=== PATIENT | female | born 1965 | race Two or more races ===

== ENCOUNTER 2016-10-19 09:50 | Inpatient (IN) | payer MEDICAID ==
[~2016-10-19] VITALS: Ht 147.3 cm; Wt 54.4 kg
[2016-10-19] MEDS ORDERED: NKM (09:56)
[2016-10-19] MEDS ORDERED: NS 1000ml 1,600 ML IVLG ONE (10:00)
[2016-10-19 11:03] LABS: BASOPHILS % (AUTO) 1.6 % (0.0-2.0); LYMPHOCYTES % (AUTO) 7.5 % (20.0-45.0); MEAN CORPUSCULAR HEMOGLOBIN 27.1 PG (27.0-31.0); MEAN CORPUSCULAR VOLUME 85 FL (80-99); MEAN PLATELET VOLUME 6.7 FL (6.5-10.1); MONOCYTES % (AUTO) 9.9 % (1.0-10.0); PLATELET COUNT 442 K/UL (150-450); RED BLOOD COUNT 4.81 M/UL (4.20-5.40); RED CELL DISTRIBUTION WIDTH 13.5 % (11.6-14.8); WHITE BLOOD COUNT 17.3 K/UL (4.8-10.8)
[2016-10-19] MEDS ORDERED: Morphine Sulfate 4mg/ml Inj IVP ONE (11:15)
[2016-10-19] MEDS ORDERED: Tubing IV Cassette IV ONE (11:22)
[2016-10-19 11:23] LABS: ALANINE AMINOTRANSFERASE 9 U/L (3-33); ALBUMIN/GLOBULIN RATIO 0.8 (1.0-2.7); ANION GAP 24 (5-15); ASPARTATE AMINO TRANSFERASE 9 U/L (5-40); CALCIUM 9.1 mg/dL (8.6-10.2); CARBON DIOXIDE 22 mEQ/L (20-30); CHLORIDE 89 mEQ/L (98-107); CREATININE 0.5 mg/dL (0.5-0.9); GLOMERULAR FILTRATION RATE > 60 mL/min (>60); HEMOLYSIS 3; POTASSIUM 3.5 mEQ/L (3.4-4.9); SODIUM 135 mEQ/L (135-145); TOTAL PROTEIN 7.3 g/dL (6.6-8.7)
[2016-10-19 11:33] LABS: CKMB < 1.5 ng/mL (< 3.8)
[2016-10-19 12:00] VITALS: BP 147/61
--- NOTE | 2016-10-19 12:25 | Diagnostic Imaging Report ---
Indication: PAIN Technique: 2 views of the right hip Comparison: None Findings: There is a right hip hemiarthroplasty prosthesis in good position. No acute fractures. No dislocations. There is an old healed medial pubic fracture. There is questionably a soft tissue defect in the lateral hip region Impression: Questionable lateral hip soft tissue defect, possibly an ulcer or laceration.. Correlate with clinical findings Postsurgical changes, as described Evidence of old healed medial pubic fracture
[2016-10-19 13:11] LABS: APPEARANCE,URINE SLIGHTLY CLOUDY; KETONES,URINE 3+ (NEGATIVE); PROTEIN,URINE 1+ (NEGATIVE)
[2016-10-19 13:12] LABS: LEUKOCYTE ESTERASE ,URINE NEGATIVE (NEGATIVE); NITRITE,URINE NEGATIVE (NEGATIVE); UROBILINOGEN,URINE NORMAL MG/DL (0.0-1.0)
[2016-10-19 13:25] LABS: BACTERIA,URINE FEW /HPF; SQUAMOUS EPITHELIAL CELL,UR FEW /LPF (NONE/OCC); WBC,URINE 0-2 /HPF (0 - 2)
[2016-10-19 14:00] VITALS: BP 128/60
[2016-10-19] MEDS ORDERED: Vancomycin 1 GM in NS 275 ML IVPB ONE (15:00)
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
[2016-10-19] MEDS ORDERED: Lidocaine 1% Plain 30 ml INJ ONE (15:30)
--- NOTE | 2016-10-19 15:59 | Diagnostic Imaging Report ---
Indication: PAIN Technique: IV administration nonionic contrast.. Spiral acquisitions obtained through the . Multiplanar reconstructions were generated. Total dose length product 316 mGycm. CTDIvol(s) 11 mGy. Radiation dose was minimized using automated exposure control Comparison: None Findings: There is a right hip hemiarthroplasty prosthesis in place. This appears well aligned and there is no worrisome periprosthetic lucency. Throws off streak artifact which could obscure pathology. Extending from the neck of the prosthesis anterolaterally to the skin surface, there is a collection which measures 8.3 cm x 5.6 cm x approximately 12 cm craniocaudad. This contains material which is higher than fluid attenuation, gas bubbles, and has an enhancing rim. Many of the gas bubbles within it are nondependent. At its cephalad extent the collection extends over the prosthesis and lateral to acetabulum. There is a complex fracture deformity of the pubic symphysis, primarily involving the right side of the pubic symphysis. This appears chronic and healed. However, there is lucency, particularly within the medial right pubic symphysis, and slight diastasis of the pubic symphysis. There is cortical irregularity of both sides of the. Most likely on the basis of chronic posttraumatic deformity, possibility of active infection as etiology of the irregularity cannot be ruled out. No acute fracture demonstrated. Incidentally noted are a Landa catheter an intrauterine device. The remaining pelvic viscera are unremarkable. The left hip is unremarkable. Impression: Rim enhancing collection containing gas and somewhat hypoattenuating material in the anterior right hip, groin, and proximal thigh region, as described. Findings are suspicious for abscess . Higher than water attenuation of the central material may indicate that this is organized material or old blood. Presence of gas bubbles is concerning for infection with gas-forming organism Satisfactory configuration of right hip prosthesis Old pubic symphyseal fracture deformity, as described. Findings may all be chronic, but considerable irregularity both sides of the pubic symphysis and fragmentation of the medial right pubic symphysis raises possibility of active infection. Correlation with clinical findings is recommended. Incidental findings as noted, including Landa catheter and intrauterine device Dr. Dorsey notified of the findings at the time of interpretation The CT scanner at [facility] is accredited by the [employer] and the scans are performed using protocols designed to limit radiation exposure to as low as reasonably achievable to attain images of sufficient resolution adequate for diagnostic evaluation.
[2016-10-19 16:00] VITALS: BP 126/65
--- NOTE | 2016-10-19 20:28 | Consultation ---
DATE OF CONSULTATION: ORTHOPEDIC CONSULTATION HISTORY OF PRESENT ILLNESS: The patient is a pleasant 51-year-old female, who underwent a right hip hemiarthroplasty in July of 2016. She subsequently was seen here. She has had acute swelling and pain in the hip. Orthopedic consult was obtained for further care and recommendation. PAST MEDICAL HISTORY: Reviewed from the intake chart. PAST SURGICAL HISTORY: Reviewed from the intake chart. MEDICATIONS: Reviewed from the intake chart. PHYSICAL EXAMINATION: EXTREMITIES: The patient has an anterior incision that is clean, dry, and intact. There is fullness along the anterior aspect of the hip consistent with a prior periprosthetic infection. NEUROVASCULAR: Normal. DIAGNOSTIC DATA: CT scan of the hip shows a significant periarticular joint infection extending all the way into the hip joint. 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 DISCUSSION: The patient was recently seen by Dr. Samaniego and had surgery at the end of 2015. The patient had multiple ER visits at [facility]. At this point, I would recommend transfer to [facility] for care of this surgical complication. The patient will require an incision and drainage, removal of the implant, and placement of an antibiotic spacer. Gabriel Collazo M.D. DR: CHEMA JOB#: [id number] CC:
[2016-10-19] MEDS ORDERED: Vancomycin 1gm inj IVPB ONE (21:51)
[2016-10-19 21:55] VITALS: BP 125/65
--- NOTE | 2016-10-19 23:05 | Emergency Room Report ---
Physical Exam Vital Signs Date Time Temp Pulse Resp B/P Pulse Ox O2 Delivery O2 Flow Rate FiO2 10/19/16 09:49 97.3 113 16 120/69 99 Room Air Medical Decision Making Diagnostic Impression: Primary Impression: Uncontrolled diabetes mellitus Qualified Codes: E13.8 - Other specified diabetes mellitus with unspecified complications; E13.65 - Other specified diabetes mellitus with hyperglycemia Additional Impressions: Post operative swelling Infected prosthesis of right hip ER Course CT shows rim-enhancing fluid collection surrounding the right hip prosthesis consistent with infection. Orthopedics here evaluated the patient determined that this is a complex case requiring hip replacement will need higher level of care transfer. He obtained records from [facility] and determined that operation was performed by Dr. Samaniego in July 2016 This is a complication of the initial operation and will require revision by by initial surgeon. Dr. samaniego accepted the patient for transfer [facility] stated that they will create a bed for the patient however there is no bed availability at this time. The patient be boarded in the emergency room until a bed is available for the patient at [facility] Last Vital Signs Date Time Temp Pulse Resp B/P Pulse Ox O2 Delivery O2 Flow Rate FiO2 10/19/16 21:55 102.1 96 18 125/65 96 Room Air Status: unchanged Disposition: XFER [facility] Condition: Serious Referrals: NOT CHOSEN AICHA/,REFERRING (PCP) AALIYAH STANLEY M.D. Oct 19, 2016 23:05
[2016-10-19 23:45] VITALS: BP 122/64
[2016-10-19] MEDS ORDERED: Ketorolac 30mg Inj IV ONE (23:45)
[2016-10-19] MEDS ORDERED: Nitroglycerin 2% oint pkt TOPIC ONE (23:52)
[2016-10-20] VITALS (8 sets, daily range): BP systolic 104–132; BP diastolic 48–66
[2016-10-20] MEDS ORDERED: Morphine Sulfate 4mg/ml Inj IVP ONE ×2 (04:30→08:00)
[2016-10-20] MEDS ORDERED: Vancomycin 1 GM in D5W 275 ML IVPB ONE (06:45)
[2016-10-20] MEDS ORDERED: Vancomycin 1gm inj IVPB ONE (06:49)
--- NOTE | 2016-10-20 07:09 | Emergency Room Report ---
History of Present Illness General Chief Complaint: Pain Source: Patient Present Illness Allergies: Coded Allergies: No Known Allergies (Unverified , 10/19/16) Patient History Now: No Nursing Documentation-PM Past Medical History: No History, Except For Hx Cardiac Problems: No - RT HIP REPLACED Jul Physical Exam Vital Signs Date Time Temp Pulse Resp B/P Pulse Ox O2 Delivery O2 Flow Rate FiO2 10/19/16 09:49 97.3 113 16 120/69 99 Room Air Medical Decision Making Diagnostic Impression: Primary Impression: Uncontrolled diabetes mellitus Qualified Codes: E13.8 - Other specified diabetes mellitus with unspecified complications; E13.65 - Other specified diabetes mellitus with hyperglycemia Additional Impressions: Infected prosthesis of right hip Post operative swelling ER Course Received report from the laboratory that the patient had 4 positive blood cultures with gram-positive change, pairs. Ordered vancomycin, insured additional doses of antibiotics as the patient has been in the ER for 20 hours. In brief the patient has a history of hip replacement, with a septic hip/ with rim-enhancing gas around the right hip, groin and thigh, suspicious for abscess. Since coming on at 6:15 AM, I've spoken with Dr. morillo and dr alva, our construction job titles and all orthopedist to believe this patient needs to be transferred to [facility] where her surgery was performed. The patient currently has stable vitals with no hypotension. And is receiving IV fluids, IV antibiotics. Contact Dr. Chan or to discuss options. The patient is been boarding in our hospital for 20 hours. The patient likely needs surgical removal of hardware and drainage. And her situation is somewhat critical. At this time the patient remains in the ER, medications to include insulin, fluids, antibiotics have been her during my shift. Multiple discussions with [facility] has arrived in no obvious bed availability. Inpatient medicine and orthopedics refused to admit the patient here patient will be maintained in the ER until bed becomes available at [facility]. Laboratory Tests Test 10/20/16 09:13 Arterial Blood pH 7.423 (7.350-7.450) Arterial Blood Partial Pressure CO2 34.5 mmHg (35.0-45.0) L Arterial Blood Partial Pressure O2 74.6 mmHg (75.0-100.0) L Arterial Blood HCO3 22.0 mmol/L (22.0-26.0) Arterial Blood Oxygen Saturation 95.4 % (92.0-98.0) Arterial Blood Base Excess -1.9 Fredy Test Positive Reevaluation Time: 13:03 Last Vital Signs Date Time Temp Pulse Resp B/P Pulse Ox O2 Delivery O2 Flow Rate FiO2 10/20/16 03:31 99.1 102 16 118/50 98 Room Air Status: unchanged Disposition: XFER [facility] HOSP Condition: Critical Referrals: NOT CHOSEN IPA/,REFERRING (PCP) Az Carmona MD Oct 20, 2016 07:09
[2016-10-20] MEDS ORDERED: Clindamycin 900mg 50 ML IVPB ONE (08:00)
[2016-10-20 09:31] LABS: ABG ALLEN TEST POSITIVE; ABG BASE EXCESS -1.9; ABG PCO2 34.5 mmHg (35.0-45.0)
[2016-10-20] MEDS ORDERED: DuoNeb 0.5-3(2.5)mg/3ml neb HHN PRN (15:00)
[2016-10-20] MEDS ORDERED: Mylanta II UD 30ml ORAL PRN (15:00)
[2016-10-20] MEDS ORDERED: Nitroglycerin Subl 0.4mg tab (Bottle Of 25) SL PRN (15:00)
[2016-10-20] MEDS ORDERED: Miralax 17gm pkt ORAL PRN (15:00)
[2016-10-20] MEDS ORDERED: Ketorolac 30mg Inj IV PRN (15:00)
[2016-10-20] MEDS ORDERED: Amikacin Rx to dose MISC PRN (15:00)
--- NOTE | 2016-10-20 15:02 | Emergency Room Report ---
History of Present Illness General Chief Complaint: Pain Source: Patient Present Illness Allergies: Coded Allergies: No Known Allergies (Unverified , 10/19/16) Patient History Now: No Nursing Documentation-PM Past Medical History: No History, Except For Hx Cardiac Problems: No - RT HIP REPLACED Jul Physical Exam Vital Signs Date Time Temp Pulse Resp B/P Pulse Ox O2 Delivery O2 Flow Rate FiO2 10/19/16 09:49 97.3 113 16 120/69 99 Room Air Medical Decision Making Diagnostic Impression: Primary Impression: Uncontrolled diabetes mellitus Qualified Codes: E13.8 - Other specified diabetes mellitus with unspecified complications; E13.65 - Other specified diabetes mellitus with hyperglycemia Additional Impressions: Infected prosthesis of right hip Post operative swelling ER Course Received signout at 230pm from Dr Perez for this 51 YO F with infected prosthesis of right hip, ?abscess seen on CT Per Dr Carmona, patient was accepted for transfer to [facility], however despite 5x calls by ED team, no available bed there. At 3pm, Dr Hermosillo informed us that he would accept patient for admission here. patient is stable in the ED, has been receiving IV Abx and analgesia as needed. patient needs Orthopedist consult, possible washout of prosthesis. This was stressed to Dr Hermosillo on admission. Previous attempts by previous ED doctors to consult Dr Collazo were made, but Dr Collazo refused consult, had recommended transfer to [facility]. Last Vital Signs Date Time Temp Pulse Resp B/P Pulse Ox O2 Delivery O2 Flow Rate FiO2 10/20/16 14:04 110 20 129/59 98 Room Air 28 10/20/16 11:19 99.1 Disposition: SHORT-TERM HOSP Condition: Critical Referrals: NOT CHOSEN AICHA/,REFERRING (PCP) MISTY BOYD M.D. Oct 20, 2016 15:02
[2016-10-20] MEDS: NovoLOG Insulin Flexpen SUBQ SCH ×2 (17:00→21:38)
[2016-10-20] MEDS: Piperacillin/Tazobactam 3.375 GM in NS 110 ML IVPB SCH (19:53)
[2016-10-20] MEDS ORDERED: Amikacin 800 MG in NS 110 ML IV ONE (21:00)
[2016-10-20] MEDS: Morphine Sulfate 2mg/ml Inj IVP PRN (21:31)
[2016-10-20] MEDS: Heparin 5000 units/ml inj SUBQ SCH (21:38)
[2016-10-21] VITALS: BP 142/58
[2016-10-21] MEDS: Morphine Sulfate 2mg/ml Inj IVP PRN (01:54)
[2016-10-21 04:00] VITALS: BP 142/58
[2016-10-21] MEDS: Piperacillin/Tazobactam 3.375 GM in NS 110 ML IVPB SCH ×3 (05:48→22:00)
[2016-10-21] MEDS: NovoLOG Insulin Flexpen SUBQ SCH ×4 (06:11→20:57)
[2016-10-21] MEDS: Heparin 5000 units/ml inj SUBQ SCH ×2 (09:00→20:50)
--- NOTE | 2016-10-21 17:01 | History and Physical ---
History of Present Illness General Date patient seen: Oct 21, 2016 Reason for Hospitalization: Pain Present Illness HPI 51 year old female with hx of recent right hip replacement at [facility]. She states that her hip is swollen and very painful. She states she has been unable to walk. She was diagnosed to have infected joint. Er physicians tried to transfer her to [facility]. But like always, they didn't have a bed. Allergies: Coded Allergies: No Known Allergies (Unverified , 10/19/16) Medication History Scheduled No Known Medications* (NKM - No Known Medications*), 0 ., (Reported) Patient History Healthcare decision maker Resuscitation status Full Code Advanced Directive on File Past Medical/Surgical History Past Medical/Surgical History: (1) Homeless Review of Systems All Other Systems: negative except mentioned in HPI Physical Exam Lines, tubes and drains: peripheral HEENT: normocephalic Neck: non-tender Respiratory/Chest: chest wall non-tender, lungs clear Abdomen: normal bowel sounds, non tender Genitourinary/Rectal: normal genital exam Last 24 Hour Vital Signs Date Time Temp Pulse Resp B/P Pulse Ox O2 Delivery O2 Flow Rate FiO2 10/21/16 04:00 97.9 91 20 142/58 94 Room Air 10/21/16 02:24 97.9 10/21/16 00:00 97.9 91 20 142/58 94 Room Air 10/20/16 19:00 96.4 85 20 117/66 Room Air 10/20/16 19:00 96.4 85 20 117/66 97 Room Air 10/20/16 17:30 97 18 122/57 99 Room Air Intake and Output 10/20/16 10/21/16 18:59 06:59 Intake Total 975 ml 1513.5 ml Output Total 230 ml Balance 975 ml 1283.5 ml Intake Oral 600 ml IV Total 975 ml 913.5 ml Output Urine Total 230 ml # Voids 3 Microbiology Date/Time Source Procedure Growth Status 10/20/16 20:00 Leg Right Gram Stain - Final Resulted 10/20/16 20:00 Leg Right Wound Culture Pending Resulted Height (Feet): 4 Height (Inches): 10.00 Weight (Pounds): 120 Medications Current Medications Medications (Trade) Dose Ordered Sig/Manda Route PRN Reason Start Time Stop Time Status Last Admin Dose Admin Acetaminophen (Tylenol) 650 mg Q4H PRN ORAL fever 10/20/16 15:00 11/19/16 14:59 Al Hydroxide/Mg Hydroxide (Mylanta II) 30 ml Q6H PRN ORAL dyspepsia 10/20/16 15:00 11/19/16 14:59 Albuterol/ Ipratropium (DuoNeb 0.5-3(2.5)mg/3ml) 3 ml Q4H PRN HHN Shortness of Breath 10/20/16 15:00 10/25/16 14:59 Amikacin Protocol (Amikacin pharmacy to dose) 1 ea DAILY PRN MISC Per rx protocol 10/20/16 15:00 11/19/16 14:59 Clonidine HCl (Catapres) 0.1 mg Q4H PRN ORAL sbp more than 160 10/20/16 15:00 11/19/16 14:59 Dextrose (Dextrose 50%) STAT PRN IV Hypoglycemia 10/20/16 15:00 11/19/16 14:59 Heparin Sodium (Porcine) (Heparin 5000 units/ml) 5,000 units EVERY 12 HOURS SUBQ 10/20/16 21:00 11/19/16 20:59 10/20/16 21:38 Insulin Aspart (NovoLOG) BEFORE MEALS AND HS SUBQ 10/20/16 17:15 11/19/16 17:14 10/20/16 21:38 Ketorolac Tromethamine (Toradol 30mg) 30 mg Q6H PRN IV moderate pain 4-6 10/20/16 15:00 10/25/16 14:59 Morphine Sulfate (Morphine Sulfate) 2 mg Q4H PRN IVP severe pain 7-10 10/20/16 15:00 10/27/16 14:59 10/21/16 01:54 Nitroglycerin (Ntg) 0.4 mg Q5M X 3 DOSES PRN SL Prn Chest Pain 10/20/16 15:00 11/19/16 14:59 Ondansetron HCl (Zofran) 4 mg Q6H PRN IVP Nausea & Vomiting 10/20/16 15:00 11/19/16 14:59 10/21/16 02:02 Piperacillin Sod/ Tazobactam Sod/ Sodium Chloride (Zosyn/Sodium Chloride) 110 ml @ 27.5 mls/hr Q8HR IVPB 10/20/16 19:30 10/27/16 19:29 10/21/16 05:48 Polyethylene Glycol (Miralax) 17 gm HSPRN PRN ORAL Constipation 10/20/16 15:00 11/19/16 14:59 Sodium Chloride 1,000 ml @ 100 mls/hr Q10H IV 10/20/16 08:00 11/19/16 07:59 10/20/16 19:02 Sodium Chloride (Sodium Chloride 1000ml bag) 1,000 ml @ 100 mls/hr Q10H IVLG 10/20/16 17:00 11/19/16 16:59 Future Hold Temazepam (Restoril) 15 mg HSPRN PRN ORAL Insomnia 10/20/16 15:00 10/27/16 14:59 Vancomycin HCl 1 ea 1 ea DAILY PRN MISC Per rx protocol 10/20/16 15:00 11/19/16 14:59 Assessment/Plan Problem List: (1) Infected prosthesis of right hip ICD Codes: T84.51XA - Infection and inflammatory reaction due to internal right hip prosthesis, initial encounter SNOMED: 207581009, [id number] (2) Uncontrolled diabetes mellitus ICD Codes: E11.65 - Type 2 diabetes mellitus with hyperglycemia SNOMED: 058866593, [id number] Qualifiers: Qualified Codes: E13.8 - Other specified diabetes mellitus with unspecified complications; E13.65 - Other specified diabetes mellitus with hyperglycemia (3) Homeless ICD Codes: Z59.0 - Homelessness SNOMED: 40357855, [id number] Assessment/Plan IV antibiotics sliding scale transfer to higher level of care when bed available. JOSUE PICKETT Oct 21, 2016 17:01
--- NOTE | 2016-10-21 17:02 | Consultation ---
Consult Note Consult Note ID CONSULT: Chiquis# [id number] Assessment/Plan ASSESSMENT: 51 y/o female with: // Post-op right hip abscess - WCx pending - CT: Rim enhancing collection containing gas and somewhat hypoattenuating material in the anterior right hip, groin, and proximal thigh region. Findings are suspicious for abscess - SP right JAN 07/2016 // GBS.agalactiae bacteremia 12/14 // Leukocytosis - no repeat CBC // Fever - improved // DM with hyperglycemia // MRSA colonized // NKDA // Full Code PLAN: - continue empiric IV vancomycin, zosyn d# 2. DC amikacin d# 2 - needs I&D - ortho recommended transfer to [facility] - repeat BCx to document - f/u WCx - monitor CBC, temperatures - monitor BMP Thanks! Will follow GEORGE BARRAZA Oct 21, 2016 17:02
--- NOTE | 2016-10-21 17:05 | Pulmonology Progress Note ---
Assessment/Plan Problems: (1) Infected prosthesis of right hip (2) Uncontrolled diabetes mellitus (3) Homeless Assessment/Plan iv antibiotics check cultures awaiting transfer to higher level of care. Subjective ROS Limited/Unobtainable: No Constitutional: Reports: no symptoms HEENT: Repors: no symptoms Respiratory: Reports: no symptoms Allergies: Coded Allergies: No Known Allergies (Unverified , 10/19/16) Objective Last 24 Hour Vital Signs Date Time Temp Pulse Resp B/P Pulse Ox O2 Delivery O2 Flow Rate FiO2 10/21/16 04:00 97.9 91 20 142/58 94 Room Air 10/21/16 02:24 97.9 10/21/16 00:00 97.9 91 20 142/58 94 Room Air 10/20/16 19:00 96.4 85 20 117/66 Room Air 10/20/16 19:00 96.4 85 20 117/66 97 Room Air 10/20/16 17:30 97 18 122/57 99 Room Air Intake and Output 10/20/16 10/21/16 18:59 06:59 Intake Total 975 ml 1513.5 ml Output Total 230 ml Balance 975 ml 1283.5 ml Intake Oral 600 ml IV Total 975 ml 913.5 ml Output Urine Total 230 ml # Voids 3 General Appearance: WD/WN HEENT: normocephalic, atraumatic Respiratory/Chest: chest wall non-tender, lungs clear Cardiovascular: normal peripheral pulses, normal rate Abdomen: normal bowel sounds, soft, non tender Genitourinary: normal external genitalia Skin: no rash Neurologic/Psychiatric: stain maker II-XII grossly normal Microbiology Date/Time Source Procedure Growth Status 10/19/16 10:45 Blood Blood Culture - Preliminary Strep Agalactiae Group B Resulted 10/19/16 10:35 Blood Blood Culture - Preliminary Strep Agalactiae Group B Resulted 10/19/16 10:15 Nasal Nares MRSA Culture - Final Staphylococcus Aureus - Mrsa Complete 10/20/16 20:00 Leg Right Gram Stain - Final Resulted 10/20/16 20:00 Leg Right Wound Culture Pending Resulted 10/19/16 10:15 Rectum VRE Culture - Final NO VANCOMYCIN RESISTANT ENTEROCOCCUS ... Complete Current Medications Medications (Trade) Dose Ordered Sig/Manda Route PRN Reason Start Time Stop Time Status Last Admin Dose Admin Acetaminophen (Tylenol) 650 mg Q4H PRN ORAL fever 10/20/16 15:00 11/19/16 14:59 Al Hydroxide/Mg Hydroxide (Mylanta II) 30 ml Q6H PRN ORAL dyspepsia 10/20/16 15:00 11/19/16 14:59 Albuterol/ Ipratropium (DuoNeb 0.5-3(2.5)mg/3ml) 3 ml Q4H PRN HHN Shortness of Breath 10/20/16 15:00 10/25/16 14:59 Amikacin Protocol (Amikacin pharmacy to dose) 1 ea DAILY PRN MISC Per rx protocol 10/20/16 15:00 11/19/16 14:59 Clonidine HCl (Catapres) 0.1 mg Q4H PRN ORAL sbp more than 160 10/20/16 15:00 11/19/16 14:59 Dextrose (Dextrose 50%) STAT PRN IV Hypoglycemia 10/20/16 15:00 11/19/16 14:59 Heparin Sodium (Porcine) (Heparin 5000 units/ml) 5,000 units EVERY 12 HOURS SUBQ 10/20/16 21:00 11/19/16 20:59 10/20/16 21:38 Insulin Aspart (NovoLOG) BEFORE MEALS AND HS SUBQ 10/20/16 17:15 11/19/16 17:14 10/20/16 21:38 Ketorolac Tromethamine (Toradol 30mg) 30 mg Q6H PRN IV moderate pain 4-6 10/20/16 15:00 10/25/16 14:59 Morphine Sulfate (Morphine Sulfate) 2 mg Q4H PRN IVP severe pain 7-10 10/20/16 15:00 10/27/16 14:59 10/21/16 01:54 Nitroglycerin (Ntg) 0.4 mg Q5M X 3 DOSES PRN SL Prn Chest Pain 10/20/16 15:00 11/19/16 14:59 Ondansetron HCl (Zofran) 4 mg Q6H PRN IVP Nausea & Vomiting 10/20/16 15:00 11/19/16 14:59 10/21/16 02:02 Piperacillin Sod/ Tazobactam Sod/ Sodium Chloride (Zosyn/Sodium Chloride) 110 ml @ 27.5 mls/hr Q8HR IVPB 2/8/17 19:30 10/27/16 19:29 10/21/16 05:48 Polyethylene Glycol (Miralax) 17 gm HSPRN PRN ORAL Constipation 10/20/16 15:00 11/19/16 14:59 Sodium Chloride 1,000 ml @ 100 mls/hr Q10H IV 10/20/16 08:00 11/19/16 07:59 10/20/16 19:02 Sodium Chloride (Sodium Chloride 1000ml bag) 1,000 ml @ 100 mls/hr Q10H IVLG 10/20/16 17:00 11/19/16 16:59 Future Hold Temazepam (Restoril) 15 mg HSPRN PRN ORAL Insomnia 10/20/16 15:00 10/27/16 14:59 Vancomycin HCl 1 ea 1 ea DAILY PRN MISC Per rx protocol 10/20/16 15:00 11/19/16 14:59 JOSUE PICKETT Oct 21, 2016 17:05
--- NOTE | 2016-10-21 20:30 | Wound Nurse Progress Note ---
Wound RN Progress Note Wound Consult Saw this Pt today. Pt refused to have a body assessment. she stated "I don't need you to see my wounds. you know I have wounds. get out of my room" ELHAM CRUZ RN Oct 21, 2016 20:30
--- NOTE | 2016-10-21 22:58 | Consultation ---
DATE OF CONSULTATION: 10/21/2016 INFECTIOUS DISEASE CONSULTATION CONSULTING PHYSICIAN: Jasmeet Salmeron M.D. REQUESTING PHYSICIAN: Miguel Hermosillo M.D. REASON FOR CONSULTATION: Postoperative wound infection. HISTORY OF PRESENT ILLNESS: This is a 51-year-old diabetic female, admitted on 10/19/2016 with right hip pain. The patient is status post right hip replacement in July 2016. A CT of the hip shows right hip abscess. She has been seen by orthopedics and recommended for transfer to [facility] for surgery. Hospital course has been complicated by group B strep agalactiae bacteremia, leukocytosis, and fevers. The patient is currently receiving IV vancomycin, Zosyn, and amikacin and ID now consulted to assist in management. PAST MEDICAL HISTORY: 1. Osteoarthritis. 2. Uncontrolled diabetes. PAST SURGICAL HISTORY: Right hip replacement in July 2016. MEDICATIONS: 1. Vancomycin. 2. Zosyn. 3. Amikacin. 4. Subcutaneous heparin. ALLERGIES: No known drug allergies SOCIAL HISTORY: Denies tobacco abuse. FAMILY HISTORY: Noncontributory. REVIEW OF SYSTEMS: As per history of present illness. Ten systems reviewed. All pertinent positives and negatives noted. PHYSICAL EXAMINATION: VITAL SIGNS: Maximum temperature 102.1 degrees, blood pressure 142/58, heart rate in the 90s, respiratory rate 20, and saturating 94% on room air. GENERAL: The patient is agitated. CARDIOVASCULAR: Regular rate and rhythm. No murmurs. PULMONARY: Clear to auscultation bilaterally. ABDOMEN: Bowel sounds present. Soft, nondistended, and nontender. EXTREMITIES: Right hip swelling and pain. LABORATORY DATA: White blood cell count 17.3 with left shift. Hemoglobin 13 and platelets 442,000. Sodium 135, potassium 3.5, chloride 89, bicarbonate 22, BUN 10, and creatinine 0.5. AST 9, ALT 9, and alkaline phosphatase 116. Total bilirubin 0.4. Albumin 3.3. Lactic acid 1.7. MICROBIOLOGY: 1. On 10/20/2016, wound culture, pending. 2. On 10/19/2016, blood culture, group B Streptococcus agalactiae in 4/4 sets. IMAGING: Reviewed. ASSESSMENT: 1. Postoperative right hip abscess. Wound culture is pending. CT shows an enhancing collection containing gas suspicious for abscess. She is status post right total hip arthroplasty in July 2016. 2. Group B Streptococcus agalactiae bacteremia. 3. Leukocytosis. 4. Fever, improved. 5. Diabetes with hyperglycemia. 6. Methicillin-resistant Staphylococcus aureus colonized. 7. No known drug allergies. 8. Full Code. PLAN: 1. Continue empiric IV vancomycin and Zosyn day #2. 2. Discontinue amikacin day #2. 3. The patient needs incision and drainage. Orthopedics has recommended transfer to [facility] for this to be performed. 4. Blood culture to document clearance. 5. Follow up wound culture. 6. Monitor CBC and temperatures. 7. Monitor BMP. Thank you. We will follow. Jasmeet Salmeron M.D. DR: DOMINGA JOB#: [id number] CC: Devin Obrien M.D. Arash Alborzi, M.D
[2016-10-22] MEDS: Piperacillin/Tazobactam 3.375 GM in NS 110 ML IVPB SCH ×3 (05:55→21:43)
[2016-10-22] MEDS: NovoLOG Insulin Flexpen SUBQ SCH ×4 (06:27→21:00)
[2016-10-22] MEDS: Heparin 5000 units/ml inj SUBQ SCH ×2 (09:00→21:00)
--- NOTE | 2016-10-22 15:19 | Infectious Diseases Prog Note ---
Assessment/Plan Assessment/Plan ASSESSMENT: 51 y/o female with: // Post-op right hip abscess - WCx GBS.agalactiae - CT: Rim enhancing collection containing gas and somewhat hypoattenuating material in the anterior right hip, groin, and proximal thigh region. Findings are suspicious for abscess - SP right JAN 07/2016 // GBS.agalactiae bacteremia 12/14 - repeat BCx pending // Leukocytosis - refused repeat CBC // Fever - improved // DM with hyperglycemia // MRSA colonized // NKDA // Full Code PLAN: - continue empiric IV vancomycin, zosyn d# 3 ( 10/21 SP amikacin d# 2 ) - needs I&D - ortho recommended transfer to [facility] - f/u cultures - monitor CBC, temperatures - monitor BMP Subjective Allergies: Coded Allergies: No Known Allergies (Unverified , 10/19/16) Subjective refusing vitals, labs awaiting bed at [facility] Objective Height (Feet): 4 Height (Inches): 10.00 Weight (Pounds): 120 General Appearance: no acute distress Respiratory/Chest: no respiratory distress Cardiovascular: normal rate, regular rhythm Abdomen: normal bowel sounds, soft, non tender, non distended Microbiology Date/Time Source Procedure Growth Status 10/20/16 20:00 Leg Right Gram Stain - Final Resulted 10/20/16 20:00 Wound Culture - Preliminary Strep Agalactiae Group B Resulted Current Medications Medications (Trade) Dose Ordered Sig/Manda Route PRN Reason Start Time Stop Time Status Last Admin Dose Admin Acetaminophen (Tylenol) 650 mg Q4H PRN ORAL fever 10/20/16 15:00 11/19/16 14:59 Al Hydroxide/Mg Hydroxide (Mylanta II) 30 ml Q6H PRN ORAL dyspepsia 10/20/16 15:00 11/19/16 14:59 Albuterol/ Ipratropium (DuoNeb 0.5-3(2.5)mg/3ml) 3 ml Q4H PRN HHN Shortness of Breath 10/20/16 15:00 10/25/16 14:59 Clonidine HCl (Catapres) 0.1 mg Q4H PRN ORAL sbp more than 160 10/20/16 15:00 11/19/16 14:59 Dextrose (Dextrose 50%) STAT PRN IV Hypoglycemia 10/20/16 15:00 11/19/16 14:59 Heparin Sodium (Porcine) (Heparin 5000 units/ml) 5,000 units EVERY 12 HOURS SUBQ 10/20/16 21:00 11/19/16 20:59 10/21/16 20:50 Insulin Aspart (NovoLOG) BEFORE MEALS AND HS SUBQ 10/20/16 17:15 11/19/16 17:14 10/20/16 21:38 Ketorolac Tromethamine (Toradol 30mg) 30 mg Q6H PRN IV moderate pain 4-6 10/20/16 15:00 10/25/16 14:59 Morphine Sulfate (Morphine Sulfate) 2 mg Q4H PRN IVP severe pain 7-10 10/20/16 15:00 10/27/16 14:59 10/21/16 01:54 Nitroglycerin (Ntg) 0.4 mg Q5M X 3 DOSES PRN SL Prn Chest Pain 10/20/16 15:00 11/19/16 14:59 Ondansetron HCl (Zofran) 4 mg Q6H PRN IVP Nausea & Vomiting 10/20/16 15:00 11/19/16 14:59 10/21/16 02:02 Piperacillin Sod/ Tazobactam Sod 3.375 gm/Sodium Chloride 110 ml @ 27.5 mls/hr Q8HR IVPB 10/20/16 19:30 10/27/16 19:29 10/21/16 05:48 Polyethylene Glycol (Miralax) 17 gm HSPRN PRN ORAL Constipation 10/20/16 15:00 11/19/16 14:59 Sodium Chloride (Sodium Chloride 1000ml bag) 1,000 ml @ 100 mls/hr Q10H IVLG 10/20/16 17:00 11/19/16 16:59 Future hold Temazepam (Restoril) 15 mg HSPRN PRN ORAL Insomnia 10/20/16 15:00 10/27/16 14:59 Vancomycin HCl 1 ea 1 ea DAILY PRN MISC Per rx protocol 10/20/16 15:00 11/19/16 14:59 Vancomycin HCl/ Dextrose (Vancomycin/D5W) 275 ml @ 183.708 mls/hr Q12H IVPB 10/22/16 17:00 10/27/16 16:59 GEORGE BARRAZA 10, 2017 15:19
[2016-10-22] MEDS: Vancomycin 750mg/D5W 275ml IVPB SCH ×2 (17:00)
--- NOTE | 2016-10-22 17:32 | Pulmonology Progress Note ---
Assessment/Plan Problems: (1) Infected prosthesis of right hip (2) Uncontrolled diabetes mellitus (3) Homeless Assessment/Plan iv antibiotics check cultures awaiting transfer to higher level of care. Subjective ROS Limited/Unobtainable: No Constitutional: Reports: no symptoms HEENT: Repors: no symptoms Respiratory: Reports: no symptoms Allergies: Coded Allergies: No Known Allergies (Unverified , 10/19/16) Objective Intake and Output 10/21/16 10/22/16 19:00 07:00 Intake Total 0 ml 720 ml Output Total 900 ml Balance -900 ml 720 ml Intake Oral 0 ml 720 ml Output Urine Total 900 ml # Voids 4 General Appearance: WD/WN HEENT: normocephalic, atraumatic Respiratory/Chest: chest wall non-tender, lungs clear Breasts: no masses Cardiovascular: normal rate, no JVD Abdomen: normal bowel sounds, soft, non tender Microbiology Date/Time Source Procedure Growth Status 10/20/16 20:00 Leg Right Gram Stain - Final Resulted 10/20/16 20:00 Wound Culture - Preliminary Strep Agalactiae Group B Resulted Current Medications Medications (Trade) Dose Ordered Sig/Manda Route PRN Reason Start Time Stop Time Status Last Admin Dose Admin Acetaminophen (Tylenol) 650 mg Q4H PRN ORAL fever 10/20/16 15:00 11/19/16 14:59 Al Hydroxide/Mg Hydroxide (Mylanta II) 30 ml Q6H PRN ORAL dyspepsia 10/20/16 15:00 11/19/16 14:59 Albuterol/ Ipratropium (DuoNeb 0.5-3(2.5)mg/3ml) 3 ml Q4H PRN HHN Shortness of Breath 10/20/16 15:00 10/25/16 14:59 Clonidine HCl (Catapres) 0.1 mg Q4H PRN ORAL sbp more than 160 10/20/16 15:00 11/19/16 14:59 Dextrose (Dextrose 50%) STAT PRN IV Hypoglycemia 10/20/16 15:00 11/19/16 14:59 Heparin Sodium (Porcine) (Heparin 5000 units/ml) 5,000 units EVERY 12 HOURS SUBQ 10/20/16 21:00 11/19/16 20:59 10/21/16 20:50 Insulin Aspart (NovoLOG) BEFORE MEALS AND HS SUBQ 10/20/16 17:15 11/19/16 17:14 10/20/16 21:38 Ketorolac Tromethamine (Toradol 30mg) 30 mg Q6H PRN IV moderate pain 4-6 10/20/16 15:00 10/25/16 14:59 Morphine Sulfate (Morphine Sulfate) 2 mg Q4H PRN IVP severe pain 7-10 10/20/16 15:00 10/27/16 14:59 10/21/16 01:54 Nitroglycerin (Ntg) 0.4 mg Q5M X 3 DOSES PRN SL Prn Chest Pain 10/20/16 15:00 11/19/16 14:59 Ondansetron HCl (Zofran) 4 mg Q6H PRN IVP Nausea & Vomiting 10/20/16 15:00 11/19/16 14:59 10/21/16 02:02 Piperacillin Sod/ Tazobactam Sod 3.375 gm/Sodium Chloride 110 ml @ 27.5 mls/hr Q8HR IVPB 10/20/16 19:30 10/27/16 19:29 10/21/16 05:48 Polyethylene Glycol (Miralax) 17 gm HSPRN PRN ORAL Constipation 10/20/16 15:00 11/19/16 14:59 Sodium Chloride (Sodium Chloride 1000ml bag) 1,000 ml @ 100 mls/hr Q10H IVLG 10/20/16 17:00 11/19/16 16:59 Future hold Temazepam (Restoril) 15 mg HSPRN PRN ORAL Insomnia 10/20/16 15:00 10/27/16 14:59 Vancomycin HCl 1 ea 1 ea DAILY PRN MISC Per rx protocol 10/20/16 15:00 11/19/16 14:59 Vancomycin HCl/ Dextrose (Vancomycin/D5W) 275 ml @ 183.708 mls/hr Q12H IVPB 10/22/16 17:00 10/27/16 16:59 JOSUE PICKETT Oct 22, 2016 17:32
[2016-10-22] MEDS: Norco 10mg/325mg tab ORAL PRN (19:53)
[2016-10-23] VITALS: BP 134/70
[2016-10-23] MEDS: Norco 10mg/325mg tab ORAL PRN ×2 (02:11→18:18)
[2016-10-23 04:00] VITALS: BP 132/73
[2016-10-23] MEDS: Vancomycin 750mg/D5W 275ml IVPB SCH ×4 (05:00→17:00)
[2016-10-23] MEDS: Piperacillin/Tazobactam 3.375 GM in NS 110 ML IVPB SCH ×3 (05:45→21:33)
[2016-10-23] MEDS: NovoLOG Insulin Flexpen SUBQ SCH ×4 (05:45→20:24)
[2016-10-23] MEDS: Heparin 5000 units/ml inj SUBQ SCH ×2 (09:00→20:23)
[2016-10-23 16:00] VITALS: BP 136/70
[2016-10-23] MEDS ORDERED: Tubing IV Secondary IV ONE (17:11)
[2016-10-23] MEDS ORDERED: NS 550ML IV ONE (17:11)
--- NOTE | 2016-10-23 18:25 | Pulmonology Progress Note ---
Assessment/Plan Problems: (1) Infected prosthesis of right hip (2) Uncontrolled diabetes mellitus (3) Homeless Assessment/Plan iv antibiotics check cultures awaiting transfer to higher level of care. sliding scale diabetic diet Subjective ROS Limited/Unobtainable: No Allergies: Coded Allergies: No Known Allergies (Unverified , 10/19/16) Objective Last 24 Hour Vital Signs Date Time Temp Pulse Resp B/P Pulse Ox O2 Delivery O2 Flow Rate FiO2 10/23/16 16:00 97.4 70 17 136/70 100 Room Air 10/23/16 04:00 97.9 69 18 132/73 98 Room Air 10/23/16 03:10 97.3 10/23/16 00:00 97.3 67 18 134/70 98 Room Air Intake and Output 10/22/16 10/23/16 19:00 07:00 Intake Total 600 ml 1220 ml Balance 600 ml 1220 ml Intake Oral 600 ml 1220 ml # Voids 3 6 # Bowel Movements 1 2 Objective General Appearance: WD/WN, no apparent distress, alert EENT: PERRL/EOMI, normal ENT inspection, TMs normal, hair lose. Neck: non-tender, normal alignment, supple, normal inspection Cardiovascular: normal peripheral pulses, normal rate, regular rhythm, no murmur. Respiratory/Chest: CTA, crackles/rales, rhonchi , no wheezing Abdomen: normal bowel sounds, non tender, soft, no mass Extremities: normal range of motion, non-tender Neurologic: kennel attendant II-XII grossly normal, Moving all extremities. Skin: normal pigmentation, warm/dry Microbiology Date/Time Source Procedure Growth Status 10/20/16 20:00 Leg Right Gram Stain - Final Resulted 10/20/16 20:00 Wound Culture - Preliminary Strep Agalactiae Group B Resulted Current Medications Medications (Trade) Dose Ordered Sig/Manda Route PRN Reason Start Time Stop Time Status Last Admin Dose Admin Acetaminophen (Tylenol) 650 mg Q4H PRN ORAL fever 10/20/16 15:00 11/19/16 14:59 Acetaminophen/ Hydrocodone Bitart ([place] 10/325) 1 ea Q6H PRN ORAL Breakthrough Pain 10/22/16 19:45 10/29/16 19:44 10/23/16 18:18 Al Hydroxide/Mg Hydroxide (Mylanta II) 30 ml Q6H PRN ORAL dyspepsia 10/20/16 15:00 11/19/16 14:59 Albuterol/ Ipratropium (DuoNeb 0.5-3(2.5)mg/3ml) 3 ml Q4H PRN HHN Shortness of Breath 10/20/16 15:00 10/25/16 14:59 Clonidine HCl (Catapres) 0.1 mg Q4H PRN ORAL sbp more than 160 10/20/16 15:00 11/19/16 14:59 Dextrose (Dextrose 50%) STAT PRN IV Hypoglycemia 10/20/16 15:00 11/19/16 14:59 Heparin Sodium (Porcine) (Heparin 5000 units/ml) 5,000 units EVERY 12 HOURS SUBQ 10/20/16 21:00 11/19/16 20:59 10/22/16 21:00 Insulin Aspart (NovoLOG) BEFORE MEALS AND HS SUBQ 10/20/16 17:15 11/19/16 17:14 10/20/16 21:38 Ketorolac Tromethamine (Toradol 30mg) 30 mg Q6H PRN IV moderate pain 4-6 10/20/16 15:00 10/25/16 14:59 Morphine Sulfate (Morphine Sulfate) 2 mg Q4H PRN IVP severe pain 7-10 10/20/16 15:00 10/27/16 14:59 10/21/16 01:54 Nitroglycerin (Ntg) 0.4 mg Q5M X 3 DOSES PRN SL Prn Chest Pain 10/20/16 15:00 11/19/16 14:59 Ondansetron HCl (Zofran) 4 mg Q6H PRN IVP Nausea & Vomiting 10/20/16 15:00 11/19/16 14:59 10/21/16 02:02 Piperacillin Sod/ Tazobactam Sod 3.375 gm/Sodium Chloride 110 ml @ 27.5 mls/hr Q8HR IVPB 10/20/16 19:30 10/27/16 19:29 10/21/16 05:48 Polyethylene Glycol (Miralax) 17 gm HSPRN PRN ORAL Constipation 10/20/16 15:00 11/19/16 14:59 Sodium Chloride (Sodium Chloride 1000ml bag) 1,000 ml @ 100 mls/hr Q10H IVLG 10/20/16 17:00 11/19/16 16:59 Future hold Temazepam (Restoril) 15 mg HSPRN PRN ORAL Insomnia 10/20/16 15:00 10/27/16 14:59 Vancomycin HCl 1 ea 1 ea DAILY PRN MISC Per rx protocol 10/20/16 15:00 11/19/16 14:59 Vancomycin HCl/ Dextrose (Vancomycin/D5W) 275 ml @ 183.708 mls/hr Q12H IVPB 10/22/16 17:00 10/27/16 16:59 JOSUE PICKETT Oct 23, 2016 18:25
[2016-10-23 20:00] VITALS: BP 121/61
[2016-10-24] VITALS: BP 148/82
[2016-10-24] MEDS: Norco 10mg/325mg tab ORAL PRN ×3 (00:35→19:05)
[2016-10-24 04:00] VITALS: BP 138/82
[2016-10-24] MEDS: Vancomycin 750mg/D5W 275ml IVPB SCH ×2 (05:00)
[2016-10-24] MEDS: Piperacillin/Tazobactam 3.375 GM in NS 110 ML IVPB SCH (06:00)
[2016-10-24] MEDS: NovoLOG Insulin Flexpen SUBQ SCH ×7 (06:30→21:00)
[2016-10-24 08:17] VITALS: BP 126/71
[2016-10-24] MEDS ORDERED: Levemir Flexpen SUBQ SCH (09:00)
[2016-10-24] MEDS: Heparin 5000 units/ml inj SUBQ SCH ×2 (09:00→21:58)
[2016-10-24] MEDS ORDERED: TYLENOL650 MG/20. ORAL (09:59)
[2016-10-24] MEDS ORDERED: MYLANTA30 M1 ORAL (10:02)
[2016-10-24] MEDS ORDERED: CLONIDINE0.1 MG ORAL (10:03)
[2016-10-24] MEDS ORDERED: HEPARIN SO5000 UNIT2 SUBQ (10:13)
[2016-10-24] MEDS ORDERED: NORCO 10-325 T1 EACH ORAL (10:14)
[2016-10-24] MEDS ORDERED: NOVOLOG100 UNIT/3 SUBQ ×2 (10:18→10:20)
[2016-10-24] MEDS ORDERED: IPRATROPIU0.2 MG/1 M HHN (10:21)
[2016-10-24] MEDS ORDERED: KETOROLAC15 MG/1 M2 IJ (10:23)
[2016-10-24] MEDS ORDERED: MORPHINE 22 MG/1 ML IV (10:24)
[2016-10-24] MEDS ORDERED: LEVEMIR100 UNIT/1 SUBQ (10:24)
[2016-10-24] MEDS ORDERED: NITROGLYCERIN0.4 MG SL (10:26)
[2016-10-24] MEDS ORDERED: ZOFRAN 4 MG4 MG/2 ML IV (10:39)
[2016-10-24] MEDS ORDERED: MIRALAX17 G2 ORAL (10:40)
[2016-10-24] MEDS ORDERED: ZOSYN 3.373.375 GM/1 IVPB (10:40)
[2016-10-24] MEDS ORDERED: RESTORIL15 MG ORAL (10:41)
[2016-10-24] MEDS ORDERED: VANCOMYCIN HCL750 MG IV (10:46)
--- NOTE | 2016-10-24 11:26 | Infectious Diseases Prog Note ---
Assessment/Plan Assessment/Plan ASSESSMENT: 51 y/o female with: // Post-op right hip abscess - WCx GBS.agalactiae - CT: Rim enhancing collection containing gas and somewhat hypoattenuating material in the anterior right hip, groin, and proximal thigh region. Findings are suspicious for abscess - SP right JAN 07/2016 // GBS.agalactiae bacteremia 12/14 // Leukocytosis - refused repeat CBC // Fever -SP // DM with hyperglycemia // MRSA colonized // NKDA // Full Code PLAN: - on IV vancomycin, zosyn d# 5 , de-escalate to Ancef d# 1 ( 10/21 SP amikacin d# 2 ) - needs I&D - ortho recommended transfer to [facility] - f/u cultures - monitor CBC, temperatures - monitor BMP Subjective Constitutional: Denies: anorexia, chills, drenching sweats, fatigue, fever, no symptoms, other Allergies: Coded Allergies: No Known Allergies (Unverified , 10/19/16) Objective Vital Signs Last 24 Hour Vital Signs Date Time Temp Pulse Resp B/P Pulse Ox O2 Delivery O2 Flow Rate FiO2 10/24/16 08:17 97.6 74 19 126/71 98 Room Air 10/24/16 04:00 98.1 81 20 138/82 94 Room Air 10/24/16 00:00 97.9 68 19 148/82 96 Room Air 10/23/16 20:00 97.8 79 19 121/61 94 Room Air 10/23/16 16:00 97.4 70 17 136/70 100 Room Air Height (Feet): 4 Height (Inches): 10.00 Weight (Pounds): 120 HEENT: anicteric Respiratory/Chest: lungs clear Cardiovascular: regularly irregular Abdomen: no organomegaly Current Medications Medications (Trade) Dose Ordered Sig/Manda Route PRN Reason Start Time Stop Time Status Last Admin Dose Admin Acetaminophen (Tylenol) 650 mg Q4H PRN ORAL fever 10/20/16 15:00 11/19/16 14:59 Acetaminophen/ Hydrocodone Bitart ([place] 10/325) 1 ea Q6H PRN ORAL Breakthrough Pain 10/22/16 19:45 10/29/16 19:44 10/24/16 06:21 Al Hydroxide/Mg Hydroxide (Mylanta II) 30 ml Q6H PRN ORAL dyspepsia 10/20/16 15:00 11/19/16 14:59 Albuterol/ Ipratropium (DuoNeb 0.5-3(2.5)mg/3ml) 3 ml Q4H PRN HHN Shortness of Breath 10/20/16 15:00 10/25/16 14:59 Clonidine HCl (Catapres) 0.1 mg Q4H PRN ORAL sbp more than 160 10/20/16 15:00 11/19/16 14:59 Dextrose (Dextrose 50%) STAT PRN IV Hypoglycemia 10/24/16 06:45 11/23/16 06:44 Dextrose (Dextrose 50%) STAT PRN IV Hypoglycemia 10/20/16 15:00 11/19/16 14:59 Heparin Sodium (Porcine) (Heparin 5000 units/ml) 5,000 units EVERY 12 HOURS SUBQ 10/20/16 21:00 11/19/16 20:59 10/22/16 21:00 Insulin Aspart (NovoLOG) BEFORE MEALS AND HS SUBQ 10/20/16 17:15 11/19/16 17:14 10/20/16 21:38 Insulin Aspart (NovoLOG) 4 units NOVOTIAC SUBQ 10/24/16 06:45 11/23/16 06:44 Insulin Detemir (Levemir) 14 units DAILY SUBQ 10/24/16 09:00 11/23/16 08:59 Ketorolac Tromethamine (Toradol 30mg) 30 mg Q6H PRN IV moderate pain 4-6 10/20/16 15:00 10/25/16 14:59 Morphine Sulfate (Morphine Sulfate) 2 mg Q4H PRN IVP severe pain 7-10 10/20/16 15:00 10/27/16 14:59 10/21/16 01:54 Nitroglycerin (Ntg) 0.4 mg Q5M X 3 DOSES PRN SL Prn Chest Pain 10/20/16 15:00 11/19/16 14:59 Ondansetron HCl (Zofran) 4 mg Q6H PRN IVP Nausea & Vomiting 10/20/16 15:00 11/19/16 14:59 10/21/16 02:02 Piperacillin Sod/ Tazobactam Sod 3.375 gm/Sodium Chloride 110 ml @ 27.5 mls/hr Q8HR IVPB 10/20/16 19:30 10/27/16 19:29 10/21/16 05:48 Polyethylene Glycol (Miralax) 17 gm HSPRN PRN ORAL Constipation 10/20/16 15:00 11/19/16 14:59 Sodium Chloride (Sodium Chloride 1000ml bag) 1,000 ml @ 100 mls/hr Q10H IVLG 10/20/16 17:00 11/19/16 16:59 Future hold Temazepam (Restoril) 15 mg HSPRN PRN ORAL Insomnia 10/20/16 15:00 10/27/16 14:59 Vancomycin HCl 1 ea 1 ea DAILY PRN MISC Per rx protocol 10/20/16 15:00 11/19/16 14:59 Vancomycin HCl/ Dextrose (Vancomycin/D5W) 275 ml @ 183.708 mls/hr Q12H IVPB 10/22/16 17:00 10/27/16 16:59 THAO HARRISON M.D. Oct 24, 2016 11:26
[2016-10-24 12:02] VITALS: BP 118/63
[2016-10-24] MEDS: ceFAZolin sod 2 GM in D5W 110 ML IVPB SCH ×2 (14:00→21:51)
--- NOTE | 2016-10-24 15:32 | Pulmonology Progress Note ---
Assessment/Plan Problems: (1) Infected prosthesis of right hip (2) Uncontrolled diabetes mellitus (3) Homeless Assessment/Plan rochelle has a bed, I talked around [address] Samaniego who is willing to take the pt, they had a bed assigned, she refused to leave. She wants her pants so she can sign out. awaiting transfer to higher level of care. sliding scale diabetic diet social service help Subjective ROS Limited/Unobtainable: No Constitutional: Reports: no symptoms HEENT: Repors: no symptoms Allergies: Coded Allergies: No Known Allergies (Unverified , 10/19/16) Objective Last 24 Hour Vital Signs Date Time Temp Pulse Resp B/P Pulse Ox O2 Delivery O2 Flow Rate FiO2 10/24/16 12:02 97.8 76 19 118/63 96 Room Air 10/24/16 08:17 97.6 74 19 126/71 98 Room Air 10/24/16 04:00 98.1 81 20 138/82 94 Room Air 10/24/16 00:00 97.9 68 19 148/82 96 Room Air 10/23/16 20:00 97.8 79 19 121/61 94 Room Air 10/23/16 16:00 97.4 70 17 136/70 100 Room Air Intake and Output 10/23/16 10/24/16 19:00 07:00 Intake Total 620 ml 760 ml Balance 620 ml 760 ml Intake Oral 620 ml 760 ml # Voids 3 5 Objective General Appearance: WD/WN, no apparent distress, alert EENT: PERRL/EOMI, normal ENT inspection, TMs normal, hair lose. Neck: non-tender, normal alignment, supple, normal inspection Cardiovascular: normal peripheral pulses, normal rate, regular rhythm, no murmur. Respiratory/Chest: CTA, crackles/rales, rhonchi , no wheezing Abdomen: normal bowel sounds, non tender, soft, no mass Extremities: normal range of motion, non-tender Neurologic: driver engineer II-XII grossly normal, Moving all extremities. Skin: normal pigmentation, warm/dry Current Medications Medications (Trade) Dose Ordered Sig/Manda Route PRN Reason Start Time Stop Time Status Last Admin Dose Admin Acetaminophen (Tylenol) 650 mg Q4H PRN ORAL fever 10/20/16 15:00 11/19/16 14:59 Acetaminophen/ Hydrocodone Bitart ([place] 10/325) 1 ea Q6H PRN ORAL Breakthrough Pain 10/22/16 19:45 10/29/16 19:44 10/24/16 06:21 Al Hydroxide/Mg Hydroxide (Mylanta II) 30 ml Q6H PRN ORAL dyspepsia 10/20/16 15:00 11/19/16 14:59 Albuterol/ Ipratropium (DuoNeb 0.5-3(2.5)mg/3ml) 3 ml Q4H PRN HHN Shortness of Breath 10/20/16 15:00 10/25/16 14:59 Cefazolin Sodium/ Dextrose (Ancef/D5W) 110 ml @ 220 mls/hr Q8HR IVPB 10/24/16 14:00 10/31/16 13:59 Clonidine HCl (Catapres) 0.1 mg Q4H PRN ORAL sbp more than 160 10/20/16 15:00 11/19/16 14:59 Dextrose (Dextrose 50%) STAT PRN IV Hypoglycemia 10/24/16 06:45 11/23/16 06:44 Heparin Sodium (Porcine) (Heparin 5000 units/ml) 5,000 units EVERY 12 HOURS SUBQ 10/20/16 21:00 11/19/16 20:59 10/22/16 21:00 Insulin Aspart (NovoLOG) BEFORE MEALS AND HS SUBQ 10/20/16 17:15 11/19/16 17:14 10/20/16 21:38 Insulin Aspart (NovoLOG) 4 units NOVOTIAC SUBQ 10/24/16 06:45 11/23/16 06:44 Insulin Detemir 14 units 14 units DAILY SUBQ 10/24/16 09:00 11/23/16 08:59 Ketorolac Tromethamine (Toradol 30mg) 30 mg Q6H PRN IV moderate pain 4-6 10/20/16 15:00 10/25/16 14:59 Morphine Sulfate (Morphine Sulfate) 2 mg Q4H PRN IVP severe pain 7-10 10/20/16 15:00 10/27/16 14:59 10/21/16 01:54 Nitroglycerin (Ntg) 0.4 mg Q5M X 3 DOSES PRN SL Prn Chest Pain 10/20/16 15:00 11/19/16 14:59 Ondansetron HCl (Zofran) 4 mg Q6H PRN IVP Nausea & Vomiting 10/20/16 15:00 11/19/16 14:59 10/21/16 02:02 Polyethylene Glycol (Miralax) 17 gm HSPRN PRN ORAL Constipation 10/20/16 15:00 11/19/16 14:59 Sodium Chloride (Sodium Chloride 1000ml bag) 1,000 ml @ 100 mls/hr Q10H IVLG 10/20/16 17:00 11/19/16 16:59 Future hold Temazepam (Restoril) 15 mg HSPRN PRN ORAL Insomnia 10/20/16 15:00 10/27/16 14:59 JOSUE PICKETT Oct 24, 2016 15:32
[2016-10-24 16:00] VITALS: BP 151/72
[2016-10-24 20:00] VITALS: BP 148/68
--- NOTE | 2016-10-24 21:09 | Consultation ---
DATE OF CONSULTATION: 10/24/2016 ENDOCRINOLOGY CONSULTATION CONSULTING PHYSICIAN: Brendan Johnson M.D. REFERRING PHYSICIAN: Miguel Hermosillo M.D. REASON FOR CONSULTATION: Diabetes management. HISTORY OF PRESENT ILLNESS: The patient is a 51-year-old female with history of recent right hip replacement at [facility], who came to the hospital complaining of possibility of hip infection. The patient is homeless, was not able to walk. The attempt to transfer [facility] was not successful. The patient was admitted for observation and treatment. On presentation, the patient was noted to have a glucose of 341. Endocrinology was consulted in order to assist in the management of diabetes. The patient is refusing. IV fluids and blood glucose monitoring. The patient is verbally abusive, does not allow me to examine her and she does not want to answer my questions. PAST MEDICAL HISTORY: Diabetes. PAST SURGICAL HISTORY: Recent hip surgery. SOCIAL HISTORY: Smoking. FAMILY HISTORY: Noncontributory. REVIEW OF SYSTEMS: As per history of present illness. PHYSICAL EXAMINATION: VITAL SIGNS: Blood pressure is 132/82, pulse of 81, temperature of 98.1 degrees, and respiratory rate of 18. The patient refused physical examination. LABORATORY AND DIAGNOSTIC DATA: Labs are from 10/19/2016. Sodium 135, potassium 3.5, chloride 89, bicarbonate 22, BUN 10, creatinine 0.5, glucose of 341. Lactic acid 1.7. DIAGNOSES: 1. Right hip, status post surgery with infection. 2. Diabetes, out of control. PLAN: 1. Blood glucose monitoring before meals and at bedtime. 2. Levemir 14 units daily. 3. NovoLog 4 units before each meal. 4. Sliding scale insulin. 5. The patient is verbally abusive and refusing treatment. Thank you, Dr. Hermosillo, for the courtesy of this consultation. Brendan Johnson M.D. DR: Manjinder JOB#: [id number] CC: LORI
[2016-10-25] VITALS: BP 132/68
[2016-10-25 04:00] VITALS: BP 98/52
[2016-10-25] MEDS: ceFAZolin sod 2 GM in D5W 110 ML IVPB SCH ×3 (06:00→22:03)
[2016-10-25] MEDS: NovoLOG Insulin Flexpen SUBQ SCH ×5 (06:06→20:18)
--- NOTE | 2016-10-25 07:47 | General Progress Note ---
Assessment/Plan Problem List: (1) Infected prosthesis of right hip ICD Codes: T84.51XA - Infection and inflammatory reaction due to internal right hip prosthesis, initial encounter SNOMED: 452801018, 540440387 (2) Uncontrolled diabetes mellitus ICD Codes: E11.65 - Type 2 diabetes mellitus with hyperglycemia SNOMED: 496934214, [id number] Qualifiers: Qualified Codes: E13.8 - Other specified diabetes mellitus with unspecified complications; E13.65 - Other specified diabetes mellitus with hyperglycemia (3) Homeless ICD Codes: Z59.0 - Homelessness SNOMED: 02853019, 022252953 Assessment/Plan verbally abusive refusing blood glucose monitoring and insulin injection DC meal time Novolog reduce Levemir to 8 units daily SSI if she agrees Subjective ROS Limited/Unobtainable: Yes Allergies: Coded Allergies: No Known Allergies (Unverified , 10/19/16) Subjective events noted interval notes reviewed Objective Last 24 Hour Vital Signs Date Time Temp Pulse Resp B/P Pulse Ox O2 Delivery O2 Flow Rate FiO2 10/25/16 00:00 97.2 72 19 132/68 97 Room Air 10/24/16 20:00 97.7 70 16 148/68 96 Room Air 10/24/16 16:00 97.7 75 19 151/72 96 Room Air 10/24/16 12:02 97.8 76 19 118/63 96 Room Air 10/24/16 08:17 97.6 74 19 126/71 98 Room Air Intake and Output 10/24/16 10/25/16 19:00 07:00 Intake Total 620 ml 180 ml Balance 620 ml 180 ml Intake Oral 620 ml 180 ml # Voids 4 Height (Feet): 4 Height (Inches): 10.00 Weight (Pounds): 120 General Appearance: no apparent distress Neck: normal alignment Objective Current Medications Medications (Trade) Dose Ordered Sig/Manda Route PRN Reason Start Time Stop Time Status Last Admin Dose Admin Acetaminophen (Tylenol) 650 mg Q4H PRN ORAL fever 10/20/16 15:00 11/19/16 14:59 Acetaminophen/ Hydrocodone Bitart ([place] 10/325) 1 ea Q6H PRN ORAL Breakthrough Pain 10/22/16 19:45 10/29/16 19:44 10/24/16 19:05 Al Hydroxide/Mg Hydroxide (Mylanta II) 30 ml Q6H PRN ORAL dyspepsia 10/20/16 15:00 11/19/16 14:59 Albuterol/ Ipratropium (DuoNeb 0.5-3(2.5)mg/3ml) 3 ml Q4H PRN HHN Shortness of Breath 10/20/16 15:00 10/25/16 14:59 Cefazolin Sodium/ Dextrose (Ancef/D5W) 110 ml @ 220 mls/hr Q8HR IVPB 10/24/16 14:00 10/31/16 13:59 Clonidine HCl (Catapres) 0.1 mg Q4H PRN ORAL sbp more than 160 10/20/16 15:00 11/19/16 14:59 Dextrose (Dextrose 50%) STAT PRN IV Hypoglycemia 10/24/16 06:45 11/23/16 06:44 Heparin Sodium (Porcine) (Heparin 5000 units/ml) 5,000 units EVERY 12 HOURS SUBQ 10/20/16 21:00 11/19/16 20:59 10/24/16 21:58 Insulin Aspart (NovoLOG) BEFORE MEALS AND HS SUBQ 10/20/16 17:15 11/19/16 17:14 10/20/16 21:38 Insulin Aspart (NovoLOG) 4 units NOVOTIAC SUBQ 10/24/16 06:45 11/23/16 06:44 Insulin Detemir 14 units 14 units DAILY SUBQ 10/24/16 09:00 11/23/16 08:59 Ketorolac Tromethamine (Toradol 30mg) 30 mg Q6H PRN IV moderate pain 4-6 10/20/16 15:00 10/25/16 14:59 Morphine Sulfate (Morphine Sulfate) 2 mg Q4H PRN IVP severe pain 7-10 10/20/16 15:00 10/27/16 14:59 10/21/16 01:54 Nitroglycerin (Ntg) 0.4 mg Q5M X 3 DOSES PRN SL Prn Chest Pain 10/20/16 15:00 11/19/16 14:59 Ondansetron HCl (Zofran) 4 mg Q6H PRN IVP Nausea & Vomiting 10/20/16 15:00 11/19/16 14:59 10/21/16 02:02 Polyethylene Glycol (Miralax) 17 gm HSPRN PRN ORAL Constipation 10/20/16 15:00 11/19/16 14:59 Sodium Chloride (Sodium Chloride 1000ml bag) 1,000 ml @ 100 mls/hr Q10H IVLG 10/20/16 17:00 11/19/16 16:59 Future hold Temazepam (Restoril) 15 mg HSPRN PRN ORAL Insomnia 10/20/16 15:00 10/27/16 14:59 ALEKSEY CHEUNG Oct 25, 2016 07:47
[2016-10-25] MEDS: Levemir Flexpen SUBQ SCH (09:00)
[2016-10-25] MEDS: Heparin 5000 units/ml inj SUBQ SCH ×2 (09:00→20:18)
[2016-10-25 12:15] VITALS: BP 110/58
[2016-10-25 15:52] VITALS: BP 139/73
--- NOTE | 2016-10-25 15:59 | Infectious Diseases Prog Note ---
Assessment/Plan Assessment/Plan ASSESSMENT: 51 y/o female with: // Post-op right hip abscess - WCx GBS.agalactiae - CT: Rim enhancing collection containing gas and somewhat hypoattenuating material in the anterior right hip, groin, and proximal thigh region. Findings are suspicious for abscess - SP right JAN 07/2016 // GBS.agalactiae bacteremia 12/14 - refused repeat BCx // Leukocytosis - refused repeat CBC // Fever - improved // DM with hyperglycemia // MRSA colonized // NKDA // Full Code PLAN: - continue ancef d# 2 ( ABX d# 6 ) ( 10/24 SP IV vancomycin, zosyn d# 5 ) ( 10/21 SP amikacin d# 2 ) - needs I&D - ortho recommended transfer to [facility] - f/u cultures - monitor CBC, temperatures - monitor BMP - psych eval Subjective Allergies: Coded Allergies: No Known Allergies (Unverified , 10/19/16) Subjective refusing vitals, labs [facility] bed available, but now wants to leave AMA. psych consulted Objective Vital Signs Last 24 Hour Vital Signs Date Time Temp Pulse Resp B/P Pulse Ox O2 Delivery O2 Flow Rate FiO2 10/25/16 15:52 97.3 70 20 139/73 96 Room Air 10/25/16 12:15 97.9 68 20 110/58 99 Room Air 10/25/16 04:00 98.1 72 18 98/52 96 Room Air 10/25/16 00:00 97.2 72 19 132/68 97 Room Air 10/24/16 20:00 97.7 70 16 148/68 96 Room Air 10/24/16 16:00 97.7 75 19 151/72 96 Room Air Height (Feet): 4 Height (Inches): 10.00 Weight (Pounds): 120 General Appearance: no acute distress Respiratory/Chest: no respiratory distress Cardiovascular: normal rate, regular rhythm Abdomen: normal bowel sounds, soft, non tender, non distended Current Medications Medications (Trade) Dose Ordered Sig/Manda Route PRN Reason Start Time Stop Time Status Last Admin Dose Admin Acetaminophen (Tylenol) 650 mg Q4H PRN ORAL fever 10/20/16 15:00 11/19/16 14:59 Acetaminophen/ Hydrocodone Bitart ([place] 10/325) 1 ea Q6H PRN ORAL Breakthrough Pain 2/10/17 19:45 10/29/16 19:44 10/24/16 19:05 Al Hydroxide/Mg Hydroxide (Mylanta II) 30 ml Q6H PRN ORAL dyspepsia 10/20/16 15:00 11/19/16 14:59 Cefazolin Sodium/ Dextrose (Ancef/D5W) 110 ml @ 220 mls/hr Q8HR IVPB 10/24/16 14:00 10/31/16 13:59 Clonidine HCl (Catapres) 0.1 mg Q4H PRN ORAL sbp more than 160 10/20/16 15:00 11/19/16 14:59 Dextrose STAT PRN IV Hypoglycemia 10/24/16 06:45 11/23/16 06:44 Heparin Sodium (Porcine) (Heparin 5000 units/ml) 5,000 units EVERY 12 HOURS SUBQ 10/20/16 21:00 11/19/16 20:59 10/24/16 21:58 Insulin Aspart (NovoLOG) BEFORE MEALS AND HS SUBQ 10/20/16 17:15 11/19/16 17:14 10/20/16 21:38 Insulin Detemir (Levemir) 8 units DAILY SUBQ 10/25/16 09:00 11/24/16 08:59 Morphine Sulfate (Morphine Sulfate) 2 mg Q4H PRN IVP severe pain 7-10 10/20/16 15:00 10/27/16 14:59 10/21/16 01:54 Nitroglycerin (Ntg) 0.4 mg Q5M X 3 DOSES PRN SL Prn Chest Pain 10/20/16 15:00 11/19/16 14:59 Ondansetron HCl (Zofran) 4 mg Q6H PRN IVP Nausea & Vomiting 10/20/16 15:00 11/19/16 14:59 10/21/16 02:02 Polyethylene Glycol (Miralax) 17 gm HSPRN PRN ORAL Constipation 10/20/16 15:00 11/19/16 14:59 Sodium Chloride (Sodium Chloride 1000ml bag) 1,000 ml @ 100 mls/hr Q10H IVLG 10/20/16 17:00 11/19/16 16:59 Future hold Temazepam (Restoril) 15 mg HSPRN PRN ORAL Insomnia 10/20/16 15:00 10/27/16 14:59 GEORGE BARRAZA Oct 25, 2016 15:59
[2016-10-25] MEDS: Norco 10mg/325mg tab ORAL PRN (17:13)
--- NOTE | 2016-10-25 17:19 | Pulmonology Progress Note ---
Assessment/Plan Problems: (1) Infected prosthesis of right hip (2) Uncontrolled diabetes mellitus (3) Homeless Assessment/Plan rochelle has a bed, Dr. Samaniego who is willing to take the pt, they had a bed assigned, she refused to leave. She wants her pants so she can sign out. awaiting transfer to higher level of care. sliding scale diabetic diet psych evaluation social service help Subjective ROS Limited/Unobtainable: No Allergies: Coded Allergies: No Known Allergies (Unverified , 10/19/16) Objective Last 24 Hour Vital Signs Date Time Temp Pulse Resp B/P Pulse Ox O2 Delivery O2 Flow Rate FiO2 10/25/16 15:52 97.3 70 20 139/73 96 Room Air 10/25/16 12:15 97.9 68 20 110/58 99 Room Air 10/25/16 04:00 98.1 72 18 98/52 96 Room Air 10/25/16 00:00 97.2 72 19 132/68 97 Room Air 10/24/16 20:00 97.7 70 16 148/68 96 Room Air Intake and Output 10/24/16 10/25/16 19:00 07:00 Intake Total 620 ml 660 ml Balance 620 ml 660 ml Intake Oral 620 ml 660 ml # Voids 4 3 Objective General Appearance: WD/WN, no apparent distress, alert EENT: PERRL/EOMI, normal ENT inspection, TMs normal, hair lose. Neck: non-tender, normal alignment, supple, normal inspection Cardiovascular: normal peripheral pulses, normal rate, regular rhythm, no murmur. 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 Skin: normal pigmentation, warm/dry Current Medications Medications (Trade) Dose Ordered Sig/Manda Route PRN Reason Start Time Stop Time Status Last Admin Dose Admin Acetaminophen (Tylenol) 650 mg Q4H PRN ORAL fever 10/20/16 15:00 11/19/16 14:59 Acetaminophen/ Hydrocodone Bitart ([place] 10/325) 1 ea Q6H PRN ORAL Breakthrough Pain 10/22/16 19:45 10/29/16 19:44 10/25/16 17:13 Al Hydroxide/Mg Hydroxide (Mylanta II) 30 ml Q6H PRN ORAL dyspepsia 10/20/16 15:00 11/19/16 14:59 Cefazolin Sodium/ Dextrose (Ancef/D5W) 110 ml @ 220 mls/hr Q8HR IVPB 10/24/16 14:00 10/31/16 13:59 Clonidine HCl (Catapres) 0.1 mg Q4H PRN ORAL sbp more than 160 10/20/16 15:00 11/19/16 14:59 Dextrose STAT PRN IV Hypoglycemia 10/24/16 06:45 11/23/16 06:44 Heparin Sodium (Porcine) (Heparin 5000 units/ml) 5,000 units EVERY 12 HOURS SUBQ 10/20/16 21:00 11/19/16 20:59 10/24/16 21:58 Insulin Aspart (NovoLOG) BEFORE MEALS AND HS SUBQ 10/20/16 17:15 11/19/16 17:14 10/20/16 21:38 Insulin Detemir (Levemir) 8 units DAILY SUBQ 10/25/16 09:00 11/24/16 08:59 Morphine Sulfate (Morphine Sulfate) 2 mg Q4H PRN IVP severe pain 7-10 10/20/16 15:00 10/27/16 14:59 10/21/16 01:54 Nitroglycerin (Ntg) 0.4 mg Q5M X 3 DOSES PRN SL Prn Chest Pain 10/20/16 15:00 11/19/16 14:59 Ondansetron HCl (Zofran) 4 mg Q6H PRN IVP Nausea & Vomiting 10/20/16 15:00 11/19/16 14:59 10/21/16 02:02 Polyethylene Glycol (Miralax) 17 gm HSPRN PRN ORAL Constipation 10/20/16 15:00 11/19/16 14:59 Sodium Chloride (Sodium Chloride 1000ml bag) 1,000 ml @ 100 mls/hr Q10H IVLG 10/20/16 17:00 11/19/16 16:59 Future hold Temazepam (Restoril) 15 mg HSPRN PRN ORAL Insomnia 10/20/16 15:00 10/27/16 14:59 JOSUE PICKETT Oct 25, 2016 17:19
[2016-10-25 19:00] VITALS: BP 97/54
[2016-10-26] VITALS: BP 111/61
[2016-10-26] MEDS: Norco 10mg/325mg tab ORAL PRN ×2 (01:08→09:02)
[2016-10-26 04:00] VITALS: BP 113/58
[2016-10-26] MEDS: ceFAZolin sod 2 GM in D5W 110 ML IVPB SCH (06:18)
[2016-10-26] MEDS: NovoLOG Insulin Flexpen SUBQ SCH (06:30)
[2016-10-26] MEDS: Levemir Flexpen SUBQ SCH (08:45)
[2016-10-26] MEDS: Heparin 5000 units/ml inj SUBQ SCH (08:48)
--- NOTE | 2016-10-26 12:26 | General Progress Note ---
Assessment/Plan Problem List: (1) Infected prosthesis of right hip ICD Codes: T84.51XA - Infection and inflammatory reaction due to internal right hip prosthesis, initial encounter SNOMED: 844462314, 925372809 (2) Uncontrolled diabetes mellitus ICD Codes: E11.65 - Type 2 diabetes mellitus with hyperglycemia SNOMED: 346643217, 025355234 Qualifiers: Qualified Codes: E13.8 - Other specified diabetes mellitus with unspecified complications; E13.65 - Other specified diabetes mellitus with hyperglycemia (3) Homeless ICD Codes: Z59.0 - Homelessness SNOMED: 35305896, 504916359 Assessment/Plan verbally abusive refusing blood glucose monitoring and insulin injection Levemir to 8 units daily if she agrees SSI if she agrees Subjective ROS Limited/Unobtainable: Yes Allergies: Coded Allergies: No Known Allergies (Unverified , 10/19/16) Subjective events noted interval notes reviewed Objective Last 24 Hour Vital Signs Date Time Temp Pulse Resp B/P Pulse Ox O2 Delivery O2 Flow Rate FiO2 10/26/16 10:01 98.0 10/26/16 04:00 98.0 69 20 113/58 98 Room Air 10/26/16 00:00 97.5 71 18 111/61 97 Room Air 10/25/16 19:00 97.7 75 20 97/54 96 Room Air 10/25/16 15:52 97.3 70 20 139/73 96 Room Air Intake and Output 10/25/16 10/26/16 19:00 07:00 Intake Total 720 ml 460 ml Balance 720 ml 460 ml Intake Oral 720 ml 240 ml IV Total 220 ml # Voids 7 Height (Feet): 4 Height (Inches): 10.00 Weight (Pounds): 120 General Appearance: no apparent distress Objective Current Medications Medications (Trade) Dose Ordered Sig/Manda Route PRN Reason Start Time Stop Time Status Last Admin Dose Admin Acetaminophen (Tylenol) 650 mg Q4H PRN ORAL fever 10/20/16 15:00 11/19/16 14:59 Acetaminophen/ Hydrocodone Bitart ([place] 10/325) 1 ea Q6H PRN ORAL Breakthrough Pain 10/22/16 19:45 10/29/16 19:44 10/24/16 19:05 Al Hydroxide/Mg Hydroxide (Mylanta II) 30 ml Q6H PRN ORAL dyspepsia 10/20/16 15:00 11/19/16 14:59 Albuterol/ Ipratropium (DuoNeb 0.5-3(2.5)mg/3ml) 3 ml Q4H PRN HHN Shortness of Breath 10/20/16 15:00 10/25/16 14:59 Cefazolin Sodium/ Dextrose (Ancef/D5W) 110 ml @ 220 mls/hr Q8HR IVPB 10/24/16 14:00 10/31/16 13:59 Clonidine HCl (Catapres) 0.1 mg Q4H PRN ORAL sbp more than 160 10/20/16 15:00 11/19/16 14:59 Dextrose (Dextrose 50%) STAT PRN IV Hypoglycemia 10/24/16 06:45 11/23/16 06:44 Heparin Sodium (Porcine) (Heparin 5000 units/ml) 5,000 units EVERY 12 HOURS SUBQ 10/20/16 21:00 11/19/16 20:59 10/24/16 21:58 Insulin Aspart (NovoLOG) BEFORE MEALS AND HS SUBQ 10/20/16 17:15 11/19/16 17:14 10/20/16 21:38 Insulin Aspart (NovoLOG) 4 units NOVOTIAC SUBQ 10/24/16 06:45 11/23/16 06:44 Insulin Detemir 14 units 14 units DAILY SUBQ 10/24/16 09:00 11/23/16 08:59 Ketorolac Tromethamine (Toradol 30mg) 30 mg Q6H PRN IV moderate pain 4-6 10/20/16 15:00 10/25/16 14:59 Morphine Sulfate (Morphine Sulfate) 2 mg Q4H PRN IVP severe pain 7-10 10/20/16 15:00 10/27/16 14:59 10/21/16 01:54 Nitroglycerin (Ntg) 0.4 mg Q5M X 3 DOSES PRN SL Prn Chest Pain 10/20/16 15:00 11/19/16 14:59 Ondansetron HCl (Zofran) 4 mg Q6H PRN IVP Nausea & Vomiting 10/20/16 15:00 11/19/16 14:59 10/21/16 02:02 Polyethylene Glycol (Miralax) 17 gm HSPRN PRN ORAL Constipation 10/20/16 15:00 11/19/16 14:59 Sodium Chloride (Sodium Chloride 1000ml bag) 1,000 ml @ 100 mls/hr Q10H IVLG 10/20/16 17:00 11/19/16 16:59 Future hold Temazepam (Restoril) 15 mg HSPRN PRN ORAL Insomnia 10/20/16 15:00 10/27/16 14:59 ALEKSEY CHEUNG Oct 26, 2016 12:26
[2016-10-26] MEDS ORDERED: DiphenhydrAMINE 50mg/ml Inj IM ONE (12:30)
[2016-10-26] MEDS ORDERED: LORazepam Inj 2mg/ml 1ml IM ONE (12:30)
[2016-10-26] MEDS ORDERED: Haloperidol 5mg/ml Inj IM ONE (12:30)
--- NOTE | 2016-10-26 13:38 | Infectious Diseases Prog Note ---
Assessment/Plan Assessment/Plan ASSESSMENT: 51 y/o female with: // Post-op right hip abscess / prosthetic infection - WCx GBS.agalactiae - CT: Rim enhancing collection containing gas and somewhat hypoattenuating material in the anterior right hip, groin, and proximal thigh region. Findings are suspicious for abscess - SP right JAN 07/2016 // GBS.agalactiae bacteremia 12/14 - refused repeat BCx // Leukocytosis - refused repeat CBC // Fever - resolved // Medical noncompliance // DM with hyperglycemia // MRSA colonized // NKDA // Full Code PLAN: - continue ancef d# 3 ( ABX d# 7 ) ( 10/24 SP IV vancomycin, zosyn d# 5 ) ( 10/21 SP amikacin d# 2 ) - needs I&D - ortho recommended transfer to [facility] - f/u cultures - monitor CBC, temperatures - monitor BMP - psych eval Subjective Allergies: Coded Allergies: No Known Allergies (Unverified , 10/19/16) Subjective refusing vitals, labs DC planning ongoing Objective Vital Signs Last 24 Hour Vital Signs Date Time Temp Pulse Resp B/P Pulse Ox O2 Delivery O2 Flow Rate FiO2 10/26/16 10:01 98.0 10/26/16 04:00 98.0 69 20 113/58 98 Room Air 10/26/16 00:00 97.5 71 18 111/61 97 Room Air 10/25/16 19:00 97.7 75 20 97/54 96 Room Air 10/25/16 15:52 97.3 70 20 139/73 96 Room Air Height (Feet): 4 Height (Inches): 10.00 Weight (Pounds): 120 General Appearance: no acute distress Respiratory/Chest: no respiratory distress Cardiovascular: normal rate, regular rhythm Abdomen: normal bowel sounds, soft, non tender, non distended Current Medications Medications (Trade) Dose Ordered Sig/Manda Route PRN Reason Start Time Stop Time Status Last Admin Dose Admin Acetaminophen (Tylenol) 650 mg Q4H PRN ORAL fever 10/20/16 15:00 11/19/16 14:59 Acetaminophen/ Hydrocodone Bitart ([place] 10/325) 1 ea Q6H PRN ORAL Breakthrough Pain 10/22/16 19:45 10/29/16 19:44 10/26/16 09:02 Al Hydroxide/Mg Hydroxide (Mylanta II) 30 ml Q6H PRN ORAL dyspepsia 10/20/16 15:00 11/19/16 14:59 Cefazolin Sodium/ Dextrose (Ancef/D5W) 110 ml @ 220 mls/hr Q8HR IVPB 10/24/16 14:00 10/31/16 13:59 10/26/16 06:18 Clonidine HCl (Catapres) 0.1 mg Q4H PRN ORAL sbp more than 160 10/20/16 15:00 11/19/16 14:59 Dextrose STAT PRN IV Hypoglycemia 10/24/16 06:45 11/23/16 06:44 Heparin Sodium (Porcine) (Heparin 5000 units/ml) 5,000 units EVERY 12 HOURS SUBQ 10/20/16 21:00 11/19/16 20:59 10/26/16 08:48 Insulin Aspart (NovoLOG) BEFORE MEALS AND HS SUBQ 10/20/16 17:15 11/19/16 17:14 10/20/16 21:38 Insulin Detemir (Levemir) 8 units DAILY SUBQ 10/25/16 09:00 11/24/16 08:59 Morphine Sulfate (Morphine Sulfate) 2 mg Q4H PRN IVP severe pain 7-10 10/20/16 15:00 10/27/16 14:59 10/21/16 01:54 Nitroglycerin (Ntg) 0.4 mg Q5M X 3 DOSES PRN SL Prn Chest Pain 10/20/16 15:00 11/19/16 14:59 Ondansetron HCl (Zofran) 4 mg Q6H PRN IVP Nausea & Vomiting 10/20/16 15:00 11/19/16 14:59 10/21/16 02:02 Polyethylene Glycol (Miralax) 17 gm HSPRN PRN ORAL Constipation 10/20/16 15:00 11/19/16 14:59 Sodium Chloride (Sodium Chloride 1000ml bag) 1,000 ml @ 100 mls/hr Q10H IVLG 10/20/16 17:00 11/19/16 16:59 Future hold 10/26/16 06:18 Temazepam (Restoril) 15 mg HSPRN PRN ORAL Insomnia 10/20/16 15:00 10/27/16 14:59 GEORGE BARRAZA 14, 2017 13:38
--- NOTE | 2016-10-26 14:53 | Cardiology Report ---
APPROVED REPORT EKG Measurement Heart [id number] NM [id number] [id number] Sinus tachycardia Right atrial enlargement Borderline ECG
--- NOTE | 2016-10-26 22:09 | Consultation ---
DATE OF CONSULTATION: 10/26/2016 CONSULTING PHYSICIAN: Barry De La O M.D. HISTORY OF PRESENT ILLNESS: The patient is a 51-year-old homeless female with history of multiple medical problems, who has been admitted recently due to right hip replacement at [facility], which was complicated with infection and abscess formation. The patient has been uncooperative, hostile, combative towards the staff, using profanity, and refusing all her medications, but her pain medication. She is refusing to be transferred to [facility] for the second surgery and abscess drainage. The patient has also been using racial remarks towards the staff. During evaluation, she was initially cooperative. When I discussed her medication, she endorsed paranoid ideation, stated that her nurse did not give her [place] and only has been administering acetaminophen. The patient's target symptoms include irritable mood, anxiety, agitation, anger, and paranoid ideation. She does not endorse any suicidal or homicidal ideations. No manic symptoms. The patient remained uncooperative to other evaluation. She also was posturing and threatened to hit her nurse as well as the physician. Security was called as well as the ordered to calm her down. The patient stated that she would like to leave [place]. It appears that she understands the risks and benefits of refusing treatment and not following up with [facility]. She was able to understand, process, communicate, and appreciate. Information was given to her in regards to her abscess in her hip. She stated if the pain gets worse, she will go to an emergency room, but not definitely to [facility]. She stated that she would not like to go to [facility] as stated already "F her up." She used the F word. She stated that she is not "stupid" to go back to [facility]. "If they knew what they are doing, they would have done it on a first attempt." PAST PSYCHIATRIC HISTORY: She stated that she is not "crazy," she has never seen a psychiatrist, she does not need to see a psychiatrist. She denied any taking any psychotropic medication. She denied being in a psychiatric hospital. She denied suicide attempts or violent behavior in the past. PAST MEDICAL HISTORY: Leukocytosis, diabetes mellitus, and noncompliance with medication. ALLERGIES: No known drug allergies. SUBSTANCE ABUSE HISTORY: She denies any history of illicit drugs or alcohol. MENTAL STATUS EXAMINATION: Alert and oriented x4. Mood is irritable and angry. Affect is constricted, congruent with mood. Thought process is concrete. Thought content, no suicidal or homicidal ideation, paranoid ideations. Insight and judgment impaired. ASSESSMENT: Wellman I Mood disorder, not otherwise specified Wellman II 03:46 Wellman III Infected right hip. Wellman IV Moderate. Wellman V 40 PLAN: 1. The patient will be continued on current medication. 2. Provide the patient with supportive therapy and reality orientation. 3. She is going to leave against medical advice. She has capacity to leave against medical advice. Barry De La O M.D. DR: HOWARD JOB#: [id number] CC:
--- NOTE | 2016-10-28 15:59 | Discharge Summary ---
Discharge Summary Hospital Course Date of Admission Oct 20, 2016 at 15:03 Date of Discharge Oct 26, 2016 at 13:00 Admitting Diagnosis Hyperglycemia, new dx DM, Inability to ambulate HPI Mami Hernandez is a 51 year old female who was admitted on Oct 20, 2016 at 15: 03 for Hyperglycemia,New Diabetes Mellitus, Hospital Course [id number] Discharge Discharge Disposition Patient left AMA Discharge Diagnoses: Roberta Hughes NP Oct 28, 2016 15:59
--- NOTE | 2016-10-28 22:39 | Discharge Summary 2 SIG ---
DATE OF ADMISSION: 10/20/2016 DATE OF DISCHARGE: 10/26/2016 CONSULTANTS: 1. Jasmeet Salmeron M.D. 2. Brendan Johnson M.D. 3. Barry De La O M.D. 4. Gabriel Collazo M.D. BRIEF HOSPITAL COURSE: The patient is a 51-year-old female with history of recent right hip replacement done at [facility], came into the ED complaining of pain. She states her hip is swollen and very painful and unable to walk. She had a hip CT done with possible abscess. She was seen by orthopedic surgeon at ED and recommended transfer to [facility] for care of surgical complication. No bed was available and the patient was admitted to the floor where she was given IV antibiotics and blood sugars were monitored. Blood culture was positive. She has been uncooperative, hostile, and combative towards the staff using profanity and has been refusing all her medications except her pain medication. Psychiatric evaluation was called. She was diagnosed to have mood disorder. gathering worker had multiple attempts to help with her social needs, however, the patient declined. She then left against medical advice. FINAL DIAGNOSES: 1. Infected prosthesis of the right hip. 2. Uncontrolled diabetes mellitus. 3. Homelessness. 4. Noncompliance with medical care. 5. Mood disorder. 6. Group B Streptococcus agalactiae bacteremia for over 4. Refused repeat blood culture. Miguel Hermosillo M.D. I have been assigned to dictate discharge summary on this account and I was not involved in the patient's management. Roberta Hughes N.P. DR: ROLAND JOB#: [id number] CC: LORI
== END 2016-10-26 13:00 | disposition left against medical advice (07) | DRG 349 ==
LOC: EDBD 09:50 → EMR 11:57 → 2E 13:32 → UNDOADMIN 13:32 → EDBEDREQ 13:57 → EMR 15:50 → EDBEDREQSVC 10-20 14:53 → EDBEDREQ 10-20 14:53 → 3E 10-20 15:03 → EDBEDREQ 10-20 16:31 → 4E 10-20 17:28
DX: T84.51XA Infection and inflammatory reaction due to internal right hip prosthesis, initial encounter (principal); E11.65 Type 2 diabetes mellitus with hyperglycemia; Y83.8 Other surgical procedures as the cause of abnormal reaction of the patient, or of later complication, without mention of misadventure at the time of the procedure; Z59.0 Homelessness; Z91.19 Patient's noncompliance with other medical treatment and regimen; F39 Unspecified mood [affective] disorder; B95.1 Streptococcus, group B, as the cause of diseases classified elsewhere; Z22.322 Carrier or suspected carrier of Methicillin resistant Staphylococcus aureus; L02.415 Cutaneous abscess of right lower limb; T81.4XXA Infection following a procedure, initial encounter
CPT/HCPCS: 36415; 36600; 80053; 81003; 82550; 82553; 82803; 82962; 83605; 85025; 87040; 87070; 87081; 87181; 87205; 93005; 96361; 96374; 96375; J1815; J2405; S0077; S5561

== ENCOUNTER 2018-04-06 15:17 | Emergency (ER) | payer MEDICAID, OTHER ==
[~2018-04-06] VITALS: Ht 152.4 cm; Wt 54.4 kg
[~2018-04-06 15:17] MED LIST: CLONIDINE0.1 MG ORAL; HEPARIN SO5000 UNIT2 SUBQ; IPRATROPIU0.2 MG/1 M HHN; KETOROLAC15 MG/1 M2 IJ; LEVEMIR100 UNIT/1 SUBQ; MIRALAX17 G2 ORAL; MORPHINE 22 MG/1 ML IV; MYLANTA30 M1 ORAL; NITROGLYCERIN0.4 MG SL; NKM; NORCO 10-325 T1 EACH ORAL; NOVOLOG100 UNIT/3 SUBQ; RESTORIL15 MG ORAL; TYLENOL650 MG/20. ORAL; VANCOMYCIN HCL750 MG IV; ZOFRAN 4 MG4 MG/2 ML IV; ZOSYN 3.373.375 GM/1 IVPB
[2018-04-06] MEDS ORDERED: Vancomycin 1 GM in NS 275 ML IV ONE (15:30)
[2018-04-06] MEDS ORDERED: NS 1000ml 1,600 ML IVLG ONE (15:30)
[2018-04-06] MEDS ORDERED: Meropenem 1 GM in NS 55 ML IVPB ONE (15:45)
[2018-04-06] MEDS ORDERED: Norco 5mg/325mg tab ORAL ONE ×2 (15:45→18:45)
[2018-04-06] MEDS ORDERED: Ondansetron ODT 8mg tab ORAL ONE (15:45)
--- NOTE | 2018-04-06 15:53 | Emergency Room Report ---
History of Present Illness General Chief Complaint: Skin Rash/Abscess Source: Patient, Medical Record Present Illness HPI This is a homeless female. She has a left foot infection. She states that the foot started with blisters on her foot. She states that it has since become swollen and infected over the past couple weeks. She has subjective fever and chills. She states that she feels nauseated. She has a lot of pain in the left foot. She also states that she is hungry and hasn't eaten today. She denies alcohol use. She states that she has used marijuana a couple weeks ago but denies other drugs. She has no other complaints. Allergies: Coded Allergies: No Known Allergies (Unverified , 10/19/16) Patient History Past Medical History: DM - obtained this information from the medical record. PT denied any medical conditions. Past Surgical History: other - R. hip replacement Social History: Reports: drug use - Occ. THC; Denies: smoking, alcohol use Reviewed Nursing Documentation: PMH: Agreed; PSxH: Agreed Nursing Documentation-PMH Past Medical History: Deferred Hx Cardiac Problems: No Hx Cancer: No Hx Gastrointestinal Problems: No Hx Neurological Problems: No Review of Systems All Other Systems: negative except mentioned in HPI Physical Exam Vital Signs Date Time Temp Pulse Resp B/P (MAP) Pulse Ox O2 Delivery O2 Flow Rate FiO2 04/06/18 15:12 98.7 93 18 103/65 99 Room Air 98.8 Sp02 EP Interpretation: reviewed, normal General Appearance: no apparent distress, alert, GCS 15, non-toxic, other - Poor personal hygiene Head: normocephalic, atraumatic Eyes: bilateral eye normal inspection, bilateral eye PERRL ENT: hearing grossly normal, normal pharynx, no angioedema, normal voice Neck: full range of motion, supple/symm/no masses Respiratory: chest non-tender, lungs clear, normal breath sounds, no respiratory distress, no retraction, no accessory muscle use, speaking full sentences Cardiovascular #1: regular rate, rhythm, no edema Gastrointestinal: normal bowel sounds, non tender, soft, non-distended, no guarding, no rebound Rectal: deferred Musculoskeletal: back normal, other - L. foot: Swelling, erythema and multiple quarter-sized ulcers with purulent discharge. Neurologic: alert, oriented x3, responsive, motor strength/tone normal, sensory intact, speech normal Psychiatric: judgement/insight normal, memory normal, mood/affect normal, no suicidal/homicidal ideation Skin: other - See above in [facility] Medical Decision Making Diagnostic Impression: Primary Impression: Cellulitis Additional Impressions: Skin ulcer of foot Gas gangrene Concern for osteomyelitis Uncontrolled diabetes mellitus ER Course This patient is a homeless female. She presents with a serious left foot infection that is concerning for gas gangrene and osteomyelitis of the left great toe. The patient also has uncontrolled diabetes. The patient didn't even note that diabetes was one of her medical conditions, despite, any reviewing the patient's medical record and she had been diagnosed with this previously on a previous admission. This patient was given broad-spectrum antibiotics and IV fluids and admitted for further evaluation with Ortho/ podiatry as she may need surgical intervention at this point. The [employer] requested her transfer to a contracted facility. The patient was accepted by an plastic eye technician at [facility]. The patient is stable for transfer. Laboratory Tests Test 04/06/18 16:15 White Blood Count 13.1 K/UL (4.8-10.8) H Red Blood Count 4.44 M/UL (4.20-5.40) Hemoglobin 11.7 G/DL (12.0-16.0) L Hematocrit 36.6 % (37.0-47.0) L Mean Corpuscular Volume 82 FL (80-99) Mean Corpuscular Hemoglobin 26.2 PG (27.0-31.0) L Mean Corpuscular Hemoglobin Concent 31.9 G/DL (32.0-36.0) L Red Cell Distribution Width 13.7 % (11.6-14.8) Platelet Count 529 K/UL (150-450) H Mean Platelet Volume 5.2 FL (6.5-10.1) L Neutrophils (%) (Auto) 75.8 % (45.0-75.0) H Lymphocytes (%) (Auto) 15.4 % (20.0-45.0) L Monocytes (%) (Auto) 6.9 % (1.0-10.0) Eosinophils (%) (Auto) 0.8 % (0.0-3.0) Basophils (%) (Auto) 1.0 % (0.0-2.0) Sodium Level 128 MMOL/L (136-145) L Potassium Level 3.5 MMOL/L (3.5-5.1) Chloride Level 85 MMOL/L (98-107) L Carbon Dioxide Level 34 MMOL/L (21-32) H Anion Gap 9 mmol/L (5-15) Blood Urea Nitrogen 8 mg/dL (7-18) Creatinine 0.7 MG/DL (0.55-1.30) Estimate Glomerular Filtration Rate > 60 mL/min (>60) Glucose Level 402 MG/DL (74-106) H Lactic Acid Level 1.50 mmol/L (0.4-2.0) Calcium Level 9.1 MG/DL (8.5-10.1) Total Bilirubin 0.4 MG/DL (0.2-1.0) Aspartate Amino Transferase (AST) 11 U/L (15-37) L Alanine Aminotransferase (ALT) 11 U/L (12-78) L Alkaline Phosphatase 108 U/L (46-116) Total Protein 8.6 G/DL (6.4-8.2) H Albumin 1.9 G/DL (3.4-5.0) L Globulin 6.7 g/dL Albumin/Globulin Ratio 0.3 (1.0-2.7) L Other X-Ray Diagnostic Results Other X-Ray Diagnostic Results : X-Ray ordered: L.foot # of Views/Limited Vs Complete: 2 View Indication: Swelling EP Interpretation: No Interpretation: other - Some gas, bone changes concerning for osteomyelitis. Impression: Other - See above. Last Vital Signs Date Time Temp Pulse Resp B/P (MAP) Pulse Ox O2 Delivery O2 Flow Rate FiO2 04/06/18 15:12 98.7 93 18 103/65 99 Room Air 98.8 [facility] Condition: Serious Laurie LarsenTri DO Apr 06, 2018 15:53
[2018-04-06 16:38] VITALS: BP 117/53
[2018-04-06 16:41] LABS: EOSINOPHILS % (AUTO) 0.8 % (0.0-3.0); HEMATOCRIT 36.6 % (37.0-47.0); HEMOGLOBIN 11.7 G/DL (12.0-16.0); LYMPHOCYTES % (AUTO) 15.4 % (20.0-45.0); MEAN CORPUSCULAR VOLUME 82 FL (80-99); MONOCYTES % (AUTO) 6.9 % (1.0-10.0); NEUTROPHILS % (AUTO) 75.8 % (45.0-75.0); PLATELET COUNT 529 K/UL (150-450); RED BLOOD COUNT 4.44 M/UL (4.20-5.40); RED CELL DISTRIBUTION WIDTH 13.7 % (11.6-14.8); WHITE BLOOD COUNT 13.1 K/UL (4.8-10.8)
[2018-04-06 16:45] LABS: ANION GAP 9 mmol/L (5-15); BLOOD UREA NITROGEN 8 mg/dL (7-18); CALCIUM 9.1 MG/DL (8.5-10.1); CARBON DIOXIDE 34 MMOL/L (21-32); CHLORIDE 85 MMOL/L (98-107); CREATININE 0.7 MG/DL (0.55-1.30); POTASSIUM 3.5 MMOL/L (3.5-5.1); SODIUM 128 MMOL/L (136-145)
[2018-04-06 16:50] LABS: ALANINE AMINOTRANSFERASE 11 U/L (12-78); ALBUMIN 1.9 G/DL (3.4-5.0); ALBUMIN/GLOBULIN RATIO 0.3 (1.0-2.7); ALKALINE PHOSPHATASE 108 U/L (46-116); ASPARTATE AMINO TRANSFERASE 11 U/L (15-37); BILIRUBIN,TOTAL 0.4 MG/DL (0.2-1.0)
--- NOTE | 2018-04-06 17:15 | Diagnostic Imaging Report ---
Indication: Pain, infection Technique: To views left foot Comparison: none Findings: There is a large soft tissue ulcer at the dorsomedial aspect of the midfoot. There is marked soft tissue swelling of the first digit and evidence of gas within the soft tissues. Evaluation of the bones is limited due to positioning and osteoporosis. There is indistinctness of the cortical margins of the head of the first metatarsal. There is metatarsus adductus, hallux valgus, hammertoe deformity of the first through fifth digits. No definite acute fractures Impression: Soft tissue swelling of the first digit and possible gas within the soft tissues, raising concern for infection with gas-forming organism Large soft tissue ulcer, as described Indistinctness of the cortical margins of the first metatarsal. Not well demonstrated, but raises concern for acute osteomyelitis. Consider MRI or bone scan for better characterization No acute bony trauma findings discussed by phone with Dr. Quiroz in the emergency room at the time of interpretation
[2018-04-06 17:40] VITALS: BP 109/54
[2018-04-06 19:24] VITALS: BP 112/62
[2018-04-06 20:56] VITALS: BP 110/60
== END 2018-04-06 20:56 | disposition short-term general hospital (02) ==
LOC: EDBD 15:17 → EMR 15:51
DX: E11.621 Type 2 diabetes mellitus with foot ulcer (principal); L97.529 Non-pressure chronic ulcer of other part of left foot with unspecified severity; E11.52 Type 2 diabetes mellitus with diabetic peripheral angiopathy with gangrene; A48.0 Gas gangrene; E11.65 Type 2 diabetes mellitus with hyperglycemia; M86.9 Osteomyelitis, unspecified; Z59.0 Homelessness
CPT/HCPCS: 36415; 73620; 80053; 83605; 85025; 87040; 87181; 99284; J2185; J3370; J7050; Q0162

== ENCOUNTER 2018-10-19 15:53 | Inpatient (IN) | payer MEDICAID ==
[~2018-10-19] VITALS: Ht 160 cm; Wt 62.2 kg
--- NOTE | 2018-10-19 16:16 | Emergency Room Report ---
History of Present Illness General Chief Complaint: Pain Source: Patient, Medical Record Present Illness HPI 53-year-old female, homeless, presenting with left foot pain. She just left AGAINST MEDICAL ADVICE from the hospital yesterday. 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 She was recommended to get a BKA, but refused. She was also being agitated and refusing IV antibiotics. She also raised refused snf placement. She was found by the [facility], crying, EMS brought her here for the foot pain Allergies: Coded Allergies: No Known Allergies (Unverified , 10/19/16) Patient History Past Medical History: see triage record Past Surgical History: none Pertinent Family History: none Now: No Reviewed Nursing Documentation: PMH: Agreed; PSxH: Agreed Nursing Documentation-PMH Past Medical History: No History, Except For Hx Cardiac Problems: No - Osteomyalitis Hx Cancer: No Hx Gastrointestinal Problems: No Hx Neurological Problems: No Review of Systems All Other Systems: negative except mentioned in HPI Physical Exam Vital Signs Date Time Temp Pulse Resp B/P (MAP) Pulse Ox O2 Delivery O2 Flow Rate FiO2 10/19/18 15:48 98.4 75 14 134/72 99 Room Air Sp02 EP Interpretation: reviewed, normal General Appearance: other - Disheveled, mild distress, tearful Head: normocephalic, atraumatic Eyes: bilateral eye normal inspection, bilateral eye PERRL, bilateral eye EOMI ENT: normal ENT inspection, normal pharynx, normal voice, moist mucus membranes Neck: normal inspection, full range of motion, supple Respiratory: normal inspection, lungs clear, normal breath sounds, no respiratory distress, no retraction, no wheezing, speaking full sentences, chest symmetrical Cardiovascular #1: normal inspection, regular rate, rhythm, no edema, normal capillary refill Cardiovascular #2: 2+ radial (R), 2+ radial (L) Gastrointestinal: normal inspection, non tender, soft, non-distended, no guarding Musculoskeletal: other - Left foot edematous, ulceration around the first metatarsal, edema, tender to palpation Neurologic: normal inspection, alert, oriented x3, responsive, motor strength/ tone normal, sensory intact, normal gait, speech normal Psychiatric: normal inspection, judgement/insight normal, memory normal Skin: normal inspection, normal color, no rash, warm/dry, well hydrated, normal turgor Medical Decision Making Diagnostic Impression: Primary Impression: Foot osteomyelitis, left ER Course 53-year-old female with left foot osteomyelitis, left AGAINST MEDICAL ADVICE DDX: Left foot osteomyelitis Plan: Obtain labs, ua IV antibiotics ER course: Patient has been monitored during ED stay, HD stable given fluids/abx Disposition: Patient is to be admitted to med surg D/W hospitalist Dr Subramanian Please note that this Emergency Department Report was dictated using [email or web address] sales assistant technology software, occasionally this can lead to erroneous entry secondary to interpretation by the dictation equipment. Rhythm Strip EP Interpretation: Yes Rate: 95 Rhythm: NSR, no PVCs, no ectopy EKG Diagnostic Results EP Interpretation: Yes Rate: normal Rhythm: NSR ST Segments: No acute changes ASA given to patient: No Chest X-ray CXR: Ordered: Yes 1 view Indication: Cellulitis EP interpretation: Yes Interpretation: No consolidation, no effusion, no PTX, no acute cardiopulmonary disease Impression: No acute disease Electronically signed by Kathe Bernal MD Laboratory Tests Test 10/19/18 16:30 White Blood Count 12.9 K/UL (4.8-10.8) H Red Blood Count 3.91 M/UL (4.20-5.40) L Hemoglobin 8.0 G/DL (12.0-16.0) L Hematocrit 26.6 % (37.0-47.0) L Mean Corpuscular Volume 68 FL (80-99) L Mean Corpuscular Hemoglobin 20.4 PG (27.0-31.0) L Mean Corpuscular Hemoglobin Concent 29.9 G/DL (32.0-36.0) L Red Cell Distribution Width 18.3 % (11.6-14.8) H Platelet Count 569 K/UL (150-450) H Mean Platelet Volume 5.2 FL (6.5-10.1) L Neutrophils (%) (Auto) 76.5 % (45.0-75.0) H Lymphocytes (%) (Auto) 12.3 % (20.0-45.0) L Monocytes (%) (Auto) 8.4 % (1.0-10.0) Eosinophils (%) (Auto) 1.1 % (0.0-3.0) Basophils (%) (Auto) 1.6 % (0.0-2.0) Prothrombin Time 11.2 SEC (9.30-11.50) Prothrombin Time INR 1.1 (0.9-1.1) PTT 29 SEC (23-33) Sodium Level 130 MMOL/L (136-145) L Potassium Level 3.8 MMOL/L (3.5-5.1) Chloride Level 96 MMOL/L (98-107) L Carbon Dioxide Level 26 MMOL/L (21-32) Anion Gap 8 mmol/L (5-15) Blood Urea Nitrogen 16 mg/dL (7-18) Creatinine 0.8 MG/DL (0.55-1.30) Estimate Glomerular Filtration Rate > 60 mL/min (>60) Glucose Level 426 MG/DL (74-106) H Lactic Acid Level 3.20 mmol/L (0.4-2.0) H Calcium Level 8.4 MG/DL (8.5-10.1) L Total Bilirubin 0.2 MG/DL (0.2-1.0) Aspartate Amino Transferase (AST) 14 U/L (15-37) L Alanine Aminotransferase (ALT) 13 U/L (12-78) Alkaline Phosphatase 106 U/L (46-116) Total Protein 8.8 G/DL (6.4-8.2) H Albumin 1.9 G/DL (3.4-5.0) L Globulin 6.9 g/dL Albumin/Globulin Ratio 0.3 (1.0-2.7) L Last Vital Signs Date Time Temp Pulse Resp B/P (MAP) Pulse Ox O2 Delivery O2 Flow Rate FiO2 10/19/18 15:48 98.4 75 14 134/72 99 Room Air Disposition: ADMITTED INPATIENT Condition: Kathe Cuenca M.D. Oct 19, 2018 16:16
--- NOTE | 2018-10-19 16:41 | NUR ---
ED Nurse Note:pt. was BIBA with cellulitis and vascular wounds on inner and buttom of left foot, also pt. came with perianal redness and pain due to bowel incontinance, she was cleaned and wounds documented , dry dressing placed on left foot, also pt. has healed wound on left buttock, blood and cultures sent to labs, meds given
--- NOTE | 2018-10-19 16:50 | Diagnostic Imaging Report ---
Indication: Chest pain Comparison: None A single view chest radiograph was obtained. Findings: Cardiomediastinal appearance is within normal limits for age. The lungs are clear. Pulmonary vascularity is appropriate. The diaphragmatic contour is smooth and costophrenic angles are sharp. No pleural effusions are identified. The bones are osteopenic. Impression: No acute findings
[2018-10-19 16:55] VITALS: BP 142/59
[2018-10-19 16:56] LABS: BASOPHILS % (AUTO) 1.6 % (0.0-2.0); EOSINOPHILS % (AUTO) 1.1 % (0.0-3.0); HEMATOCRIT 26.6 % (37.0-47.0); LYMPHOCYTES % (AUTO) 12.3 % (20.0-45.0); MEAN CORPUSCULAR VOLUME 68 FL (80-99); MONOCYTES % (AUTO) 8.4 % (1.0-10.0); NEUTROPHILS % (AUTO) 76.5 % (45.0-75.0); PLATELET COUNT 569 K/UL (150-450); RED BLOOD COUNT 3.91 M/UL (4.20-5.40); RED CELL DISTRIBUTION WIDTH 18.3 % (11.6-14.8); WHITE BLOOD COUNT 12.9 K/UL (4.8-10.8)
[2018-10-19 17:01] LABS: INR 1.1 (0.9-1.1)
[2018-10-19 17:03] LABS: ANION GAP 8 mmol/L (5-15); BLOOD UREA NITROGEN 16 mg/dL (7-18); CALCIUM 8.4 MG/DL (8.5-10.1); CARBON DIOXIDE 26 MMOL/L (21-32); CHLORIDE 96 MMOL/L (98-107); CREATININE 0.8 MG/DL (0.55-1.30); POTASSIUM 3.8 MMOL/L (3.5-5.1); SODIUM 130 MMOL/L (136-145)
[2018-10-19 17:08] LABS: ALANINE AMINOTRANSFERASE 13 U/L (12-78); ALBUMIN 1.9 G/DL (3.4-5.0); ALBUMIN/GLOBULIN RATIO 0.3 (1.0-2.7); ALKALINE PHOSPHATASE 106 U/L (46-116); ASPARTATE AMINO TRANSFERASE 14 U/L (15-37); BILIRUBIN,TOTAL 0.2 MG/DL (0.2-1.0)
[2018-10-19] MEDS ORDERED: Piperacillin/Tazobactam 3.375 GM in NS 110 ML IVPB ONE (17:15)
[2018-10-19] MEDS ORDERED: Vancomycin 1 GM in NS 275 ML IVPB ONE (17:15)
[2018-10-19] MEDS ORDERED: Morphine Sulfate 4mg/ml Inj (IV USE ONLY) IVP ONE ×2 (17:15→23:00)
[2018-10-19] MEDS ORDERED: LEVAQUIN750 MG ORAL (17:48)
[2018-10-19] MEDS ORDERED: FLUCONAZOLE100 MG ORAL (17:48)
[2018-10-19 18:32] VITALS: BP 124/60
--- NOTE | 2018-10-19 18:45 | NUR ---
ED Nurse Note:lactic reflax was done, pt. given food and swab is done
[2018-10-19 19:13] LABS: APPEARANCE,URINE CLEAR; BILIRUBIN, URINE NEGATIVE (NEGATIVE); COLOR,URINE PALE YELLOW; GLUCOSE, URINE (UA) 4+ (NEGATIVE); KETONES,URINE NEGATIVE (NEGATIVE); LEUKOCYTE ESTERASE ,URINE 2+ (NEGATIVE); NITRITE,URINE NEGATIVE (NEGATIVE); PH,URINE 5 (4.5-8.0); PROTEIN,URINE 2+ (NEGATIVE); UROBILINOGEN,URINE NORMAL MG/DL (0.0-1.0)
--- NOTE | 2018-10-19 19:29 | NUR ---
ED Nurse Note: Rio BS: 306. Inform YONY.
--- NOTE | 2018-10-19 22:50 | NUR ---
ED Nurse Note: Message left to Dr Dorsey for Admit orders, await for respond back.
[2018-10-19 23:00] VITALS: BP 133/70
--- NOTE | 2018-10-19 23:15 | NUR ---
ED Nurse Note: Admit Pt to 4E 412-2. Pt is AO x 4times, VSS, on room air no distress. Pt belongings and skin check with floor RN. RN found Pt L buttock is redness, picture taken and document well. Report given to MARKUS Forrester.
--- NOTE | 2018-10-19 23:30 | NUR ---
NURSE NOTES: Received patient from ER via [place] report given by MARKUS Faria. Patient awake and alert. Able to make needs known. No complain of pain or discomfort at this time. Patient requesting for food, patient said she's angry. Will give snack as soon as we get diet order. Patient skin check and photo taken on sacral and perineal redness. Belongings reviewed and accounted for. Oriented to room and hospital policy. Call light provided and within reach. Will call Dr. Dorsey for admission orders. Will continue to monitor.
[2018-10-20] VITALS: BP 114/63
[2018-10-20] MEDS ORDERED: Nitroglycerin Subl 0.4mg tab SL PRN (00:15)
[2018-10-20] MEDS ORDERED: HYDROcodone/Acetamin 10/325 tab ORAL PRN ×2 (00:15→04:00)
[2018-10-20] MEDS ORDERED: Morphine Sulfate 4mg/ml Inj (IV USE ONLY) IVP PRN (00:45)
[2018-10-20] MEDS: Mylanta II UD 30ml ORAL SCH ×3 (00:46→12:09)
[2018-10-20] MEDS: Albuterol/Ipratropium 3ml neb HHN SCH ×6 (03:10→22:56)
[2018-10-20] MEDS ORDERED: Morphine Sulfate 2mg/ml Inj(IV/IM USE ONLY) IVP PRN (03:30)
[2018-10-20 04:00] VITALS: BP 129/60
[2018-10-20] MEDS: Morphine Sulfate 2mg/ml Inj(IV/IM USE ONLY) IVP PRN ×5 (04:13→21:04)
[2018-10-20] MEDS: Vancomycin 500mg/D5W 110ml IVPB SCH ×4 (05:06→17:04)
[2018-10-20] MEDS: Piperacillin/Tazobactam 3.375 GM in D5W 110 ML IVPB SCH ×3 (06:10→21:34)
[2018-10-20] MEDS: NovoLOG Insulin Flexpen SUBQ SCH ×7 (06:11→20:28)
--- NOTE | 2018-10-20 07:32 | NUR ---
NURSE NOTES: pt in bed with no sob nor in any form of distress noted. denies any pain at this time. Bed in lowest position. call light within reach at all time.
--- NOTE | 2018-10-20 07:34 | NUR ---
NURSE NOTES: Notify Dr. Dorsey regading patient sodium level of 130. Dr. Dorsey replied to contact Dr. Tapia by am nurse. Will endorse.
--- NOTE | 2018-10-20 07:35 | NUR ---
HAND-OFF: Report given to MARKUS Judd.
[2018-10-20 08:00] VITALS: BP 121/62
--- NOTE | 2018-10-20 08:00 | NUR ---
NURSE NOTES: pt in bed with no sob nor in any form of distress noted. bed in lowest position. bed alarm on. will continue to monitor
[2018-10-20] MEDS: Heparin 5000 units/ml inj SUBQ SCH ×2 (08:50→20:27)
--- NOTE | 2018-10-20 11:38 | Consultation ---
History of Present Illness General Date patient seen: Oct 20, 2018 Chief Complaint: Pain Reason for Consultation: lower extremity wounds Present Illness HPI 53 year old female who was recently hospitalized for worsening lower extremity pain, osteo, and wound. She was advised as to care plan but refused majority of care plan. She left AMA and was found crying at local fast food. Came to ED for evaluation and admitted for care / management. currently states still with lots of pain in left leg. surgery called to evaluate and assist with care and management. patient seen, chart reviewed, patient examined. Allergies: Coded Allergies: No Known Allergies (Unverified , 10/19/16) Medication History Scheduled Al Hydroxide/mg Hydroxide (Mag-Al Liquid), 30 ML ORAL EVERY 6 HOURS, (Reported) Clonidine HCl (Clonidine HCl), 0.1 MG ORAL EVERY 4 HOURS, (Reported) Fluconazole (Fluconazole), 100 MG ORAL DAILY, (Reported) Heparin Sod (Porcine) (Heparin Sodium*), 5,000 UNITS SUBQ EVERY 12 HOURS, ( Reported) Insulin Aspart* (Novolog*), 4 SUBQ AC, (Reported) Insulin Detemir (Levemir), 14 SUBQ DAILY, (Reported) Ketorolac Tromethamine (Ketorolac Tromethamine), 30 MG IJ EVERY 6 HOURS, ( Reported) Levofloxacin* (Levaquin*), 750 MG ORAL DAILY, (Reported) Morphine Sulfate* (Morphine Sulfate*), 2 MG IV EVERY 4 HOURS, (Reported) Nitroglycerin (Nitroglycerin), 0.4 MG SL q5mx3 doses prn, (Reported) No Known Medications* (NKM - No Known Medications*), 0 ., (Reported) Unpfuujnzlbo-Qfqc-Efrmnrnr,Iso (Zosyn 3.375 Gm Pre Mix-Bag), 3.375 GM IVPB EVERY 8 HOURS, (Reported) Polyethylene Glycol 3350* (Miralax*), 17 GM ORAL DAILY, (Reported) Vancomycin Hcl (Vancomycin Hcl), 750 MG IV Q12HR, (Reported) Scheduled PRN Acetaminophen (Acetaminophen), 650 MG ORAL Q4HR PRN for Fever/Headache/Mild Pain , (Reported) Hydrocodone Bit/Acetaminophen 10-325* ([place] 10-325*), 1 TAB ORAL Q6H PRN for For Pain, (Reported) Insulin Aspart* (Novolog*), 0 SUBQ AC+HS PRN for Hyperglycemia, (Reported) Ipratropium [place] 0.5MG/2.5ML (Ipratropium [place] 0.5MG/2.5ML), 0.5 MG HHN Q4HR PRN for Shortness of Breath, (Reported) Ondansetron* (Zofran*), 4 MG IV Q6H PRN for Nausea & Vomiting, (Reported) Temazepam* (Restoril*), 15 MG ORAL BEDTIME PRN for Insomnia, (Reported) Patient History Limited by: medical condition History Provided By: Patient, Medical Record, PMD Healthcare decision maker Resuscitation status Full Code Advanced Directive on File Past Medical/Surgical History Past Medical/Surgical History: (1) Diabetes mellitus (2) Rash and other nonspecific skin eruption (3) Sacral decubitus ulcer (4) Anxiety disorder (5) Osteomyelitis (6) Foot osteomyelitis, left Review of Systems All Other Systems: negative except mentioned in HPI Physical Exam General Appearance: no apparent distress Lines, tubes and drains: peripheral HEENT: mucous membranes moist Neck: normal inspection Respiratory/Chest: normal breath sounds Cardiovascular/Chest: normal rate Abdomen: soft, no organomegaly, no mass Extremities: other Skin Exam: other Neurologic: alert Last 24 Hour Vital Signs Date Time Temp Pulse Resp B/P (MAP) Pulse Ox O2 Delivery O2 Flow Rate FiO2 10/20/18 10:21 85 18 100 Room Air 10/20/18 10:11 88 18 98 Room Air 10/20/18 09:14 97.8 10/20/18 09:00 Room Air 10/20/18 07:24 88 16 100 Room Air 10/20/18 07:09 88 16 95 Room Air 10/20/18 04:00 97.8 95 16 129/60 (83) 94 10/20/18 03:19 81 16 100 Room Air 10/20/18 03:14 82 16 Room Air 10/20/18 03:10 82 16 97 Room Air 10/20/18 01:23 Room Air 10/20/18 00:00 98.1 83 17 114/63 (80) 99 10/19/18 23:15 98.2 85 18 133/70 100 Room Air 10/19/18 23:00 98.2 85 18 133/70 100 Room Air 10/19/18 18:35 98.0 10/19/18 18:32 98.0 87 21 124/60 100 Room Air 10/19/18 16:55 98.0 92 19 142/59 100 Room Air 10/19/18 15:48 98.4 75 14 134/72 99 Room Air Intake and Output 10/19/18 10/20/18 19:00 07:00 # Voids 1 2 Laboratory Tests Test 10/19/18 16:30 10/19/18 18:30 10/19/18 19:00 White Blood Count 12.9 K/UL (4.8-10.8) H Red Blood Count 3.91 M/UL (4.20-5.40) L Hemoglobin 8.0 G/DL (12.0-16.0) L Hematocrit 26.6 % (37.0-47.0) L Mean Corpuscular Volume 68 FL (80-99) L Mean Corpuscular Hemoglobin 20.4 PG (27.0-31.0) L Mean Corpuscular Hemoglobin Concent 29.9 G/DL (32.0-36.0) L Red Cell Distribution Width 18.3 % (11.6-14.8) H Platelet Count 569 K/UL (150-450) H Mean Platelet Volume 5.2 FL (6.5-10.1) L Neutrophils (%) (Auto) 76.5 % (45.0-75.0) H Lymphocytes (%) (Auto) 12.3 % (20.0-45.0) L Monocytes (%) (Auto) 8.4 % (1.0-10.0) Eosinophils (%) (Auto) 1.1 % (0.0-3.0) Basophils (%) (Auto) 1.6 % (0.0-2.0) Prothrombin Time 11.2 SEC (9.30-11.50) Prothromb Time International Ratio 1.1 (0.9-1.1) Activated Partial Thromboplast Time 29 SEC (23-33) Sodium Level 130 MMOL/L (136-145) L Potassium Level 3.8 MMOL/L (3.5-5.1) Chloride Level 96 MMOL/L (98-107) L Carbon Dioxide Level 26 MMOL/L (21-32) Anion Gap 8 mmol/L (5-15) Blood Urea Nitrogen 16 mg/dL (7-18) Creatinine 0.8 MG/DL (0.55-1.30) Estimat Glomerular Filtration Rate > 60 mL/min (>60) Glucose Level 426 MG/DL (74-106) H Lactic Acid Level 3.20 mmol/L (0.4-2.0) H 2.10 mmol/L (0.66-2.22) Calcium Level 8.4 MG/DL (8.5-10.1) L Total Bilirubin 0.2 MG/DL (0.2-1.0) Aspartate Amino Transf (AST/SGOT) 14 U/L (15-37) L Alanine Aminotransferase (ALT/SGPT) 13 U/L (12-78) Alkaline Phosphatase 106 U/L (46-116) Total Protein 8.8 G/DL (6.4-8.2) H Albumin 1.9 G/DL (3.4-5.0) L Globulin 6.9 g/dL Albumin/Globulin Ratio 0.3 (1.0-2.7) L Urine Color Pale yellow Urine Appearance Clear Urine pH 5 (4.5-8.0) Urine Specific [place] 1.015 (1.005-1.035) Urine Protein 2+ (NEGATIVE) H Urine Glucose (UA) 4+ (NEGATIVE) H Urine Ketones Negative (NEGATIVE) Urine Blood 1+ (NEGATIVE) H Urine Nitrite Negative (NEGATIVE) Urine Bilirubin Negative (NEGATIVE) Urine Urobilinogen Normal MG/DL (0.0-1.0) Urine Leukocyte Esterase 2+ (NEGATIVE) H Urine RBC 2-4 /HPF (0 - 2) H Urine WBC 5-10 /HPF (0 - 2) H Urine Squamous Epithelial Cells Occasional /LPF Urine Bacteria Few /HPF (NONE) Height (Feet): 5 Height (Inches): 3.00 Weight (Pounds): 110 Medications Current Medications Medications (Trade) Dose Ordered Sig/Manda Route PRN Reason Start Time Stop Time Status Last Admin Dose Admin Acetaminophen (Tylenol) 650 mg Q4H PRN ORAL Mild Pain/Temp > 100.5 10/20/18 00:15 11/19/18 00:14 Acetaminophen/ Hydrocodone Bitart ([place] 10/325) 1 tab Q6HR PRN ORAL Severe Pain (Pain Scale 7-10) 10/20/18 04:00 10/27/18 00:14 Al Hydroxide/Mg Hydroxide (Mylanta II) 30 ml Q6H ORAL 10/20/18 00:00 11/19/18 00:00 10/20/18 06:09 Albuterol/ Ipratropium (Albuterol/ Ipratropium) 3 ml Q4HRT HHN 10/20/18 03:00 10/25/18 02:59 10/20/18 10:11 Clonidine HCl (Catapres Tab) 0.1 mg Q4H PRN ORAL For High Blood Pressure 10/20/18 00:15 11/19/18 00:14 Dextrose (Dextrose 50%) 25 ml Q30M PRN IV Hypoglycemia 10/20/18 00:30 11/19/18 00:29 Dextrose (Dextrose 50%) 50 ml Q30M PRN IV Hypoglycemia 10/20/18 00:30 11/19/18 00:29 Heparin Sodium (Porcine) (Heparin 5000 units/ml) 5,000 units EVERY 12 HOURS SUBQ 10/20/18 09:00 11/19/18 08:59 10/20/18 08:50 Insulin Aspart (NovoLOG) BEFORE MEALS AND HS SUBQ 10/20/18 06:30 11/19/18 06:29 10/20/18 06:11 Insulin Aspart (NovoLOG) 12 units NOVOTIAC SUBQ 10/20/18 06:30 11/19/18 06:29 10/20/18 06:12 Insulin Detemir (Levemir) 20 units BEDTIME SUBQ 10/20/18 21:00 11/19/18 20:59 Morphine Sulfate (Morphine Sulfate) 2 mg Q4H PRN IVP pain 10/20/18 00:45 10/27/18 00:44 UNV Morphine Sulfate (Morphine Sulfate) 2 mg Q4H PRN IVP Moderate Pain (Pain Scale 4-6) 10/20/18 04:00 10/27/18 03:59 10/20/18 08:44 Nitroglycerin (Ntg) 0.4 mg Q5M PRN SL Prn Chest Pain 10/20/18 00:15 11/19/18 00:14 Ondansetron HCl (Zofran) 4 mg Q6H PRN IVP Nausea & Vomiting 10/20/18 00:15 11/19/18 00:14 Piperacillin Sod/ Tazobactam Sod 3.375 gm/Dextrose 110 ml @ 27.5 mls/hr EVERY 8 HOURS IVPB 10/20/18 06:00 10/25/18 05:59 10/20/18 06:10 Polyethylene Glycol (Miralax) 17 gm BEDTIME ORAL 10/20/18 21:00 11/19/18 20:59 Temazepam (Restoril) 15 mg HSPRN PRN ORAL Insomnia 10/20/18 00:15 10/27/18 00:14 Vancomycin HCl (Vanco rx to dose) 1 ea DAILY PRN MISC Per rx protocol 10/20/18 02:00 11/19/18 01:59 Vancomycin HCl 500 mg/Dextrose 110 ml @ 110 mls/hr Q12H IVPB 10/20/18 05:00 10/25/18 04:59 10/20/18 05:06 Assessment/Plan Problem List: (1) Foot osteomyelitis, left Assessment & Plan: Left foot osteo acute/chronic seen by podiatry prior and deemed not salvageable recommended to have left BKA patient refused surgery still refuses surgery and majority of care except pain medication she would not allow me to change her dressings today will attempt again tomorrow thank you ICD Codes: M86.9 - Osteomyelitis, unspecified SNOMED: [id number] Qualifiers: Qualified Codes: M86.8X7 - Other osteomyelitis, ankle and foot (2) Sacral decubitus ulcer ICD Codes: L89.159 - Pressure ulcer of sacral region, unspecified stage SNOMED: 502449307 (3) Osteomyelitis ICD Codes: M86.9 - Osteomyelitis, unspecified SNOMED: 21355922 (4) Rash and other nonspecific skin eruption ICD Codes: R21 - Rash and other nonspecific skin eruption SNOMED: 311542247, [id number] Saqib Ndiaye Oct 20, 2018 11:38
[2018-10-20 12:00] VITALS: BP 125/63
--- NOTE | 2018-10-20 12:31 | Consultation ---
History of Present Illness General Chief Complaint: Pain Reason for Consultation: lower extremity wounds Present Illness HPI 53-year-old female, homeless, presenting with left foot pain. the pt was recently hospitalized and left ama. the pt has med seeking behaviors and has outbursts of anger. the pt has no insight. the pt is non-compliant with meds the is illogical Allergies: Coded Allergies: No Known Allergies (Unverified , 10/19/16) Medication History Scheduled Al Hydroxide/mg Hydroxide (Mag-Al Liquid), 30 ML ORAL EVERY 6 HOURS, (Reported) Clonidine HCl (Clonidine HCl), 0.1 MG ORAL EVERY 4 HOURS, (Reported) Fluconazole (Fluconazole), 100 MG ORAL DAILY, (Reported) Heparin Sod (Porcine) (Heparin Sodium*), 5,000 UNITS SUBQ EVERY 12 HOURS, ( Reported) Insulin Aspart* (Novolog*), 4 SUBQ AC, (Reported) Insulin Detemir (Levemir), 14 SUBQ DAILY, (Reported) Ketorolac Tromethamine (Ketorolac Tromethamine), 30 MG IJ EVERY 6 HOURS, ( Reported) Levofloxacin* (Levaquin*), 750 MG ORAL DAILY, (Reported) Morphine Sulfate* (Morphine Sulfate*), 2 MG IV EVERY 4 HOURS, (Reported) Nitroglycerin (Nitroglycerin), 0.4 MG SL q5mx3 doses prn, (Reported) No Known Medications* (NKM - No Known Medications*), 0 ., (Reported) Lxhjzqcredow-Iouz-Iemlirep,Iso (Zosyn 3.375 Gm Pre Mix-Bag), 3.375 GM IVPB EVERY 8 HOURS, (Reported) Polyethylene Glycol 3350* (Miralax*), 17 GM ORAL DAILY, (Reported) Vancomycin Hcl (Vancomycin Hcl), 750 MG IV Q12HR, (Reported) Scheduled PRN Acetaminophen (Acetaminophen), 650 MG ORAL Q4HR PRN for Fever/Headache/Mild Pain , (Reported) Hydrocodone Bit/Acetaminophen 10-325* ([place] 10-325*), 1 TAB ORAL Q6H PRN for For Pain, (Reported) Insulin Aspart* (Novolog*), 0 SUBQ AC+HS PRN for Hyperglycemia, (Reported) Ipratropium [place] 0.5MG/2.5ML (Ipratropium [place] 0.5MG/2.5ML), 0.5 MG HHN Q4HR PRN for Shortness of Breath, (Reported) Ondansetron* (Zofran*), 4 MG IV Q6H PRN for Nausea & Vomiting, (Reported) Temazepam* (Restoril*), 15 MG ORAL BEDTIME PRN for Insomnia, (Reported) Patient History History Provided By: Patient, Medical Record, PMD Healthcare decision maker Resuscitation status Full Code Advanced Directive on File Past Medical/Surgical History Past Medical/Surgical History: (1) Diabetes mellitus (2) Anxiety disorder (3) Rash and other nonspecific skin eruption (4) Osteomyelitis (5) Sacral decubitus ulcer (6) Foot osteomyelitis, left Review of Systems Psychiatric: Reports: anxiety, depressed feelings, emotional problems Physical Exam General Appearance: no apparent distress, alert Neurologic: oriented x 3, responsive, depressed affect Last 24 Hour Vital Signs Date Time Temp Pulse Resp B/P (MAP) Pulse Ox O2 Delivery O2 Flow Rate FiO2 10/20/18 10:21 85 18 100 Room Air 10/20/18 10:11 88 18 98 Room Air 10/20/18 09:14 97.8 10/20/18 09:00 Room Air 10/20/18 07:24 88 16 100 Room Air 10/20/18 07:09 88 16 95 Room Air 10/20/18 04:00 97.8 95 16 129/60 (83) 94 10/20/18 03:19 81 16 100 Room Air 10/20/18 03:14 82 16 Room Air 10/20/18 03:10 82 16 97 Room Air 10/20/18 01:23 Room Air 10/20/18 00:00 98.1 83 17 114/63 (80) 99 10/19/18 23:15 98.2 85 18 133/70 100 Room Air 10/19/18 23:00 98.2 85 18 133/70 100 Room Air 10/19/18 18:35 98.0 10/19/18 18:32 98.0 87 21 124/60 100 Room Air 10/19/18 16:55 98.0 92 19 142/59 100 Room Air 10/19/18 15:48 98.4 75 14 134/72 99 Room Air Intake and Output 10/19/18 10/20/18 19:00 07:00 # Voids 1 2 Laboratory Tests Test 10/19/18 16:30 10/19/18 18:30 10/19/18 19:00 White Blood Count 12.9 K/UL (4.8-10.8) H Red Blood Count 3.91 M/UL (4.20-5.40) L Hemoglobin 8.0 G/DL (12.0-16.0) L Hematocrit 26.6 % (37.0-47.0) L Mean Corpuscular Volume 68 FL (80-99) L Mean Corpuscular Hemoglobin 20.4 PG (27.0-31.0) L Mean Corpuscular Hemoglobin Concent 29.9 G/DL (32.0-36.0) L Red Cell Distribution Width 18.3 % (11.6-14.8) H Platelet Count 569 K/UL (150-450) H Mean Platelet Volume 5.2 FL (6.5-10.1) L Neutrophils (%) (Auto) 76.5 % (45.0-75.0) H Lymphocytes (%) (Auto) 12.3 % (20.0-45.0) L Monocytes (%) (Auto) 8.4 % (1.0-10.0) Eosinophils (%) (Auto) 1.1 % (0.0-3.0) Basophils (%) (Auto) 1.6 % (0.0-2.0) Prothrombin Time 11.2 SEC (9.30-11.50) Prothromb Time International Ratio 1.1 (0.9-1.1) Activated Partial Thromboplast Time 29 SEC (23-33) Sodium Level 130 MMOL/L (136-145) L Potassium Level 3.8 MMOL/L (3.5-5.1) Chloride Level 96 MMOL/L (98-107) L Carbon Dioxide Level 26 MMOL/L (21-32) Anion Gap 8 mmol/L (5-15) Blood Urea Nitrogen 16 mg/dL (7-18) Creatinine 0.8 MG/DL (0.55-1.30) Estimat Glomerular Filtration Rate > 60 mL/min (>60) Glucose Level 426 MG/DL (74-106) H Lactic Acid Level 3.20 mmol/L (0.4-2.0) H 2.10 mmol/L (0.66-2.22) Calcium Level 8.4 MG/DL (8.5-10.1) L Total Bilirubin 0.2 MG/DL (0.2-1.0) Aspartate Amino Transf (AST/SGOT) 14 U/L (15-37) L Alanine Aminotransferase (ALT/SGPT) 13 U/L (12-78) Alkaline Phosphatase 106 U/L (46-116) Total Protein 8.8 G/DL (6.4-8.2) H Albumin 1.9 G/DL (3.4-5.0) L Globulin 6.9 g/dL Albumin/Globulin Ratio 0.3 (1.0-2.7) L Urine Color Pale yellow Urine Appearance Clear Urine pH 5 (4.5-8.0) Urine Specific [place] 1.015 (1.005-1.035) Urine Protein 2+ (NEGATIVE) H Urine Glucose (UA) 4+ (NEGATIVE) H Urine Ketones Negative (NEGATIVE) Urine Blood 1+ (NEGATIVE) H Urine Nitrite Negative (NEGATIVE) Urine Bilirubin Negative (NEGATIVE) Urine Urobilinogen Normal MG/DL (0.0-1.0) Urine Leukocyte Esterase 2+ (NEGATIVE) H Urine RBC 2-4 /HPF (0 - 2) H Urine WBC 5-10 /HPF (0 - 2) H Urine Squamous Epithelial Cells Occasional /LPF Urine Bacteria Few /HPF (NONE) Height (Feet): 5 Height (Inches): 3.00 Weight (Pounds): 110 Medications Current Medications Medications (Trade) Dose Ordered Sig/Manda Route PRN Reason Start Time Stop Time Status Last Admin Dose Admin Acetaminophen (Tylenol) 650 mg Q4H PRN ORAL Mild Pain/Temp > 100.5 10/20/18 00:15 11/19/18 00:14 Acetaminophen/ Hydrocodone Bitart ([place] 10/325) 1 tab Q6HR PRN ORAL Severe Pain (Pain Scale 7-10) 10/20/18 04:00 10/27/18 00:14 Al Hydroxide/Mg Hydroxide (Mylanta II) 30 ml Q6H ORAL 10/20/18 00:00 11/19/18 00:00 10/20/18 12:09 Albuterol/ Ipratropium (Albuterol/ Ipratropium) 3 ml Q4HRT HHN 10/20/18 03:00 10/25/18 02:59 10/20/18 10:11 Clonidine HCl (Catapres Tab) 0.1 mg Q4H PRN ORAL For High Blood Pressure 10/20/18 00:15 11/19/18 00:14 Dextrose (Dextrose 50%) 25 ml Q30M PRN IV Hypoglycemia 10/20/18 00:30 11/19/18 00:29 Dextrose (Dextrose 50%) 50 ml Q30M PRN IV Hypoglycemia 10/20/18 00:30 11/19/18 00:29 Heparin Sodium (Porcine) (Heparin 5000 units/ml) 5,000 units EVERY 12 HOURS SUBQ 10/20/18 09:00 11/19/18 08:59 10/20/18 08:50 Insulin Aspart (NovoLOG) BEFORE MEALS AND HS SUBQ 10/20/18 06:30 11/19/18 06:29 10/20/18 12:10 Insulin Aspart (NovoLOG) 12 units NOVOTIAC SUBQ 10/20/18 06:30 11/19/18 06:29 10/20/18 12:10 Insulin Detemir (Levemir) 20 units BEDTIME SUBQ 10/20/18 21:00 11/19/18 20:59 Morphine Sulfate (Morphine Sulfate) 2 mg Q4H PRN IVP pain 10/20/18 00:45 10/27/18 00:44 UNV Morphine Sulfate (Morphine Sulfate) 2 mg Q4H PRN IVP Moderate Pain (Pain Scale 4-6) 10/20/18 04:00 10/27/18 03:59 10/20/18 08:44 Nitroglycerin (Ntg) 0.4 mg Q5M PRN SL Prn Chest Pain 10/20/18 00:15 11/19/18 00:14 Ondansetron HCl (Zofran) 4 mg Q6H PRN IVP Nausea & Vomiting 10/20/18 00:15 11/19/18 00:14 Piperacillin Sod/ Tazobactam Sod 3.375 gm/Dextrose 110 ml @ 27.5 mls/hr EVERY 8 HOURS IVPB 10/20/18 06:00 10/25/18 05:59 10/20/18 06:10 Polyethylene Glycol (Miralax) 17 gm BEDTIME ORAL 10/20/18 21:00 11/19/18 20:59 Temazepam (Restoril) 15 mg HSPRN PRN ORAL Insomnia 10/20/18 00:15 10/27/18 00:14 Vancomycin HCl (Vanco rx to dose) 1 ea DAILY PRN MISC Per rx protocol 10/20/18 02:00 11/19/18 01:59 Vancomycin HCl 500 mg/Dextrose 110 ml @ 110 mls/hr Q12H IVPB 10/20/18 05:00 10/25/18 04:59 10/20/18 05:06 Assessment/Plan Problem List: (1) MDD (major depressive disorder) ICD Codes: F32.9 - Major depressive disorder, single episode, unspecified SNOMED: 662129919 (2) Anxiety disorder ICD Codes: F41.9 - Anxiety disorder, unspecified SNOMED: 998389217 Status: stable Assessment/Plan Remeron 7.5mg po qhs Prozac 20mg po qam provided ro/Barry Clark MD Oct 20, 2018 12:31
--- NOTE | 2018-10-20 13:12 | NUR ---
NURSE NOTES:WOUND CARE NOTES:Pt declined to be seen and requested to be seen on Tuesday.
--- NOTE | 2018-10-20 15:00 | NUR ---
CASE MANAGEMENT: REVIEW 53/F PRESENTED TO ED FROM STREETS CC: LEFT FOOT PAIN SI: OSTEOMYELITIS T 98.4 HR 75 RR 14 BP 134/72 SAT 99% ROOM AIR WBC 12.9 H/H 8.0/26.6 NA 130 GLUCOSE 426 IS: NS IVF BOLUS X1 MORPHINE IV X1 ZOFRAN IV X1 ZOSYN IV X1 VANCO IV X1 INTERQUAL CRITERIA MET: PATIENT ADMITTED TO MED/SURG UNIT 10/19/2018 DCP: PATIENT REPORTS BEING HOMELESS PLAN: SURGICAL CONSULT
--- NOTE | 2018-10-20 15:09 | Consultation ---
Consult Note Consult Note 53-year-old female, homeless, presenting with left foot pain. She just left AGAINST MEDICAL ADVICE from the hospital yesterday. 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 She was recommended to get a BKA, but refused. She was also being agitated and refusing IV antibiotics. She also raised refused snf placement. She was found by the [facility], crying, EMS brought her here for the foot pain Assessment/Plan HypoNatremia due to hyperglycemia Anemia Low MCV Left foot Osteo Hyperglycemia UTI Proteinuria/ Diabetic nephropathy BS control will raise serum Na anemia lee per ID per orders Francisco Tapia MD Oct 20, 2018 15:09
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
[2018-10-20 16:00] VITALS: BP 127/62
--- NOTE | 2018-10-20 19:20 | NUR ---
HAND-OFF: Report given to REMY Lainez.
--- NOTE | 2018-10-20 19:30 | NUR ---
NURSE NOTES: RECEIVED PATIENT LYING IN BED, AWAKE, ALERT/ORIENTED X4, VERBALLY RESPONSIVE. IV INTACT TO RIGHT FOREARM, NO REDNESS/SWELLING NOTED TO SITE. DRESSING DRY AND INTACT TO LEFT FOOT, NOTED WITH BLOODY STAIN, PATIENT REFUSING DRESSING CHANGE AT THIS TIME, EXTREMITY ELEVATED ON PILLOW LENGTHWISE WITH HEEL FLOATING, ENCOURAGE OFF LOAD OF FOOT, PATIENT VERBALIZED UNDERSTANDING. NO SIGNS AND SYMPTOMS OF ACUTE CARDIO RESPIRATORY DISTRESS/SHORTNESS OF BREATH, DENIES CHEST PAIN. DENIES GI DISCOMFORT, NO N/V/D, BATHROOM PRIVILEGES WITH ASSIST, FWW AT BEDSIDE, ENCOURAGED PATIENT TO UTILIZE CALL LIGHT FOR ASSISTANCE, VERBALIZED UNDERSTANDING. SIDE RAILS UP X3/BED IN LOWEST POSITION FOR SAFETY. CALL LIGHT WITHIN REACH. FREQUENT ROUNDING FOR SAFETY/NEEDS. NAD.
--- NOTE | 2018-10-20 19:41 | Cardiology Progress Note ---
Assessment/Plan Assessment/Plan The patient is seen and examined, full consult note is dictated. Objective Last 24 Hour Vital Signs Date Time Temp Pulse Resp B/P (MAP) Pulse Ox O2 Delivery O2 Flow Rate FiO2 10/20/18 19:27 93 18 99 Room Air 21 10/20/18 19:17 94 18 98 Room Air 21 10/20/18 17:34 98.2 10/20/18 16:00 98.2 94 20 127/62 (83) 98 10/20/18 14:18 90 18 100 Room Air 21 10/20/18 14:10 92 18 97 Room Air 21 10/20/18 12:00 98.1 97 20 125/63 (83) 98 10/20/18 10:21 85 18 100 Room Air 10/20/18 10:11 88 18 98 Room Air 10/20/18 09:00 Room Air 10/20/18 08:00 98.1 87 16 121/62 (81) 94 10/20/18 07:24 88 16 100 Room Air 10/20/18 07:09 88 16 95 Room Air 10/20/18 04:00 97.8 95 16 129/60 (83) 94 10/20/18 03:19 81 16 100 Room Air 10/20/18 03:14 82 16 Room Air 21 10/20/18 03:10 82 16 97 Room Air 10/20/18 01:23 Room Air 10/20/18 00:00 98.1 83 17 114/63 (80) 99 10/19/18 23:15 98.2 85 18 133/70 100 Room Air 10/19/18 23:00 98.2 85 18 133/70 100 Room Air Intake and Output 10/19/18 10/20/18 19:00 07:00 # Voids 1 2 Sal Edge MD Oct 20, 2018 19:41
[2018-10-20 20:00] VITALS: BP 123/71
[2018-10-20] MEDS: Miralax 17gm pkt ORAL SCH (20:23)
[2018-10-20] MEDS: Levemir Flexpen SUBQ SCH (20:34)
[2018-10-20] MEDS: Iron Sucrose 100 MG in NS 55 ML IV SCH (21:05)
--- NOTE | 2018-10-20 22:14 | General Progress Note ---
Progress Note Progress Note Patient seen examined Homeless Anxiety disorder Palpable pedal pulses Extensive left foot osteo Hx of left foot surgery ([facility]) and right hip surgery ([facility]) Smoker Has refused left leg BKA at different hospitals Rec Complete leg duplex CT angio Abx per ID Podiatry eval Psych Finn Amin MD Oct 20, 2018 22:14
[2018-10-20] MEDS ORDERED: Isovue-370 150ml vial INJ PRN ×2 (22:15)
--- NOTE | 2018-10-20 22:15 | NUR ---
NURSE NOTES: MD IN TO ASSESS PATIENT LEFT FOOT, NEW ORDERS NOTED AND CARRIED OUT-
--- NOTE | 2018-10-20 23:21 | General Progress Note ---
Assessment/Plan Problem List: (1) Diabetes mellitus ICD Codes: E11.9 - Type 2 diabetes mellitus without complications SNOMED: 53573495 (2) Anxiety disorder ICD Codes: F41.9 - Anxiety disorder, unspecified SNOMED: 339987483 (3) Osteomyelitis ICD Codes: M86.9 - Osteomyelitis, unspecified SNOMED: 92871541 (4) Sacral decubitus ulcer ICD Codes: L89.159 - Pressure ulcer of sacral region, unspecified stage SNOMED: 519155593 (5) Foot osteomyelitis, left ICD Codes: M86.9 - Osteomyelitis, unspecified SNOMED: 5840591989256148 Qualifiers: Qualified Codes: M86.8X7 - Other osteomyelitis, ankle and foot (6) MDD (major depressive disorder) ICD Codes: F32.9 - Major depressive disorder, single episode, unspecified SNOMED: 454310806 Status: progressing Assessment/Plan multiple wounds oseomylitis 6weeks of abx foot wound appreciate dr lopez coment and visit pvd psych pt Subjective ROS Limited/Unobtainable: Yes Allergies: Coded Allergies: No Known Allergies (Unverified , 10/19/16) Subjective generalized pain Objective Last 24 Hour Vital Signs Date Time Temp Pulse Resp B/P (MAP) Pulse Ox O2 Delivery O2 Flow Rate FiO2 10/20/18 22:57 Room Air 10/20/18 22:56 Room Air 10/20/18 20:00 98.3 101 18 123/71 (88) 94 10/20/18 19:27 93 18 99 Room Air 10/20/18 19:17 94 18 98 Room Air 10/20/18 17:34 98.2 10/20/18 16:00 98.2 94 20 127/62 (83) 98 10/20/18 14:18 90 18 100 Room Air 10/20/18 14:10 92 18 97 Room Air 10/20/18 12:00 98.1 97 20 125/63 (83) 98 10/20/18 10:21 85 18 100 Room Air 10/20/18 10:11 88 18 98 Room Air 10/20/18 09:00 Room Air 10/20/18 08:00 98.1 87 16 121/62 (81) 94 10/20/18 07:24 88 16 100 Room Air 10/20/18 07:09 88 16 95 Room Air 21 10/20/18 04:00 97.8 95 16 129/60 (83) 94 10/20/18 03:19 81 16 100 Room Air 21 10/20/18 03:14 82 16 Room Air 21 10/20/18 03:10 82 16 97 Room Air 21 10/20/18 01:23 Room Air 10/20/18 00:00 98.1 83 17 114/63 (80) 99 Intake and Output 10/19/18 10/20/18 19:00 07:00 # Voids 1 2 Laboratory Tests 10/20/18 20:00: C-Reactive Protein, Quantitative 9.9H Height (Feet): 5 Height (Inches): 3.00 Weight (Pounds): 110 Cardiovascular: normal rate Respiratory/Chest: lungs clear Abdomen: soft Reina Dorsey MD Oct 20, 2018 23:21
[2018-10-21] VITALS: BP 133/66
[2018-10-21] MEDS: Morphine Sulfate 2mg/ml Inj(IV/IM USE ONLY) IVP PRN ×5 (01:10→19:30)
[2018-10-21] MEDS: Albuterol/Ipratropium 3ml neb HHN SCH ×6 (03:00→23:00)
[2018-10-21 04:00] VITALS: BP 128/87
[2018-10-21] MEDS: Vancomycin 500mg/D5W 110ml IVPB SCH ×4 (04:35→18:43)
[2018-10-21] MEDS: Piperacillin/Tazobactam 3.375 GM in D5W 110 ML IVPB SCH ×3 (05:31→22:00)
[2018-10-21] MEDS: NovoLOG Insulin Flexpen SUBQ SCH ×7 (05:57→21:14)
--- NOTE | 2018-10-21 06:26 | NUR ---
NURSE NOTES: NO SIGNIFICANT CHANGE OF CONDITION NOTED THROUGHOUT THE NIGHT. SAFETY MAINTAINED. NAD.
[2018-10-21 07:06] LABS: ALANINE AMINOTRANSFERASE 19 U/L (12-78); ALBUMIN 1.7 G/DL (3.4-5.0); ALBUMIN/GLOBULIN RATIO 0.3 (1.0-2.7); ALKALINE PHOSPHATASE 99 U/L (46-116); ANION GAP 5 mmol/L (5-15); ASPARTATE AMINO TRANSFERASE 12 U/L (15-37); BILIRUBIN,TOTAL 0.2 MG/DL (0.2-1.0); BLOOD UREA NITROGEN 13 mg/dL (7-18); CALCIUM 8.8 MG/DL (8.5-10.1); CARBON DIOXIDE 30 MMOL/L (21-32); CHLORIDE 103 MMOL/L (98-107); CHOLESTEROL 122 MG/DL (< 200); CREATININE 0.6 MG/DL (0.55-1.30); FERRITIN 48 NG/ML (8-388); HDL CHOLESTEROL 44 MG/DL (40-60); PHOSPHORUS 3.2 MG/DL (2.5-4.9); POTASSIUM 3.9 MMOL/L (3.5-5.1); SODIUM 138 MMOL/L (136-145); TRIGLYCERIDES 40 MG/DL (30-150)
[2018-10-21 07:27] LABS: HEMATOCRIT 22.1 % (37.0-47.0); MEAN CORPUSCULAR VOLUME 68 FL (80-99); PLATELET COUNT 479 K/UL (150-450); RED BLOOD COUNT 3.27 M/UL (4.20-5.40); RED CELL DISTRIBUTION WIDTH 19.4 % (11.6-14.8)
[2018-10-21 07:29] LABS: HEMOGLOBIN 6.6 G/DL (12.0-16.0)
--- NOTE | 2018-10-21 07:30 | NUR ---
NURSE NOTES: received critical lab value report from lab/bethanie. hgb6.6,hct 22.1. notified dr ibarra. he wants ask order to Dr. estrella. order noted and carried out.
--- NOTE | 2018-10-21 07:30 | NUR ---
HAND-OFF: Report given to MARKUS HUANG.
--- NOTE | 2018-10-21 07:37 | NUR ---
NURSE NOTES: Received report from REMY Friend. patient in bed. sleeping. no respiratory distress noted. no c/o pain at this time. bed in lowest position. call light within reach. alam on.
[2018-10-21 07:44] LABS: % IRON SATURATION 33 % (15-50); IRON 84 ug/dL (50-175); TOTAL IRON BINDING CAPACITY 255 ug/dL (250-450)
--- NOTE | 2018-10-21 07:50 | General Progress Note ---
Assessment/Plan Problem List: (1) Diabetes mellitus ICD Codes: E11.9 - Type 2 diabetes mellitus without complications SNOMED: 92255756 (2) Rash and other nonspecific skin eruption ICD Codes: R21 - Rash and other nonspecific skin eruption SNOMED: 140983370, 810478053 (3) Foot osteomyelitis, left ICD Codes: M86.9 - Osteomyelitis, unspecified SNOMED: 2751009778025069 Qualifiers: Qualified Codes: M86.8X7 - Other osteomyelitis, ankle and foot (4) MDD (major depressive disorder) ICD Codes: F32.9 - Major depressive disorder, single episode, unspecified SNOMED: 186979830 Assessment/Plan continue Levemir 20 units qhs continue Novolog 12 units ac tid continue NISS ac / hs Subjective Allergies: Coded Allergies: No Known Allergies (Unverified , 10/19/16) All Systems: reviewed and negative except above Subjective readmitted after leaving AMA glucose is elevated Item Value Date Time Bedside Blood Glucose 169 mg/dl H 10/21/18 0557 Bedside Blood Glucose 106 mg/dl 10/20/18 2100 Bedside Blood Glucose 218 mg/dl H 10/20/18 1706 Bedside Blood Glucose 242 mg/dl H 10/20/18 1210 Objective Last 24 Hour Vital Signs Date Time Temp Pulse Resp B/P (MAP) Pulse Ox O2 Delivery O2 Flow Rate FiO2 10/21/18 06:02 98.1 10/21/18 04:00 98.1 68 19 128/87 (101) 96 10/21/18 03:48 Room Air 10/21/18 03:48 Room Air 10/21/18 00:00 98.7 90 18 133/66 (88) 96 10/20/18 22:57 Room Air 10/20/18 22:56 Room Air 10/20/18 21:00 Room Air 10/20/18 20:00 98.3 101 18 123/71 (88) 94 10/20/18 19:27 93 18 99 Room Air 10/20/18 19:17 94 18 98 Room Air 10/20/18 16:00 98.2 94 20 127/62 (83) 98 10/20/18 14:18 90 18 100 Room Air 10/20/18 14:10 92 18 97 Room Air 10/20/18 12:00 98.1 97 20 125/63 (83) 98 10/20/18 10:21 85 18 100 Room Air 21 10/20/18 10:11 88 18 98 Room Air 21 10/20/18 09:00 Room Air 10/20/18 08:00 98.1 87 16 121/62 (81) 94 Intake and Output 10/20/18 10/21/18 18:59 06:59 Intake Total 1442.5 ml 880.0 ml Output Total 300 ml Balance 1142.5 ml 880.0 ml Intake Oral 1250 ml 600 ml IV Total 192.5 ml 280.0 ml Output Urine Total 300 ml # Voids 3 Laboratory Tests 10/20/18 20:00: C-Reactive Protein, Quantitative 9.9H 10/21/18 05:50: White Blood Count 11.0H, Red Blood Count 3.27L, Hemoglobin 6.6*L, Hematocrit 22.1L, Mean Corpuscular Volume 68L, Mean Corpuscular Hemoglobin 20.2L, Mean Corpuscular Hemoglobin Concent 29.8L, Red Cell Distribution Width 19.4H, Platelet Count 479H, Mean Platelet Volume 5.1L, Neutrophils (%) (Auto) , Lymphocytes (%) (Auto) , Monocytes (%) (Auto) , Eosinophils (%) (Auto) , Basophils (%) (Auto) , Neutrophils % (Manual) [Pending], Lymphocytes % (Manual) [Pending], Platelet Estimate [Pending], Platelet Morphology [Pending], Sodium Level 138, Potassium Level 3.9, Chloride Level 103, Carbon Dioxide Level 30, Anion Gap 5, Blood Urea Nitrogen 13, Creatinine 0.6, Estimat Glomerular Filtration Rate > 60, Glucose Level 149H, Hemoglobin A1c 13.3H, Uric Acid 2.2L, Calcium Level 8.8, Phosphorus Level 3.2, Magnesium Level 1.7L, Iron Level 84, Total Iron Binding Capacity 255, Percent Iron Saturation 33, Unsaturated Iron Binding 171, Ferritin 48, Total Bilirubin 0.2, Aspartate Amino Transf (AST/SGOT ) 12L, Alanine Aminotransferase (ALT/SGPT) 19, Alkaline Phosphatase 99, Pro-B- Type Natriuretic Peptide 795H, Total Protein 7.7, Albumin 1.7L, Globulin 6.0, Albumin/Globulin Ratio 0.3L, Triglycerides Level 40, Cholesterol Level 122, LDL Cholesterol 73, HDL Cholesterol 44, Cholesterol/HDL Ratio 2.8L, Vitamin B12 Level 382, Folate 4.4L, Thyroid Stimulating Hormone (TSH) 2.021 Height (Feet): 5 Height (Inches): 3.00 Weight (Pounds): 110 General Appearance: no apparent distress Neck: normal alignment Cardiovascular: normal rate Respiratory/Chest: lungs clear Abdomen: normal bowel sounds Brendan Johnson MD Oct 21, 2018 07:50
[2018-10-21 08:00] VITALS: BP 165/78
--- NOTE | 2018-10-21 08:24 | NUR ---
NURSE NOTES: notified Dr. young regarding patient's critical lab value. received order to ask Dr. Jurgen Valles for follow up. Notified Dr. Valles and waiting for order.
--- NOTE | 2018-10-21 08:55 | NUR ---
NURSE NOTES: Received order of 2units PRBC from . order noted and carried out.
[2018-10-21] MEDS ORDERED: Vitamin B12 1000mcg/ml Inj IM SCH (09:00)
[2018-10-21] MEDS: Heparin 5000 units/ml inj SUBQ SCH ×2 (09:04→21:12)
--- NOTE | 2018-10-21 09:29 | NUR ---
NURSE NOTES: patient refused to take fluoxetine 20mg cap.
--- NOTE | 2018-10-21 10:59 | Infectious Diseases Prog Note ---
Assessment/Plan Assessment/Plan antibiotics : vancomycin iv, zosyn A 1. left foot osteomyelitis 2. diabetes mellitus 3. leucocytosis resolved P 1, continue vancomycin iv, zosyn 2. will follow up cultures 3. foot cultures Subjective Constitutional: Denies: fever, chills Respiratory: Denies: shortness of breath, dry cough Gastrointestinal/Abdominal: Denies: nausea, vomiting, diarrhea Musculoskeletal: Reports: pain Allergies: Coded Allergies: No Known Allergies (Unverified , 10/19/16) Objective Vital Signs Last 24 Hour Vital Signs Date Time Temp Pulse Resp B/P (MAP) Pulse Ox O2 Delivery O2 Flow Rate FiO2 10/21/18 09:00 Room Air 10/21/18 08:10 Room Air 10/21/18 08:10 Room Air 10/21/18 08:00 98.6 100 19 165/78 (107) 96 10/21/18 06:02 98.1 10/21/18 04:00 98.1 68 19 128/87 (101) 96 10/21/18 03:48 Room Air 10/21/18 03:48 Room Air 10/21/18 00:00 98.7 90 18 133/66 (88) 96 10/20/18 22:57 Room Air 21 10/20/18 22:56 Room Air 21 10/20/18 21:00 Room Air 10/20/18 20:00 98.3 101 18 123/71 (88) 94 10/20/18 19:27 93 18 99 Room Air 21 10/20/18 19:17 94 18 98 Room Air 21 10/20/18 16:00 98.2 94 20 127/62 (83) 98 10/20/18 14:18 90 18 100 Room Air 21 10/20/18 14:10 92 18 97 Room Air 21 10/20/18 12:00 98.1 97 20 125/63 (83) 98 Height (Feet): 5 Height (Inches): 3.00 Weight (Pounds): 110 Respiratory/Chest: lungs clear Cardiovascular: normal rate, regular rhythm, no gallop/murmur Abdomen: soft, non tender Extremities: other - + left foot edema, ulcer on medial foot, plantar aspect Laboratory Tests Test 10/20/18 20:00 10/21/18 05:50 C-Reactive Protein, Quantitative 9.9 mg/dL (0.00-0.90) H White Blood Count 11.0 K/UL (4.8-10.8) H Red Blood Count 3.27 M/UL (4.20-5.40) L Hemoglobin 6.6 G/DL (12.0-16.0) *L Hematocrit 22.1 % (37.0-47.0) L Mean Corpuscular Volume 68 FL (80-99) L Mean Corpuscular Hemoglobin 20.2 PG (27.0-31.0) L Mean Corpuscular Hemoglobin Concent 29.8 G/DL (32.0-36.0) L Red Cell Distribution Width 19.4 % (11.6-14.8) H Platelet Count 479 K/UL (150-450) H Mean Platelet Volume 5.1 FL (6.5-10.1) L Neutrophils (%) (Auto) % (45.0-75.0) Lymphocytes (%) (Auto) % (20.0-45.0) Monocytes (%) (Auto) % (1.0-10.0) Eosinophils (%) (Auto) % (0.0-3.0) Basophils (%) (Auto) % (0.0-2.0) Differential Total Cells Counted 100 Neutrophils % (Manual) 61 % (45-75) Lymphocytes % (Manual) 25 % (20-45) Monocytes % (Manual) 12 % (1-10) H Eosinophils % (Manual) 2 % (0-3) Basophils % (Manual) 0 % (0-2) Band Neutrophils 0 % (0-8) Platelet Estimate Increased H Platelet Morphology Normal Hypochromasia 2+ Anisocytosis 2+ Microcytosis 3+ Sodium Level 138 MMOL/L (136-145) Potassium Level 3.9 MMOL/L (3.5-5.1) Chloride Level 103 MMOL/L (98-107) Carbon Dioxide Level 30 MMOL/L (21-32) Anion Gap 5 mmol/L (5-15) Blood Urea Nitrogen 13 mg/dL (7-18) Creatinine 0.6 MG/DL (0.55-1.30) Estimat Glomerular Filtration Rate > 60 mL/min (>60) Glucose Level 149 MG/DL (74-106) H Hemoglobin A1c 13.3 % (4.3-6.0) H Uric Acid 2.2 MG/DL (2.6-7.2) L Calcium Level 8.8 MG/DL (8.5-10.1) Phosphorus Level 3.2 MG/DL (2.5-4.9) Magnesium Level 1.7 MG/DL (1.8-2.4) L Iron Level 84 ug/dL (50-175) Total Iron Binding Capacity 255 ug/dL (250-450) Percent Iron Saturation 33 % (15-50) Unsaturated Iron Binding 171 ug/dL (112-346) Ferritin 48 NG/ML (8-388) Total Bilirubin 0.2 MG/DL (0.2-1.0) Aspartate Amino Transf (AST/SGOT) 12 U/L (15-37) L Alanine Aminotransferase (ALT/SGPT) 19 U/L (12-78) Alkaline Phosphatase 99 U/L (46-116) Pro-B-Type Natriuretic Peptide 795 pg/mL (0-125) H Total Protein 7.7 G/DL (6.4-8.2) Albumin 1.7 G/DL (3.4-5.0) L Globulin 6.0 g/dL Albumin/Globulin Ratio 0.3 (1.0-2.7) L Triglycerides Level 40 MG/DL (30-150) Cholesterol Level 122 MG/DL (< 200) LDL Cholesterol 73 mg/dL (<100) HDL Cholesterol 44 MG/DL (40-60) Cholesterol/HDL Ratio 2.8 (3.3-4.4) L Vitamin B12 Level 382 PG/ML (193-986) Folate 4.4 NG/ML (8.6-58.9) L Thyroid Stimulating Hormone (TSH) 2.021 uiU/mL (0.358-3.740) Current Medications Medications (Trade) Dose Ordered Sig/Manda Route PRN Reason Start Time Stop Time Status Last Admin Dose Admin Acetaminophen (Tylenol) 650 mg Q4H PRN ORAL Mild Pain/Temp > 100.5 10/20/18 00:15 11/19/18 00:14 Acetaminophen/ Hydrocodone Bitart ([place] 10/325) 1 tab Q6HR PRN ORAL Severe Pain (Pain Scale 7-10) 10/20/18 04:00 10/27/18 00:14 Albuterol/ Ipratropium (Albuterol/ Ipratropium) 3 ml Q4HRT HHN 10/20/18 03:00 10/25/18 02:59 10/20/18 19:17 Clonidine HCl (Catapres Tab) 0.1 mg Q4H PRN ORAL For High BP 160 syst and up 10/20/18 16:15 11/19/18 00:14 Dextrose (Dextrose 50%) 25 ml Q30M PRN IV Hypoglycemia 10/20/18 00:30 11/19/18 00:29 Dextrose (Dextrose 50%) 50 ml Q30M PRN IV Hypoglycemia 10/20/18 00:30 11/19/18 00:29 Famotidine (Pepcid) 20 mg BID ORAL 10/20/18 18:00 11/19/18 17:59 10/21/18 09:01 Fluoxetine HCl (PROzac) 20 mg DAILY ORAL 10/21/18 09:00 11/20/18 08:59 Folic Acid (Folate) 3 mg DAILY ORAL 10/21/18 09:00 11/20/18 08:59 10/21/18 09:01 Heparin Sodium (Porcine) (Heparin 5000 units/ml) 5,000 units EVERY 12 HOURS SUBQ 10/20/18 09:00 11/19/18 08:59 10/21/18 09:04 Insulin Aspart (NovoLOG) BEFORE MEALS AND HS SUBQ 10/20/18 06:30 11/19/18 06:29 10/21/18 05:57 Insulin Aspart (NovoLOG) 12 units NOVOTIAC SUBQ 10/20/18 06:30 11/19/18 06:29 10/21/18 05:57 Insulin Detemir (Levemir) 20 units BEDTIME SUBQ 10/20/18 21:00 11/19/18 20:59 10/20/18 20:34 Iopamidol (Isovue-370 150ml) 150 ml NOW PRN INJ Radiology Procedure 10/20/18 22:15 10/22/18 22:03 Iopamidol (Isovue-370 150ml) 150 ml NOW PRN INJ Radiology Procedure 10/20/18 22:15 10/22/18 22:03 Iron Sucrose 100 mg/Sodium Chloride 60 ml @ 240 mls/hr BEDTIME IV 10/20/18 21:00 10/24/18 21:14 10/20/18 21:05 Mirtazapine (Remeron) 7.5 mg BEDTIME ORAL 10/20/18 21:00 11/19/18 20:59 10/20/18 20:23 Morphine Sulfate (Morphine Sulfate) 2 mg Q4H PRN IVP Moderate Pain (Pain Scale 4-6) 10/20/18 04:00 10/27/18 03:59 10/21/18 09:36 Nitroglycerin (Ntg) 0.4 mg Q5M PRN SL Prn Chest Pain 10/20/18 00:15 11/19/18 00:14 Ondansetron HCl (Zofran) 4 mg Q6H PRN IVP Nausea & Vomiting 10/20/18 00:15 11/19/18 00:14 Piperacillin Sod/ Tazobactam Sod 3.375 gm/Dextrose 110 ml @ 27.5 mls/hr EVERY 8 HOURS IVPB 10/20/18 06:00 10/25/18 05:59 10/21/18 05:31 Polyethylene Glycol (Miralax) 17 gm BEDTIME ORAL 10/20/18 21:00 11/19/18 20:59 Temazepam (Restoril) 15 mg HSPRN PRN ORAL Insomnia 10/20/18 00:15 10/27/18 00:14 Vancomycin HCl (Vanco rx to dose) 1 ea DAILY PRN MISC Per rx protocol 10/20/18 02:00 11/19/18 01:59 Vancomycin HCl 500 mg/Dextrose 110 ml @ 110 mls/hr Q12H IVPB 10/20/18 05:00 10/25/18 04:59 10/21/18 04:35 Saul Manzano MD Oct 21, 2018 10:59
[2018-10-21 12:00] VITALS: BP 148/71
--- NOTE | 2018-10-21 12:06 | Nephrology Progress Note ---
Assessment/Plan Problem List: (1) Hyponatremia (2) Diabetes mellitus (3) Foot osteomyelitis, left (4) Diabetic nephropathy (5) Anemia Assessment HypoNatremia due to hyperglycemia Anemia Low MCV Left foot Osteo Hyperglycemia UTI Proteinuria/ Diabetic nephropathy Plan BS control will raise serum Na anemia lee per ID per orders Subjective ROS Limited/Unobtainable: No Constitutional: Reports: malaise Objective Objective Last 24 Hour Vital Signs Date Time Temp Pulse Resp B/P (MAP) Pulse Ox O2 Delivery O2 Flow Rate FiO2 10/21/18 11:55 Room Air 10/21/18 11:55 Room Air 10/21/18 09:00 Room Air 10/21/18 08:10 Room Air 10/21/18 08:10 Room Air 10/21/18 08:00 98.6 100 19 165/78 (107) 96 10/21/18 06:02 98.1 10/21/18 04:00 98.1 68 19 128/87 (101) 96 10/21/18 03:48 Room Air 10/21/18 03:48 Room Air 10/21/18 00:00 98.7 90 18 133/66 (88) 96 10/20/18 22:57 Room Air 21 10/20/18 22:56 Room Air 21 10/20/18 21:00 Room Air 10/20/18 20:00 98.3 101 18 123/71 (88) 94 10/20/18 19:27 93 18 99 Room Air 21 10/20/18 19:17 94 18 98 Room Air 21 10/20/18 16:00 98.2 94 20 127/62 (83) 98 10/20/18 14:18 90 18 100 Room Air 10/20/18 14:10 92 18 97 Room Air 21 Intake and Output 10/20/18 10/21/18 19:00 07:00 Intake Total 1442.5 ml 880.0 ml Output Total 300 ml Balance 1142.5 ml 880.0 ml Intake Oral 1250 ml 600 ml IV Total 192.5 ml 280.0 ml Output Urine Total 300 ml # Voids 3 Laboratory Tests 10/20/18 20:00: C-Reactive Protein, Quantitative 9.9H 10/21/18 05:50: White Blood Count 11.0H, Red Blood Count 3.27L, Hemoglobin 6.6*L, Hematocrit 22.1L, Mean Corpuscular Volume 68L, Mean Corpuscular Hemoglobin 20.2L, Mean Corpuscular Hemoglobin Concent 29.8L, Red Cell Distribution Width 19.4H, Platelet Count 479H, Mean Platelet Volume 5.1L, Neutrophils (%) (Auto) , Lymphocytes (%) (Auto) , Monocytes (%) (Auto) , Eosinophils (%) (Auto) , Basophils (%) (Auto) , Differential Total Cells Counted 100, Neutrophils % ( Manual) 61, Lymphocytes % (Manual) 25, Monocytes % (Manual) 12H, Eosinophils % ( Manual) 2, Basophils % (Manual) 0, Band Neutrophils 0, Platelet Estimate IncreasedH, Platelet Morphology Normal, Hypochromasia 2+, Anisocytosis 2+, Microcytosis 3+, Sodium Level 138, Potassium Level 3.9, Chloride Level 103, Carbon Dioxide Level 30, Anion Gap 5, Blood Urea Nitrogen 13, Creatinine 0.6, Estimat Glomerular Filtration Rate > 60, Glucose Level 149H, Hemoglobin A1c 13.3H, Uric Acid 2.2L, Calcium Level 8.8, Phosphorus Level 3.2, Magnesium Level 1.7L, Iron Level 84, Total Iron Binding Capacity 255, Percent Iron Saturation 33 , Unsaturated Iron Binding 171, Ferritin 48, Total Bilirubin 0.2, Aspartate Amino Transf (AST/SGOT) 12L, Alanine Aminotransferase (ALT/SGPT) 19, Alkaline Phosphatase 99, Pro-B-Type Natriuretic Peptide 795H, Total Protein 7.7, Albumin 1.7L, Globulin 6.0, Albumin/Globulin Ratio 0.3L, Triglycerides Level 40, Cholesterol Level 122, LDL Cholesterol 73, HDL Cholesterol 44, Cholesterol/HDL Ratio 2.8L, Vitamin B12 Level 382, Folate 4.4L, Thyroid Stimulating Hormone (TSH ) 2.021 Height (Feet): 5 Height (Inches): 3.00 Weight (Pounds): 110 General Appearance: no apparent distress Objective no change Francisco Tapia MD Oct 21, 2018 12:06
--- NOTE | 2018-10-21 12:47 | Surgery Progress Note ---
Surgery Progress Note Subjective Additional Comments no acute events. stable. agitated Objective Last 24 Hour Vital Signs Date Time Temp Pulse Resp B/P (MAP) Pulse Ox O2 Delivery O2 Flow Rate FiO2 10/21/18 12:00 97.7 88 18 148/71 (96) 97 10/21/18 11:55 Room Air 10/21/18 11:55 Room Air 10/21/18 09:00 Room Air 10/21/18 08:10 Room Air 10/21/18 08:10 Room Air 10/21/18 08:00 98.6 100 19 165/78 (107) 96 10/21/18 06:02 98.1 10/21/18 04:00 98.1 68 19 128/87 (101) 96 10/21/18 03:48 Room Air 10/21/18 03:48 Room Air 10/21/18 00:00 98.7 90 18 133/66 (88) 96 10/20/18 22:57 Room Air 21 10/20/18 22:56 Room Air 21 10/20/18 21:00 Room Air 10/20/18 20:00 98.3 101 18 123/71 (88) 94 10/20/18 19:27 93 18 99 Room Air 21 10/20/18 19:17 94 18 98 Room Air 21 10/20/18 16:00 98.2 94 20 127/62 (83) 98 10/20/18 14:18 90 18 100 Room Air 21 10/20/18 14:10 92 18 97 Room Air 21 I&O Intake and Output 10/20/18 10/21/18 19:00 07:00 Intake Total 1442.5 ml 880.0 ml Output Total 300 ml Balance 1142.5 ml 880.0 ml Intake Oral 1250 ml 600 ml IV Total 192.5 ml 280.0 ml Output Urine Total 300 ml # Voids 3 Dressing: dry Wound: other Drains: other Cardiovascular: RSR Respiratory: clear Abdomen: soft, present bowel sounds, non-distended Extremities: edema, cyanosis, other Laboratory Tests Test 10/20/18 20:00 10/21/18 05:50 C-Reactive Protein, Quantitative 9.9 mg/dL (0.00-0.90) H White Blood Count 11.0 K/UL (4.8-10.8) H Red Blood Count 3.27 M/UL (4.20-5.40) L Hemoglobin 6.6 G/DL (12.0-16.0) *L Hematocrit 22.1 % (37.0-47.0) L Mean Corpuscular Volume 68 FL (80-99) L Mean Corpuscular Hemoglobin 20.2 PG (27.0-31.0) L Mean Corpuscular Hemoglobin Concent 29.8 G/DL (32.0-36.0) L Red Cell Distribution Width 19.4 % (11.6-14.8) H Platelet Count 479 K/UL (150-450) H Mean Platelet Volume 5.1 FL (6.5-10.1) L Neutrophils (%) (Auto) % (45.0-75.0) Lymphocytes (%) (Auto) % (20.0-45.0) Monocytes (%) (Auto) % (1.0-10.0) Eosinophils (%) (Auto) % (0.0-3.0) Basophils (%) (Auto) % (0.0-2.0) Differential Total Cells Counted 100 Neutrophils % (Manual) 61 % (45-75) Lymphocytes % (Manual) 25 % (20-45) Monocytes % (Manual) 12 % (1-10) H Eosinophils % (Manual) 2 % (0-3) Basophils % (Manual) 0 % (0-2) Band Neutrophils 0 % (0-8) Platelet Estimate Increased H Platelet Morphology Normal Hypochromasia 2+ Anisocytosis 2+ Microcytosis 3+ Sodium Level 138 MMOL/L (136-145) Potassium Level 3.9 MMOL/L (3.5-5.1) Chloride Level 103 MMOL/L (98-107) Carbon Dioxide Level 30 MMOL/L (21-32) Anion Gap 5 mmol/L (5-15) Blood Urea Nitrogen 13 mg/dL (7-18) Creatinine 0.6 MG/DL (0.55-1.30) Estimat Glomerular Filtration Rate > 60 mL/min (>60) Glucose Level 149 MG/DL (74-106) H Hemoglobin A1c 13.3 % (4.3-6.0) H Uric Acid 2.2 MG/DL (2.6-7.2) L Calcium Level 8.8 MG/DL (8.5-10.1) Phosphorus Level 3.2 MG/DL (2.5-4.9) Magnesium Level 1.7 MG/DL (1.8-2.4) L Iron Level 84 ug/dL (50-175) Total Iron Binding Capacity 255 ug/dL (250-450) Percent Iron Saturation 33 % (15-50) Unsaturated Iron Binding 171 ug/dL (112-346) Ferritin 48 NG/ML (8-388) Total Bilirubin 0.2 MG/DL (0.2-1.0) Aspartate Amino Transf (AST/SGOT) 12 U/L (15-37) L Alanine Aminotransferase (ALT/SGPT) 19 U/L (12-78) Alkaline Phosphatase 99 U/L (46-116) Pro-B-Type Natriuretic Peptide 795 pg/mL (0-125) H Total Protein 7.7 G/DL (6.4-8.2) Albumin 1.7 G/DL (3.4-5.0) L Globulin 6.0 g/dL Albumin/Globulin Ratio 0.3 (1.0-2.7) L Triglycerides Level 40 MG/DL (30-150) Cholesterol Level 122 MG/DL (< 200) LDL Cholesterol 73 mg/dL (<100) HDL Cholesterol 44 MG/DL (40-60) Cholesterol/HDL Ratio 2.8 (3.3-4.4) L Vitamin B12 Level 382 PG/ML (193-986) Folate 4.4 NG/ML (8.6-58.9) L Thyroid Stimulating Hormone (TSH) 2.021 uiU/mL (0.358-3.740) Plan Problems: (1) Foot osteomyelitis, left Assessment & Plan: Left foot osteo acute/chronic seen by podiatry prior and deemed not salvageable recommended to have left BKA patient refused surgery still refuses surgery and majority of care except pain medication appreciate vascular input pending results of CTA/Duplex thank you (2) Sacral decubitus ulcer (3) Osteomyelitis (4) Rash and other nonspecific skin eruption Saqib Ndiaye Oct 21, 2018 12:47
--- NOTE | 2018-10-21 13:15 | NUR ---
CHARGE NURSE NOTE: Primary nurse and Charge nurse are in the room to verify patient and blood before blood transfusion administration. Pt became very agitated, using swear words. Refused blood transfusion. notified.
--- NOTE | 2018-10-21 13:17 | NUR ---
NURSE NOTES:WOUND CARE NOTES:Pt presents with full thickness pressure injury L ischium (L)1.5cm x (W)1.5cm x (D)2.1cm ,undermining 12-12 by 1.9cm @11o'clock. Base of wound obscured secondary to shape and size of wound. Small amt non-odorous serous exudate noted .Periwound is manish pink with moisture denudements sacrum.Skin erosion noted R ischium, perineum and perianal areas. L lower ext and L foot red,swollen with dry peeling skin . Foot care performed to better assess wounds. Wound L hallux with 90% mixed slough /necrosis ,10% erythema (L)2.6cm x(W)3.5cm.Small amt non-odorous brown exudate noted.Periwound manish pink. Wound medial aspect of L foot (L)0.8cm x (W)1cm with 100% dry brown eschar. Wound distal /lateral L foot pink -granular with dry and attached borders (L)0.9cm x (W)1cm .No odor or exudate noted. Wound plantar L foot with 100% soft brown eschar. Web spaces of metatarsals L foot moist but unable to accurately assess skin due poor foot care and pt only allowed for limited cleansing between toes. Tx.Plan.Cleanse L ischium with saline.Apply Therahoney. Cover with Optifoam drsg daily and prn. Apply Moisture barrier to perineum and buttocks with each perineal care. Apply Betadine to wounds L foot.Weave dry gauze between toes .Cover wounds with abd .Wrap with kerlix daily Kerlix daily and prn.
--- NOTE | 2018-10-21 15:07 | NUR ---
CASE MANAGEMENT: REVIEW SI: OSTEOMYELITIS T 97.7 HR 88 RR 18 BP 165/78 SAT 96% ROOM AIR WBC 11.0 H/H 6.6/22.1 IS: VENOFER IV QHS ZOSYN IV Q8HR VANCO IV X1 TRANSFUSE PRBC MED/SURG STATUS DCP: PATIENT REPORTS BEING HOMELESS PLAN: SURGICAL CONSULT: RECOMMEND BKA / PATIENT REFUSE
--- NOTE | 2018-10-21 16:49 | NUR ---
NURSE NOTES: Patient refused check blood glucose and insulin. explained risks and benefits but patient still refused. will continue to monitor.
--- NOTE | 2018-10-21 18:20 | General Progress Note ---
Assessment/Plan Problem List: (1) Diabetes mellitus ICD Codes: E11.9 - Type 2 diabetes mellitus without complications SNOMED: 50314685 (2) Anxiety disorder ICD Codes: F41.9 - Anxiety disorder, unspecified SNOMED: 279152413 (3) Osteomyelitis ICD Codes: M86.9 - Osteomyelitis, unspecified SNOMED: 06661548 (4) Sacral decubitus ulcer ICD Codes: L89.159 - Pressure ulcer of sacral region, unspecified stage SNOMED: 305347024 (5) Foot osteomyelitis, left ICD Codes: M86.9 - Osteomyelitis, unspecified SNOMED: 5089186695062251 Qualifiers: Qualified Codes: M86.8X7 - Other osteomyelitis, ankle and foot (6) MDD (major depressive disorder) ICD Codes: F32.9 - Major depressive disorder, single episode, unspecified SNOMED: 266711566 Assessment/Plan multiple wounds oseomylitis of different location severe anemia refused transfustion noncompliance 6weeks of abx foot wound Subjective ROS Limited/Unobtainable: Yes Allergies: Coded Allergies: No Known Allergies (Unverified , 10/19/16) Subjective generalized pain Objective Last 24 Hour Vital Signs Date Time Temp Pulse Resp B/P (MAP) Pulse Ox O2 Delivery O2 Flow Rate FiO2 10/21/18 16:01 Room Air 10/21/18 16:01 Room Air 10/21/18 12:00 97.7 88 18 148/71 (96) 97 10/21/18 11:55 Room Air 10/21/18 11:55 Room Air 10/21/18 09:00 Room Air 10/21/18 08:10 Room Air 10/21/18 08:10 Room Air 10/21/18 08:00 98.6 100 19 165/78 (107) 96 10/21/18 06:02 98.1 10/21/18 04:00 98.1 68 19 128/87 (101) 96 10/21/18 03:48 Room Air 10/21/18 03:48 Room Air 10/21/18 00:00 98.7 90 18 133/66 (88) 96 10/20/18 22:57 Room Air 21 10/20/18 22:56 Room Air 21 10/20/18 21:00 Room Air 10/20/18 20:00 98.3 101 18 123/71 (88) 94 10/20/18 19:27 93 18 99 Room Air 21 10/20/18 19:17 94 18 98 Room Air 21 Intake and Output 10/20/18 10/21/18 19:00 07:00 Intake Total 1442.5 ml 880.0 ml Output Total 300 ml Balance 1142.5 ml 880.0 ml Intake Oral 1250 ml 600 ml IV Total 192.5 ml 280.0 ml Output Urine Total 300 ml # Voids 3 Laboratory Tests 10/20/18 20:00: C-Reactive Protein, Quantitative 9.9H 10/21/18 05:50: White Blood Count 11.0H, Red Blood Count 3.27L, Hemoglobin 6.6*L, Hematocrit 22.1L, Mean Corpuscular Volume 68L, Mean Corpuscular Hemoglobin 20.2L, Mean Corpuscular Hemoglobin Concent 29.8L, Red Cell Distribution Width 19.4H, Platelet Count 479H, Mean Platelet Volume 5.1L, Neutrophils (%) (Auto) , Lymphocytes (%) (Auto) , Monocytes (%) (Auto) , Eosinophils (%) (Auto) , Basophils (%) (Auto) , Differential Total Cells Counted 100, Neutrophils % ( Manual) 61, Lymphocytes % (Manual) 25, Monocytes % (Manual) 12H, Eosinophils % ( Manual) 2, Basophils % (Manual) 0, Band Neutrophils 0, Platelet Estimate IncreasedH, Platelet Morphology Normal, Hypochromasia 2+, Anisocytosis 2+, Microcytosis 3+, Sodium Level 138, Potassium Level 3.9, Chloride Level 103, Carbon Dioxide Level 30, Anion Gap 5, Blood Urea Nitrogen 13, Creatinine 0.6, Estimat Glomerular Filtration Rate > 60, Glucose Level 149H, Hemoglobin A1c 13.3H, Uric Acid 2.2L, Calcium Level 8.8, Phosphorus Level 3.2, Magnesium Level 1.7L, Iron Level 84, Total Iron Binding Capacity 255, Percent Iron Saturation 33 , Unsaturated Iron Binding 171, Ferritin 48, Total Bilirubin 0.2, Aspartate Amino Transf (AST/SGOT) 12L, Alanine Aminotransferase (ALT/SGPT) 19, Alkaline Phosphatase 99, Pro-B-Type Natriuretic Peptide 795H, Total Protein 7.7, Albumin 1.7L, Globulin 6.0, Albumin/Globulin Ratio 0.3L, Triglycerides Level 40, Cholesterol Level 122, LDL Cholesterol 73, HDL Cholesterol 44, Cholesterol/HDL Ratio 2.8L, Vitamin B12 Level 382, Folate 4.4L, Thyroid Stimulating Hormone (TSH ) 2.021 Height (Feet): 5 Height (Inches): 3.00 Weight (Pounds): 110 Cardiovascular: normal rate Respiratory/Chest: lungs clear Abdomen: soft Reina Dorsey MD Oct 21, 2018 18:20
--- NOTE | 2018-10-21 19:34 | NUR ---
HAND-OFF: Report given to MARKUS Kirkpatrick.
--- NOTE | 2018-10-21 19:43 | NUR ---
NURSE NOTES: Received patient in bed, AOx4, able to verbalize needs, no s/s of acute pain, c/o 9/10 pain, AM nurse administered morphine at 1930. Bed on lowest position, 2 side rails up, call light and belongings within reach.
[2018-10-21 20:00] VITALS: BP 139/65
[2018-10-21] MEDS: Miralax 17gm pkt ORAL SCH (20:17)
[2018-10-21] MEDS: Iron Sucrose 100 MG in NS 55 ML IV SCH (20:39)
[2018-10-21] MEDS: Levemir Flexpen SUBQ SCH (21:12)
--- NOTE | 2018-10-21 22:34 | General Progress Note ---
Assessment/Plan Problem List: (1) MDD (major depressive disorder) ICD Codes: F32.9 - Major depressive disorder, single episode, unspecified SNOMED: 450952870 (2) Anxiety disorder ICD Codes: F41.9 - Anxiety disorder, unspecified SNOMED: 695821031 Assessment/Plan Remeron 7.5mg po qhs Prozac 20mg po qam provided ro/st Subjective Neurologic/Psychiatric: Reports: anxiety, depressed, emotional problems Allergies: Coded Allergies: No Known Allergies (Unverified , 10/19/16) Subjective non compliant Objective Last 24 Hour Vital Signs Date Time Temp Pulse Resp B/P (MAP) Pulse Ox O2 Delivery O2 Flow Rate FiO2 10/21/18 20:20 Room Air 10/21/18 20:00 Room Air 10/21/18 20:00 97.7 84 19 139/65 (89) 95 10/21/18 16:01 Room Air 10/21/18 16:01 Room Air 10/21/18 12:00 97.7 88 18 148/71 (96) 97 10/21/18 11:55 Room Air 10/21/18 11:55 Room Air 10/21/18 09:00 Room Air 10/21/18 08:10 Room Air 10/21/18 08:10 Room Air 10/21/18 08:00 98.6 100 19 165/78 (107) 96 10/21/18 06:02 98.1 10/21/18 04:00 98.1 68 19 128/87 (101) 96 10/21/18 03:48 Room Air 10/21/18 03:48 Room Air 10/21/18 00:00 98.7 90 18 133/66 (88) 96 10/20/18 22:57 Room Air 21 10/20/18 22:56 Room Air 21 Intake and Output 10/20/18 10/21/18 19:00 07:00 Intake Total 1442.5 ml 880.0 ml Output Total 300 ml Balance 1142.5 ml 880.0 ml Intake Oral 1250 ml 600 ml IV Total 192.5 ml 280.0 ml Output Urine Total 300 ml # Voids 3 Laboratory Tests 10/21/18 05:50: White Blood Count 11.0H, Red Blood Count 3.27L, Hemoglobin 6.6*L, Hematocrit 22.1L, Mean Corpuscular Volume 68L, Mean Corpuscular Hemoglobin 20.2L, Mean Corpuscular Hemoglobin Concent 29.8L, Red Cell Distribution Width 19.4H, Platelet Count 479H, Mean Platelet Volume 5.1L, Neutrophils (%) (Auto) , Lymphocytes (%) (Auto) , Monocytes (%) (Auto) , Eosinophils (%) (Auto) , Basophils (%) (Auto) , Differential Total Cells Counted 100, Neutrophils % ( Manual) 61, Lymphocytes % (Manual) 25, Monocytes % (Manual) 12H, Eosinophils % ( Manual) 2, Basophils % (Manual) 0, Band Neutrophils 0, Platelet Estimate IncreasedH, Platelet Morphology Normal, Hypochromasia 2+, Anisocytosis 2+, Microcytosis 3+, Sodium Level 138, Potassium Level 3.9, Chloride Level 103, Carbon Dioxide Level 30, Anion Gap 5, Blood Urea Nitrogen 13, Creatinine 0.6, Estimat Glomerular Filtration Rate > 60, Glucose Level 149H, Hemoglobin A1c 13.3H, Uric Acid 2.2L, Calcium Level 8.8, Phosphorus Level 3.2, Magnesium Level 1.7L, Iron Level 84, Total Iron Binding Capacity 255, Percent Iron Saturation 33 , Unsaturated Iron Binding 171, Ferritin 48, Total Bilirubin 0.2, Aspartate Amino Transf (AST/SGOT) 12L, Alanine Aminotransferase (ALT/SGPT) 19, Alkaline Phosphatase 99, Pro-B-Type Natriuretic Peptide 795H, Total Protein 7.7, Albumin 1.7L, Globulin 6.0, Albumin/Globulin Ratio 0.3L, Triglycerides Level 40, Cholesterol Level 122, LDL Cholesterol 73, HDL Cholesterol 44, Cholesterol/HDL Ratio 2.8L, Vitamin B12 Level 382, Folate 4.4L, Thyroid Stimulating Hormone (TSH ) 2.021 Height (Feet): 5 Height (Inches): 3.00 Weight (Pounds): 110 General Appearance: alert, thin Neurologic: oriented x 3, responsive, depressed affect Barry De La O MD Oct 21, 2018 22:34
--- NOTE | 2018-10-21 22:37 | NUR ---
NURSE NOTES: Infused Venofer at 2100, patient complaining of IV site pain and wanted the infusion stopped. Let pt know about her low hemoglobin and she still does not want the venofer continued. Infusion stopped. IV site flushes easily with NS.
--- NOTE | 2018-10-21 23:42 | Cardiology Progress Note ---
Assessment/Plan Assessment/Plan 1. Sinus tachycardia, due to hypovolimia, keep hydrated, electrolyte replacement. 2. Moderate pulmonary HTN Subjective Subjective No cardiac events. Objective Last 24 Hour Vital Signs Date Time Temp Pulse Resp B/P (MAP) Pulse Ox O2 Delivery O2 Flow Rate FiO2 10/21/18 20:20 Room Air 10/21/18 20:00 Room Air 10/21/18 20:00 97.7 84 19 139/65 (89) 95 10/21/18 16:01 Room Air 10/21/18 16:01 Room Air 10/21/18 12:00 97.7 88 18 148/71 (96) 97 10/21/18 11:55 Room Air 10/21/18 11:55 Room Air 10/21/18 09:00 Room Air 10/21/18 08:10 Room Air 10/21/18 08:10 Room Air 10/21/18 08:00 98.6 100 19 165/78 (107) 96 10/21/18 06:02 98.1 10/21/18 04:00 98.1 68 19 128/87 (101) 96 10/21/18 03:48 Room Air 10/21/18 03:48 Room Air 10/21/18 00:00 98.7 90 18 133/66 (88) 96 Intake and Output 10/20/18 10/21/18 19:00 07:00 Intake Total 1442.5 ml 880.0 ml Output Total 300 ml Balance 1142.5 ml 880.0 ml Intake Oral 1250 ml 600 ml IV Total 192.5 ml 280.0 ml Output Urine Total 300 ml # Voids 3 2D Echo: LVEF 60%, Mild LVH, RVSP 50 mmHg, Grade I LVDD Laboratory Tests Test 10/21/18 05:50 White Blood Count 11.0 K/UL (4.8-10.8) H Red Blood Count 3.27 M/UL (4.20-5.40) L Hemoglobin 6.6 G/DL (12.0-16.0) *L Hematocrit 22.1 % (37.0-47.0) L Mean Corpuscular Volume 68 FL (80-99) L Mean Corpuscular Hemoglobin 20.2 PG (27.0-31.0) L Mean Corpuscular Hemoglobin Concent 29.8 G/DL (32.0-36.0) L Red Cell Distribution Width 19.4 % (11.6-14.8) H Platelet Count 479 K/UL (150-450) H Mean Platelet Volume 5.1 FL (6.5-10.1) L Neutrophils (%) (Auto) % (45.0-75.0) Lymphocytes (%) (Auto) % (20.0-45.0) Monocytes (%) (Auto) % (1.0-10.0) Eosinophils (%) (Auto) % (0.0-3.0) Basophils (%) (Auto) % (0.0-2.0) Differential Total Cells Counted 100 Neutrophils % (Manual) 61 % (45-75) Lymphocytes % (Manual) 25 % (20-45) Monocytes % (Manual) 12 % (1-10) H Eosinophils % (Manual) 2 % (0-3) Basophils % (Manual) 0 % (0-2) Band Neutrophils 0 % (0-8) Platelet Estimate Increased H Platelet Morphology Normal Hypochromasia 2+ Anisocytosis 2+ Microcytosis 3+ Sodium Level 138 MMOL/L (136-145) Potassium Level 3.9 MMOL/L (3.5-5.1) Chloride Level 103 MMOL/L (98-107) Carbon Dioxide Level 30 MMOL/L (21-32) Anion Gap 5 mmol/L (5-15) Blood Urea Nitrogen 13 mg/dL (7-18) Creatinine 0.6 MG/DL (0.55-1.30) Estimat Glomerular Filtration Rate > 60 mL/min (>60) Glucose Level 149 MG/DL (74-106) H Hemoglobin A1c 13.3 % (4.3-6.0) H Uric Acid 2.2 MG/DL (2.6-7.2) L Calcium Level 8.8 MG/DL (8.5-10.1) Phosphorus Level 3.2 MG/DL (2.5-4.9) Magnesium Level 1.7 MG/DL (1.8-2.4) L Iron Level 84 ug/dL (50-175) Total Iron Binding Capacity 255 ug/dL (250-450) Percent Iron Saturation 33 % (15-50) Unsaturated Iron Binding 171 ug/dL (112-346) Ferritin 48 NG/ML (8-388) Total Bilirubin 0.2 MG/DL (0.2-1.0) Aspartate Amino Transf (AST/SGOT) 12 U/L (15-37) L Alanine Aminotransferase (ALT/SGPT) 19 U/L (12-78) Alkaline Phosphatase 99 U/L (46-116) Pro-B-Type Natriuretic Peptide 795 pg/mL (0-125) H Total Protein 7.7 G/DL (6.4-8.2) Albumin 1.7 G/DL (3.4-5.0) L Globulin 6.0 g/dL Albumin/Globulin Ratio 0.3 (1.0-2.7) L Triglycerides Level 40 MG/DL (30-150) Cholesterol Level 122 MG/DL (< 200) LDL Cholesterol 73 mg/dL (<100) HDL Cholesterol 44 MG/DL (40-60) Cholesterol/HDL Ratio 2.8 (3.3-4.4) L Vitamin B12 Level 382 PG/ML (193-986) Folate 4.4 NG/ML (8.6-58.9) L Thyroid Stimulating Hormone (TSH) 2.021 uiU/mL (0.358-3.740) Objective HEENT: normocephalic, atraumatic, bilateral eye PERRL, bilateral eye EOMI, moist mucus membranes Neck: no JVD, no carotid bruit. Respiratory: normal inspection, lungs clear, normal breath sounds, no respiratory distress, no retraction, no wheezing, speaking full sentences, chest symmetrical Cardiovascular: normal inspection, regular rate, rhythm, no edema, no murmurs, gallops or rubs. Gastrointestinal: normal inspection, non tender, soft, non-distended, no guarding Musculoskeletal: Left foot edematous, ulceration around the first metatarsal, edema, tender to palpation Sal Edge MD Oct 21, 2018 23:42
[2018-10-22] VITALS: BP 133/63
[2018-10-22] MEDS: Morphine Sulfate 2mg/ml Inj(IV/IM USE ONLY) IVP PRN ×4 (01:36→23:46)
[2018-10-22] MEDS: Albuterol/Ipratropium 3ml neb HHN SCH ×6 (03:00→23:00)
[2018-10-22 04:00] VITALS: BP 121/61
[2018-10-22] MEDS: Vancomycin 500mg/D5W 110ml IVPB SCH ×2 (04:30)
--- NOTE | 2018-10-22 05:00 | NUR ---
NURSE NOTES: Patient c/o IV site pain, would like IV removed. IV removed and patient is refusing to have new IV line inserted stating "Can't we give my arms a rest? Come back in the morning!".
[2018-10-22] MEDS: Piperacillin/Tazobactam 3.375 GM in D5W 110 ML IVPB SCH ×3 (06:00→23:20)
[2018-10-22] MEDS: NovoLOG Insulin Flexpen SUBQ SCH ×7 (06:12→20:34)
--- NOTE | 2018-10-22 07:50 | NUR ---
HAND-OFF: Report given to MARKUS Cherry.
[2018-10-22 08:00] VITALS: BP 136/81
--- NOTE | 2018-10-22 08:02 | NUR ---
NURSE NOTES: Pt is refusing placement of IV line. Does have pending antibiotics, informed her that Dr can be called to change route of medications, " I do not take pills"
--- NOTE | 2018-10-22 08:09 | General Progress Note ---
Assessment/Plan Problem List: (1) Diabetes mellitus ICD Codes: E11.9 - Type 2 diabetes mellitus without complications SNOMED: 35761552 (2) Rash and other nonspecific skin eruption ICD Codes: R21 - Rash and other nonspecific skin eruption SNOMED: 742977021, 358291386 (3) Foot osteomyelitis, left ICD Codes: M86.9 - Osteomyelitis, unspecified SNOMED: 6823114197207343 Qualifiers: Qualified Codes: M86.8X7 - Other osteomyelitis, ankle and foot (4) MDD (major depressive disorder) ICD Codes: F32.9 - Major depressive disorder, single episode, unspecified SNOMED: 447401646 Assessment/Plan increase Levemir to 30 units qhs continue Novolog 12 units ac tid continue NISS ac / hs Subjective Allergies: Coded Allergies: No Known Allergies (Unverified , 10/19/16) All Systems: reviewed and negative except above Subjective events noted fasting glucose elevated Item Value Date Time Bedside Blood Glucose 332 mg/dl H 10/22/18 0650 Bedside Blood Glucose 299 mg/dl H 10/21/18 2114 Bedside Blood Glucose 222 mg/dl H 10/21/18 1152 Bedside Blood Glucose 169 mg/dl H 10/21/18 0557 Objective Last 24 Hour Vital Signs Date Time Temp Pulse Resp B/P (MAP) Pulse Ox O2 Delivery O2 Flow Rate FiO2 10/22/18 07:21 Room Air 21 10/22/18 07:21 Room Air 21 10/22/18 04:00 98.1 87 19 121/61 (81) 95 10/22/18 03:31 Room Air 10/22/18 03:30 Room Air 10/22/18 00:00 98.6 85 19 133/63 (86) 95 10/21/18 23:30 Room Air 10/21/18 23:30 Room Air 10/21/18 21:00 Room Air 10/21/18 20:20 Room Air 10/21/18 20:00 Room Air 10/21/18 20:00 97.7 84 19 139/65 (89) 95 10/21/18 16:01 Room Air 10/21/18 16:01 Room Air 10/21/18 12:00 97.7 88 18 148/71 (96) 97 10/21/18 11:55 Room Air 10/21/18 11:55 Room Air 10/21/18 09:00 Room Air 10/21/18 08:10 Room Air 10/21/18 08:10 Room Air Intake and Output 10/21/18 10/22/18 18:59 06:59 Intake Total 800 ml 480 ml Balance 800 ml 480 ml Intake Oral 480 ml Other 800 ml # Voids 3 # Bowel Movements 1 Height (Feet): 5 Height (Inches): 3.00 Weight (Pounds): 110 General Appearance: no apparent distress Neck: normal alignment Cardiovascular: normal rate Respiratory/Chest: lungs clear Abdomen: normal bowel sounds Objective Current Medications Medications (Trade) Dose Ordered Sig/Manda Route PRN Reason Start Time Stop Time Status Last Admin Dose Admin Acetaminophen (Tylenol) 650 mg Q4H PRN ORAL Mild Pain/Temp > 100.5 10/20/18 00:15 11/19/18 00:14 Acetaminophen/ Hydrocodone Bitart ([place] 10/325) 1 tab Q6HR PRN ORAL Severe Pain (Pain Scale 7-10) 10/20/18 04:00 10/27/18 00:14 Albuterol/ Ipratropium (Albuterol/ Ipratropium) 3 ml Q4HRT HHN 10/20/18 03:00 10/25/18 02:59 10/20/18 19:17 Clonidine HCl (Catapres Tab) 0.1 mg Q4H PRN ORAL For High BP 160 syst and up 10/20/18 16:15 11/19/18 00:14 Dextrose (Dextrose 50%) 25 ml Q30M PRN IV Hypoglycemia 10/20/18 00:30 11/19/18 00:29 Dextrose (Dextrose 50%) 50 ml Q30M PRN IV Hypoglycemia 10/20/18 00:30 11/19/18 00:29 Famotidine (Pepcid) 20 mg BID ORAL 10/20/18 18:00 11/19/18 17:59 10/21/18 18:45 Fluoxetine HCl (PROzac) 20 mg DAILY ORAL 10/21/18 09:00 11/20/18 08:59 Folic Acid (Folate) 3 mg DAILY ORAL 10/21/18 09:00 11/20/18 08:59 10/21/18 09:01 Heparin Sodium (Porcine) (Heparin 5000 units/ml) 5,000 units EVERY 12 HOURS SUBQ 10/20/18 09:00 11/19/18 08:59 10/21/18 21:12 Insulin Aspart (NovoLOG) BEFORE MEALS AND HS SUBQ 10/20/18 06:30 11/19/18 06:29 10/22/18 06:12 Insulin Aspart (NovoLOG) 12 units NOVOTIAC SUBQ 10/20/18 06:30 11/19/18 06:29 10/22/18 06:12 Insulin Detemir (Levemir) 20 units BEDTIME SUBQ 10/20/18 21:00 11/19/18 20:59 10/21/18 21:12 Iopamidol (Isovue-370 150ml) 150 ml NOW PRN INJ Radiology Procedure 10/20/18 22:15 10/22/18 22:03 Iopamidol (Isovue-370 150ml) 150 ml NOW PRN INJ Radiology Procedure 10/20/18 22:15 10/22/18 22:03 Iron Sucrose 100 mg/Sodium Chloride 60 ml @ 240 mls/hr BEDTIME IV 10/20/18 21:00 10/24/18 21:14 10/21/18 20:39 Mirtazapine (Remeron) 7.5 mg BEDTIME ORAL 10/20/18 21:00 11/19/18 20:59 10/20/18 20:23 Morphine Sulfate (Morphine Sulfate) 2 mg Q4H PRN IVP Moderate Pain (Pain Scale 4-6) 10/20/18 04:00 10/27/18 03:59 10/22/18 01:36 Nitroglycerin (Ntg) 0.4 mg Q5M PRN SL Prn Chest Pain 10/20/18 00:15 11/19/18 00:14 Ondansetron HCl (Zofran) 4 mg Q6H PRN IVP Nausea & Vomiting 10/20/18 00:15 11/19/18 00:14 Piperacillin Sod/ Tazobactam Sod 3.375 gm/Dextrose 110 ml @ 27.5 mls/hr EVERY 8 HOURS IVPB 10/20/18 06:00 10/25/18 05:59 10/21/18 05:31 Polyethylene Glycol (Miralax) 17 gm BEDTIME ORAL 10/20/18 21:00 11/19/18 20:59 Temazepam (Restoril) 15 mg HSPRN PRN ORAL Insomnia 10/20/18 00:15 10/27/18 00:14 Vancomycin HCl (Vanco rx to dose) 1 ea DAILY PRN MISC Per rx protocol 10/20/18 02:00 11/19/18 01:59 Vancomycin HCl 500 mg/Dextrose 110 ml @ 110 mls/hr Q12H IVPB 10/20/18 05:00 10/25/18 04:59 10/22/18 04:30 Brendan Johnson MD Oct 22, 2018 08:09
--- NOTE | 2018-10-22 08:12 | NUR ---
NURSE NOTES: Dr Campo phoned to inform that pt is refusing re-insertion of an IV line. Has pending antibiotics due at 1400. Pt also refused blood transfusion. hemoglobin is 6.6. Risk and benefits explained. Pt states " I am getting to much stuff in my body; I just do not trust it"
[2018-10-22] MEDS: Heparin 5000 units/ml inj SUBQ SCH ×2 (08:57→20:28)
--- NOTE | 2018-10-22 09:37 | NUR ---
NURSE NOTES: Per Dr Campo he requested that inform Dr Gold Dunn for pt pt noncompliance of IV line, antibiotics, blood infusion. Pt also refused morning medications will follow up with Dr. Alejo to inform her that pt refused prozac this am. Pt laying down with eyes closed, " I do not want anything" risk and benefits explained. " I have too much stuff in body as it is" Pt informed of pending
[2018-10-22] MEDS ORDERED: NS 500ML ONE (10:30)
[2018-10-22] MEDS ORDERED: Tubing Blood Filter IV ONE (10:30)
--- NOTE | 2018-10-22 11:52 | Infectious Diseases Prog Note ---
Assessment/Plan Assessment/Plan A 1. left foot osteomyelitis 2. diabetes mellitus 3. leucocytosis resolved 4. Anemia 5. Major depression P 1, continue vancomycin iv, Zosyn 2. will follow up cultures 3. PICC line placement Subjective ROS Limited/Unobtainable: No Constitutional: Reports: no symptoms Respiratory: Reports: no symptoms Cardiovascular: Reports: no symptoms Gastrointestinal/Abdominal: Reports: no symptoms Genitourinary: Reports: no symptoms Musculoskeletal: Reports: pain, other - in left leg Allergies: Coded Allergies: No Known Allergies (Unverified , 10/19/16) Objective Vital Signs Last 24 Hour Vital Signs Date Time Temp Pulse Resp B/P (MAP) Pulse Ox O2 Delivery O2 Flow Rate FiO2 10/22/18 10:43 Room Air 21 10/22/18 10:43 Room Air 21 10/22/18 09:00 Room Air 10/22/18 08:00 97.5 67 19 136/81 (99) 100 10/22/18 07:21 Room Air 21 10/22/18 07:21 Room Air 21 10/22/18 04:00 98.1 87 19 121/61 (81) 95 10/22/18 03:31 Room Air 10/22/18 03:30 Room Air 10/22/18 00:00 98.6 85 19 133/63 (86) 95 10/21/18 23:30 Room Air 10/21/18 23:30 Room Air 10/21/18 21:00 Room Air 10/21/18 20:20 Room Air 10/21/18 20:00 Room Air 10/21/18 20:00 97.7 84 19 139/65 (89) 95 10/21/18 16:01 Room Air 10/21/18 16:01 Room Air 10/21/18 12:00 97.7 88 18 148/71 (96) 97 10/21/18 11:55 Room Air 10/21/18 11:55 Room Air Height (Feet): 5 Height (Inches): 3.00 Weight (Pounds): 110 HEENT: mucous membranes moist Respiratory/Chest: lungs clear Cardiovascular: normal rate Abdomen: soft, non tender Extremities: other - left foot edema & deformity Skin: ulcers Neurologic/Psychiatric: alert, responsive Microbiology Date/Time Source Procedure Growth Status 10/19/18 16:30 Blood Blood Culture - Preliminary NO GROWTH AFTER 48 HOURS Resulted 2/7/19 16:20 Blood Blood Culture - Preliminary NO GROWTH AFTER 48 HOURS Resulted 10/19/18 22:40 Nose MRSA Culture - Final NO METHICILLIN RESISTANT STAPH AUREUS... Complete 10/19/18 18:35 Rectum VRE Culture - Final NO VANCOMYCIN RESISTANT ENTEROCOCCUS ... Complete Current Medications Medications (Trade) Dose Ordered Sig/Manda Route PRN Reason Start Time Stop Time Status Last Admin Dose Admin Acetaminophen (Tylenol) 650 mg Q4H PRN ORAL Mild Pain/Temp > 100.5 10/20/18 00:15 11/19/18 00:14 Acetaminophen/ Hydrocodone Bitart ([place] 10/325) 1 tab Q6HR PRN ORAL Severe Pain (Pain Scale 7-10) 10/20/18 04:00 10/27/18 00:14 Albuterol/ Ipratropium (Albuterol/ Ipratropium) 3 ml Q4HRT HHN 10/20/18 03:00 10/25/18 02:59 10/20/18 19:17 Clonidine HCl (Catapres Tab) 0.1 mg Q4H PRN ORAL For High BP 160 syst and up 10/20/18 16:15 11/19/18 00:14 Dextrose (Dextrose 50%) 25 ml Q30M PRN IV Hypoglycemia 10/20/18 00:30 11/19/18 00:29 Dextrose (Dextrose 50%) 50 ml Q30M PRN IV Hypoglycemia 10/20/18 00:30 11/19/18 00:29 Famotidine (Pepcid) 20 mg BID ORAL 10/20/18 18:00 11/19/18 17:59 10/21/18 18:45 Fluoxetine HCl (PROzac) 20 mg DAILY ORAL 10/21/18 09:00 11/20/18 08:59 Folic Acid (Folate) 3 mg DAILY ORAL 10/21/18 09:00 11/20/18 08:59 10/21/18 09:01 Heparin Sodium (Porcine) (Heparin 5000 units/ml) 5,000 units EVERY 12 HOURS SUBQ 10/20/18 09:00 11/19/18 08:59 10/21/18 21:12 Insulin Aspart (NovoLOG) BEFORE MEALS AND HS SUBQ 10/20/18 06:30 11/19/18 06:29 10/22/18 06:12 Insulin Aspart (NovoLOG) 12 units NOVOTIAC SUBQ 10/20/18 06:30 11/19/18 06:29 10/22/18 06:12 Insulin Detemir (Levemir) 30 units BEDTIME SUBQ 10/22/18 21:00 11/19/18 20:59 Iopamidol (Isovue-370 150ml) 150 ml NOW PRN INJ Radiology Procedure 10/20/18 22:15 10/22/18 22:03 Iopamidol (Isovue-370 150ml) 150 ml NOW PRN INJ Radiology Procedure 10/20/18 22:15 10/22/18 22:03 Iron Sucrose 100 mg/Sodium Chloride 60 ml @ 240 mls/hr BEDTIME IV 10/20/18 21:00 10/24/18 21:14 10/21/18 20:39 Mirtazapine (Remeron) 7.5 mg BEDTIME ORAL 10/20/18 21:00 11/19/18 20:59 10/20/18 20:23 Morphine Sulfate (Morphine Sulfate) 2 mg Q4H PRN IVP Moderate Pain (Pain Scale 4-6) 10/20/18 04:00 10/27/18 03:59 10/22/18 01:36 Nitroglycerin (Ntg) 0.4 mg Q5M PRN SL Prn Chest Pain 10/20/18 00:15 11/19/18 00:14 Ondansetron HCl (Zofran) 4 mg Q6H PRN IVP Nausea & Vomiting 10/20/18 00:15 11/19/18 00:14 Piperacillin Sod/ Tazobactam Sod 3.375 gm/Dextrose 110 ml @ 27.5 mls/hr EVERY 8 HOURS IVPB 10/20/18 06:00 10/25/18 05:59 10/21/18 05:31 Polyethylene Glycol (Miralax) 17 gm BEDTIME ORAL 10/20/18 21:00 11/19/18 20:59 Temazepam (Restoril) 15 mg HSPRN PRN ORAL Insomnia 10/20/18 00:15 10/27/18 00:14 Vancomycin HCl (Vanco rx to dose) 1 ea DAILY PRN MISC Per rx protocol 10/20/18 02:00 11/19/18 01:59 Vancomycin HCl 500 mg/Dextrose 110 ml @ 110 mls/hr Q12H IVPB 10/20/18 05:00 10/25/18 04:59 10/22/18 04:30 Anton Arambula MD Oct 22, 2018 11:52
--- NOTE | 2018-10-22 11:54 | NUR ---
NURSE NOTES: Dr Dunn here made aware of pt refusal of IV line , morning medications , blood transfusion. spoke to pt agreed to IV insertion, Per MD will place order for PICC Line
[2018-10-22] MEDS ORDERED: Heparin 2000 units/Ns 1000ml INJ PRN (12:00)
[2018-10-22] MEDS ORDERED: Lidocaine 1% Plain 30 ml INJ PRN (12:00)
--- NOTE | 2018-10-22 12:02 | Nephrology Progress Note ---
Assessment/Plan Problem List: (1) Hyponatremia (2) Diabetes mellitus (3) Foot osteomyelitis, left (4) Diabetic nephropathy (5) Anemia Assessment HypoNatremia due to hyperglycemia Anemia Low MCV Left foot Osteo Hyperglycemia UTI Proteinuria/ Diabetic nephropathy Plan refuses care- transfusion, IV... BS control will raise serum Na anemia lee per ID per orders Subjective ROS Limited/Unobtainable: No Constitutional: Reports: malaise Objective Objective Last 24 Hour Vital Signs Date Time Temp Pulse Resp B/P (MAP) Pulse Ox O2 Delivery O2 Flow Rate FiO2 10/22/18 10:43 Room Air 21 10/22/18 10:43 Room Air 21 10/22/18 09:00 Room Air 10/22/18 08:00 97.5 67 19 136/81 (99) 100 10/22/18 07:21 Room Air 21 10/22/18 07:21 Room Air 21 10/22/18 04:00 98.1 87 19 121/61 (81) 95 10/22/18 03:31 Room Air 10/22/18 03:30 Room Air 10/22/18 00:00 98.6 85 19 133/63 (86) 95 10/21/18 23:30 Room Air 10/21/18 23:30 Room Air 10/21/18 21:00 Room Air 10/21/18 20:20 Room Air 10/21/18 20:00 Room Air 10/21/18 20:00 97.7 84 19 139/65 (89) 95 10/21/18 16:01 Room Air 10/21/18 16:01 Room Air Intake and Output 10/21/18 10/22/18 19:00 07:00 Intake Total 800 ml 480 ml Balance 800 ml 480 ml Intake Oral 480 ml Other 800 ml # Voids 3 # Bowel Movements 1 Height (Feet): 5 Height (Inches): 3.00 Weight (Pounds): 110 General Appearance: lethargic, other - un coaporative Objective no change Francisco Tapia MD Oct 22, 2018 12:01
--- NOTE | 2018-10-22 12:06 | Cardiology Report ---
APPROVED REPORT EXAM: Two-dimensional and M-mode echocardiogram with Doppler and color Doppler. INDICATION Other M-Mode DIMENSIONS IVSd1.2 (0.7-1.1cm)Left Atrium (MM)3.6 (1.6-4.0cm) LVDd3.7 (3.5-5.6cm)Aortic Root2.4 (2.0-3.7cm) PWd0.9 (0.7-1.1cm)Aortic Cusp Exc.1.5 (1.5-2.0cm) LVDs2.1 (2.5-4.0cm) PWs1.5 cm Normal left ventricular chamber size, systolic function and wall motion. Left ventricular ejection fraction estimated to be 60 %. Mild left ventricular hypertrophy. No evidence of pericardial effusion. All other cardiac chamber sizes are within normal limits. Focal aortic valve sclerosis with adequate cusp excursion. Thickened mitral valve leaflets with normal excursion. Mild mitral annulus and aortic root calcification. Pulmonic valve not well visualized. Normal tricuspid valve structure. IVC dilated at 2.3 cm without physiological collapse, suggestive of increased RA pressure. A color flow and spectral Doppler study was performed and revealed: Traceaortic insufficiency. Mild mitral regurgitation. reduced left ventricular relaxation c/w impaired relaxation diastolic dysfunction. Mild tricuspid regurgitation. Tricuspid systolic velocities suggests peak right ventricular systolic pressure of 55 mmHg, consistent with moderate pulmonary hypertension. No pulmonic regurgitation present.
--- NOTE | 2018-10-22 13:07 | Cardiology Report ---
APPROVED REPORT EKG Measurement Heart [id number] Normal sinus rhythm Normal ECG
--- NOTE | 2018-10-22 13:24 | NUR ---
CASE MANAGEMENT: REVIEW 10/22/2018 SI: OSTEOMYELITIS T 97.5 HR 67 RR 19 B/P 136/81 SATS 100% ON RA NO LABS TODAY IS: VENOFER IV QHS ZOSYN IV Q8HR VANCO IV Q12H TRANSFUSE PRBC MED/SURG STATUS DCP: PATIENT REPORTS BEING HOMELESS PLAN: SURGICAL CONSULT: RECOMMEND BKA / PATIENT REFUSE VENOUS DUPLEX CTA L LOWER EXTREMITY CTA R LOWER EXTREMITY CTA ABD RUN OFF
--- NOTE | 2018-10-22 13:58 | Surgery Progress Note ---
Surgery Progress Note Subjective Additional Comments no acute events. resting comfortable. wound wrapped Objective Last 24 Hour Vital Signs Date Time Temp Pulse Resp B/P (MAP) Pulse Ox O2 Delivery O2 Flow Rate FiO2 10/22/18 10:43 Room Air 21 10/22/18 10:43 Room Air 21 10/22/18 09:00 Room Air 10/22/18 08:00 97.5 67 19 136/81 (99) 100 10/22/18 07:21 Room Air 21 10/22/18 07:21 Room Air 21 10/22/18 04:00 98.1 87 19 121/61 (81) 95 10/22/18 03:31 Room Air 10/22/18 03:30 Room Air 10/22/18 00:00 98.6 85 19 133/63 (86) 95 10/21/18 23:30 Room Air 10/21/18 23:30 Room Air 10/21/18 21:00 Room Air 10/21/18 20:20 Room Air 10/21/18 20:00 Room Air 10/21/18 20:00 97.7 84 19 139/65 (89) 95 10/21/18 16:01 Room Air 10/21/18 16:01 Room Air I&O Intake and Output 10/21/18 10/22/18 19:00 07:00 Intake Total 800 ml 480 ml Balance 800 ml 480 ml Intake Oral 480 ml Other 800 ml # Voids 3 # Bowel Movements 1 Dressing: dry, other Wound: other Drains: none Cardiovascular: RSR Respiratory: clear Abdomen: soft, flat, present bowel sounds, non-distended Extremities: other Plan Problems: (1) Foot osteomyelitis, left Assessment & Plan: Left foot osteo acute/chronic seen by podiatry prior and deemed not salvageable recommended to have left BKA patient refused surgery still refuses surgery and majority of care except pain medication appreciate vascular input pending results of CTA/Duplex thank you (2) Sacral decubitus ulcer (3) Osteomyelitis (4) Rash and other nonspecific skin eruption Saqib Ndiaye Oct 22, 2018 13:58
[2018-10-22 16:00] VITALS: BP 148/83
[2018-10-22] MEDS: Vancomycin 750mg/NS 275ml IVPB SCH ×2 (17:00)
--- NOTE | 2018-10-22 19:37 | NUR ---
NURSE NOTES: Received patient AOx4, able to verbalize needs, c/o 9/10 pain, morphine PRN given. Bed on lowest position, 2 side rails up, call light and belongings within reach. IV site asymptomatic, running abx with 1 hour left. Will monitor blood glucose closely.
[2018-10-22 20:00] VITALS: BP 120/54
--- NOTE | 2018-10-22 20:19 | NUR ---
NURSE NOTES: New iv line started Dr Ortiz made aware that pt refused po medications , cooperated with iv antibiotics and blood sugar assessment. Will continue to monitor, and follow current plan of care
--- NOTE | 2018-10-22 20:21 | NUR ---
HAND-OFF: Report given to Grazyna APARICIO.
[2018-10-22] MEDS: Dyna-Hex 2% Top Sol 2oz TOPIC SCH (20:26)
[2018-10-22] MEDS: Miralax 17gm pkt ORAL SCH (21:00)
[2018-10-22] MEDS ORDERED: Levemir Flexpen SUBQ SCH (21:00)
--- NOTE | 2018-10-22 21:26 | General Progress Note ---
Assessment/Plan Problem List: (1) Diabetes mellitus ICD Codes: E11.9 - Type 2 diabetes mellitus without complications SNOMED: 12587883 (2) Anxiety disorder ICD Codes: F41.9 - Anxiety disorder, unspecified SNOMED: 731271081 (3) Osteomyelitis ICD Codes: M86.9 - Osteomyelitis, unspecified SNOMED: 63122556 (4) Sacral decubitus ulcer ICD Codes: L89.159 - Pressure ulcer of sacral region, unspecified stage SNOMED: 122193628 (5) Foot osteomyelitis, left ICD Codes: M86.9 - Osteomyelitis, unspecified SNOMED: 9584495353828415 Qualifiers: Qualified Codes: M86.8X7 - Other osteomyelitis, ankle and foot (6) MDD (major depressive disorder) ICD Codes: F32.9 - Major depressive disorder, single episode, unspecified SNOMED: 809860972 Status: progressing Assessment/Plan multiple wounds psych pt keeps refusing iv oseomylitis of different location severe anemia refused transfustion noncompliance 6weeks of abx foot wound Subjective ROS Limited/Unobtainable: Yes Allergies: Coded Allergies: No Known Allergies (Unverified , 10/19/16) Subjective generalized pain Objective Last 24 Hour Vital Signs Date Time Temp Pulse Resp B/P (MAP) Pulse Ox O2 Delivery O2 Flow Rate FiO2 10/22/18 16:00 97.6 76 18 148/83 (104) 100 10/22/18 14:59 Room Air 21 10/22/18 14:59 Room Air 21 10/22/18 10:43 Room Air 21 10/22/18 10:43 Room Air 21 10/22/18 09:00 Room Air 10/22/18 08:00 97.5 67 19 136/81 (99) 100 10/22/18 07:21 Room Air 21 10/22/18 07:21 Room Air 21 10/22/18 04:00 98.1 87 19 121/61 (81) 95 10/22/18 03:31 Room Air 10/22/18 03:30 Room Air 10/22/18 00:00 98.6 85 19 133/63 (86) 95 10/21/18 23:30 Room Air 10/21/18 23:30 Room Air Intake and Output 10/21/18 10/22/18 19:00 07:00 Intake Total 800 ml 480 ml Balance 800 ml 480 ml Intake Oral 480 ml Other 800 ml # Voids 3 # Bowel Movements 1 Laboratory Tests 10/22/18 15:45: Vancomycin Level Trough 1.0L Height (Feet): 5 Height (Inches): 3.00 Weight (Pounds): 110 Cardiovascular: normal rate Respiratory/Chest: lungs clear Abdomen: soft Reina Dorsey MD Oct 22, 2018 21:26
--- NOTE | 2018-10-22 21:47 | General Progress Note ---
Assessment/Plan Problem List: (1) MDD (major depressive disorder) ICD Codes: F32.9 - Major depressive disorder, single episode, unspecified SNOMED: 505823697 (2) Anxiety disorder ICD Codes: F41.9 - Anxiety disorder, unspecified SNOMED: 153521028 Assessment/Plan Remeron 7.5mg po qhs Prozac 20mg po qam provided ro/st Subjective Neurologic/Psychiatric: Reports: anxiety, depressed, emotional problems Allergies: Coded Allergies: No Known Allergies (Unverified , 10/19/16) Subjective non compliant Objective Last 24 Hour Vital Signs Date Time Temp Pulse Resp B/P (MAP) Pulse Ox O2 Delivery O2 Flow Rate FiO2 10/22/18 16:00 97.6 76 18 148/83 (104) 100 10/22/18 14:59 Room Air 21 10/22/18 14:59 Room Air 21 10/22/18 10:43 Room Air 21 10/22/18 10:43 Room Air 21 10/22/18 09:00 Room Air 10/22/18 08:00 97.5 67 19 136/81 (99) 100 10/22/18 07:21 Room Air 21 10/22/18 07:21 Room Air 21 10/22/18 04:00 98.1 87 19 121/61 (81) 95 10/22/18 03:31 Room Air 10/22/18 03:30 Room Air 10/22/18 00:00 98.6 85 19 133/63 (86) 95 10/21/18 23:30 Room Air 10/21/18 23:30 Room Air Intake and Output 10/21/18 10/22/18 19:00 07:00 Intake Total 800 ml 480 ml Balance 800 ml 480 ml Intake Oral 480 ml Other 800 ml # Voids 3 # Bowel Movements 1 Laboratory Tests 10/22/18 15:45: Vancomycin Level Trough 1.0L Height (Feet): 5 Height (Inches): 3.00 Weight (Pounds): 110 General Appearance: no apparent distress, alert Neurologic: oriented x 3, responsive, depressed affect Barry De La O MD Oct 22, 2018 21:47
[2018-10-22] MEDS ORDERED: Albuterol/Ipratropium 3ml neb ONE (21:53)
[2018-10-22] MEDS: Iron Sucrose 100 MG in NS 55 ML IV SCH (22:36)
--- NOTE | 2018-10-22 23:06 | Cardiology Progress Note ---
Assessment/Plan Assessment/Plan 1. Sinus tachycardia, agitation, refusing medical advice and treatment, likely due to hypovolemia, keep hydrated, electrolyte replacement. 2. Moderate pulmonary HTN Subjective Subjective No cardiac events. Tachycardic. Agitated. Objective Last 24 Hour Vital Signs Date Time Temp Pulse Resp B/P (MAP) Pulse Ox O2 Delivery O2 Flow Rate FiO2 10/22/18 23:00 Room Air 21 10/22/18 23:00 Room Air 21 10/22/18 21:53 Room Air 21 10/22/18 21:53 Room Air 21 10/22/18 21:00 Room Air 10/22/18 20:00 98.5 86 18 120/54 (76) 96 10/22/18 16:00 97.6 76 18 148/83 (104) 100 10/22/18 14:59 Room Air 21 10/22/18 14:59 Room Air 21 10/22/18 10:43 Room Air 21 10/22/18 10:43 Room Air 21 10/22/18 09:00 Room Air 10/22/18 08:00 97.5 67 19 136/81 (99) 100 10/22/18 07:21 Room Air 21 10/22/18 07:21 Room Air 21 10/22/18 04:00 98.1 87 19 121/61 (81) 95 10/22/18 03:31 Room Air 10/22/18 03:30 Room Air 10/22/18 00:00 98.6 85 19 133/63 (86) 95 10/21/18 23:30 Room Air 10/21/18 23:30 Room Air Intake and Output 10/21/18 10/22/18 19:00 07:00 Intake Total 800 ml 480 ml Balance 800 ml 480 ml Intake Oral 480 ml Other 800 ml # Voids 3 # Bowel Movements 1 2D Echo: LVEF 60%, Mild LVH, RVSP 50 mmHg, Grade I LVDD Laboratory Tests Test 10/22/18 15:45 Vancomycin Level Trough 1.0 ug/mL (5.0-12.0) L Objective HEENT: normocephalic, atraumatic, bilateral eye PERRL, bilateral eye EOMI, moist mucus membranes Neck: no JVD, no carotid bruit. Respiratory: normal inspection, lungs clear, normal breath sounds, no respiratory distress, no retraction, no wheezing, speaking full sentences, chest symmetrical Cardiovascular: normal inspection, regular rate, rhythm, no edema, no murmurs, gallops or rubs. Gastrointestinal: normal inspection, non tender, soft, non-distended, no guarding Musculoskeletal: Left foot edematous, ulceration around the first metatarsal, edema, tender to palpation Sal Edge MD Oct 22, 2018 23:06
[2018-10-23] VITALS: BP 123/57
[2018-10-23] MEDS: Albuterol/Ipratropium 3ml neb HHN SCH ×6 (03:49→23:35)
[2018-10-23] MEDS: Morphine Sulfate 2mg/ml Inj(IV/IM USE ONLY) IVP PRN ×4 (03:50→17:27)
[2018-10-23] MEDS: Vancomycin 750mg/NS 275ml IVPB SCH ×2 (03:51)
[2018-10-23 04:00] VITALS: BP 121/59
[2018-10-23] MEDS: NovoLOG Insulin Flexpen SUBQ SCH ×7 (06:06→21:00)
--- NOTE | 2018-10-23 06:10 | NUR ---
NURSE NOTES: 2nd IV site for abx infusion R hand 24 gauge.
[2018-10-23] MEDS: Piperacillin/Tazobactam 3.375 GM in D5W 110 ML IVPB SCH (06:28)
--- NOTE | 2018-10-23 07:02 | General Progress Note ---
Assessment/Plan Problem List: (1) Diabetes mellitus ICD Codes: E11.9 - Type 2 diabetes mellitus without complications SNOMED: 12614743 (2) Rash and other nonspecific skin eruption ICD Codes: R21 - Rash and other nonspecific skin eruption SNOMED: 859136100, 459492704 (3) Foot osteomyelitis, left ICD Codes: M86.9 - Osteomyelitis, unspecified SNOMED: 1145326923377416 Qualifiers: Qualified Codes: M86.8X7 - Other osteomyelitis, ankle and foot (4) MDD (major depressive disorder) ICD Codes: F32.9 - Major depressive disorder, single episode, unspecified SNOMED: 194202921 Assessment/Plan increase Levemir to 36 units qhs continue Novolog 12 units ac tid continue NISS ac / hs Subjective Allergies: Coded Allergies: No Known Allergies (Unverified , 10/19/16) All Systems: reviewed and negative except above Subjective events noted Item Value Date Time Bedside Blood Glucose 238 mg/dl H 10/23/18 0608 Bedside Blood Glucose 120 mg/dl 10/22/18 2034 Bedside Blood Glucose 256 mg/dl H 10/22/18 1756 Bedside Blood Glucose 277 mg/dl H 10/22/18 1411 Bedside Blood Glucose 332 mg/dl H 10/22/18 0650 Objective Last 24 Hour Vital Signs Date Time Temp Pulse Resp B/P (MAP) Pulse Ox O2 Delivery O2 Flow Rate FiO2 10/23/18 04:00 97.6 77 17 121/59 (79) 94 10/23/18 03:49 Room Air 21 10/23/18 03:49 Room Air 21 10/23/18 00:00 98.3 80 18 123/57 (79) 95 10/22/18 23:00 Room Air 21 10/22/18 23:00 Room Air 21 10/22/18 21:53 Room Air 21 10/22/18 21:53 Room Air 21 10/22/18 21:00 Room Air 10/22/18 20:00 98.5 86 18 120/54 (76) 96 10/22/18 16:00 97.6 76 18 148/83 (104) 100 10/22/18 14:59 Room Air 21 10/22/18 14:59 Room Air 21 10/22/18 10:43 Room Air 21 10/22/18 10:43 Room Air 21 10/22/18 09:00 Room Air 10/22/18 08:00 97.5 67 19 136/81 (99) 100 10/22/18 07:21 Room Air 21 10/22/18 07:21 Room Air 21 Intake and Output 10/22/18 10/23/18 19:00 07:00 Intake Total 82.5 ml 587.5 ml Balance 82.5 ml 587.5 ml Intake Oral 500 ml IV Total 82.5 ml 87.5 ml # Voids 2 # Bowel Movements 1 Laboratory Tests 10/22/18 15:45: Vancomycin Level Trough 1.0L Height (Feet): 5 Height (Inches): 3.00 Weight (Pounds): 110 General Appearance: no apparent distress Neck: normal alignment Cardiovascular: regular rhythm Respiratory/Chest: normal breath sounds Abdomen: normal bowel sounds Objective Current Medications Medications (Trade) Dose Ordered Sig/Manda Route PRN Reason Start Time Stop Time Status Last Admin Dose Admin Acetaminophen (Tylenol) 650 mg Q4H PRN ORAL Mild Pain/Temp > 100.5 10/20/18 00:15 11/19/18 00:14 Acetaminophen/ Hydrocodone Bitart ([place] 10/325) 1 tab Q6HR PRN ORAL Severe Pain (Pain Scale 7-10) 10/20/18 04:00 10/27/18 00:14 Albuterol/ Ipratropium (Albuterol/ Ipratropium) 3 ml Q4HRT HHN 10/20/18 03:00 10/25/18 02:59 10/20/18 19:17 Chlorhexidine Gluconate (Kerri-Hex 2%) 1 applic DAILY@1999 TOPIC 10/22/18 20:00 11/21/18 19:59 10/22/18 20:26 Clonidine HCl (Catapres Tab) 0.1 mg Q4H PRN ORAL For High BP 160 syst and up 10/20/18 16:15 11/19/18 00:14 Dextrose (Dextrose 50%) 25 ml Q30M PRN IV Hypoglycemia 10/20/18 00:30 11/19/18 00:29 Dextrose (Dextrose 50%) 50 ml Q30M PRN IV Hypoglycemia 10/20/18 00:30 11/19/18 00:29 Famotidine (Pepcid) 20 mg BID ORAL 10/20/18 18:00 11/19/18 17:59 10/21/18 18:45 Fluoxetine HCl (PROzac) 20 mg DAILY ORAL 10/21/18 09:00 11/20/18 08:59 Folic Acid (Folate) 3 mg DAILY ORAL 10/21/18 09:00 11/20/18 08:59 10/21/18 09:01 Heparin Sodium (Porcine) (Heparin 5000 units/ml) 5,000 units EVERY 12 HOURS SUBQ 10/20/18 09:00 11/19/18 08:59 10/22/18 20:28 Heparin Sodium/ Sodium Chloride (Heparin 2000 units/Ns 1000ml premix) 2,000 unit ONCE PRN INJ PICC LINE 10/22/18 12:00 10/23/18 23:59 Insulin Aspart (NovoLOG) BEFORE MEALS AND HS SUBQ 10/20/18 06:30 11/19/18 06:29 10/23/18 06:06 Insulin Aspart (NovoLOG) 12 units NOVOTIAC SUBQ 10/20/18 06:30 11/19/18 06:29 10/23/18 06:08 Insulin Detemir (Levemir) 30 units BEDTIME SUBQ 10/22/18 21:00 11/19/18 20:59 10/22/18 20:33 Iron Sucrose 100 mg/Sodium Chloride 60 ml @ 240 mls/hr BEDTIME IV 10/20/18 21:00 10/24/18 21:14 10/22/18 22:36 Lidocaine HCl (Xylocaine 1% 30ml) 30 ml ONCE PRN INJ PICC LINE 10/22/18 12:00 10/23/18 23:59 Mirtazapine (Remeron) 7.5 mg BEDTIME ORAL 10/20/18 21:00 11/19/18 20:59 10/20/18 20:23 Morphine Sulfate (Morphine Sulfate) 2 mg Q4H PRN IVP Moderate Pain (Pain Scale 4-6) 10/20/18 04:00 10/27/18 03:59 10/23/18 03:50 Nitroglycerin (Ntg) 0.4 mg Q5M PRN SL Prn Chest Pain 10/20/18 00:15 11/19/18 00:14 Ondansetron HCl (Zofran) 4 mg Q6H PRN IVP Nausea & Vomiting 10/20/18 00:15 11/19/18 00:14 Piperacillin Sod/ Tazobactam Sod 3.375 gm/Dextrose 110 ml @ 27.5 mls/hr EVERY 8 HOURS IVPB 10/20/18 06:00 10/25/18 05:59 10/23/18 06:28 Polyethylene Glycol (Miralax) 17 gm BEDTIME ORAL 10/20/18 21:00 11/19/18 20:59 Temazepam (Restoril) 15 mg HSPRN PRN ORAL Insomnia 10/20/18 00:15 10/27/18 00:14 Vancomycin HCl (Vanco rx to dose) 1 ea DAILY PRN MISC Per rx protocol 10/20/18 02:00 11/19/18 01:59 Vancomycin HCl 750 mg/Sodium Chloride 275 ml @ 183.333 mls/hr Q8HR@0400,1200,1800 IVPB 10/22/18 17:00 10/27/18 16:59 10/23/18 03:51 Brendan Johnson MD Oct 23, 2018 07:02
--- NOTE | 2018-10-23 07:24 | NUR ---
HAND-OFF: Report given to MARKUS Cherry.
[2018-10-23 08:00] VITALS: BP 138/78
--- NOTE | 2018-10-23 08:11 | NUR ---
NURSE NOTES: Pt provided with assistance to restroom, with use of walker. Able to verbalize known needs. Refused breathing tx ., risk and benefits explained.
[2018-10-23] MEDS: Heparin 5000 units/ml inj SUBQ SCH ×2 (08:45→21:00)
--- NOTE | 2018-10-23 09:00 | NUR ---
NURSE NOTES: Pt went down for MRI to her left foot. Aware of purpose of procedure
--- NOTE | 2018-10-23 10:11 | NUR ---
MRI OF LEFT FOOT AND LEFT ANKLE COMPLETED.
--- NOTE | 2018-10-23 11:00 | NUR ---
NURSE NOTES: Dr Garcia here informed to to attempt to encourage pt to cooperate with blood transfusion. Pt refused risk and benifits explained. Refused all po medications made aware. Pt has a pattern of noncompliance.
[2018-10-23 12:00] VITALS: BP 130/72
--- NOTE | 2018-10-23 12:23 | Infectious Diseases Prog Note ---
Assessment/Plan Assessment/Plan A 1. left foot osteomyelitis 2. diabetes mellitus 3. leucocytosis resolved 4. Anemia 5. Major depression P 1, change vancomycin iv, Zosyn to Cefepime 2. will follow up cultures 3. PICC line placement Subjective ROS Limited/Unobtainable: Yes Respiratory: Reports: no symptoms Gastrointestinal/Abdominal: Reports: no symptoms Musculoskeletal: Reports: pain Allergies: Coded Allergies: No Known Allergies (Unverified , 10/19/16) Objective Vital Signs Last 24 Hour Vital Signs Date Time Temp Pulse Resp B/P (MAP) Pulse Ox O2 Delivery O2 Flow Rate FiO2 10/23/18 04:00 97.6 77 17 121/59 (79) 94 10/23/18 03:49 Room Air 21 10/23/18 03:49 Room Air 21 10/23/18 00:00 98.3 80 18 123/57 (79) 95 10/22/18 23:00 Room Air 21 10/22/18 23:00 Room Air 21 10/22/18 21:53 Room Air 21 10/22/18 21:53 Room Air 21 10/22/18 21:00 Room Air 10/22/18 20:00 98.5 86 18 120/54 (76) 96 10/22/18 16:00 97.6 76 18 148/83 (104) 100 10/22/18 14:59 Room Air 21 10/22/18 14:59 Room Air 21 Height (Feet): 5 Height (Inches): 3.00 Weight (Pounds): 110 HEENT: mucous membranes moist Respiratory/Chest: lungs clear Cardiovascular: normal rate Abdomen: soft, non tender Extremities: other - left foot edema Skin: ulcers, other - left foot Neurologic/Psychiatric: alert, responsive Laboratory Tests Test 10/22/18 15:45 Vancomycin Level Trough 1.0 ug/mL (5.0-12.0) L Current Medications Medications (Trade) Dose Ordered Sig/Manda Route PRN Reason Start Time Stop Time Status Last Admin Dose Admin Acetaminophen (Tylenol) 650 mg Q4H PRN ORAL Mild Pain/Temp > 100.5 10/20/18 00:15 11/19/18 00:14 Acetaminophen/ Hydrocodone Bitart ([place] 10/325) 1 tab Q6HR PRN ORAL Severe Pain (Pain Scale 7-10) 10/20/18 04:00 10/27/18 00:14 Albuterol/ Ipratropium (Albuterol/ Ipratropium) 3 ml Q4HRT HHN 10/20/18 03:00 10/25/18 02:59 10/20/18 19:17 Chlorhexidine Gluconate (Kerri-Hex 2%) 1 applic DAILY@2000 TOPIC 10/22/18 20:00 11/21/18 19:59 10/22/18 20:26 Clonidine HCl (Catapres Tab) 0.1 mg Q4H PRN ORAL For High BP 160 syst and up 10/20/18 16:15 11/19/18 00:14 Dextrose (Dextrose 50%) 25 ml Q30M PRN IV Hypoglycemia 10/20/18 00:30 11/19/18 00:29 Dextrose (Dextrose 50%) 50 ml Q30M PRN IV Hypoglycemia 10/20/18 00:30 11/19/18 00:29 Famotidine (Pepcid) 20 mg BID ORAL 10/20/18 18:00 11/19/18 17:59 10/21/18 18:45 Fluoxetine HCl (PROzac) 20 mg DAILY ORAL 10/21/18 09:00 11/20/18 08:59 Folic Acid (Folate) 3 mg DAILY ORAL 10/21/18 09:00 11/20/18 08:59 10/21/18 09:01 Heparin Sodium (Porcine) (Heparin 5000 units/ml) 5,000 units EVERY 12 HOURS SUBQ 10/20/18 09:00 11/19/18 08:59 10/23/18 08:45 Heparin Sodium/ Sodium Chloride (Heparin 2000 units/Ns 1000ml premix) 2,000 unit ONCE PRN INJ PICC LINE 10/22/18 12:00 10/23/18 23:59 Insulin Aspart (NovoLOG) BEFORE MEALS AND HS SUBQ 10/20/18 06:30 11/19/18 06:29 10/23/18 06:06 Insulin Aspart (NovoLOG) 12 units NOVOTIAC SUBQ 10/20/18 06:30 11/19/18 06:29 10/23/18 06:08 Insulin Detemir (Levemir) 36 units BEDTIME SUBQ 10/23/18 21:00 11/19/18 20:59 Iron Sucrose 100 mg/Sodium Chloride 60 ml @ 240 mls/hr BEDTIME IV 10/20/18 21:00 10/24/18 21:14 10/22/18 22:36 Lidocaine HCl (Xylocaine 1% 30ml) 30 ml ONCE PRN INJ PICC LINE 10/22/18 12:00 10/23/18 23:59 Mirtazapine (Remeron) 7.5 mg BEDTIME ORAL 10/20/18 21:00 11/19/18 20:59 10/20/18 20:23 Morphine Sulfate (Morphine Sulfate) 2 mg Q4H PRN IVP Moderate Pain (Pain Scale 4-6) 10/20/18 04:00 10/27/18 03:59 10/23/18 08:43 Nitroglycerin (Ntg) 0.4 mg Q5M PRN SL Prn Chest Pain 10/20/18 00:15 11/19/18 00:14 Ondansetron HCl (Zofran) 4 mg Q6H PRN IVP Nausea & Vomiting 10/20/18 00:15 11/19/18 00:14 Piperacillin Sod/ Tazobactam Sod 3.375 gm/Dextrose 110 ml @ 27.5 mls/hr EVERY 8 HOURS IVPB 10/20/18 06:00 10/25/18 05:59 10/23/18 06:28 Polyethylene Glycol (Miralax) 17 gm BEDTIME ORAL 10/20/18 21:00 11/19/18 20:59 Temazepam (Restoril) 15 mg HSPRN PRN ORAL Insomnia 10/20/18 00:15 10/27/18 00:14 Vancomycin HCl (Vanco rx to dose) 1 ea DAILY PRN MISC Per rx protocol 10/20/18 02:00 11/19/18 01:59 Vancomycin HCl 750 mg/Sodium Chloride 275 ml @ 183.333 mls/hr Q8HR@0400,1200,1800 IVPB 10/22/18 17:00 10/27/18 16:59 10/23/18 03:51 Anton Arambula MD Oct 23, 2018 12:23
--- NOTE | 2018-10-23 12:41 | Surgery Progress Note ---
Surgery Progress Note Subjective Additional Comments no acute events. Objective Last 24 Hour Vital Signs Date Time Temp Pulse Resp B/P (MAP) Pulse Ox O2 Delivery O2 Flow Rate FiO2 10/23/18 04:00 97.6 77 17 121/59 (79) 94 10/23/18 03:49 Room Air 21 10/23/18 03:49 Room Air 21 10/23/18 00:00 98.3 80 18 123/57 (79) 95 10/22/18 23:00 Room Air 21 10/22/18 23:00 Room Air 21 10/22/18 21:53 Room Air 21 10/22/18 21:53 Room Air 21 10/22/18 21:00 Room Air 10/22/18 20:00 98.5 86 18 120/54 (76) 96 10/22/18 16:00 97.6 76 18 148/83 (104) 100 10/22/18 14:59 Room Air 21 10/22/18 14:59 Room Air 21 I&O Intake and Output 10/22/18 10/23/18 18:59 06:59 Intake Total 82.5 ml 587.5 ml Balance 82.5 ml 587.5 ml Intake Oral 500 ml IV Total 82.5 ml 87.5 ml # Voids 2 # Bowel Movements 1 Dressing: other Wound: other Drains: other Cardiovascular: RSR Respiratory: clear Abdomen: soft, present bowel sounds, non-distended Extremities: other Laboratory Tests Test 10/22/18 15:45 Vancomycin Level Trough 1.0 ug/mL (5.0-12.0) L Plan Problems: (1) Foot osteomyelitis, left Assessment & Plan: Left foot osteo acute/chronic seen by podiatry prior and deemed not salvageable recommended to have left BKA patient refused surgery still refuses surgery and majority of care except pain medication appreciate vascular input pending results of CTA/Duplex Abx for 6 weeks, defer to ID thank you (2) Sacral decubitus ulcer (3) Osteomyelitis (4) Rash and other nonspecific skin eruption Saqib Ndiaye Oct 23, 2018 12:41
--- NOTE | 2018-10-23 12:57 | Nephrology Progress Note ---
Assessment/Plan Problem List: (1) Hyponatremia (2) Diabetes mellitus (3) Foot osteomyelitis, left (4) Diabetic nephropathy (5) Anemia Assessment HypoNatremia due to hyperglycemia Anemia Low MCV Left foot Osteo Hyperglycemia UTI Proteinuria/ Diabetic nephropathy Plan no labs yet refuses care- transfusion, IV... BS control will raise serum Na anemia lee per ID per orders Subjective ROS Limited/Unobtainable: No Constitutional: Reports: malaise Objective Objective Last 24 Hour Vital Signs Date Time Temp Pulse Resp B/P (MAP) Pulse Ox O2 Delivery O2 Flow Rate FiO2 10/23/18 04:00 97.6 77 17 121/59 (79) 94 10/23/18 03:49 Room Air 21 10/23/18 03:49 Room Air 21 10/23/18 00:00 98.3 80 18 123/57 (79) 95 10/22/18 23:00 Room Air 21 10/22/18 23:00 Room Air 21 10/22/18 21:53 Room Air 21 10/22/18 21:53 Room Air 21 10/22/18 21:00 Room Air 10/22/18 20:00 98.5 86 18 120/54 (76) 96 10/22/18 16:00 97.6 76 18 148/83 (104) 100 10/22/18 14:59 Room Air 21 10/22/18 14:59 Room Air 21 Intake and Output 10/22/18 10/23/18 18:59 06:59 Intake Total 82.5 ml 587.5 ml Balance 82.5 ml 587.5 ml Intake Oral 500 ml IV Total 82.5 ml 87.5 ml # Voids 2 # Bowel Movements 1 Laboratory Tests 10/22/18 15:45: Vancomycin Level Trough 1.0L Height (Feet): 5 Height (Inches): 3.00 Weight (Pounds): 110 General Appearance: no apparent distress Objective no change Francisco Tapia MD Oct 23, 2018 12:57
--- NOTE | 2018-10-23 13:26 | NUR ---
ASSESSMENT CONSULTANTCONTRACTING ANALYST SI: OSTEOMYELITIS T. 97.6 HR 77 RR 17 B/P 121/59 RA 3L IS: CEFEPIME IV HEPARIN SUBC IRON IV MRI LEFT FOOT MED/SURG STATUS
--- NOTE | 2018-10-23 14:38 | Diagnostic Imaging Report ---
Indication: Foot pain and swelling, suspected osteomyelitis Technique: Sagittal, axial, coronal T1 fast spin echo and fast spin echo STIR images of the ankle and midfoot Comparison: None. Reference made to MRI of the forefoot performed at the same time Findings: As described on the forefoot MRI, extensive abnormal T1 and STIR signal is seen involving all of the bones of the midfoot, as well as all of the visualized portions of the metatarsals. In addition, abnormal decreased T1 and increased STIR signal are seen in the anterior aspects of the talus and calcaneus. Abnormal increased STIR and decreased T1 signal are seen involving the entirety of the distal fibula, and a small portion of the lateral distal tibia adjacent to the distal tibiofibular joint. Findings discussed by phone with Dr. Ndiaye at the time of interpretation Fluid collections presumably representing abscesses are seen in the soft tissues of the midfoot, detailed on the forefoot report. Additional smaller fluid collections are seen in the lateral soft tissues inferior to the lateral malleolus. There is extensive circumferential soft tissue edema surrounding the midfoot, which is less extensive in the ankle but still present, particularly anteriorly and medially. Impression: Abnormal T1 and STIR signal, presumably representing osteomyelitis, involving all of the bones of the midfoot as well as portions of the talus, calcaneus, distal tibia and distal fibula Extensive soft tissue edema, likely cellulitis given the above findings as stated clinical history Multiple midfoot fluid collections, presumed abscesses, also detailed in separate forefoot report. Additional small probable abscesses are seen in the lateral soft tissues inferior to the lateral malleolus
--- NOTE | 2018-10-23 14:39 | Diagnostic Imaging Report ---
Indication: Severe left foot swelling with open plantar wound Technique: Axial, coronal, and sagittal T1 fast spin echo and fast spin echo STIR images of the left forefoot Comparison: none Findings: Abnormal increased STIR and decreased T1 signal is seen involving the first metatarsal, predominantly distally but also involving the base. There is abnormal increased STIR signal with equivocal T1 signal abnormality involving the first phalanges. The second digit demonstrates increased STIR and decreased T1 signal involving the second metatarsal, predominantly the base and shaft. No definite signal abnormality is seen involving the phalanges. The third digit demonstrates increased STIR and decreased T1 signal throughout the entire third metatarsal. There is equivocal increased STIR signal without definite increased T1 signal abnormality involving the proximal phalanx. The fourth digit demonstrates increased STIR and decreased T1 signal in the metatarsal, predominantly involving the base and proximal shaft. No definite abnormal phalangeal signal demonstrated. The fifth digit demonstrates increased STIR and decreased T1 signal in the base and shaft of the metatarsal. No definite phalangeal abnormality demonstrated. The navicular, cuboid, and all 3 cuneiforms demonstrate markedly decreased T1 signal abnormality, with corresponding increase in STIR signal. There is extensive circumferential edema diffusely. In addition, there is an apparent discrete fluid collection in the dorsum of the lateral forefoot, overlying the fourth and fifth tarsometatarsal joints. This appears to be septated but overall measures 3.6 cm in length by 2.7 x 1 cm. A second similar collection is seen inferomedial to the first tarsometatarsal joint. This collection measures 2 x 2.4 x 1.4 cm. 2 adjacent likely abscesses are also seen in the medial dorsal forefoot, larger a more medial measuring 4 x 1.8 x 1.1 cm, and the second more lateral measuring 1.8 x 1.5 x 1 cm. These may actually represent one complex abscess. Other smaller collections are also seen scattered in the soft tissues of the forefoot. Impression: Marrow edema, most likely representing osteomyelitis, involving all of the metatarsals and all of the bones of the midfoot, as well as possibly the first proximal and distal phalanges Multiple discrete fluid collections, as described, most likely representing soft tissue abscesses given stated clinical history Evidence of extensive circumferential edema, possibly vasogenic but likely representing cellulitis given stated clinical history and other findings Findings discussed by phone with Dr. Ndiaye at the time of interpretation
[2018-10-23 16:00] VITALS: BP 121/96
--- NOTE | 2018-10-23 16:08 | NUR ---
3 Phase Bone Scan complete.
--- NOTE | 2018-10-23 16:25 | Diagnostic Imaging Report ---
Indication: Left foot infection Technique: IV administration 26.5 mCi 99 M technetium MDP. Flow, blood pool, and static images were obtained over the feet and ankles. Comparison: No correlate of plain radiographs are available. Reference is made to an MRI performed the same day Findings: Flow images demonstrate diffuse hyperemia of the left distal leg, ankle, and foot, with more focal hyperemia in the region of the midfoot. Similar findings are evident on the blood pool images, with also activity demonstrated in the regions of the metatarsal heads. Focally increased flow activity is seen in the region of the tip of the first toe on the right, as well as increased blood pool activity in this area. On the static images, increased activity is seen in the distal fibula, distal tibia, diffusely throughout the midfoot, and in the regions of the metatarsal heads. There is also increased activity in the region of the right first distal phalanx. Impression: Abnormal flow, blood pool,, and static activity in the ankle, midfoot, and forefoot, consistent with osteomyelitis and corresponding to findings reported on recent MRI More subtle abnormal flow, blood pool, static activity in the region of the right first distal phalanx. This could also indicate osteomyelitis. Correlation with plain radiographs and/or MRI is recommended
--- NOTE | 2018-10-23 17:00 | NUR ---
NURSE NOTES: Cooperated with MRI to foot and bone scans rendered earlier in shift
--- NOTE | 2018-10-23 18:10 | Consultation ---
History of Present Illness General Date patient seen: Oct 23, 2018 Chief Complaint: Pain Reason for Consultation: lower extremity wounds Present Illness Allergies: Coded Allergies: No Known Allergies (Unverified , 10/19/16) Medication History Scheduled Al Hydroxide/mg Hydroxide (Mag-Al Liquid), 30 ML ORAL EVERY 6 HOURS, (Reported) Clonidine HCl (Clonidine HCl), 0.1 MG ORAL EVERY 4 HOURS, (Reported) Fluconazole (Fluconazole), 100 MG ORAL DAILY, (Reported) Heparin Sod (Porcine) (Heparin Sodium*), 5,000 UNITS SUBQ EVERY 12 HOURS, ( Reported) Insulin Aspart* (Novolog*), 4 SUBQ AC, (Reported) Insulin Detemir (Levemir), 14 SUBQ DAILY, (Reported) Ketorolac Tromethamine (Ketorolac Tromethamine), 30 MG IJ EVERY 6 HOURS, ( Reported) Levofloxacin* (Levaquin*), 750 MG ORAL DAILY, (Reported) Morphine Sulfate* (Morphine Sulfate*), 2 MG IV EVERY 4 HOURS, (Reported) Nitroglycerin (Nitroglycerin), 0.4 MG SL q5mx3 doses prn, (Reported) No Known Medications* (NKM - No Known Medications*), 0 ., (Reported) Yiakhwtfbaht-Ashd-Utfjpprw,Iso (Zosyn 3.375 Gm Pre Mix-Bag), 3.375 GM IVPB EVERY 8 HOURS, (Reported) Polyethylene Glycol 3350* (Miralax*), 17 GM ORAL DAILY, (Reported) Vancomycin Hcl (Vancomycin Hcl), 750 MG IV Q12HR, (Reported) Scheduled PRN Acetaminophen (Acetaminophen), 650 MG ORAL Q4HR PRN for Fever/Headache/Mild Pain , (Reported) Hydrocodone Bit/Acetaminophen 10-325* (Ashkum 10-325*), 1 TAB ORAL Q6H PRN for For Pain, (Reported) Insulin Aspart* (Novolog*), 0 SUBQ AC+HS PRN for Hyperglycemia, (Reported) Ipratropium Udall 0.5MG/2.5ML (Ipratropium Udall 0.5MG/2.5ML), 0.5 MG HHN Q4HR PRN for Shortness of Breath, (Reported) Ondansetron* (Zofran*), 4 MG IV Q6H PRN for Nausea & Vomiting, (Reported) Temazepam* (Restoril*), 15 MG ORAL BEDTIME PRN for Insomnia, (Reported) Patient History Healthcare decision maker Resuscitation status Full Code Advanced Directive on File Physical Exam Last 24 Hour Vital Signs Date Time Temp Pulse Resp B/P (MAP) Pulse Ox O2 Delivery O2 Flow Rate FiO2 10/23/18 04:00 97.6 77 17 121/59 (79) 94 10/23/18 03:49 Room Air 21 10/23/18 03:49 Room Air 21 10/23/18 00:00 98.3 80 18 123/57 (79) 95 10/22/18 23:00 Room Air 21 10/22/18 23:00 Room Air 21 10/22/18 21:53 Room Air 21 10/22/18 21:53 Room Air 21 10/22/18 21:00 Room Air 10/22/18 20:00 98.5 86 18 120/54 (76) 96 Intake and Output 10/22/18 10/23/18 19:00 07:00 Intake Total 82.5 ml 587.5 ml Balance 82.5 ml 587.5 ml Intake Oral 500 ml IV Total 82.5 ml 87.5 ml # Voids 2 # Bowel Movements 1 Height (Feet): 5 Height (Inches): 3.00 Weight (Pounds): 110 Medications Current Medications Medications (Trade) Dose Ordered Sig/Manda Route PRN Reason Start Time Stop Time Status Last Admin Dose Admin Acetaminophen (Tylenol) 650 mg Q4H PRN ORAL Mild Pain/Temp > 100.5 10/20/18 00:15 11/19/18 00:14 Acetaminophen/ Hydrocodone Bitart (Ashkum 10/325) 1 tab Q6HR PRN ORAL Severe Pain (Pain Scale 7-10) 10/20/18 04:00 10/27/18 00:14 Albuterol/ Ipratropium (Albuterol/ Ipratropium) 3 ml Q4HRT HHN 10/20/18 03:00 10/25/18 02:59 10/20/18 19:17 Cefepime HCl 1 gm/ Dextrose 55 ml @ 110 mls/hr EVERY 12 HOURS IVPB 10/23/18 21:00 10/30/18 20:59 Chlorhexidine Gluconate (Kerri-Hex 2%) 1 applic DAILY@2000 TOPIC 10/22/18 20:00 11/21/18 19:59 10/22/18 20:26 Clonidine HCl (Catapres Tab) 0.1 mg Q4H PRN ORAL For High BP 160 syst and up 10/20/18 16:15 11/19/18 00:14 Dextrose (Dextrose 50%) 25 ml Q30M PRN IV Hypoglycemia 10/20/18 00:30 11/19/18 00:29 Dextrose (Dextrose 50%) 50 ml Q30M PRN IV Hypoglycemia 10/20/18 00:30 11/19/18 00:29 Famotidine (Pepcid) 20 mg BID ORAL 10/20/18 18:00 11/19/18 17:59 10/21/18 18:45 Fluoxetine HCl (PROzac) 20 mg DAILY ORAL 10/21/18 09:00 11/20/18 08:59 Folic Acid (Folate) 3 mg DAILY ORAL 10/21/18 09:00 11/20/18 08:59 10/21/18 09:01 Heparin Sodium (Porcine) (Heparin 5000 units/ml) 5,000 units EVERY 12 HOURS SUBQ 10/20/18 09:00 11/19/18 08:59 10/23/18 08:45 Heparin Sodium/ Sodium Chloride (Heparin 2000 units/Ns 1000ml premix) 2,000 unit ONCE PRN INJ PICC LINE 10/22/18 12:00 10/23/18 23:59 Insulin Aspart (NovoLOG) BEFORE MEALS AND HS SUBQ 10/20/18 06:30 11/19/18 06:29 10/23/18 17:40 Insulin Aspart (NovoLOG) 12 units NOVOTIAC SUBQ 10/20/18 06:30 11/19/18 06:29 10/23/18 17:39 Insulin Detemir (Levemir) 36 units BEDTIME SUBQ 10/23/18 21:00 11/19/18 20:59 Iron Sucrose 100 mg/Sodium Chloride 60 ml @ 240 mls/hr BEDTIME IV 10/20/18 21:00 10/24/18 21:14 10/22/18 22:36 Lidocaine HCl (Xylocaine 1% 30ml) 30 ml ONCE PRN INJ PICC LINE 10/22/18 12:00 10/23/18 23:59 Mirtazapine (Remeron) 7.5 mg BEDTIME ORAL 10/20/18 21:00 11/19/18 20:59 10/20/18 20:23 Morphine Sulfate (Morphine Sulfate) 2 mg Q4H PRN IVP Moderate Pain (Pain Scale 4-6) 10/20/18 04:00 10/27/18 03:59 10/23/18 17:27 Nitroglycerin (Ntg) 0.4 mg Q5M PRN SL Prn Chest Pain 10/20/18 00:15 11/19/18 00:14 Ondansetron HCl (Zofran) 4 mg Q6H PRN IVP Nausea & Vomiting 10/20/18 00:15 11/19/18 00:14 Polyethylene Glycol (Miralax) 17 gm BEDTIME ORAL 10/20/18 21:00 11/19/18 20:59 Temazepam (Restoril) 15 mg HSPRN PRN ORAL Insomnia 10/20/18 00:15 10/27/18 00:14 Assessment/Plan Assessment/Plan Hematology Consultation REQ MD: Danielle Dorsey RFC: Thrombocytosis, severe as well as recurrent anemia iron deficiency DOS: 10/23/18 Chief Complaint: Nausea ID 53-year-old female who is homeless. Bystander called 911 because she complaining of nausea vomiting and weakness. [place]. Had been vomiting for the last couple weeks. Denies any diarrhea. Also has a wound to the left foot. Has been draining. She is a swelling went down. Denies any fever. No recent trauma. Has abdominal pain. Pain is 8 out of 10. Nothing made it better. Eating made it worse. Noted to have a high plt and heme was consulted. In addition, noted to have severe anemia and heme consulted, has been refusing surgery of left foot and currently is on abx. Allergies: No Known Allergies (Unverified , 10/10/18) Past Medical History: see triage record, old chart reviewed Past Surgical History: other Pertinent Family History: none Social History: Reports: smoking Now: No : 1 Para: 1 Immunizations: other Reviewed Nursing Documentation: PMH: Agreed; PSxH: Agreed Past Medical History: No Stated History Review of Systems Constitutional: Reports: weakness Eye: Denies: eye pain, blurred vision ENT: Denies: ear pain, nose congestion Respiratory: Denies: cough, shortness of breath Cardiovascular: Denies: chest pain, palpitations Gastrointestinal: Reports: abdominal pain, nausea, vomiting; denies: diarrhea Musculoskeletal: Denies: back pain, joint pain Skin: Denies: rash Neurological: Denies: headache Endocrine: Denies: increased thirst, increased urine Hematologic/Lymphatic: Denies: easy bruising All Other Systems: negative except mentioned in HPI Physical Exam Last 24 Hour Vital Signs Date Time Temp Pulse Resp B/P (MAP) Pulse Ox O2 Delivery O2 Flow Rate FiO2 10/23/18 04:00 97.6 77 17 121/59 (79) 94 10/23/18 03:49 Room Air 21 10/23/18 03:49 Room Air 21 10/23/18 00:00 98.3 80 18 123/57 (79) 95 10/22/18 23:00 Room Air 21 10/22/18 23:00 Room Air 21 10/22/18 21:53 Room Air 21 10/22/18 21:53 Room Air 21 10/22/18 21:00 Room Air 10/22/18 20:00 98.5 86 18 120/54 (76) 96 General Appearance: nad, Chronically Ill Head: normocephalic, atraumatic Eyes: bilateral eye PERRL, bilateral eye EOMI ENT: hearing grossly normal, normal pharynx Neck: full range of motion, supple, no meningismus Respiratory: chest non-tender, lungs clear Cardiovascular #1: regular rate, rhythm, no murmur Gastrointestinal: no mass, no organomegaly, no bruit, non-distended, has decreased bowel sounds Musculoskeletal: back normal, normal range of motion, other - Left foot, There is a 3 x 3 cm posterior to the medial aspect of the MTP joint Neurologic: alert, oriented x3 Psychiatric: mood/affect normal Skin: warm/dry Labs: reviewed Assessment and Recs: # Thrombocytosis - plt count 569k, in the past had been 1150, on admission, baseline appeox 400-600k --> trend plt count for improvement, also could be related to ongoing left foot osteo, patient refusing surgery --> improve other unferlying issues and make sure plts are better --> discussed with pathologist to make sure jak2 was ordered and she concurred # Anemia of iron eficiency, anemia panel reviewed ==> started on iv venofer 100mg x 5 doses iv --> recommend surgery of left foot --> 1 unit prbc on 10/23 --> hgb goal >7, will transfuse as needed # Osteomyelitis of foot, left, acute --> per Dr. Durbin recommendations --> better bs control. No evidence of DKA however. Fluids and antibiotics given. Insulin and also given ==> recommend surgery # Hyperosmolar non-ketotic state in patient with type 2 diabetes mellitus # Nausea and vomiting in adult patient --> zofran prn basis has been ordered # Abdominal pain # Homelessness # Right rib fracture of indeterminate age. # Old right suprapubic and right inferior pubic rami fractures # Noncompliant with care The timing of this note does not necessarily reflect the time of the patient was seen Greatly appreciate consultation! Jurgen Rubin MD Oct 23, 2018 18:10
--- NOTE | 2018-10-23 19:50 | NUR ---
HAND-OFF: Report given to Luly APARICIO.
--- NOTE | 2018-10-23 19:53 | NUR ---
NURSE NOTES: Received a report from MARKUS Cherry. Pt is in stable condition. AAOX4. Able to make needs known. No respiratory distress noted. On room air. No c/o pain/discomfort. IV site is patent and intact. Bed in lowest position. Bed alarm is on. Call light within reach. Will continue to monitor.
[2018-10-23 20:00] VITALS: BP 137/83
[2018-10-23] MEDS: Dyna-Hex 2% Top Sol 2oz TOPIC SCH (20:00)
[2018-10-23] MEDS: Iron Sucrose 100 MG in NS 55 ML IV SCH (21:00)
[2018-10-23] MEDS: Miralax 17gm pkt ORAL SCH (21:00)
[2018-10-23] MEDS ORDERED: Levemir Flexpen SUBQ SCH (21:00)
[2018-10-23] MEDS: Cefepime HCl 1 GM in D5W 55 ML IVPB SCH (21:00)
--- NOTE | 2018-10-23 21:00 | NUR ---
NURSE NOTES: Pt refused all of the meds and the care. She stated that she's gonna go AMA tomorrow. Contacted Dr. Dorsey regarding the pt. He asked to contact doctors Jairon and Minesh. Left a voicemail. Waiting for response.
--- NOTE | 2018-10-23 21:15 | NUR ---
NURSE NOTES: Spoke with Dr. De La O and Dr. Edge. Both doctors are aware that the pt is agitated, non-compliant, might go AMA tomorrow, and HR is 135. No new orders from both doctors. Charge Nurse Jessica is also aware.
--- NOTE | 2018-10-23 21:32 | General Progress Note ---
Assessment/Plan Problem List: (1) Diabetes mellitus ICD Codes: E11.9 - Type 2 diabetes mellitus without complications SNOMED: 37086202 (2) Anxiety disorder ICD Codes: F41.9 - Anxiety disorder, unspecified SNOMED: 696910889 (3) Osteomyelitis ICD Codes: M86.9 - Osteomyelitis, unspecified SNOMED: 50193525 (4) Sacral decubitus ulcer ICD Codes: L89.159 - Pressure ulcer of sacral region, unspecified stage SNOMED: 756017277 (5) Foot osteomyelitis, left ICD Codes: M86.9 - Osteomyelitis, unspecified SNOMED: 4823379786146263 Qualifiers: Qualified Codes: M86.8X7 - Other osteomyelitis, ankle and foot (6) MDD (major depressive disorder) ICD Codes: F32.9 - Major depressive disorder, single episode, unspecified SNOMED: 593345528 Status: progressing Assessment/Plan multiple wounds psych pt keeps refusing iv oseomylitis tachycardic refuses care Subjective ROS Limited/Unobtainable: Yes Allergies: Coded Allergies: No Known Allergies (Unverified , 10/19/16) Subjective generalized pain Objective Last 24 Hour Vital Signs Date Time Temp Pulse Resp B/P (MAP) Pulse Ox O2 Delivery O2 Flow Rate FiO2 10/23/18 20:21 Room Air 21 10/23/18 20:20 Room Air 21 10/23/18 16:00 98.4 87 18 121/96 (104) 98 10/23/18 12:00 97.5 92 18 130/72 (91) 98 10/23/18 09:00 Room Air 10/23/18 08:00 97.6 90 18 138/78 (98) 97 10/23/18 04:00 97.6 77 17 121/59 (79) 94 10/23/18 03:49 Room Air 21 10/23/18 03:49 Room Air 21 10/23/18 00:00 98.3 80 18 123/57 (79) 95 10/22/18 23:00 Room Air 21 10/22/18 23:00 Room Air 21 10/22/18 21:53 Room Air 21 10/22/18 21:53 Room Air 21 Intake and Output 10/22/18 10/23/18 19:00 07:00 Intake Total 82.5 ml 587.5 ml Balance 82.5 ml 587.5 ml Intake Oral 500 ml IV Total 82.5 ml 87.5 ml # Voids 2 # Bowel Movements 1 Height (Feet): 5 Height (Inches): 3.00 Weight (Pounds): 110 Neck: supple Cardiovascular: normal rate Respiratory/Chest: lungs clear Abdomen: soft Reina Dorsey MD Oct 23, 2018 21:32
--- NOTE | 2018-10-23 23:29 | Cardiology Progress Note ---
Assessment/Plan Assessment/Plan 1. Sinus tachycardia, agitation, refusing medical advice and treatment, likely due to hypovolemia, keep hydrated, electrolyte replacement. 2. Moderate pulmonary HTN Subjective Subjective No cardiac events. Agitated. Objective Last 24 Hour Vital Signs Date Time Temp Pulse Resp B/P (MAP) Pulse Ox O2 Delivery O2 Flow Rate FiO2 10/23/18 20:21 Room Air 21 10/23/18 20:20 Room Air 21 10/23/18 20:00 96.8 135 16 137/83 (101) 93 10/23/18 16:00 98.4 87 18 121/96 (104) 98 10/23/18 12:00 97.5 92 18 130/72 (91) 98 10/23/18 09:00 Room Air 10/23/18 08:00 97.6 90 18 138/78 (98) 97 10/23/18 04:00 97.6 77 17 121/59 (79) 94 10/23/18 03:49 Room Air 21 10/23/18 03:49 Room Air 21 10/23/18 00:00 98.3 80 18 123/57 (79) 95 Intake and Output 10/22/18 10/23/18 19:00 07:00 Intake Total 82.5 ml 587.5 ml Balance 82.5 ml 587.5 ml Intake Oral 500 ml IV Total 82.5 ml 87.5 ml # Voids 2 # Bowel Movements 1 2D Echo: LVEF 60%, Mild LVH, RVSP 50 mmHg, Grade I LVDD Objective HEENT: normocephalic, atraumatic, bilateral eye PERRL, bilateral eye EOMI, moist mucus membranes Neck: no JVD, no carotid bruit. Respiratory: normal inspection, lungs clear, normal breath sounds, no respiratory distress, no retraction, no wheezing, speaking full sentences, chest symmetrical Cardiovascular: normal inspection, regular rate, rhythm, no edema, no murmurs, gallops or rubs. Gastrointestinal: normal inspection, non tender, soft, non-distended, no guarding Musculoskeletal: Left foot edematous, ulceration around the first metatarsal, edema, tender to palpation Sal Edge MD Oct 23, 2018 23:29
--- NOTE | 2018-10-24 02:00 | NUR ---
NURSE NOTES: Pt's BP: 129/66, HR: 77
[2018-10-24] MEDS: Morphine Sulfate 2mg/ml Inj(IV/IM USE ONLY) IVP PRN ×6 (02:14→23:01)
[2018-10-24] MEDS: Albuterol/Ipratropium 3ml neb HHN SCH ×6 (03:00→23:00)
[2018-10-24 04:00] VITALS: BP 152/77
[2018-10-24] MEDS: NovoLOG Insulin Flexpen SUBQ SCH ×7 (05:52→21:31)
--- NOTE | 2018-10-24 06:00 | NUR ---
NURSE NOTES: Pt refused skin assessment and dressing change. She wants it to be done after breakfast. Will endorse it to the morning nurse.
--- NOTE | 2018-10-24 06:47 | General Progress Note ---
Assessment/Plan Problem List: (1) Diabetes mellitus ICD Codes: E11.9 - Type 2 diabetes mellitus without complications SNOMED: 42696539 (2) Rash and other nonspecific skin eruption ICD Codes: R21 - Rash and other nonspecific skin eruption SNOMED: 020845629, 226303648 (3) Foot osteomyelitis, left ICD Codes: M86.9 - Osteomyelitis, unspecified SNOMED: [id number] Qualifiers: Qualified Codes: M86.8X7 - Other osteomyelitis, ankle and foot (4) MDD (major depressive disorder) ICD Codes: F32.9 - Major depressive disorder, single episode, unspecified SNOMED: 892812492 Assessment/Plan change Levemir to 33 units qam continue Novolog 12 units ac tid continue NISS ac / hs Subjective Allergies: Coded Allergies: No Known Allergies (Unverified , 10/19/16) All Systems: reviewed and negative except above Subjective fasting glucose elevated after she refused Levemir last night Item Value Date Time Bedside Blood Glucose 365 mg/dl H 10/24/18 0552 Bedside Blood Glucose 115 mg/dl 10/23/18 1740 Bedside Blood Glucose 150 mg/dl H 10/23/18 1240 Bedside Blood Glucose 238 mg/dl H 10/23/18 0608 Objective Last 24 Hour Vital Signs Date Time Temp Pulse Resp B/P (MAP) Pulse Ox O2 Delivery O2 Flow Rate FiO2 10/24/18 04:00 96.5 82 17 152/77 (102) 94 10/24/18 03:13 Room Air 21 10/24/18 03:13 Room Air 21 10/23/18 23:35 Room Air 21 10/23/18 23:35 Room Air 21 10/23/18 21:00 Room Air 10/23/18 20:21 Room Air 21 10/23/18 20:20 Room Air 21 10/23/18 20:00 96.8 135 16 137/83 (101) 93 10/23/18 16:00 98.4 87 18 121/96 (104) 98 10/23/18 12:00 97.5 92 18 130/72 (91) 98 10/23/18 09:00 Room Air 10/23/18 08:00 97.6 90 18 138/78 (98) 97 Intake and Output 10/23/18 10/24/18 19:00 07:00 Intake Total 472 ml Balance 472 ml Intake Oral 472 ml # Voids 3 3 Height (Feet): 5 Height (Inches): 3.00 Weight (Pounds): 110 General Appearance: no apparent distress Neck: normal alignment Cardiovascular: normal rate Respiratory/Chest: lungs clear Objective Current Medications Medications (Trade) Dose Ordered Sig/Manda Route PRN Reason Start Time Stop Time Status Last Admin Dose Admin Acetaminophen (Tylenol) 650 mg Q4H PRN ORAL Mild Pain/Temp > 100.5 10/20/18 00:15 11/19/18 00:14 Acetaminophen/ Hydrocodone Bitart ([place] 10/325) 1 tab Q6HR PRN ORAL Severe Pain (Pain Scale 7-10) 10/20/18 04:00 10/27/18 00:14 Albuterol/ Ipratropium (Albuterol/ Ipratropium) 3 ml Q4HRT HHN 10/20/18 03:00 10/25/18 02:59 10/20/18 19:17 Cefepime HCl 1 gm/ Dextrose 55 ml @ 110 mls/hr EVERY 12 HOURS IVPB 10/23/18 21:00 10/30/18 20:59 Chlorhexidine Gluconate (Kerri-Hex 2%) 1 applic DAILY@2000 TOPIC 10/22/18 20:00 11/21/18 19:59 10/22/18 20:26 Clonidine HCl (Catapres Tab) 0.1 mg Q4H PRN ORAL For High BP 160 syst and up 10/20/18 16:15 11/19/18 00:14 Dextrose (Dextrose 50%) 25 ml Q30M PRN IV Hypoglycemia 10/20/18 00:30 11/19/18 00:29 Dextrose (Dextrose 50%) 50 ml Q30M PRN IV Hypoglycemia 10/20/18 00:30 11/19/18 00:29 Famotidine (Pepcid) 20 mg BID ORAL 10/20/18 18:00 11/19/18 17:59 10/21/18 18:45 Fluoxetine HCl (PROzac) 20 mg DAILY ORAL 10/21/18 09:00 11/20/18 08:59 Folic Acid (Folate) 3 mg DAILY ORAL 10/21/18 09:00 11/20/18 08:59 10/21/18 09:01 Heparin Sodium (Porcine) (Heparin 5000 units/ml) 5,000 units EVERY 12 HOURS SUBQ 10/20/18 09:00 11/19/18 08:59 10/23/18 08:45 Insulin Aspart (NovoLOG) BEFORE MEALS AND HS SUBQ 10/20/18 06:30 11/19/18 06:29 10/24/18 05:52 Insulin Aspart (NovoLOG) 12 units NOVOTIAC SUBQ 10/20/18 06:30 11/19/18 06:29 10/24/18 05:52 Insulin Detemir (Levemir) 36 units BEDTIME SUBQ 10/23/18 21:00 11/19/18 20:59 Iron Sucrose 100 mg/Sodium Chloride 60 ml @ 240 mls/hr BEDTIME IV 10/20/18 21:00 10/24/18 21:14 10/22/18 22:36 Mirtazapine (Remeron) 7.5 mg BEDTIME ORAL 10/20/18 21:00 11/19/18 20:59 10/20/18 20:23 Morphine Sulfate (Morphine Sulfate) 2 mg Q4H PRN IVP Moderate Pain (Pain Scale 4-6) 10/20/18 04:00 10/27/18 03:59 10/24/18 06:31 Nitroglycerin (Ntg) 0.4 mg Q5M PRN SL Prn Chest Pain 10/20/18 00:15 11/19/18 00:14 Ondansetron HCl (Zofran) 4 mg Q6H PRN IVP Nausea & Vomiting 10/20/18 00:15 11/19/18 00:14 Polyethylene Glycol (Miralax) 17 gm BEDTIME ORAL 10/20/18 21:00 11/19/18 20:59 Temazepam (Restoril) 15 mg HSPRN PRN ORAL Insomnia 10/20/18 00:15 10/27/18 00:14 Brendan Johnson MD Oct 24, 2018 06:47
--- NOTE | 2018-10-24 07:15 | NUR ---
HAND-OFF: Report given to MARKUS D eSouza.
[2018-10-24 08:00] VITALS: BP 125/65
[2018-10-24] MEDS: Cefepime HCl 1 GM in D5W 55 ML IVPB SCH (09:27)
[2018-10-24] MEDS: Heparin 5000 units/ml inj SUBQ SCH ×2 (09:28→21:28)
--- NOTE | 2018-10-24 09:30 | History and Physical Report ---
ADDENDUM Please let my latest H and P that I dictated to serve as H and P. The patient left hospital and came back within 24 hours. Again, left the hospital AMA and then came back within 24 hours, so I let my last admission H and P to serve as H and P as the patient only left the hospital less than 24 hours. This is just addendum. The patient came back, was admitted for the multiple wounds and osteomyelitis of the sacrum as well as left extremity, foot. Consultants have been already called. The patient is a psychiatric patient also. She was initially refusing PICC and IV antibiotics, but now she is consenting for them. PHYSICAL EXAMINATION: VITAL SIGNS: Temperature 97.2 degrees, pulse is 78, and blood pressure 133/70. HEENT: PERRLA. NECK: Supple. No lymphadenopathy. CHEST: Clear to auscultation. SKIN: The patient has multiple wounds. Please refer to the nursing notes for the details. A discussion will be made based on the assessment and plan. EXTREMITIES: Lower extremity does have dorsal pedis pulses. LABORATORY DATA: WBC of 12.9, hemoglobin of 8, and platelets of 569,000. Sodium 130, potassium 3.8, glucose of 426, BUN of 16, and creatinine 0.8. ASSESSMENT AND PLAN: Osteomyelitis, wound care, multiple wounds. I have asked Dr. Durbin, Dr. Anton Arambula, Dr. Dalal, Dr. Tapia, Dr. De La O, Dr. Edge, and Dr. Saqib Ndiaye to see the patient for wound care and cardiac clearance as well as for the psychiatric history as well as Dr. Arambula has been consulted for azotemia as well as for IV antibiotics. The patient currently is most likely tolerating antibiotics. I will give her the date for Tuesday to have vascular intervention as well as surgeon intervention. Reina Dorsey M.D. DR: HAIR JOB#: [id number] CC:
--- NOTE | 2018-10-24 09:30 | Consultation ---
DATE OF CONSULTATION: 10/20/2018 CARDIOLOGY CONSULTATION CONSULTING PHYSICIAN: Sal Edge M.D. REFERRING PHYSICIAN: Reina Dorsey M.D. REASON FOR CONSULTATION: Management of tachycardia. HISTORY OF PRESENT ILLNESS: The patient is a very unfortunate 53-year-old, homeless female, who presents to the hospital with a constellation of symptoms including neck pain, chest pain, shortness of breath as well as osteomyelitis. The patient left against medical advice from the hospital as she had been offered and has been told that she requires to have below-knee amputation. The patient in the hospital emergency department is quite agitated and refusing IV antibiotics. EMS brought the patient to the hospital for evaluation and management of foot pain. PAST MEDICAL HISTORY: Osteomyelitis. ALLERGIES: No known drug allergies. PAST SURGICAL HISTORY: No surgical history. REVIEW OF SYSTEMS: A 12-system review done essentially negative except what is mentioned in the history of present illness. MEDICATIONS: Acetaminophen 650 q.4 h. p.r.n. fever, temperature, and headaches, Mag-al liquid 30 mL q.6 h., q.4 h. p.r.n., blood pressure above 160, fluconazole 100 mg p.o. daily, heparin 5000 units subcutaneous q.12 h., [place] 10/325 mg one tablet q.6 h. p.r.n. for mild pain, insulin Detemir, ipratropium bromide 0.5 mg q.4 h., ketorolac 30 mg every six hours, levofloxacin 750 mg daily, morphine sulfate 2 mg IV q.4 h., nitroglycerin 0.4 mg sublingual every five minutes x3 p.r.n. chest pain, MiraLAX 17 g p.o. daily, Zosyn 3.375 mg q.8 h., temazepam 15 mg at bedtime, vancomycin 750 mg IV q.12 h. PHYSICAL EXAMINATION: VITAL SIGNS: At time of arrival to the hospital, blood pressure was 134/72, pulse was 75, respiration rate 14, O2 saturation 99% on room air. GENERAL: The patient is a very unfortunate 53-year-old female. HEENT: Atraumatic and normocephalic. Anicteric. Pupils are equal, round, and reactive to light and accommodation. Extraocular muscles intact. Poor dentition. Dry mucosal membranes. NECK: JVP less than 5 cm. No carotid bruit. Carotid upstroke is 2+ bilaterally. CARDIOVASCULAR: Normal S1, S2. Regular rate and rhythm. No murmurs, gallops, or rubs. PMI is at fourth intercostal space at the midclavicular line. LUNGS: Diminished breath sounds. Otherwise, no rhonchi. EXTREMITIES: No evidence of edema, clubbing, or cyanosis. LABORATORY FINDINGS: WBC 12.9, hemoglobin 8.0, hematocrit of 26.6%, platelet count is 569. Sodium 130, potassium 3.8, chloride 96, bicarbonate 26, BUN of 16, creatinine 0.8. Glucose 426, lactate 3.2, calcium is 8.0. Chest x-ray showed no acute cardiopulmonary disease. ASSESSMENT AND PLAN: The patient is a very unfortunate 53-year-old lady, who is seen in Cardiology consultation. 1. Atypical chest pain. The pain is basically all over her body. She is homeless. No further cardiovascular procedure is indicated at this time. 2. History of osteomyelitis. 3. History of tachycardia most likely secondary to hypovolemia as well as fever. Management of sinus tachycardia is the treatment of underlying disorder. 4. History of emphysematous osteomyelitis. 5. History of hypertension. 6. Moderate pulmonary hypertension with RVSP measured at 55. I would like to thank Dr. Dorsey for allowing me to participate in the care of this patient. Sal Edge M.D. DR: JENNIFER JOB#: [id number] CC:
[2018-10-24] MEDS ORDERED: Lidocaine 1% Plain 30 ml INJ PRN (10:00)
[2018-10-24] MEDS ORDERED: Heparin 2000 units/Ns 1000ml INJ PRN (10:00)
--- NOTE | 2018-10-24 10:15 | NUR ---
Social Service Note SW met with patient to address refusal of care and placement plan upon discharge. Patient is alert, oriented and verbally responsive. Patient was pleasant during conversation. Patient was receiving IV antibiotics during visit. SW addressed the need for PICC line insertion due to skilled nursing antibiotics need. Patient was in agreement with PICC line insertion. Primary nurse notified. SW discussed BKA. Patient states she would not agree to amputation. Patient states she understands the possible risks but would like to attempt currently medication and dressing changes before agreeing to amputation. Patient states she will not take psychiatric medications and states she would like to speak to the psychiatrist regarding the medications ordered. Primary nurse notified. Patient states she has allowed for dressing changes to her foot. Patient is in agreement with placement as she realizes she could not return to the streets in this current condition. [employer] application submitted for full scope benefits. Will continue to monitor.
[2018-10-24] MEDS: Levemir Flexpen SUBQ SCH (10:36)
--- NOTE | 2018-10-24 11:41 | NUR ---
RD ASSESSMENT & RECOMMENDATIONS SEE CARE ACTIVITY FOR COMPLETE ASSESSMENT DAILY ESTIMATED NEEDS: Needs based on Wound, DM 46.8kg 30-35 kcals/kg 5226-5101 total kcals 1.25-1.5 g protein/kg 59-70 g total protein 25-30 mL/kg 1185-4747 total fluid mLs NUTRITION DIAGNOSIS: 1) Increased kcal and protein needs r/t wound healing as evidenced by pt w/ L foot diabetic ulcer w/ OM, full thickness wound @ lt ischium. 2) Altered nutrition related lab values r/t diabetes as evidenced by elev POC glu (365 R 115 150 238), A1C of 13.3. CURRENT DIET:CCHO LOW PO DIET RECOMMENDATIONS: CCHO LOW/ texture as tolerated ADDITIONAL RECOMMENDATIONS: 1) Wound care: add ISATU BID / MVI x1/ Vit C 500mg BID 2) RE-calibrate bed scale for accurate wt-> conflicting wts 3) 1 carb/ high prot snacks TID in b/w meals .
--- NOTE | 2018-10-24 12:03 | Nephrology Progress Note ---
Assessment/Plan Problem List: (1) Hyponatremia (2) Diabetes mellitus (3) Foot osteomyelitis, left (4) Diabetic nephropathy (5) Anemia Assessment gets MS round the clock HypoNatremia due to hyperglycemia Anemia Low MCV Left foot Osteo Hyperglycemia UTI Proteinuria/ Diabetic nephropathy Plan no labs yet refuses care- transfusion, IV... BS control will raise serum Na anemia lee per ID per orders Subjective ROS Limited/Unobtainable: No Constitutional: Reports: malaise Objective Objective Last 24 Hour Vital Signs Date Time Temp Pulse Resp B/P (MAP) Pulse Ox O2 Delivery O2 Flow Rate FiO2 10/24/18 11:17 Room Air 21 10/24/18 11:17 Room Air 21 10/24/18 09:00 Room Air 10/24/18 08:00 98.1 82 17 125/65 (85) 94 10/24/18 07:28 Room Air 21 10/24/18 07:28 Room Air 21 10/24/18 04:00 96.5 82 17 152/77 (102) 94 10/24/18 03:13 Room Air 21 10/24/18 03:13 Room Air 21 10/23/18 23:35 Room Air 21 10/23/18 23:35 Room Air 21 10/23/18 21:00 Room Air 10/23/18 20:21 Room Air 21 10/23/18 20:20 Room Air 21 10/23/18 20:00 96.8 135 16 137/83 (101) 93 10/23/18 16:00 98.4 87 18 121/96 (104) 98 Intake and Output 10/23/18 10/24/18 19:00 07:00 Intake Total 472 ml Balance 472 ml Intake Oral 472 ml # Voids 3 3 Height (Feet): 5 Height (Inches): 3.00 Weight (Pounds): 110 General Appearance: no apparent distress, other - un coaporative Objective no change Francisco Tapia MD Oct 24, 2018 12:03
--- NOTE | 2018-10-24 13:26 | General Progress Note ---
Assessment/Plan Problem List: (1) MDD (major depressive disorder) ICD Codes: F32.9 - Major depressive disorder, single episode, unspecified SNOMED: [id number] (2) Anxiety disorder ICD Codes: F41.9 - Anxiety disorder, unspecified SNOMED: 393218819 Status: stable Assessment/Plan Remeron 7.5mg po qhs Prozac 20mg po qam provided ro/st Subjective Allergies: Coded Allergies: No Known Allergies (Unverified , 10/19/16) Subjective non compliant irritable and angry Objective Last 24 Hour Vital Signs Date Time Temp Pulse Resp B/P (MAP) Pulse Ox O2 Delivery O2 Flow Rate FiO2 10/24/18 11:17 Room Air 21 10/24/18 11:17 Room Air 21 10/24/18 09:00 Room Air 10/24/18 08:00 98.1 82 17 125/65 (85) 94 10/24/18 07:28 Room Air 21 10/24/18 07:28 Room Air 21 10/24/18 04:00 96.5 82 17 152/77 (102) 94 10/24/18 03:13 Room Air 21 10/24/18 03:13 Room Air 21 10/23/18 23:35 Room Air 21 10/23/18 23:35 Room Air 21 10/23/18 21:00 Room Air 10/23/18 20:21 Room Air 21 10/23/18 20:20 Room Air 21 10/23/18 20:00 96.8 135 16 137/83 (101) 93 10/23/18 16:00 98.4 87 18 121/96 (104) 98 Intake and Output 10/23/18 10/24/18 18:59 06:59 Intake Total 472 ml Balance 472 ml Intake Oral 472 ml # Voids 3 3 Height (Feet): 5 Height (Inches): 3.00 Weight (Pounds): 110 General Appearance: alert, moderate distress, agitated Barry De La O MD Oct 24, 2018 13:26
--- NOTE | 2018-10-24 13:29 | Infectious Diseases Prog Note ---
Assessment/Plan Assessment/Plan A 1. left foot osteomyelitis 2. diabetes mellitus 3. leucocytosis resolved 4. Anemia 5. Major depression P 1, continue Cefepime 2. Patient refuses amputation Subjective ROS Limited/Unobtainable: Yes Constitutional: Reports: no symptoms Respiratory: Reports: no symptoms Cardiovascular: Reports: no symptoms Gastrointestinal/Abdominal: Reports: no symptoms Genitourinary: Reports: no symptoms Musculoskeletal: Reports: pain, other - left foot Allergies: Coded Allergies: No Known Allergies (Unverified , 10/19/16) Objective Vital Signs Last 24 Hour Vital Signs Date Time Temp Pulse Resp B/P (MAP) Pulse Ox O2 Delivery O2 Flow Rate FiO2 10/24/18 11:17 Room Air 21 10/24/18 11:17 Room Air 21 10/24/18 09:00 Room Air 10/24/18 08:00 98.1 82 17 125/65 (85) 94 10/24/18 07:28 Room Air 21 10/24/18 07:28 Room Air 21 10/24/18 04:00 96.5 82 17 152/77 (102) 94 10/24/18 03:13 Room Air 21 10/24/18 03:13 Room Air 21 10/23/18 23:35 Room Air 21 10/23/18 23:35 Room Air 21 10/23/18 21:00 Room Air 10/23/18 20:21 Room Air 21 10/23/18 20:20 Room Air 21 10/23/18 20:00 96.8 135 16 137/83 (101) 93 10/23/18 16:00 98.4 87 18 121/96 (104) 98 Height (Feet): 5 Height (Inches): 3.00 Weight (Pounds): 110 HEENT: mucous membranes moist Respiratory/Chest: lungs clear Cardiovascular: normal rate Abdomen: soft, non tender Extremities: other - left foot edema Skin: ulcers, other - left foot Neurologic/Psychiatric: alert, responsive Current Medications Medications (Trade) Dose Ordered Sig/Manda Route PRN Reason Start Time Stop Time Status Last Admin Dose Admin Acetaminophen (Tylenol) 650 mg Q4H PRN ORAL Mild Pain/Temp > 100.5 10/20/18 00:15 11/19/18 00:14 Acetaminophen/ Hydrocodone Bitart ([place] 10/325) 1 tab Q6HR PRN ORAL Severe Pain (Pain Scale 7-10) 10/20/18 04:00 10/27/18 00:14 Albuterol/ Ipratropium (Albuterol/ Ipratropium) 3 ml Q4HRT HHN 10/20/18 03:00 10/25/18 02:59 10/20/18 19:17 Cefepime HCl 1 gm/ Dextrose 55 ml @ 110 mls/hr EVERY 12 HOURS IVPB 10/23/18 21:00 10/30/18 20:59 10/24/18 09:27 Chlorhexidine Gluconate (Kerri-Hex 2%) 1 applic DAILY@1999 TOPIC 10/22/18 20:00 11/21/18 19:59 10/22/18 20:26 Chlorhexidine Gluconate (Kerri-Hex 2%) 1 applic DAILY@1999 TOPIC 10/24/18 20:00 11/23/18 19:59 Clonidine HCl (Catapres Tab) 0.1 mg Q4H PRN ORAL For High BP 160 syst and up 10/20/18 16:15 11/19/18 00:14 Dextrose (Dextrose 50%) 25 ml Q30M PRN IV Hypoglycemia 10/20/18 00:30 11/19/18 00:29 Dextrose (Dextrose 50%) 50 ml Q30M PRN IV Hypoglycemia 10/20/18 00:30 11/19/18 00:29 Famotidine (Pepcid) 20 mg BID ORAL 10/20/18 18:00 11/19/18 17:59 10/21/18 18:45 Fluoxetine HCl (PROzac) 20 mg DAILY ORAL 10/21/18 09:00 11/20/18 08:59 Folic Acid (Folate) 3 mg DAILY ORAL 10/21/18 09:00 11/20/18 08:59 10/21/18 09:01 Heparin Sodium (Porcine) (Heparin 5000 units/ml) 5,000 units EVERY 12 HOURS SUBQ 10/20/18 09:00 11/19/18 08:59 10/24/18 09:28 Heparin Sodium/ Sodium Chloride (Heparin 2000 units/Ns 1000ml premix) 2,000 unit ONCE PRN INJ picc line placement 10/24/18 10:00 10/26/18 09:59 Insulin Aspart (NovoLOG) BEFORE MEALS AND HS SUBQ 10/20/18 06:30 11/19/18 06:29 10/24/18 05:52 Insulin Aspart (NovoLOG) 12 units NOVOTIAC SUBQ 10/20/18 06:30 11/19/18 06:29 10/24/18 05:52 Insulin Detemir (Levemir) 33 units DAILY SUBQ 10/24/18 09:00 11/19/18 20:59 10/24/18 10:36 Iron Sucrose 100 mg/Sodium Chloride 60 ml @ 240 mls/hr BEDTIME IV 10/20/18 21:00 10/24/18 21:14 10/22/18 22:36 Lidocaine HCl (Xylocaine 1% 30ml) 30 ml ONCE PRN INJ picc line placement 10/24/18 10:00 10/26/18 09:59 Mirtazapine (Remeron) 7.5 mg BEDTIME ORAL 10/20/18 21:00 11/19/18 20:59 10/20/18 20:23 Morphine Sulfate (Morphine Sulfate) 2 mg Q4H PRN IVP Moderate Pain (Pain Scale 4-6) 10/20/18 04:00 10/27/18 03:59 10/24/18 10:36 Nitroglycerin (Ntg) 0.4 mg Q5M PRN SL Prn Chest Pain 10/20/18 00:15 11/19/18 00:14 Ondansetron HCl (Zofran) 4 mg Q6H PRN IVP Nausea & Vomiting 10/20/18 00:15 11/19/18 00:14 Polyethylene Glycol (Miralax) 17 gm BEDTIME ORAL 10/20/18 21:00 11/19/18 20:59 Temazepam (Restoril) 15 mg HSPRN PRN ORAL Insomnia 10/20/18 00:15 10/27/18 00:14 Anton Arambula MD Oct 24, 2018 13:29
--- NOTE | 2018-10-24 14:29 | Cardiology Report ---
APPROVED REPORT EKG Measurement Heart [id number] Normal sinus rhythm Nonspecific ST abnormality Abnormal ECG
[2018-10-24 16:00] VITALS: BP 115/65
--- NOTE | 2018-10-24 16:38 | Diagnostic Imaging Report ---
Indications: Needs long-term IV access Technique: Ultrasound confirms patent compressible left basilic vein. Total sterile technique, including sterile probe cover and sterile gel, hat, mask, sterile gown, large sterile drape, and preparation with 2% chlorhexidine utilized. Local anesthesia with 1% lidocaine. Under real-time ultrasound guidance, puncture basilic vein using 21-gauge needle, documented and archived, passage 0.018 guidewire under direct fluoroscopy, which was used to determine appropriate catheter length, exchange for 5 Malaysian peel-away sheath. 5 Malaysian Bard dual-lumen power PICC cut to 43 cm. It was inserted through the peel-away sheath. Peel-away sheath and guidewire removed. Catheter fixed to the skin. Both catheter ports aspirated and flushed. Patient tolerated procedure well, without immediate complication. Digital radiograph documents satisfactory catheter tip position, at the cavoatrial junction. Total fluoroscopy time 17.3 seconds. Total dose area product 1.45 mGy Total number of images: 1 Impression: Successful placement of left arm PICC under sonographic and fluoroscopic guidance, as described above.
--- NOTE | 2018-10-24 18:43 | Surgery Progress Note ---
Surgery Progress Note Subjective Additional Comments MRI findings reviewed with patient. still refused surgery Objective Last 24 Hour Vital Signs Date Time Temp Pulse Resp B/P (MAP) Pulse Ox O2 Delivery O2 Flow Rate FiO2 10/24/18 16:00 98.0 68 17 115/65 (82) 94 10/24/18 14:36 Room Air 21 10/24/18 14:36 Room Air 21 10/24/18 11:17 Room Air 21 10/24/18 11:17 Room Air 10/24/18 09:00 Room Air 10/24/18 08:00 98.1 82 17 125/65 (85) 94 10/24/18 07:28 Room Air 21 10/24/18 07:28 Room Air 21 10/24/18 04:00 96.5 82 17 152/77 (102) 94 10/24/18 03:13 Room Air 21 10/24/18 03:13 Room Air 21 10/23/18 23:35 Room Air 21 10/23/18 23:35 Room Air 10/23/18 21:00 Room Air 10/23/18 20:21 Room Air 21 10/23/18 20:20 Room Air 10/23/18 20:00 96.8 135 16 137/83 (101) 93 I&O Intake and Output 10/23/18 10/24/18 19:00 07:00 Intake Total 472 ml Balance 472 ml Intake Oral 472 ml # Voids 3 3 Dressing: other Wound: other Drains: other Cardiovascular: RSR Respiratory: clear Abdomen: soft, non-tender, present bowel sounds, non-distended Extremities: other Plan Problems: (1) Foot osteomyelitis, left Assessment & Plan: Left foot osteo acute/chronic seen by podiatry prior and deemed not salvageable recommended to have left BKA patient refused surgery still refuses surgery and majority of care except pain medication appreciate vascular input pending results of CTA/Duplex Abx for 6 weeks, defer to ID MRI findings discussed with patient clear results were discussed with feedback loop to ensure she understands. patient expressed understanding and was very clear that surgery or amputation was an absolute no. states that "she would rather diet with both legs and feet than live with out one of them". thank you (2) Sacral decubitus ulcer (3) Osteomyelitis Assessment & Plan: Abnormal T1 and STIR signal, presumably representing osteomyelitis, involving all of the bones of the midfoot as well as portions of the talus, calcaneus, distal tibia and distal fibula Extensive soft tissue edema, likely cellulitis given the above findings as stated clinical history Multiple midfoot fluid collections, presumed abscesses, also detailed in separate forefoot report. Additional small probable abscesses are seen in the lateral soft tissues inferior to the lateral malleolus (4) Rash and other nonspecific skin eruption Saqib Ndiaye Oct 24, 2018 18:43
--- NOTE | 2018-10-24 19:16 | General Progress Note ---
Assessment/Plan Assessment/Plan Assessment and Recs: # Thrombocytosis - plt count 569k, in the past had been 1150, on admission, baseline appeox 400-600k --> trend plt count for improvement, also could be related to ongoing left foot osteo, patient refusing surgery --> improve other unferlying issues and make sure plts are better --> discussed with pathologist to make sure jak2 was ordered and she concurred # Anemia of iron eficiency, anemia panel reviewed --> started on iv venofer 100mg x 5 doses iv --> recommend surgery of left foot --> 1 unit prbc on 10/23 --> hgb goal >7, will transfuse as needed # Osteomyelitis of foot, left, acute --> per Dr. Durbin recommendations --> better bs control. No evidence of DKA however. Fluids and antibiotics given. Insulin and also given ==> recommend surgery # Hyperosmolar non-ketotic state in patient with type 2 diabetes mellitus # Nausea and vomiting in adult patient --> zofran prn basis has been ordered # Abdominal pain # Homelessness # Right rib fracture of indeterminate age. # Old right suprapubic and right inferior pubic rami fractures # Noncompliant with care The timing of this note does not necessarily reflect the time of the patient was seen Greatly appreciate consultation! Subjective ROS Limited/Unobtainable: Yes Allergies: Coded Allergies: No Known Allergies (Unverified , 10/19/16) Subjective 10/24: seen by bedside, awake, aggressive. refusing care, surgery, transfusions. Objective Last 24 Hour Vital Signs Date Time Temp Pulse Resp B/P (MAP) Pulse Ox O2 Delivery O2 Flow Rate FiO2 10/24/18 16:00 98.0 68 17 115/65 (82) 94 10/24/18 14:36 Room Air 21 10/24/18 14:36 Room Air 21 10/24/18 11:17 Room Air 21 10/24/18 11:17 Room Air 21 10/24/18 09:00 Room Air 10/24/18 08:00 98.1 82 17 125/65 (85) 94 10/24/18 07:28 Room Air 21 10/24/18 07:28 Room Air 21 10/24/18 04:00 96.5 82 17 152/77 (102) 94 10/24/18 03:13 Room Air 21 10/24/18 03:13 Room Air 21 10/23/18 23:35 Room Air 21 10/23/18 23:35 Room Air 21 10/23/18 21:00 Room Air 10/23/18 20:21 Room Air 21 10/23/18 20:20 Room Air 21 10/23/18 20:00 96.8 135 16 137/83 (101) 93 Intake and Output 10/23/18 10/24/18 19:00 07:00 Intake Total 472 ml Balance 472 ml Intake Oral 472 ml # Voids 3 3 Height (Feet): 5 Height (Inches): 3.00 Weight (Pounds): 110 Objective General Appearance: nad, Chronically Ill Head: normocephalic, atraumatic Eyes: bilateral eye PERRL, bilateral eye EOMI ENT: hearing grossly normal, normal pharynx Neck: full range of motion, supple, no meningismus Respiratory: chest non-tender, lungs clear Cardiovascular #1: regular rate, rhythm, no murmur Gastrointestinal: no mass, no organomegaly, no bruit, non-distended, has decreased bowel sounds Musculoskeletal: back normal, normal range of motion, other - Left foot, There is a 3 x 3 cm posterior to the medial aspect of the MTP joint Neurologic: alert, oriented x3 Psychiatric: mood/affect normal Skin: warm/dry Jurgen Rubin MD Oct 24, 2018 19:16
--- NOTE | 2018-10-24 19:19 | NUR ---
HAND-OFF: Report given to MARKUS Forrester.
--- NOTE | 2018-10-24 19:25 | NUR ---
NURSE NOTES: Received patient in bed awake with no apparent distress noted. No complain of pain or discomfort at this time. PICC line patent flushed as ordered. Bed in lowest position and locked. Call light within reach. Will continue to monitor.
[2018-10-24 20:00] VITALS: BP 129/64
[2018-10-24] MEDS: Miralax 17gm pkt ORAL SCH (21:00)
[2018-10-24] MEDS: Iron Sucrose 100 MG in NS 55 ML IV SCH (21:26)
[2018-10-24] MEDS: Cefepime 2gm/D5W 110ml IV SCH ×2 (21:26)
[2018-10-24] MEDS: Dyna-Hex 2% Top Sol 2oz TOPIC SCH (21:29)
--- NOTE | 2018-10-24 21:41 | Cardiology Progress Note ---
Assessment/Plan Assessment/Plan 1. Sinus tachycardia, agitation, refusing medical advice and treatment, likely due to hypovolemia, keep hydrated, electrolyte replacement. 2. Moderate pulmonary HTN 3. Left foot osteomyelitis, left BKA has been recommended, refusing surgery. Clear for the surgery if planned. Subjective Subjective No cardiac events. Left AMA and returned to the hospital. Objective Last 24 Hour Vital Signs Date Time Temp Pulse Resp B/P (MAP) Pulse Ox O2 Delivery O2 Flow Rate FiO2 10/24/18 19:25 Room Air 21 10/24/18 19:25 Room Air 21 10/24/18 16:00 98.0 68 17 115/65 (82) 94 10/24/18 14:36 Room Air 21 10/24/18 14:36 Room Air 21 10/24/18 11:17 Room Air 21 10/24/18 11:17 Room Air 21 10/24/18 09:00 Room Air 10/24/18 08:00 98.1 82 17 125/65 (85) 94 10/24/18 07:28 Room Air 21 10/24/18 07:28 Room Air 21 10/24/18 04:00 96.5 82 17 152/77 (102) 94 10/24/18 03:13 Room Air 21 10/24/18 03:13 Room Air 21 10/23/18 23:35 Room Air 21 10/23/18 23:35 Room Air 21 Intake and Output 10/23/18 10/24/18 19:00 07:00 Intake Total 472 ml Balance 472 ml Intake Oral 472 ml # Voids 3 3 2D Echo: LVEF 60%, Mild LVH, RVSP 50 mmHg, Grade I LVDD Objective HEENT: normocephalic, atraumatic, bilateral eye PERRL, bilateral eye EOMI, moist mucus membranes Neck: no JVD, no carotid bruit. Respiratory: normal inspection, lungs clear, normal breath sounds, no respiratory distress, no retraction, no wheezing, speaking full sentences, chest symmetrical Cardiovascular: normal inspection, regular rate, rhythm, no edema, no murmurs, gallops or rubs. Gastrointestinal: normal inspection, non tender, soft, non-distended, no guarding Musculoskeletal: Left foot edematous, ulceration around the first metatarsal, edema, tender to palpation Sal Edge MD Oct 24, 2018 21:41
--- NOTE | 2018-10-24 21:41 | General Progress Note ---
Assessment/Plan Problem List: (1) Diabetes mellitus ICD Codes: E11.9 - Type 2 diabetes mellitus without complications SNOMED: 10703693 (2) Anxiety disorder ICD Codes: F41.9 - Anxiety disorder, unspecified SNOMED: 946683500 (3) Osteomyelitis ICD Codes: M86.9 - Osteomyelitis, unspecified SNOMED: 53011683 (4) Sacral decubitus ulcer ICD Codes: L89.159 - Pressure ulcer of sacral region, unspecified stage SNOMED: 016578849 (5) Foot osteomyelitis, left ICD Codes: M86.9 - Osteomyelitis, unspecified SNOMED: 9821693829938302 Qualifiers: Qualified Codes: M86.8X7 - Other osteomyelitis, ankle and foot (6) MDD (major depressive disorder) ICD Codes: F32.9 - Major depressive disorder, single episode, unspecified SNOMED: 957109539 Status: progressing Assessment/Plan antibiotic per id afebrile oseomylitis in different areas noncompliant tachycardic refuses care Subjective ROS Limited/Unobtainable: Yes Allergies: Coded Allergies: No Known Allergies (Unverified , 10/19/16) Subjective generalized pain Objective Last 24 Hour Vital Signs Date Time Temp Pulse Resp B/P (MAP) Pulse Ox O2 Delivery O2 Flow Rate FiO2 10/24/18 19:25 Room Air 21 10/24/18 19:25 Room Air 10/24/18 16:00 98.0 68 17 115/65 (82) 94 10/24/18 14:36 Room Air 21 10/24/18 14:36 Room Air 10/24/18 11:17 Room Air 10/24/18 11:17 Room Air 10/24/18 09:00 Room Air 10/24/18 08:00 98.1 82 17 125/65 (85) 94 10/24/18 07:28 Room Air 21 10/24/18 07:28 Room Air 21 10/24/18 04:00 96.5 82 17 152/77 (102) 94 10/24/18 03:13 Room Air 21 10/24/18 03:13 Room Air 21 10/23/18 23:35 Room Air 21 10/23/18 23:35 Room Air 21 Intake and Output 10/23/18 10/24/18 19:00 07:00 Intake Total 472 ml Balance 472 ml Intake Oral 472 ml # Voids 3 3 Height (Feet): 5 Height (Inches): 3.00 Weight (Pounds): 110 General Appearance: confused Cardiovascular: normal rate Respiratory/Chest: lungs clear Abdomen: soft Reina Dorsey MD Oct 24, 2018 21:41
[2018-10-25] VITALS: BP_SYST 129; BP_SYST 135; BP_DIAS 64; BP_DIAS 69
[2018-10-25 04:00] VITALS: BP 128/64
[2018-10-25] MEDS: Morphine Sulfate 2mg/ml Inj(IV/IM USE ONLY) IVP PRN ×3 (04:42→20:49)
--- NOTE | 2018-10-25 05:03 | NUR ---
NURSE NOTES: Wound care provided, cleanse left ischium with NS, pat and dry dressing, therahoney and cover with optifoam. Left foot wound cleanse with betadine cover with abdominal pad and wrapped with kerlix. Procedure tolerated by patient. will continue to monitor.
[2018-10-25] MEDS: NovoLOG Insulin Flexpen SUBQ SCH ×7 (06:11→20:55)
--- NOTE | 2018-10-25 06:27 | General Progress Note ---
Assessment/Plan Problem List: (1) Diabetes mellitus ICD Codes: E11.9 - Type 2 diabetes mellitus without complications SNOMED: 45301493 (2) Rash and other nonspecific skin eruption ICD Codes: R21 - Rash and other nonspecific skin eruption SNOMED: 531382441, 624702897 (3) Foot osteomyelitis, left ICD Codes: M86.9 - Osteomyelitis, unspecified SNOMED: 7269777443426085 Qualifiers: Qualified Codes: M86.8X7 - Other osteomyelitis, ankle and foot (4) MDD (major depressive disorder) ICD Codes: F32.9 - Major depressive disorder, single episode, unspecified SNOMED: 578098749 Assessment/Plan change Levemir to 33 units qam and 10 units qhs continue Novolog 12 units ac tid continue NISS ac / hs Subjective Allergies: Coded Allergies: No Known Allergies (Unverified , 10/19/16) All Systems: reviewed and negative except above Subjective events noted non compliant Item Value Date Time Bedside Blood Glucose 326 mg/dl H 10/25/18 0612 Bedside Blood Glucose 391 mg/dl H 10/24/18 2131 Bedside Blood Glucose 302 mg/dl H 10/24/18 1708 Bedside Blood Glucose 0 mg/dl L 10/24/18 1150 Bedside Blood Glucose 144 mg/dl H 10/24/18 1036 Bedside Blood Glucose 365 mg/dl H 10/24/18 0552 Objective Last 24 Hour Vital Signs Date Time Temp Pulse Resp B/P (MAP) Pulse Ox O2 Delivery O2 Flow Rate FiO2 10/25/18 04:00 98.1 80 16 128/64 (85) 96 10/25/18 03:40 Room Air 21 10/25/18 03:39 Room Air 21 10/25/18 00:00 99.4 84 17 129/64 (85) 96 10/24/18 23:05 Room Air 21 10/24/18 23:04 Room Air 21 10/24/18 21:00 Room Air 10/24/18 20:00 99.4 84 17 129/64 (85) 96 10/24/18 19:25 Room Air 21 10/24/18 19:25 Room Air 21 10/24/18 16:00 98.0 68 17 115/65 (82) 94 10/24/18 14:36 Room Air 21 10/24/18 14:36 Room Air 21 10/24/18 11:17 Room Air 21 10/24/18 11:17 Room Air 21 10/24/18 09:00 Room Air 10/24/18 08:00 98.1 82 17 125/65 (85) 94 10/24/18 07:28 Room Air 21 10/24/18 07:28 Room Air 21 Intake and Output 10/24/18 10/25/18 19:00 07:00 Intake Total 900 ml 740 ml Balance 900 ml 740 ml Intake Oral 900 ml 740 ml # Voids 4 4 Height (Feet): 5 Height (Inches): 3.00 Weight (Pounds): 137 General Appearance: no apparent distress Neck: normal alignment Cardiovascular: regular rhythm Respiratory/Chest: normal breath sounds Objective Current Medications Medications (Trade) Dose Ordered Sig/Manda Route PRN Reason Start Time Stop Time Status Last Admin Dose Admin Acetaminophen (Tylenol) 650 mg Q4H PRN ORAL Mild Pain/Temp > 100.5 10/20/18 00:15 11/19/18 00:14 Acetaminophen/ Hydrocodone Bitart ([place] 10/325) 1 tab Q6HR PRN ORAL Severe Pain (Pain Scale 7-10) 10/20/18 04:00 10/27/18 00:14 Cefepime HCl 2 gm/ Dextrose 110 ml @ 220 mls/hr EVERY 12 HOURS IV 10/24/18 21:00 10/31/18 20:59 10/24/18 21:26 Chlorhexidine Gluconate (Kerri-Hex 2%) 1 applic DAILY@2000 TOPIC 10/24/18 20:00 11/23/18 19:59 10/24/18 21:29 Clonidine HCl (Catapres Tab) 0.1 mg Q4H PRN ORAL For High BP 160 syst and up 10/20/18 16:15 11/19/18 00:14 Dextrose (Dextrose 50%) 25 ml Q30M PRN IV Hypoglycemia 10/20/18 00:30 11/19/18 00:29 Dextrose (Dextrose 50%) 50 ml Q30M PRN IV Hypoglycemia 10/20/18 00:30 11/19/18 00:29 Famotidine (Pepcid) 20 mg BID ORAL 10/20/18 18:00 11/19/18 17:59 10/21/18 18:45 Fluoxetine HCl (PROzac) 20 mg DAILY ORAL 10/21/18 09:00 11/20/18 08:59 Folic Acid (Folate) 3 mg DAILY ORAL 10/21/18 09:00 11/20/18 08:59 10/21/18 09:01 Heparin Sodium (Porcine) (Heparin 5000 units/ml) 5,000 units EVERY 12 HOURS SUBQ 10/20/18 09:00 11/19/18 08:59 10/24/18 21:28 Heparin Sodium/ Sodium Chloride (Heparin 2000 units/Ns 1000ml premix) 2,000 unit ONCE PRN INJ picc line placement 10/24/18 10:00 10/26/18 09:59 Insulin Aspart (NovoLOG) BEFORE MEALS AND HS SUBQ 10/20/18 06:30 11/19/18 06:29 10/25/18 06:11 Insulin Aspart (NovoLOG) 12 units NOVOTIAC SUBQ 10/20/18 06:30 11/19/18 06:29 10/25/18 06:12 Insulin Detemir (Levemir) 33 units DAILY SUBQ 10/24/18 09:00 11/19/18 20:59 10/24/18 10:36 Lidocaine HCl (Xylocaine 1% 30ml) 30 ml ONCE PRN INJ picc line placement 10/24/18 10:00 10/26/18 09:59 Mirtazapine (Remeron) 7.5 mg BEDTIME ORAL 10/20/18 21:00 11/19/18 20:59 10/20/18 20:23 Morphine Sulfate (Morphine Sulfate) 2 mg Q4H PRN IVP Moderate Pain (Pain Scale 4-6) 10/20/18 04:00 10/27/18 03:59 10/25/18 04:42 Nitroglycerin (Ntg) 0.4 mg Q5M PRN SL Prn Chest Pain 10/20/18 00:15 11/19/18 00:14 Ondansetron HCl (Zofran) 4 mg Q6H PRN IVP Nausea & Vomiting 10/20/18 00:15 11/19/18 00:14 Polyethylene Glycol (Miralax) 17 gm BEDTIME ORAL 10/20/18 21:00 11/19/18 20:59 Temazepam (Restoril) 15 mg HSPRN PRN ORAL Insomnia 10/20/18 00:15 10/27/18 00:14 Brendan Johnson MD Oct 25, 2018 06:27
--- NOTE | 2018-10-25 07:21 | NUR ---
HAND-OFF: Report given to Olayinka Keenan RN.
--- NOTE | 2018-10-25 07:32 | NUR ---
NURSE NOTES: PT AXOX4, CALM, EATING BREAKFAST ON SIDE OF BED. IN NO APPARENT DISTRESS AT THIS TIME. CALL LIGHT WITHIN REACH. PT EDUCATED ON SAFETY/FALL PRECAUTIONS. PT VERBALIZED UNDERSTANDING. WILL CONTINUE TO MONITOR.
[2018-10-25 08:00] VITALS: BP 101/50
[2018-10-25] MEDS: Cefepime 2gm/D5W 110ml IV SCH ×4 (09:11→20:59)
[2018-10-25] MEDS: Heparin 5000 units/ml inj SUBQ SCH ×2 (09:13→20:58)
[2018-10-25] MEDS: Levemir Flexpen SUBQ SCH ×2 (09:19→21:09)
--- NOTE | 2018-10-25 10:00 | NUR ---
NURSE NOTES: PT IS AXOX4, CALM, RESTING IN BED. PT REFUSED SCHEDULED 0900 PO MEDS. PT STATES SHE DOES NOT WANT ANY ANTI-PSYCHOTICS OR ANTI-DEPRESSANTS. RN EXPLAINED ALL PO MEDICATIONS AND USES. PT CONTINUES TO REFUSE PO MEDS.
--- NOTE | 2018-10-25 10:04 | Diagnostic Imaging Report ---
INDICATION: Left foot pain TECHNIQUE: IV administration nonionic contrast. Arterial phase spiral acquisitions obtained through the abdomen, pelvis, and bilateral lower extremities. Multiplanar and 3-D reconstructions were generated. Total dose length product 1643 mGycm. CTDIvol(s) 8, 8, 9, 5 mGy. Radiation dose was minimized using automated exposure control COMPARISON: Reference made to left leg arterial duplex scan dated 10/22/2018. No comparison CTs FINDINGS Abdominal aorta: Patent nonstenotic abdominal aorta. There is some calcified mural plaquing which does not result in any significant narrowing. There is variant anatomy of separate origin of the right hepatic artery off of the abdominal aorta. The celiac axis and proximal branches, superior mesenteric artery and proximal branches, inferior mesenteric artery and proximal branches, bilateral renal arteries are all patent without evidence of significant stenosis. Right lower extremity: There is some image degradation due to a right hip prosthesis, obscuring portions of the distal external iliac and common femoral artery. No significant atherosclerotic plaquing or significant stenosis of the common, external, or internal iliac arteries are noted. The profunda femoral, superficial femoral, and popliteal arteries are all patent without significant stenosis. There is some hard and soft atherosclerotic plaquing of the mid popliteal artery at the level of the knee joint, but this does not result in any significant narrowing. Trifurcation vessel opacification is not optimal, but all 3 trifurcation vessels do grossly appear to be patent, confirming findings of recent noninvasive study. Left lower extremity: Patent nonstenotic common, external, and internal iliac arteries,, without stones evidence of significant atherosclerotic plaquing. Patent nonstenotic common femoral, profunda femoral, and superficial femoral arteries. Patent nonstenotic popliteal arteries. Timing of the contrast bolus of the trifurcation vessels is suboptimal, resulting in considerable venous contamination. However, all 3 trifurcation vessels appear to be patent and nonstenotic, all reaching the ankle. Nonvascular: There is extensive edema of the left foot. Multiple low-attenuation areas within the left foot soft tissues are consistent with abscesses. These are described in detail on recent MRI. Extensive osseous destructive changes of the left foot, particularly in the midfoot region, are also noted, including evidence of multiple pathologic fractures of the midfoot. The liver is mildly enlarged. The gallbladder is surgically absent. There is mild ectasia of the extrahepatic bile ducts, common bile duct measuring up to 9 oh meters in diameter. No downstream obstructive lesion demonstrated. The pancreas, spleen, adrenals, kidneys are unremarkable. No retroperitoneal or mesenteric mass or adenopathy. No pelvic mass or adenopathy. There is an intrauterine device well-positioned within the uterus. The uterus and ovaries otherwise appear unremarkable. There is equivocally a small amount of free pelvic fluid, although this area is not well seen due to streak artifact from a right hip prosthesis. Old healed fracture deformities of the right superior and inferior pubic rami are demonstrated. Secondary degenerative changes of the pubic symphysis are noted. There is edema of the bilateral flank and lumbar region and central mid abdominal subcutaneous fat. The appendix is normal. Moderate retained stool seen throughout the colon. No evidence of diverticulosis or diverticulitis. No small bowel distention. There is a small left pleural effusion incidentally noted. The included lung bases demonstrate small bullae on the right and considerable interstitial septal thickening on the left. IMPRESSION: No evidence of significant abdominal, pelvic or lower extremity peripheral vascular insufficiency Evidence of extensive cellulitis, soft tissue abscess formation, and osteomyelitis of the left foot, also described on recent MRI exams. There are pathologic fractures of the midfoot as well, which are better visualized on the current study than on the prior MRIs Mild hepatomegaly Evidence of prior cholecystectomy. Mild ectasia of the extrahepatic bile ducts is probably related to postcholecystectomy state, nonetheless, correlation with liver function tests is recommended Subcutaneous fat edema noted diffusely Left basilar interstitial septal thickening and small left pleural effusion. COPD changes of the right lung base Intrauterine device noted Equivocal small amount of free pelvic fluid, not necessarily physiologic if patient is postmenopausal Other findings as noted, including right hip prosthesis, old healed right superior and inferior pubic ramus fracture deformities, degenerative changes of the pubic symphysis The CT scanner at [facility] is accredited by the [employer] and the scans are performed using protocols designed to limit radiation exposure to as low as reasonably achievable to attain images of sufficient resolution adequate for diagnostic evaluation.
[2018-10-25 12:00] VITALS: BP 125/65
--- NOTE | 2018-10-25 12:33 | Infectious Diseases Prog Note ---
Assessment/Plan Assessment/Plan A 1. left foot osteomyelitis 2. diabetes mellitus 3. leucocytosis resolved 4. Anemia 5. Major depression P 1, continue Cefepime 2. Patient refuses amputation Subjective ROS Limited/Unobtainable: Yes Respiratory: Reports: no symptoms Cardiovascular: Reports: no symptoms Gastrointestinal/Abdominal: Reports: no symptoms Genitourinary: Reports: no symptoms Allergies: Coded Allergies: No Known Allergies (Unverified , 10/19/16) Objective Vital Signs Last 24 Hour Vital Signs Date Time Temp Pulse Resp B/P (MAP) Pulse Ox O2 Delivery O2 Flow Rate FiO2 10/25/18 12:00 98.5 82 20 125/65 (85) 97 10/25/18 09:00 Room Air 10/25/18 08:00 97.7 80 20 101/50 (67) 96 10/25/18 04:00 98.1 80 16 128/64 (85) 96 10/25/18 03:40 Room Air 21 10/25/18 03:39 Room Air 21 10/25/18 00:00 99.4 84 17 129/64 (85) 96 10/24/18 23:05 Room Air 21 10/24/18 23:04 Room Air 21 10/24/18 21:00 Room Air 10/24/18 20:00 99.4 84 17 129/64 (85) 96 10/24/18 19:25 Room Air 21 10/24/18 19:25 Room Air 21 10/24/18 16:00 98.0 68 17 115/65 (82) 94 10/24/18 14:36 Room Air 21 10/24/18 14:36 Room Air 21 Height (Feet): 5 Height (Inches): 3.00 Weight (Pounds): 137 General Appearance: no acute distress HEENT: mucous membranes moist Respiratory/Chest: lungs clear Cardiovascular: normal rate Abdomen: soft, non tender Extremities: other - left foot edema Skin: ulcers Neurologic/Psychiatric: alert, responsive Current Medications Medications (Trade) Dose Ordered Sig/Manda Route PRN Reason Start Time Stop Time Status Last Admin Dose Admin Acetaminophen (Tylenol) 650 mg Q4H PRN ORAL Mild Pain/Temp > 100.5 10/20/18 00:15 11/19/18 00:14 Acetaminophen/ Hydrocodone Bitart ([place] 10/325) 1 tab Q6HR PRN ORAL Severe Pain (Pain Scale 7-10) 10/20/18 04:00 10/27/18 00:14 Cefepime HCl 2 gm/ Dextrose 110 ml @ 220 mls/hr EVERY 12 HOURS IV 10/24/18 21:00 10/31/18 20:59 10/25/18 09:11 Chlorhexidine Gluconate (Kerri-Hex 2%) 1 applic DAILY@2000 TOPIC 10/24/18 20:00 11/23/18 19:59 10/24/18 21:29 Clonidine HCl (Catapres Tab) 0.1 mg Q4H PRN ORAL For High BP 160 syst and up 10/20/18 16:15 11/19/18 00:14 Dextrose (Dextrose 50%) 25 ml Q30M PRN IV Hypoglycemia 10/25/18 06:30 11/24/18 06:29 Dextrose (Dextrose 50%) 50 ml Q30M PRN IV Hypoglycemia 10/25/18 06:30 11/24/18 06:29 Famotidine (Pepcid) 20 mg BID ORAL 10/20/18 18:00 11/19/18 17:59 10/21/18 18:45 Fluoxetine HCl (PROzac) 20 mg DAILY ORAL 10/21/18 09:00 11/20/18 08:59 Folic Acid (Folate) 3 mg DAILY ORAL 10/21/18 09:00 11/20/18 08:59 10/21/18 09:01 Heparin Sodium (Porcine) (Heparin 5000 units/ml) 5,000 units EVERY 12 HOURS SUBQ 10/20/18 09:00 11/19/18 08:59 10/25/18 09:13 Heparin Sodium/ Sodium Chloride (Heparin 2000 units/Ns 1000ml premix) 2,000 unit ONCE PRN INJ picc line placement 10/24/18 10:00 10/26/18 09:59 Insulin Aspart (NovoLOG) BEFORE MEALS AND HS SUBQ 10/20/18 06:30 11/19/18 06:29 10/25/18 06:11 Insulin Aspart (NovoLOG) 12 units NOVOTIAC SUBQ 10/20/18 06:30 11/19/18 06:29 10/25/18 06:12 Insulin Detemir (Levemir) 10 units BEDTIME SUBQ 10/25/18 21:00 11/24/18 20:59 Insulin Detemir (Levemir) 33 units DAILY SUBQ 10/24/18 09:00 11/19/18 20:59 10/25/18 09:19 Lidocaine HCl (Xylocaine 1% 30ml) 30 ml ONCE PRN INJ picc line placement 10/24/18 10:00 10/26/18 09:59 Mirtazapine (Remeron) 7.5 mg BEDTIME ORAL 10/20/18 21:00 11/19/18 20:59 10/20/18 20:23 Morphine Sulfate (Morphine Sulfate) 2 mg Q4H PRN IVP Moderate Pain (Pain Scale 4-6) 10/20/18 04:00 10/27/18 03:59 10/25/18 09:12 Nitroglycerin (Ntg) 0.4 mg Q5M PRN SL Prn Chest Pain 10/20/18 00:15 11/19/18 00:14 Ondansetron HCl (Zofran) 4 mg Q6H PRN IVP Nausea & Vomiting 10/20/18 00:15 11/19/18 00:14 Polyethylene Glycol (Miralax) 17 gm BEDTIME ORAL 10/20/18 21:00 11/19/18 20:59 Temazepam (Restoril) 15 mg HSPRN PRN ORAL Insomnia 10/20/18 00:15 10/27/18 00:14 Anton Arambula MD Oct 25, 2018 12:33
--- NOTE | 2018-10-25 12:36 | General Progress Note ---
Assessment/Plan Problem List: (1) MDD (major depressive disorder) ICD Codes: F32.9 - Major depressive disorder, single episode, unspecified SNOMED: 898675407 (2) Anxiety disorder ICD Codes: F41.9 - Anxiety disorder, unspecified SNOMED: 931440197 Status: stable, progressing Assessment/Plan Remeron 7.5mg po qhs Prozac 20mg po qam provided ro/st Subjective Neurologic/Psychiatric: Reports: anxiety, depressed, emotional problems Allergies: Coded Allergies: No Known Allergies (Unverified , 10/19/16) Subjective non compliant irritable and angry Objective Last 24 Hour Vital Signs Date Time Temp Pulse Resp B/P (MAP) Pulse Ox O2 Delivery O2 Flow Rate FiO2 10/25/18 12:00 98.5 82 20 125/65 (85) 97 10/25/18 09:00 Room Air 10/25/18 08:00 97.7 80 20 101/50 (67) 96 10/25/18 04:00 98.1 80 16 128/64 (85) 96 10/25/18 03:40 Room Air 21 10/25/18 03:39 Room Air 21 10/25/18 00:00 99.4 84 17 129/64 (85) 96 10/24/18 23:05 Room Air 21 10/24/18 23:04 Room Air 21 10/24/18 21:00 Room Air 10/24/18 20:00 99.4 84 17 129/64 (85) 96 10/24/18 19:25 Room Air 21 10/24/18 19:25 Room Air 21 10/24/18 16:00 98.0 68 17 115/65 (82) 94 10/24/18 14:36 Room Air 21 10/24/18 14:36 Room Air 21 Intake and Output 10/24/18 10/25/18 19:00 07:00 Intake Total 900 ml 740 ml Balance 900 ml 740 ml Intake Oral 900 ml 740 ml # Voids 4 4 Height (Feet): 5 Height (Inches): 3.00 Weight (Pounds): 137 General Appearance: no apparent distress, alert Neurologic: oriented x 3, responsive, depressed affect Barry De La O MD Oct 25, 2018 12:36
--- NOTE | 2018-10-25 12:38 | Nephrology Progress Note ---
Assessment/Plan Problem List: (1) Hyponatremia (2) Diabetes mellitus (3) Foot osteomyelitis, left (4) Diabetic nephropathy (5) Anemia Assessment gets MS round the clock HypoNatremia due to hyperglycemia Anemia Low MCV Left foot Osteo Hyperglycemia UTI Proteinuria/ Diabetic nephropathy Plan no labs yet refuses care- transfusion, IV... BS control will raise serum Na anemia lee per ID per orders Subjective ROS Limited/Unobtainable: No Objective Objective Last 24 Hour Vital Signs Date Time Temp Pulse Resp B/P (MAP) Pulse Ox O2 Delivery O2 Flow Rate FiO2 10/25/18 12:00 98.5 82 20 125/65 (85) 97 10/25/18 09:00 Room Air 10/25/18 08:00 97.7 80 20 101/50 (67) 96 10/25/18 04:00 98.1 80 16 128/64 (85) 96 10/25/18 03:40 Room Air 21 10/25/18 03:39 Room Air 21 10/25/18 00:00 99.4 84 17 129/64 (85) 96 10/24/18 23:05 Room Air 21 10/24/18 23:04 Room Air 21 10/24/18 21:00 Room Air 10/24/18 20:00 99.4 84 17 129/64 (85) 96 10/24/18 19:25 Room Air 21 10/24/18 19:25 Room Air 21 10/24/18 16:00 98.0 68 17 115/65 (82) 94 10/24/18 14:36 Room Air 21 10/24/18 14:36 Room Air 21 Intake and Output 10/24/18 10/25/18 19:00 07:00 Intake Total 900 ml 740 ml Balance 900 ml 740 ml Intake Oral 900 ml 740 ml # Voids 4 4 Height (Feet): 5 Height (Inches): 3.00 Weight (Pounds): 137 General Appearance: no apparent distress Objective no change Francisco Tapia MD Oct 25, 2018 12:38
--- NOTE | 2018-10-25 13:13 | Surgery Progress Note ---
Surgery Progress Note Subjective Additional Comments no acute events. stable. comfortable. Objective Last 24 Hour Vital Signs Date Time Temp Pulse Resp B/P (MAP) Pulse Ox O2 Delivery O2 Flow Rate FiO2 10/25/18 12:00 98.5 82 20 125/65 (85) 97 10/25/18 09:00 Room Air 10/25/18 09:00 Room Air 10/25/18 08:00 97.7 80 20 101/50 (67) 96 10/25/18 04:00 98.1 80 16 128/64 (85) 96 10/25/18 03:40 Room Air 21 10/25/18 03:39 Room Air 21 10/25/18 00:00 99.4 84 17 129/64 (85) 96 10/24/18 23:05 Room Air 21 10/24/18 23:04 Room Air 21 10/24/18 21:00 Room Air 10/24/18 20:00 99.4 84 17 129/64 (85) 96 10/24/18 19:25 Room Air 21 10/24/18 19:25 Room Air 21 10/24/18 16:00 98.0 68 17 115/65 (82) 94 10/24/18 14:36 Room Air 21 10/24/18 14:36 Room Air 21 I&O Intake and Output 10/24/18 10/25/18 19:00 07:00 Intake Total 900 ml 740 ml Balance 900 ml 740 ml Intake Oral 900 ml 740 ml # Voids 4 4 Dressing: other Wound: other Drains: other Cardiovascular: RSR Respiratory: clear Abdomen: soft, non-tender, present bowel sounds, non-distended Extremities: other Plan Problems: (1) Foot osteomyelitis, left Assessment & Plan: Left foot osteo acute/chronic seen by podiatry prior and deemed not salvageable recommended to have left BKA patient refused surgery still refuses surgery and majority of care except pain medication appreciate vascular input pending results of CTA/Duplex Abx for 6 weeks, defer to ID MRI findings discussed with patient clear results were discussed with feedback loop to ensure she understands. patient expressed understanding and was very clear that surgery or amputation was an absolute no. states that "she would rather diet with both legs and feet than live with out one of them". d/c planning thank you (2) Sacral decubitus ulcer (3) Osteomyelitis Assessment & Plan: Abnormal T1 and STIR signal, presumably representing osteomyelitis, involving all of the bones of the midfoot as well as portions of the talus, calcaneus, distal tibia and distal fibula Extensive soft tissue edema, likely cellulitis given the above findings as stated clinical history Multiple midfoot fluid collections, presumed abscesses, also detailed in separate forefoot report. Additional small probable abscesses are seen in the lateral soft tissues inferior to the lateral malleolus (4) Rash and other nonspecific skin eruption Saqib Ndiaye Oct 25, 2018 13:13
--- NOTE | 2018-10-25 13:17 | NUR ---
NURSE NOTES: PT RECEIVED HALF A SANDWICH AND APPLE JUICE FOR SNACK BEFORE LUNCH. PT WAS VERY UNHAPPY WITH SNACK [employer] AND THREW ALL SNACKS ON THE GROUND. PT STARTED CURSING AT RN "HOW CAN THEY GIVE ME HALF A SANDWICH! I CAN'T HAVE APPLE JUICE! GET OUT! MOTHERFUCKING BITCH! GET OUT! MOTHERFUCKER!". PT REFUSES BLOOD SUGAR CHECKS AND INSULIN ADMINISTRATION.
--- NOTE | 2018-10-25 15:18 | NUR ---
NURSE NOTES:WOUND CARE FOLLOW-UP NOTES: Pt initially consented for wounds to be re-evaluated but suddenly changed her mind and orderd nurse to leave room.
[2018-10-25 16:00] VITALS: BP 120/63
--- NOTE | 2018-10-25 16:19 | NUR ---
NURSE NOTES: PT REFUSING TO HAVE BLOOD SUGAR CHECKED. RN EDUCATED PT ON S/S HYPERGLYCEMIA. PT DID NOT ACKNOWLEDGE RN'S EDUCATION. IN NO APPARENT DISTRESS AT THIS TIME. WILL CONTINUE TO MONITOR.
--- NOTE | 2018-10-25 19:53 | NUR ---
HAND-OFF: Report given to Shilo MARTINEZ RN.
--- NOTE | 2018-10-25 19:54 | NUR ---
NURSE NOTES: Received report from Olayinka Ruggiero RN. Patient A&Ox4. On room air. No signs of distress or labored breathing. PICC dry and intact, patent, and saline locked. Bed in lowest position with call light in reach. Will continue with plan of care.
[2018-10-25 20:00] VITALS: BP 123/59
[2018-10-25] MEDS: Dyna-Hex 2% Top Sol 2oz TOPIC SCH (20:53)
[2018-10-25] MEDS: Miralax 17gm pkt ORAL SCH (20:54)
--- NOTE | 2018-10-25 21:30 | General Progress Note ---
Assessment/Plan Problem List: (1) Diabetes mellitus ICD Codes: E11.9 - Type 2 diabetes mellitus without complications SNOMED: 33445463 (2) Anxiety disorder ICD Codes: F41.9 - Anxiety disorder, unspecified SNOMED: 555418606 (3) Osteomyelitis ICD Codes: M86.9 - Osteomyelitis, unspecified SNOMED: 21943436 (4) Sacral decubitus ulcer ICD Codes: L89.159 - Pressure ulcer of sacral region, unspecified stage SNOMED: 738986527 (5) Foot osteomyelitis, left ICD Codes: M86.9 - Osteomyelitis, unspecified SNOMED: 0249049507702643 Qualifiers: Qualified Codes: M86.8X7 - Other osteomyelitis, ankle and foot (6) MDD (major depressive disorder) ICD Codes: F32.9 - Major depressive disorder, single episode, unspecified SNOMED: 752258030 Status: progressing Assessment/Plan antibiotic per id afebrile decub no wheezing psych patient oseomylitis in different areas refuses care Subjective ROS Limited/Unobtainable: Yes Allergies: Coded Allergies: No Known Allergies (Unverified , 10/19/16) Subjective generalized pain Objective Last 24 Hour Vital Signs Date Time Temp Pulse Resp B/P (MAP) Pulse Ox O2 Delivery O2 Flow Rate FiO2 10/25/18 16:00 98.0 81 19 120/63 (82) 97 10/25/18 12:00 98.5 82 20 125/65 (85) 97 10/25/18 09:00 Room Air 10/25/18 09:00 Room Air 10/25/18 08:00 97.7 80 20 101/50 (67) 96 10/25/18 04:00 98.1 80 16 128/64 (85) 96 10/25/18 03:40 Room Air 21 10/25/18 03:39 Room Air 21 10/25/18 00:00 99.4 84 17 129/64 (85) 96 10/24/18 23:05 Room Air 21 10/24/18 23:04 Room Air 21 Intake and Output 10/24/18 10/25/18 19:00 07:00 Intake Total 900 ml 740 ml Balance 900 ml 740 ml Intake Oral 900 ml 740 ml # Voids 4 4 Height (Feet): 5 Height (Inches): 3.00 Weight (Pounds): 137 General Appearance: confused Cardiovascular: normal rate Respiratory/Chest: lungs clear Reina Dorsey MD Oct 25, 2018 21:30
--- NOTE | 2018-10-25 23:41 | Cardiology Progress Note ---
Assessment/Plan Assessment/Plan 1. Sinus tachycardia, agitation, refusing medical advice and treatment, likely due to hypovolemia, keep hydrated, electrolyte replacement. 2. Moderate pulmonary HTN 3. Left foot osteomyelitis, left BKA has been recommended, refusing surgery. Clear for the surgery if planned. Subjective Subjective No cardiac events. Left AMA and returned to the hospital. Objective Last 24 Hour Vital Signs Date Time Temp Pulse Resp B/P (MAP) Pulse Ox O2 Delivery O2 Flow Rate FiO2 10/25/18 16:00 98.0 81 19 120/63 (82) 97 10/25/18 12:00 98.5 82 20 125/65 (85) 97 10/25/18 09:00 Room Air 10/25/18 09:00 Room Air 10/25/18 08:00 97.7 80 20 101/50 (67) 96 10/25/18 04:00 98.1 80 16 128/64 (85) 96 10/25/18 03:40 Room Air 21 10/25/18 03:39 Room Air 21 10/25/18 00:00 99.4 84 17 129/64 (85) 96 Intake and Output 10/24/18 10/25/18 19:00 07:00 Intake Total 900 ml 740 ml Balance 900 ml 740 ml Intake Oral 900 ml 740 ml # Voids 4 4 Objective HEENT: normocephalic, atraumatic, bilateral eye PERRL, bilateral eye EOMI, moist mucus membranes Neck: no JVD, no carotid bruit. Respiratory: normal inspection, lungs clear, normal breath sounds, no respiratory distress, no retraction, no wheezing, speaking full sentences, chest symmetrical Cardiovascular: normal inspection, regular rate, rhythm, no edema, no murmurs, gallops or rubs. Gastrointestinal: normal inspection, non tender, soft, non-distended, no guarding Musculoskeletal: Left foot edematous, ulceration around the first metatarsal, edema, tender to palpation Sal Edge MD Oct 25, 2018 23:41
[2018-10-26] VITALS: BP 147/72
[2018-10-26 04:00] VITALS: BP 129/65
[2018-10-26] MEDS: Morphine Sulfate 2mg/ml Inj(IV/IM USE ONLY) IVP PRN ×5 (04:23→20:26)
--- NOTE | 2018-10-26 06:11 | General Progress Note ---
Assessment/Plan Problem List: (1) Diabetes mellitus ICD Codes: E11.9 - Type 2 diabetes mellitus without complications SNOMED: 07599880 (2) Rash and other nonspecific skin eruption ICD Codes: R21 - Rash and other nonspecific skin eruption SNOMED: 945486664, 748745965 (3) Foot osteomyelitis, left ICD Codes: M86.9 - Osteomyelitis, unspecified SNOMED: 5365616306058294 Qualifiers: Qualified Codes: M86.8X7 - Other osteomyelitis, ankle and foot (4) MDD (major depressive disorder) ICD Codes: F32.9 - Major depressive disorder, single episode, unspecified SNOMED: 252664184 Assessment/Plan change Levemir to 30 units qam and 10 units qhs continue Novolog 12 units ac tid continue NISS ac / hs Subjective ROS Limited/Unobtainable: Yes Allergies: Coded Allergies: No Known Allergies (Unverified , 10/19/16) Subjective events noted Item Value Date Time Bedside Blood Glucose 109 mg/dl 10/25/182108 Bedside Blood Glucose 326 mg/dl H 10/25/18918 Bedside Blood Glucose 326 mg/dl H 10/25/18 0612 Objective Last 24 Hour Vital Signs Date Time Temp Pulse Resp B/P (MAP) Pulse Ox O2 Delivery O2 Flow Rate FiO2 10/26/18 04:00 97.7 75 18 129/65 (86) 94 10/26/18 00:00 98.3 82 18 147/72 (97) 95 10/25/18 21:00 Room Air 10/25/18 20:00 97.2 78 17 123/59 (80) 96 10/25/18 16:00 98.0 81 19 120/63 (82) 97 10/25/18 12:00 98.5 82 20 125/65 (85) 97 10/25/18 09:00 Room Air 10/25/18 09:00 Room Air 10/25/18 08:00 97.7 80 20 101/50 (67) 96 Intake and Output 10/25/18 10/26/18 19:00 07:00 Intake Total 350 ml Balance 350 ml Intake Oral 240 ml IV Total 110 ml # Voids 3 Height (Feet): 5 Height (Inches): 3.00 Weight (Pounds): 137 General Appearance: no apparent distress Neck: normal alignment Cardiovascular: normal rate Respiratory/Chest: lungs clear Abdomen: normal bowel sounds Objective Current Medications Medications (Trade) Dose Ordered Sig/Manda Route PRN Reason Start Time Stop Time Status Last Admin Dose Admin Acetaminophen (Tylenol) 650 mg Q4H PRN ORAL Mild Pain/Temp > 100.5 10/20/18 00:15 11/19/18 00:14 Acetaminophen/ Hydrocodone Bitart (Exira 10/325) 1 tab Q6HR PRN ORAL Severe Pain (Pain Scale 7-10) 10/20/18 04:00 10/27/18 00:14 Cefepime HCl 2 gm/ Dextrose 110 ml @ 220 mls/hr EVERY 12 HOURS IV 10/24/18 21:00 10/31/18 20:59 10/25/18 20:59 Chlorhexidine Gluconate (Kerri-Hex 2%) 1 applic DAILY@2000 TOPIC 10/24/18 20:00 11/23/18 19:59 10/25/18 20:53 Clonidine HCl (Catapres Tab) 0.1 mg Q4H PRN ORAL For High BP 160 syst and up 10/20/18 16:15 11/19/18 00:14 Dextrose (Dextrose 50%) 25 ml Q30M PRN IV Hypoglycemia 10/25/18 06:30 11/24/18 06:29 Dextrose (Dextrose 50%) 50 ml Q30M PRN IV Hypoglycemia 10/25/18 06:30 11/24/18 06:29 Famotidine (Pepcid) 20 mg BID ORAL 10/20/18 18:00 11/19/18 17:59 10/21/18 18:45 Fluoxetine HCl (PROzac) 20 mg DAILY ORAL 10/21/18 09:00 11/20/18 08:59 Folic Acid (Folate) 3 mg DAILY ORAL 10/21/18 09:00 11/20/18 08:59 10/21/18 09:01 Heparin Sodium (Porcine) (Heparin 5000 units/ml) 5,000 units EVERY 12 HOURS SUBQ 10/20/18 09:00 11/19/18 08:59 10/25/18 20:58 Heparin Sodium/ Sodium Chloride (Heparin 2000 units/Ns 1000ml premix) 2,000 unit ONCE PRN INJ picc line placement 10/24/18 10:00 10/26/18 09:59 Insulin Aspart (NovoLOG) BEFORE MEALS AND HS SUBQ 10/20/18 06:30 11/19/18 06:29 10/25/18 06:11 Insulin Aspart (NovoLOG) 12 units NOVOTIAC SUBQ 10/20/18 06:30 11/19/18 06:29 10/25/18 06:12 Insulin Detemir (Levemir) 10 units BEDTIME SUBQ 10/25/18 21:00 11/24/18 20:59 10/25/18 21:09 Insulin Detemir (Levemir) 33 units DAILY SUBQ 10/24/18 09:00 11/19/18 20:59 10/25/18 09:19 Lidocaine HCl (Xylocaine 1% 30ml) 30 ml ONCE PRN INJ picc line placement 10/24/18 10:00 10/26/18 09:59 Mirtazapine (Remeron) 7.5 mg BEDTIME ORAL 10/20/18 21:00 11/19/18 20:59 10/20/18 20:23 Morphine Sulfate (Morphine Sulfate) 2 mg Q4H PRN IVP Moderate Pain (Pain Scale 4-6) 10/20/18 04:00 10/27/18 03:59 10/26/18 04:23 Nitroglycerin (Ntg) 0.4 mg Q5M PRN SL Prn Chest Pain 10/20/18 00:15 11/19/18 00:14 Ondansetron HCl (Zofran) 4 mg Q6H PRN IVP Nausea & Vomiting 10/20/18 00:15 11/19/18 00:14 Polyethylene Glycol (Miralax) 17 gm BEDTIME ORAL 10/20/18 21:00 11/19/18 20:59 Temazepam (Restoril) 15 mg HSPRN PRN ORAL Insomnia 10/20/18 00:15 10/27/18 00:14 Brendan Johnson MD Oct 26, 2018 06:11
[2018-10-26] MEDS: NovoLOG Insulin Flexpen SUBQ SCH ×7 (06:30→20:28)
--- NOTE | 2018-10-26 07:36 | NUR ---
HAND-OFF: Report given to Olayinka Ruggiero RN.
[2018-10-26 08:00] VITALS: BP 130/88
[2018-10-26] MEDS: Cefepime 2gm/D5W 110ml IV SCH ×4 (08:00→21:32)
[2018-10-26] MEDS: Heparin 5000 units/ml inj SUBQ SCH ×2 (08:15→20:31)
[2018-10-26] MEDS: Levemir Flexpen SUBQ SCH ×2 (09:38→20:30)
--- NOTE | 2018-10-26 09:41 | Consultation ---
History of Present Illness General Date patient seen: Oct 26, 2018 Time patient seen: 09:35 Chief Complaint: Pain L ankle, per patient did not want me to evaluate her L ankle and take off dressing. Pt combative at bedside. Reason for Consultation: lower extremity wounds Present Illness Allergies: Coded Allergies: No Known Allergies (Unverified , 10/19/16) Medication History Scheduled Al Hydroxide/mg Hydroxide (Mag-Al Liquid), 30 ML ORAL EVERY 6 HOURS, (Reported) Clonidine HCl (Clonidine HCl), 0.1 MG ORAL EVERY 4 HOURS, (Reported) Fluconazole (Fluconazole), 100 MG ORAL DAILY, (Reported) Heparin Sod (Porcine) (Heparin Sodium*), 5,000 UNITS SUBQ EVERY 12 HOURS, ( Reported) Insulin Aspart* (Novolog*), 4 SUBQ AC, (Reported) Insulin Detemir (Levemir), 14 SUBQ DAILY, (Reported) Ketorolac Tromethamine (Ketorolac Tromethamine), 30 MG IJ EVERY 6 HOURS, ( Reported) Levofloxacin* (Levaquin*), 750 MG ORAL DAILY, (Reported) Morphine Sulfate* (Morphine Sulfate*), 2 MG IV EVERY 4 HOURS, (Reported) Nitroglycerin (Nitroglycerin), 0.4 MG SL q5mx3 doses prn, (Reported) No Known Medications* (NKM - No Known Medications*), 0 ., (Reported) Adsvmlmpeqcx-Mozw-Onbbmxqp,Iso (Zosyn 3.375 Gm Pre Mix-Bag), 3.375 GM IVPB EVERY 8 HOURS, (Reported) Polyethylene Glycol 3350* (Miralax*), 17 GM ORAL DAILY, (Reported) Vancomycin Hcl (Vancomycin Hcl), 750 MG IV Q12HR, (Reported) Scheduled PRN Acetaminophen (Acetaminophen), 650 MG ORAL Q4HR PRN for Fever/Headache/Mild Pain , (Reported) Hydrocodone Bit/Acetaminophen 10-325* (Century 10-325*), 1 TAB ORAL Q6H PRN for For Pain, (Reported) Insulin Aspart* (Novolog*), 0 SUBQ AC+HS PRN for Hyperglycemia, (Reported) Ipratropium Sugar Run 0.5MG/2.5ML (Ipratropium Sugar Run 0.5MG/2.5ML), 0.5 MG HHN Q4HR PRN for Shortness of Breath, (Reported) Ondansetron* (Zofran*), 4 MG IV Q6H PRN for Nausea & Vomiting, (Reported) Temazepam* (Restoril*), 15 MG ORAL BEDTIME PRN for Insomnia, (Reported) Patient History Healthcare decision maker Resuscitation status Full Code Advanced Directive on File Physical Exam Last 24 Hour Vital Signs Date Time Temp Pulse Resp B/P (MAP) Pulse Ox O2 Delivery O2 Flow Rate FiO2 10/26/18 08:00 98.0 80 18 130/88 (102) 97 10/26/18 04:00 97.7 75 18 129/65 (86) 94 10/26/18 00:00 98.3 82 18 147/72 (97) 95 10/25/18 21:00 Room Air 10/25/18 20:00 97.2 78 17 123/59 (80) 96 10/25/18 16:00 98.0 81 19 120/63 (82) 97 10/25/18 12:00 98.5 82 20 125/65 (85) 97 Intake and Output 10/25/18 10/26/18 19:00 07:00 Intake Total 350 ml Balance 350 ml Intake Oral 240 ml IV Total 110 ml # Voids 3 Height (Feet): 5 Height (Inches): 3.00 Weight (Pounds): 137 Medications Current Medications Medications (Trade) Dose Ordered Sig/Manda Route PRN Reason Start Time Stop Time Status Last Admin Dose Admin Acetaminophen (Tylenol) 650 mg Q4H PRN ORAL Mild Pain/Temp > 100.5 10/20/18 00:15 11/19/18 00:14 Acetaminophen/ Hydrocodone Bitart (Century 10/325) 1 tab Q6HR PRN ORAL Severe Pain (Pain Scale 7-10) 10/20/18 04:00 10/27/18 00:14 Cefepime HCl 2 gm/ Dextrose 110 ml @ 220 mls/hr EVERY 12 HOURS IV 10/24/18 21:00 10/31/18 20:59 10/26/18 08:00 Chlorhexidine Gluconate (Kerri-Hex 2%) 1 applic DAILY@2000 TOPIC 10/24/18 20:00 11/23/18 19:59 10/25/18 20:53 Clonidine HCl (Catapres Tab) 0.1 mg Q4H PRN ORAL For High BP 160 syst and up 10/20/18 16:15 11/19/18 00:14 Dextrose (Dextrose 50%) 25 ml Q30M PRN IV Hypoglycemia 10/25/18 06:30 11/24/18 06:29 Dextrose (Dextrose 50%) 50 ml Q30M PRN IV Hypoglycemia 10/25/18 06:30 11/24/18 06:29 Famotidine (Pepcid) 20 mg BID ORAL 10/20/18 18:00 11/19/18 17:59 10/21/18 18:45 Fluoxetine HCl (PROzac) 20 mg DAILY ORAL 10/21/18 09:00 11/20/18 08:59 Folic Acid (Folate) 3 mg DAILY ORAL 10/21/18 09:00 11/20/18 08:59 10/21/18 09:01 Heparin Sodium (Porcine) (Heparin 5000 units/ml) 5,000 units EVERY 12 HOURS SUBQ 10/20/18 09:00 11/19/18 08:59 10/26/18 08:15 Heparin Sodium/ Sodium Chloride (Heparin 2000 units/Ns 1000ml premix) 2,000 unit ONCE PRN INJ picc line placement 10/24/18 10:00 10/26/18 09:59 Insulin Aspart (NovoLOG) BEFORE MEALS AND HS SUBQ 10/20/18 06:30 11/19/18 06:29 10/25/18 06:11 Insulin Aspart (NovoLOG) 12 units NOVOTIAC SUBQ 10/20/18 06:30 11/19/18 06:29 10/25/18 06:12 Insulin Detemir (Levemir) 10 units BEDTIME SUBQ 10/25/18 21:00 11/24/18 20:59 10/25/18 21:09 Insulin Detemir (Levemir) 30 units DAILY SUBQ 10/26/18 09:00 11/19/18 20:59 Lidocaine HCl (Xylocaine 1% 30ml) 30 ml ONCE PRN INJ picc line placement 10/24/18 10:00 10/26/18 09:59 Mirtazapine (Remeron) 7.5 mg BEDTIME ORAL 10/20/18 21:00 11/19/18 20:59 10/20/18 20:23 Morphine Sulfate (Morphine Sulfate) 2 mg Q4H PRN IVP Moderate Pain (Pain Scale 4-6) 10/20/18 04:00 10/27/18 03:59 10/26/18 08:17 Nitroglycerin (Ntg) 0.4 mg Q5M PRN SL Prn Chest Pain 10/20/18 00:15 11/19/18 00:14 Ondansetron HCl (Zofran) 4 mg Q6H PRN IVP Nausea & Vomiting 10/20/18 00:15 11/19/18 00:14 Polyethylene Glycol (Miralax) 17 gm BEDTIME ORAL 10/20/18 21:00 11/19/18 20:59 Temazepam (Restoril) 15 mg HSPRN PRN ORAL Insomnia 10/20/18 00:15 10/27/18 00:14 Objective Narrative Focused LLE: Bandage noted to L ankle, unable to fully assess. Pt refuses to remove dressing. Assessment/Plan Assessment/Plan A: DM- Depressive disorder L ankle OM and foot abscess confirmed on MRI P: - Pt seen and evaluated. - Chart reviewed. - Unable to assess L ankle or remove dressing, pt combative at bedside. - MRI reviewed confirms OM of multiple ankle and RF bones, based on this report would rec BKA of LLE if pt agrees. - No surgical intervention by podiatry. - Podiatry signing off. Juan Daniel Pete DPM Oct 26, 2018 09:41
--- NOTE | 2018-10-26 11:07 | General Progress Note ---
Assessment/Plan Problem List: (1) Diabetes mellitus ICD Codes: E11.9 - Type 2 diabetes mellitus without complications SNOMED: 49517593 (2) Anxiety disorder ICD Codes: F41.9 - Anxiety disorder, unspecified SNOMED: 440605457 (3) Osteomyelitis ICD Codes: M86.9 - Osteomyelitis, unspecified SNOMED: 37786053 (4) Sacral decubitus ulcer ICD Codes: L89.159 - Pressure ulcer of sacral region, unspecified stage SNOMED: 139287879 (5) Foot osteomyelitis, left ICD Codes: M86.9 - Osteomyelitis, unspecified SNOMED: 3970448714763654 Qualifiers: Qualified Codes: M86.8X7 - Other osteomyelitis, ankle and foot (6) MDD (major depressive disorder) ICD Codes: F32.9 - Major depressive disorder, single episode, unspecified SNOMED: 968004345 Status: progressing Assessment/Plan psych patient oseomylitis in different areas refuses care Subjective ROS Limited/Unobtainable: Yes Allergies: Coded Allergies: No Known Allergies (Unverified , 10/19/16) Subjective generalized pain Objective Last 24 Hour Vital Signs Date Time Temp Pulse Resp B/P (MAP) Pulse Ox O2 Delivery O2 Flow Rate FiO2 10/26/18 09:00 Room Air 10/26/18 08:00 98.0 80 18 130/88 (102) 97 10/26/18 04:00 97.7 75 18 129/65 (86) 94 10/26/18 00:00 98.3 82 18 147/72 (97) 95 10/25/18 21:00 Room Air 10/25/18 20:00 97.2 78 17 123/59 (80) 96 10/25/18 16:00 98.0 81 19 120/63 (82) 97 10/25/18 12:00 98.5 82 20 125/65 (85) 97 Intake and Output 10/25/18 10/26/18 19:00 07:00 Intake Total 350 ml Balance 350 ml Intake Oral 240 ml IV Total 110 ml # Voids 3 Height (Feet): 5 Height (Inches): 3.00 Weight (Pounds): 137 EENT: PERRL/EOMI Neck: supple Cardiovascular: normal rate Respiratory/Chest: lungs clear Reina Dorsey MD Oct 26, 2018 11:07
--- NOTE | 2018-10-26 11:25 | NUR ---
NURSE NOTES: PT AXOX4, CALM, RESTING IN BED. PT REFUSED TO TAKE PO MEDICATIONS SCHEDULED FOR 0900HRS. PT COMPLIANT WITH OTHER MEDS. IN NO APPARENT DISTRESS AT THIS TIME. PT REFUSED FOR DR GAMEZ TO OPEN DRESSING AND OBSERVE FOOT. WILL CONTINUE TO MONITOR.
--- NOTE | 2018-10-26 11:38 | Nephrology Progress Note ---
Assessment/Plan Problem List: (1) Hyponatremia (2) Diabetes mellitus (3) Foot osteomyelitis, left (4) Diabetic nephropathy (5) Anemia Assessment gets MS round the clock HypoNatremia due to hyperglycemia Anemia Low MCV Left foot Osteo Hyperglycemia UTI Proteinuria/ Diabetic nephropathy Plan no labs yet refuses care- transfusion, IV... BS control will raise serum Na anemia lee per ID per orders Subjective ROS Limited/Unobtainable: No Constitutional: Reports: malaise Objective Objective Last 24 Hour Vital Signs Date Time Temp Pulse Resp B/P (MAP) Pulse Ox O2 Delivery O2 Flow Rate FiO2 10/26/18 09:00 Room Air 10/26/18 08:00 98.0 80 18 130/88 (102) 97 10/26/18 04:00 97.7 75 18 129/65 (86) 94 10/26/18 00:00 98.3 82 18 147/72 (97) 95 10/25/18 21:00 Room Air 10/25/18 20:00 97.2 78 17 123/59 (80) 96 10/25/18 16:00 98.0 81 19 120/63 (82) 97 10/25/18 12:00 98.5 82 20 125/65 (85) 97 Intake and Output 10/25/18 10/26/18 19:00 07:00 Intake Total 350 ml Balance 350 ml Intake Oral 240 ml IV Total 110 ml # Voids 3 Height (Feet): 5 Height (Inches): 3.00 Weight (Pounds): 137 General Appearance: no apparent distress Objective no change Francisco Tapia MD Oct 26, 2018 11:38
[2018-10-26 12:00] VITALS: BP 132/69
--- NOTE | 2018-10-26 13:12 | Infectious Diseases Prog Note ---
Assessment/Plan Assessment/Plan A 1. left foot osteomyelitis 2. diabetes mellitus 3. leucocytosis resolved 4. Anemia 5. Major depression P 1, continue Cefepime 2. Patient refuses amputation Subjective ROS Limited/Unobtainable: Yes Allergies: Coded Allergies: No Known Allergies (Unverified , 10/19/16) Objective Vital Signs Last 24 Hour Vital Signs Date Time Temp Pulse Resp B/P (MAP) Pulse Ox O2 Delivery O2 Flow Rate FiO2 10/26/18 12:00 98.0 75 18 132/69 (90) 95 10/26/18 09:00 Room Air 10/26/18 08:00 98.0 80 18 130/88 (102) 97 10/26/18 04:00 97.7 75 18 129/65 (86) 94 10/26/18 00:00 98.3 82 18 147/72 (97) 95 10/25/18 21:00 Room Air 10/25/18 20:00 97.2 78 17 123/59 (80) 96 10/25/18 16:00 98.0 81 19 120/63 (82) 97 Height (Feet): 5 Height (Inches): 3.00 Weight (Pounds): 137 General Appearance: no acute distress HEENT: mucous membranes moist Respiratory/Chest: lungs clear Cardiovascular: normal rate Abdomen: soft, non tender Extremities: other - edema of left leg Skin: ulcers, other - left foot Neurologic/Psychiatric: other - sleeping Current Medications Medications (Trade) Dose Ordered Sig/Manda Route PRN Reason Start Time Stop Time Status Last Admin Dose Admin Acetaminophen (Tylenol) 650 mg Q4H PRN ORAL Mild Pain/Temp > 100.5 10/20/18 00:15 11/19/18 00:14 Acetaminophen/ Hydrocodone Bitart ([place] 10/325) 1 tab Q6HR PRN ORAL Severe Pain (Pain Scale 7-10) 10/20/18 04:00 10/27/18 00:14 Cefepime HCl 2 gm/ Dextrose 110 ml @ 220 mls/hr EVERY 12 HOURS IV 10/24/18 21:00 10/31/18 20:59 10/26/18 08:00 Chlorhexidine Gluconate (Kerri-Hex 2%) 1 applic DAILY@2000 TOPIC 10/24/18 20:00 11/23/18 19:59 10/25/18 20:53 Clonidine HCl (Catapres Tab) 0.1 mg Q4H PRN ORAL For High BP 160 syst and up 10/20/18 16:15 11/19/18 00:14 Dextrose (Dextrose 50%) 25 ml Q30M PRN IV Hypoglycemia 10/25/18 06:30 11/24/18 06:29 Dextrose (Dextrose 50%) 50 ml Q30M PRN IV Hypoglycemia 10/25/18 06:30 11/24/18 06:29 Famotidine (Pepcid) 20 mg BID ORAL 10/20/18 18:00 11/19/18 17:59 10/21/18 18:45 Fluoxetine HCl (PROzac) 20 mg DAILY ORAL 10/21/18 09:00 11/20/18 08:59 Folic Acid (Folate) 3 mg DAILY ORAL 10/21/18 09:00 11/20/18 08:59 10/21/18 09:01 Heparin Sodium (Porcine) (Heparin 5000 units/ml) 5,000 units EVERY 12 HOURS SUBQ 10/20/18 09:00 11/19/18 08:59 10/26/18 08:15 Insulin Aspart (NovoLOG) BEFORE MEALS AND HS SUBQ 10/20/18 06:30 11/19/18 06:29 10/26/18 12:08 Insulin Aspart (NovoLOG) 12 units NOVOTIAC SUBQ 10/20/18 06:30 11/19/18 06:29 10/26/18 12:08 Insulin Detemir (Levemir) 10 units BEDTIME SUBQ 10/25/18 21:00 11/24/18 20:59 10/25/18 21:09 Insulin Detemir (Levemir) 30 units DAILY SUBQ 10/26/18 09:00 11/19/18 20:59 10/26/18 09:38 Mirtazapine (Remeron) 7.5 mg BEDTIME ORAL 10/20/18 21:00 11/19/18 20:59 10/20/18 20:23 Morphine Sulfate (Morphine Sulfate) 2 mg Q4H PRN IVP Moderate Pain (Pain Scale 4-6) 10/20/18 04:00 10/27/18 03:59 10/26/18 12:06 Nitroglycerin (Ntg) 0.4 mg Q5M PRN SL Prn Chest Pain 10/20/18 00:15 11/19/18 00:14 Ondansetron HCl (Zofran) 4 mg Q6H PRN IVP Nausea & Vomiting 10/20/18 00:15 11/19/18 00:14 Polyethylene Glycol (Miralax) 17 gm BEDTIME ORAL 10/20/18 21:00 11/19/18 20:59 Temazepam (Restoril) 15 mg HSPRN PRN ORAL Insomnia 10/20/18 00:15 10/27/18 00:14 Anton Arambula MD Oct 26, 2018 13:12
--- NOTE | 2018-10-26 13:35 | General Progress Note ---
Assessment/Plan Problem List: (1) MDD (major depressive disorder) ICD Codes: F32.9 - Major depressive disorder, single episode, unspecified SNOMED: 484220132 (2) Anxiety disorder ICD Codes: F41.9 - Anxiety disorder, unspecified SNOMED: 505923420 Assessment/Plan Remeron 7.5mg po qhs Prozac 20mg po qam provided ro/st Subjective Neurologic/Psychiatric: Reports: anxiety, depressed Allergies: Coded Allergies: No Known Allergies (Unverified , 10/19/16) Subjective non compliant irritable and angry Objective Last 24 Hour Vital Signs Date Time Temp Pulse Resp B/P (MAP) Pulse Ox O2 Delivery O2 Flow Rate FiO2 10/26/18 12:00 98.0 75 18 132/69 (90) 95 10/26/18 09:00 Room Air 10/26/18 08:00 98.0 80 18 130/88 (102) 97 10/26/18 04:00 97.7 75 18 129/65 (86) 94 10/26/18 00:00 98.3 82 18 147/72 (97) 95 10/25/18 21:00 Room Air 10/25/18 20:00 97.2 78 17 123/59 (80) 96 10/25/18 16:00 98.0 81 19 120/63 (82) 97 Intake and Output 10/25/18 10/26/18 19:00 07:00 Intake Total 350 ml Balance 350 ml Intake Oral 240 ml IV Total 110 ml # Voids 3 Height (Feet): 5 Height (Inches): 3.00 Weight (Pounds): 137 Barry De La O MD Oct 26, 2018 13:35
[2018-10-26 16:30] VITALS: BP 116/53
--- NOTE | 2018-10-26 17:11 | Surgery Progress Note ---
Surgery Progress Note Subjective Additional Comments no acute events. Objective Last 24 Hour Vital Signs Date Time Temp Pulse Resp B/P (MAP) Pulse Ox O2 Delivery O2 Flow Rate FiO2 10/26/18 16:30 97.5 82 18 116/53 (74) 96 10/26/18 12:00 98.0 75 18 132/69 (90) 95 10/26/18 09:00 Room Air 10/26/18 08:00 98.0 80 18 130/88 (102) 97 10/26/18 04:00 97.7 75 18 129/65 (86) 94 10/26/18 00:00 98.3 82 18 147/72 (97) 95 10/25/18 21:00 Room Air 10/25/18 20:00 97.2 78 17 123/59 (80) 96 I&O Intake and Output 10/25/18 10/26/18 19:00 07:00 Intake Total 350 ml Balance 350 ml Intake Oral 240 ml IV Total 110 ml # Voids 3 Dressing: saturated Wound: other Drains: other Cardiovascular: RSR Respiratory: clear Abdomen: soft, non-tender, non-distended Extremities: other Plan Problems: (1) Foot osteomyelitis, left Assessment & Plan: Left foot osteo acute/chronic seen by podiatry prior and deemed not salvageable recommended to have left BKA patient refused surgery still refuses surgery and majority of care except pain medication appreciate vascular input pending results of CTA/Duplex Abx for 6 weeks, defer to ID MRI findings discussed with patient clear results were discussed with feedback loop to ensure she understands. patient expressed understanding and was very clear that surgery or amputation was an absolute no. states that "she would rather diet with both legs and feet than live with out one of them". d/c planning thank you (2) Sacral decubitus ulcer (3) Osteomyelitis Assessment & Plan: Abnormal T1 and STIR signal, presumably representing osteomyelitis, involving all of the bones of the midfoot as well as portions of the talus, calcaneus, distal tibia and distal fibula Extensive soft tissue edema, likely cellulitis given the above findings as stated clinical history Multiple midfoot fluid collections, presumed abscesses, also detailed in separate forefoot report. Additional small probable abscesses are seen in the lateral soft tissues inferior to the lateral malleolus (4) Rash and other nonspecific skin eruption Saqib Ndiaye Oct 26, 2018 17:11
--- NOTE | 2018-10-26 18:00 | NUR ---
NURSE NOTES: PT AGREED TO HAVE LEFT FOOT DRESSING CHANGED. REFUSED LEFT ISCHIUM DRESSING CHANGE. RN EDUCATED ON RISKS AND BENEFITS. PT CONTINUED TO REFUSE.
--- NOTE | 2018-10-26 19:32 | NUR ---
HAND-OFF: Report given to Sunita JONES RN.
--- NOTE | 2018-10-26 19:33 | NUR ---
NURSE NOTES: Received patient in no apparent distress. A&OX4. PICC line noted on left upper arm, patent and intact. Dressing on left foot noted, dry and intact. Bed in lowest position. Call light within reach. Will continue to monitor.
[2018-10-26 20:00] VITALS: BP 103/52
[2018-10-26] MEDS: Dyna-Hex 2% Top Sol 2oz TOPIC SCH (20:25)
[2018-10-26] MEDS: Miralax 17gm pkt ORAL SCH (20:39)
--- NOTE | 2018-10-26 21:01 | NUR ---
CASE MANAGEMENT: REVIEW 10/26/2018 SI: OSTEOMYELITIS T 97.5 HR 82 RR 18 B/P 116/53 SATS 96% ON RA NO LABS TODAY IS: CEFEPIME IV Q12H LEVEMIR SUBQ QHS PEPCID PO BID MED/SURG STATUS DCP: PATIENT REPORTS BEING HOMELESS PLAN: WOUND CULTURE
--- NOTE | 2018-10-26 21:06 | Cardiology Progress Note ---
Assessment/Plan Assessment/Plan 1. Sinus tachycardia, agitation, likely due to hypovolemia, keep hydrated, electrolyte replacement. 2. Moderate pulmonary HTN 3. Left foot osteomyelitis, left BKA has been recommended, refusing surgery. Clear for the surgery if planned. Subjective Subjective No cardiac events reported. In non-tele bed. Objective Last 24 Hour Vital Signs Date Time Temp Pulse Resp B/P (MAP) Pulse Ox O2 Delivery O2 Flow Rate FiO2 10/26/18 16:30 97.5 82 18 116/53 (74) 96 10/26/18 12:00 98.0 75 18 132/69 (90) 95 10/26/18 09:00 Room Air 10/26/18 08:00 98.0 80 18 130/88 (102) 97 10/26/18 04:00 97.7 75 18 129/65 (86) 94 10/26/18 00:00 98.3 82 18 147/72 (97) 95 Intake and Output 10/25/18 10/26/18 19:00 07:00 Intake Total 350 ml Balance 350 ml Intake Oral 240 ml IV Total 110 ml # Voids 3 2D Echo: LVEF 60%, Mild LVH, RVSP 50 mmHg, Grade I LVDD Objective HEENT: normocephalic, atraumatic, bilateral eye PERRL, bilateral eye EOMI, moist mucus membranes Neck: no JVD, no carotid bruit. Respiratory: normal inspection, lungs clear, normal breath sounds, no respiratory distress, no retraction, no wheezing, speaking full sentences, chest symmetrical Cardiovascular: normal inspection, regular rate, rhythm, no edema, no murmurs, gallops or rubs. Gastrointestinal: normal inspection, non tender, soft, non-distended, no guarding Musculoskeletal: Left foot edematous, ulceration around the first metatarsal, edema, tender to palpation Sal Edge MD Oct 26, 2018 21:06
--- NOTE | 2018-10-26 22:53 | NUR ---
NURSE NOTES: Patient refused dressing change left foot. Patient says "dressing was changed today before change the shift, i don't wanna do it".
[2018-10-27] VITALS: BP 118/63
[2018-10-27] MEDS: Morphine Sulfate 2mg/ml Inj(IV/IM USE ONLY) IVP PRN ×6 (00:51→23:09)
[2018-10-27 04:00] VITALS: BP 115/50
[2018-10-27] MEDS: NovoLOG Insulin Flexpen SUBQ SCH ×7 (06:10→21:00)
--- NOTE | 2018-10-27 06:55 | General Progress Note ---
Assessment/Plan Problem List: (1) Diabetes mellitus ICD Codes: E11.9 - Type 2 diabetes mellitus without complications SNOMED: 51894478 (2) Rash and other nonspecific skin eruption ICD Codes: R21 - Rash and other nonspecific skin eruption SNOMED: 337403640, 470043031 (3) Foot osteomyelitis, left ICD Codes: M86.9 - Osteomyelitis, unspecified SNOMED: 4927518075128835 Qualifiers: Qualified Codes: M86.8X7 - Other osteomyelitis, ankle and foot (4) MDD (major depressive disorder) ICD Codes: F32.9 - Major depressive disorder, single episode, unspecified SNOMED: 813041704 Assessment/Plan continue Levemir 30 units qam and 10 units qhs reduce Novolog to 9 units ac tid continue NISS ac / hs Subjective Allergies: Coded Allergies: No Known Allergies (Unverified , 10/19/16) All Systems: reviewed and negative except above Subjective events noted glycemic control improved Item Value Date Time Bedside Blood Glucose 129 mg/dl H 10/27/18 0630 Bedside Blood Glucose 231 mg/dl H 10/26/18 2030 Bedside Blood Glucose 78 mg/dl 10/26/18 1710 Bedside Blood Glucose 323 mg/dl H 10/26/18 1208 Bedside Blood Glucose 286 mg/dl H 10/26/18 0938 Objective Last 24 Hour Vital Signs Date Time Temp Pulse Resp B/P (MAP) Pulse Ox O2 Delivery O2 Flow Rate FiO2 10/27/18 04:00 97.3 77 20 115/50 (71) 97 10/27/18 00:00 97.0 77 20 118/63 (81) 96 10/26/18 21:00 Room Air 10/26/18 20:00 98.4 78 18 103/52 (69) 97 10/26/18 16:30 97.5 82 18 116/53 (74) 96 10/26/18 12:00 98.0 75 18 132/69 (90) 95 10/26/18 09:00 Room Air 10/26/18 08:00 98.0 80 18 130/88 (102) 97 Intake and Output 10/26/18 10/27/18 19:00 07:00 Intake Total 710 ml 110 ml Balance 710 ml 110 ml Intake Oral 600 ml IV Total 110 ml 110 ml # Voids 4 4 Height (Feet): 5 Height (Inches): 3.00 Weight (Pounds): 137 General Appearance: no apparent distress Neck: normal alignment Cardiovascular: normal rate Respiratory/Chest: normal breath sounds Abdomen: normal bowel sounds Objective Current Medications Medications (Trade) Dose Ordered Sig/Manda Route PRN Reason Start Time Stop Time Status Last Admin Dose Admin Acetaminophen (Tylenol) 650 mg Q4H PRN ORAL Mild Pain/Temp > 100.5 10/20/18 00:15 11/19/18 00:14 Cefepime HCl 2 gm/ Dextrose 110 ml @ 220 mls/hr EVERY 12 HOURS IV 10/24/18 21:00 10/31/18 20:59 10/26/18 21:32 Chlorhexidine Gluconate (Kerri-Hex 2%) 1 applic DAILY@2000 TOPIC 10/24/18 20:00 11/23/18 19:59 10/26/18 20:25 Clonidine HCl (Catapres Tab) 0.1 mg Q4H PRN ORAL For High BP 160 syst and up 10/20/18 16:15 11/19/18 00:14 Dextrose (Dextrose 50%) 25 ml Q30M PRN IV Hypoglycemia 10/25/18 06:30 11/24/18 06:29 Dextrose (Dextrose 50%) 50 ml Q30M PRN IV Hypoglycemia 10/25/18 06:30 11/24/18 06:29 Famotidine (Pepcid) 20 mg BID ORAL 10/20/18 18:00 11/19/18 17:59 10/21/18 18:45 Fluoxetine HCl (PROzac) 20 mg DAILY ORAL 10/21/18 09:00 11/20/18 08:59 Folic Acid (Folate) 3 mg DAILY ORAL 10/21/18 09:00 11/20/18 08:59 10/21/18 09:01 Heparin Sodium (Porcine) (Heparin 5000 units/ml) 5,000 units EVERY 12 HOURS SUBQ 10/20/18 09:00 11/19/18 08:59 10/26/18 20:31 Insulin Aspart (NovoLOG) BEFORE MEALS AND HS SUBQ 10/20/18 06:30 11/19/18 06:29 10/27/18 06:10 Insulin Aspart (NovoLOG) 12 units NOVOTIAC SUBQ 10/20/18 06:30 11/19/18 06:29 10/27/18 06:10 Insulin Detemir (Levemir) 10 units BEDTIME SUBQ 10/25/18 21:00 11/24/18 20:59 10/26/18 20:30 Insulin Detemir (Levemir) 30 units DAILY SUBQ 10/26/18 09:00 11/19/18 20:59 10/26/18 09:38 Mirtazapine (Remeron) 7.5 mg BEDTIME ORAL 10/20/18 21:00 11/19/18 20:59 10/20/18 20:23 Morphine Sulfate (Morphine Sulfate) 2 mg Q4H PRN IVP For Pain 10/27/18 06:00 11/03/18 05:59 10/27/18 06:13 Nitroglycerin (Ntg) 0.4 mg Q5M PRN SL Prn Chest Pain 10/20/18 00:15 11/19/18 00:14 Ondansetron HCl (Zofran) 4 mg Q6H PRN IVP Nausea & Vomiting 10/20/18 00:15 11/19/18 00:14 Polyethylene Glycol (Miralax) 17 gm BEDTIME ORAL 10/20/18 21:00 11/19/18 20:59 Brendan Johnson MD Oct 27, 2018 06:55
--- NOTE | 2018-10-27 07:26 | NUR ---
HAND-OFF: Report given to Lashay APARICIO.
[2018-10-27 08:00] VITALS: BP 127/83
--- NOTE | 2018-10-27 08:00 | NUR ---
NURSE NOTES: Received patient in bed, resting and alert X4. No signs of respiratory distress, patient in room air. PICC line intact, ports patent. Bed in lowest position, call light within reach. Will continue to monitor.
[2018-10-27] MEDS: Cefepime 2gm/D5W 110ml IV SCH ×4 (10:01→21:38)
[2018-10-27] MEDS: Heparin 5000 units/ml inj SUBQ SCH ×2 (10:04→21:40)
[2018-10-27] MEDS: Levemir Flexpen SUBQ SCH ×2 (10:05→21:00)
[2018-10-27 12:00] VITALS: BP 158/70
--- NOTE | 2018-10-27 12:11 | Infectious Diseases Prog Note ---
Assessment/Plan Assessment/Plan A 1. left foot osteomyelitis 2. diabetes mellitus 3. leucocytosis resolved 4. Anemia 5. Major depression 6. Candidal vaginitis P 1, continue Cefepime 2. add Fluconazole Subjective ROS Limited/Unobtainable: No Respiratory: Reports: no symptoms Gastrointestinal/Abdominal: Reports: no symptoms Genitourinary: Reports: other - yeast infection Musculoskeletal: Reports: pain Allergies: Coded Allergies: No Known Allergies (Unverified , 10/19/16) Objective Vital Signs Last 24 Hour Vital Signs Date Time Temp Pulse Resp B/P (MAP) Pulse Ox O2 Delivery O2 Flow Rate FiO2 10/27/18 08:00 98.1 67 19 127/83 (98) 97 10/27/18 04:00 97.3 77 20 115/50 (71) 97 10/27/18 00:00 97.0 77 20 118/63 (81) 96 10/26/18 21:00 Room Air 10/26/18 20:00 98.4 78 18 103/52 (69) 97 10/26/18 16:30 97.5 82 18 116/53 (74) 96 Height (Feet): 5 Height (Inches): 3.00 Weight (Pounds): 137 HEENT: mucous membranes moist Respiratory/Chest: lungs clear Cardiovascular: normal rate Abdomen: soft, non tender Extremities: other - left pedal edema Skin: ulcers Neurologic/Psychiatric: alert, responsive Current Medications Medications (Trade) Dose Ordered Sig/Manda Route PRN Reason Start Time Stop Time Status Last Admin Dose Admin Acetaminophen (Tylenol) 650 mg Q4H PRN ORAL Mild Pain/Temp > 100.5 10/20/18 00:15 11/19/18 00:14 Cefepime HCl 2 gm/ Dextrose 110 ml @ 220 mls/hr EVERY 12 HOURS IV 10/24/18 21:00 10/31/18 20:59 10/27/18 10:01 Chlorhexidine Gluconate (Kerri-Hex 2%) 1 applic DAILY@1999 TOPIC 10/24/18 20:00 11/23/18 19:59 10/26/18 20:25 Clonidine HCl (Catapres Tab) 0.1 mg Q4H PRN ORAL For High BP 160 syst and up 10/20/18 16:15 11/19/18 00:14 Dextrose (Dextrose 50%) 25 ml Q30M PRN IV Hypoglycemia 10/25/18 06:30 11/24/18 06:29 Dextrose (Dextrose 50%) 50 ml Q30M PRN IV Hypoglycemia 10/25/18 06:30 11/24/18 06:29 Famotidine (Pepcid) 20 mg BID ORAL 10/20/18 18:00 11/19/18 17:59 10/27/18 10:01 Fluoxetine HCl (PROzac) 20 mg DAILY ORAL 10/21/18 09:00 11/20/18 08:59 Folic Acid (Folate) 3 mg DAILY ORAL 10/21/18 09:00 11/20/18 08:59 10/27/18 10:01 Heparin Sodium (Porcine) (Heparin 5000 units/ml) 5,000 units EVERY 12 HOURS SUBQ 10/20/18 09:00 11/19/18 08:59 10/27/18 10:04 Insulin Aspart (NovoLOG) BEFORE MEALS AND HS SUBQ 10/20/18 06:30 11/19/18 06:29 10/27/18 06:10 Insulin Aspart (NovoLOG) 9 units NOVOTIAC SUBQ 10/27/18 11:50 11/19/18 06:29 Insulin Detemir (Levemir) 10 units BEDTIME SUBQ 10/25/18 21:00 11/24/18 20:59 10/26/18 20:30 Insulin Detemir (Levemir) 30 units DAILY SUBQ 10/26/18 09:00 11/19/18 20:59 10/27/18 10:05 Mirtazapine (Remeron) 7.5 mg BEDTIME ORAL 10/20/18 21:00 11/19/18 20:59 10/20/18 20:23 Morphine Sulfate (Morphine Sulfate) 2 mg Q4H PRN IVP For Pain 10/27/18 06:00 11/03/18 05:59 10/27/18 10:16 Nitroglycerin (Ntg) 0.4 mg Q5M PRN SL Prn Chest Pain 10/20/18 00:15 11/19/18 00:14 Ondansetron HCl (Zofran) 4 mg Q6H PRN IVP Nausea & Vomiting 10/20/18 00:15 11/19/18 00:14 Polyethylene Glycol (Miralax) 17 gm BEDTIME ORAL 10/20/18 21:00 11/19/18 20:59 Anton Arambula MD Oct 27, 2018 12:11
--- NOTE | 2018-10-27 12:22 | General Progress Note ---
Assessment/Plan Problem List: (1) Diabetes mellitus ICD Codes: E11.9 - Type 2 diabetes mellitus without complications SNOMED: 04819474 (2) Anxiety disorder ICD Codes: F41.9 - Anxiety disorder, unspecified SNOMED: 563833418 (3) Osteomyelitis ICD Codes: M86.9 - Osteomyelitis, unspecified SNOMED: 75888936 (4) Sacral decubitus ulcer ICD Codes: L89.159 - Pressure ulcer of sacral region, unspecified stage SNOMED: 705972221 (5) Foot osteomyelitis, left ICD Codes: M86.9 - Osteomyelitis, unspecified SNOMED: 1944741424338192 Qualifiers: Qualified Codes: M86.8X7 - Other osteomyelitis, ankle and foot (6) MDD (major depressive disorder) ICD Codes: F32.9 - Major depressive disorder, single episode, unspecified SNOMED: 351292567 Status: progressing Assessment/Plan psych patient oseomylitis in different areas refuses care no fever reviewed chart and labs Subjective ROS Limited/Unobtainable: Yes Allergies: Coded Allergies: No Known Allergies (Unverified , 10/19/16) Subjective generalized pain Objective Last 24 Hour Vital Signs Date Time Temp Pulse Resp B/P (MAP) Pulse Ox O2 Delivery O2 Flow Rate FiO2 10/27/18 08:00 98.1 67 19 127/83 (98) 97 10/27/18 04:00 97.3 77 20 115/50 (71) 97 10/27/18 00:00 97.0 77 20 118/63 (81) 96 10/26/18 21:00 Room Air 10/26/18 20:00 98.4 78 18 103/52 (69) 97 10/26/18 16:30 97.5 82 18 116/53 (74) 96 Intake and Output 10/26/18 10/27/18 18:59 06:59 Intake Total 710 ml 110 ml Balance 710 ml 110 ml Intake Oral 600 ml IV Total 110 ml 110 ml # Voids 4 4 Height (Feet): 5 Height (Inches): 3.00 Weight (Pounds): 137 Cardiovascular: normal rate Respiratory/Chest: lungs clear Abdomen: soft Reina Dorsey MD Oct 27, 2018 12:22
[2018-10-27] MEDS: Fluconazole 100mg tab ORAL SCH (12:41)
--- NOTE | 2018-10-27 14:30 | NUR ---
NURSE NOTES: Notified Dr. Dorsey that patient requesting diet order to be changed; patient requesting regular diet. Explained to patient she is on CCHO low. Dr. Dorsey declined to change diet. Will continue to monitor.
--- NOTE | 2018-10-27 14:35 | Surgery Progress Note ---
Surgery Progress Note Subjective Additional Comments no acute events. stable. Objective Last 24 Hour Vital Signs Date Time Temp Pulse Resp B/P (MAP) Pulse Ox O2 Delivery O2 Flow Rate FiO2 10/27/18 12:00 97.5 76 18 158/70 (99) 97 10/27/18 09:00 Room Air 10/27/18 08:00 98.1 67 19 127/83 (98) 97 10/27/18 04:00 97.3 77 20 115/50 (71) 97 10/27/18 00:00 97.0 77 20 118/63 (81) 96 10/26/18 21:00 Room Air 10/26/18 20:00 98.4 78 18 103/52 (69) 97 10/26/18 16:30 97.5 82 18 116/53 (74) 96 I&O Intake and Output 10/26/18 10/27/18 19:00 07:00 Intake Total 710 ml 110 ml Balance 710 ml 110 ml Intake Oral 600 ml IV Total 110 ml 110 ml # Voids 4 4 Dressing: other Wound: other Drains: other Cardiovascular: RSR Respiratory: clear Abdomen: soft, flat, present bowel sounds, non-distended Extremities: other Plan Problems: (1) Foot osteomyelitis, left Assessment & Plan: Left foot osteo acute/chronic seen by podiatry prior and deemed not salvageable recommended to have left BKA patient refused surgery still refuses surgery and majority of care except pain medication appreciate vascular input pending results of CTA/Duplex Abx for 6 weeks, defer to ID MRI findings discussed with patient clear results were discussed with feedback loop to ensure she understands. patient expressed understanding and was very clear that surgery or amputation was an absolute no. states that "she would rather diet with both legs and feet than live with out one of them". d/c planning thank you (2) Sacral decubitus ulcer (3) Osteomyelitis Assessment & Plan: Abnormal T1 and STIR signal, presumably representing osteomyelitis, involving all of the bones of the midfoot as well as portions of the talus, calcaneus, distal tibia and distal fibula Extensive soft tissue edema, likely cellulitis given the above findings as stated clinical history Multiple midfoot fluid collections, presumed abscesses, also detailed in separate forefoot report. Additional small probable abscesses are seen in the lateral soft tissues inferior to the lateral malleolus (4) Rash and other nonspecific skin eruption Saqib Ndiaye Oct 27, 2018 14:35
[2018-10-27 16:00] VITALS: BP 121/61
--- NOTE | 2018-10-27 18:18 | Nephrology Progress Note ---
Assessment/Plan Problem List: (1) Hyponatremia (2) Diabetes mellitus (3) Foot osteomyelitis, left (4) Diabetic nephropathy (5) Anemia Assessment gets MS round the clock HypoNatremia due to hyperglycemia Anemia Low MCV Left foot Osteo Hyperglycemia UTI Proteinuria/ Diabetic nephropathy Plan no labs yet refuses care- transfusion, IV... BS control will raise serum Na anemia lee per ID per orders Subjective ROS Limited/Unobtainable: No Constitutional: Reports: malaise Objective Objective Last 24 Hour Vital Signs Date Time Temp Pulse Resp B/P (MAP) Pulse Ox O2 Delivery O2 Flow Rate FiO2 10/27/18 16:00 97.4 71 18 121/61 (81) 97 10/27/18 12:00 97.5 76 18 158/70 (99) 97 10/27/18 09:00 Room Air 10/27/18 08:00 98.1 67 19 127/83 (98) 97 10/27/18 04:00 97.3 77 20 115/50 (71) 97 10/27/18 00:00 97.0 77 20 118/63 (81) 96 10/26/18 21:00 Room Air 10/26/18 20:00 98.4 78 18 103/52 (69) 97 Intake and Output 10/26/18 10/27/18 19:00 07:00 Intake Total 710 ml 110 ml Balance 710 ml 110 ml Intake Oral 600 ml IV Total 110 ml 110 ml # Voids 4 4 Height (Feet): 5 Height (Inches): 3.00 Weight (Pounds): 137 General Appearance: no apparent distress Objective no change Francisco Tapia MD Oct 27, 2018 18:18
--- NOTE | 2018-10-27 18:27 | Cardiology Progress Note ---
Assessment/Plan Assessment/Plan 1. Sinus tachycardia, agitation, likely due to hypovolemia, keep hydrated, electrolyte replacement. 2. Moderate pulmonary HTN 3. Left foot osteomyelitis, left BKA has been recommended, refusing surgery. Subjective Subjective No cardiac events reported. Objective Last 24 Hour Vital Signs Date Time Temp Pulse Resp B/P (MAP) Pulse Ox O2 Delivery O2 Flow Rate FiO2 10/27/18 16:00 97.4 71 18 121/61 (81) 97 10/27/18 12:00 97.5 76 18 158/70 (99) 97 10/27/18 09:00 Room Air 10/27/18 08:00 98.1 67 19 127/83 (98) 97 10/27/18 04:00 97.3 77 20 115/50 (71) 97 10/27/18 00:00 97.0 77 20 118/63 (81) 96 10/26/18 21:00 Room Air 10/26/18 20:00 98.4 78 18 103/52 (69) 97 Intake and Output 10/26/18 10/27/18 18:59 06:59 Intake Total 710 ml 110 ml Balance 710 ml 110 ml Intake Oral 600 ml IV Total 110 ml 110 ml # Voids 4 4 2D Echo: LVEF 60%, Mild LVH, RVSP 50 mmHg, Grade I LVDD Microbiology Date/Time Source Procedure Growth Status 10/26/18 18:40 Foot Left Gram Stain - Final Resulted 10/26/18 18:40 Foot Left Wound Culture Pending Resulted Objective HEENT: normocephalic, atraumatic, bilateral eye PERRL, bilateral eye EOMI, moist mucus membranes Neck: no JVD, no carotid bruit. Respiratory: normal inspection, lungs clear, normal breath sounds, no respiratory distress, no retraction, no wheezing, speaking full sentences, chest symmetrical Cardiovascular: normal inspection, regular rate, rhythm, no edema, no murmurs, gallops or rubs. Gastrointestinal: normal inspection, non tender, soft, non-distended, no guarding Musculoskeletal: Left foot edematous, ulceration around the first metatarsal, edema, tender to palpation Sal Edge MD Oct 27, 2018 18:27
--- NOTE | 2018-10-27 19:30 | NUR ---
HAND-OFF: Report given to MARKUS Voss.
--- NOTE | 2018-10-27 19:31 | NUR ---
NURSE NOTES: Received patient in no apparent distress. A&OX4. PICC line on left upper arm, patent and intact. Dressing on left foot, dry and intact. Bed in lowest position. Call light within reach. Will continue to monitor.
[2018-10-27 20:00] VITALS: BP 121/67
--- NOTE | 2018-10-27 20:19 | General Progress Note ---
Assessment/Plan Problem List: (1) MDD (major depressive disorder) ICD Codes: F32.9 - Major depressive disorder, single episode, unspecified SNOMED: 477529184 (2) Anxiety disorder ICD Codes: F41.9 - Anxiety disorder, unspecified SNOMED: 119735534 Assessment/Plan Remeron 7.5mg po qhs Prozac 20mg po qam provided ro/st Subjective Neurologic/Psychiatric: Reports: anxiety, depressed, emotional problems Allergies: Coded Allergies: No Known Allergies (Unverified , 10/19/16) Subjective non compliant irritable and angry Objective Last 24 Hour Vital Signs Date Time Temp Pulse Resp B/P (MAP) Pulse Ox O2 Delivery O2 Flow Rate FiO2 10/27/18 16:00 97.4 71 18 121/61 (81) 97 10/27/18 12:00 97.5 76 18 158/70 (99) 97 10/27/18 09:00 Room Air 10/27/18 08:00 98.1 67 19 127/83 (98) 97 10/27/18 04:00 97.3 77 20 115/50 (71) 97 10/27/18 00:00 97.0 77 20 118/63 (81) 96 10/26/18 21:00 Room Air Intake and Output 10/26/18 10/27/18 19:00 07:00 Intake Total 710 ml 110 ml Balance 710 ml 110 ml Intake Oral 600 ml IV Total 110 ml 110 ml # Voids 4 4 Height (Feet): 5 Height (Inches): 3.00 Weight (Pounds): 137 General Appearance: no apparent distress, alert Barry De La O MD Oct 27, 2018 20:19
[2018-10-27] MEDS: Miralax 17gm pkt ORAL SCH (21:00)
[2018-10-27] MEDS: Dyna-Hex 2% Top Sol 2oz TOPIC SCH (21:38)
--- NOTE | 2018-10-27 23:53 | NUR ---
NURSE NOTES: Dressing changed on left foot but refused to change buttocks area. Patient says " I'm ok".
[2018-10-28] VITALS: BP 133/63
[2018-10-28] MEDS: Morphine Sulfate 2mg/ml Inj(IV/IM USE ONLY) IVP PRN ×5 (03:38→21:26)
[2018-10-28 04:00] VITALS: BP 124/84
[2018-10-28] MEDS: NovoLOG Insulin Flexpen SUBQ SCH ×7 (06:11→21:04)
--- NOTE | 2018-10-28 07:14 | NUR ---
HAND-OFF: Report given to Karma APARICIO.
--- NOTE | 2018-10-28 07:25 | NUR ---
NURSE NOTES: Received patient in bed, patient awake, alert oriented x4,no sign respiratory distress. PICC line on left upper arm, patent and intact. c/o pain prn pain meds will be given as ordered, Dressing on left foot, dry and intact. Bed in lowest position. Call light within reach. Will continue to monitor. canelo hunt
[2018-10-28 08:00] VITALS: BP 126/62
[2018-10-28] MEDS: Levemir Flexpen SUBQ SCH ×3 (08:09→21:14)
[2018-10-28] MEDS: Fluconazole 100mg tab ORAL SCH (08:11)
[2018-10-28] MEDS: Cefepime 2gm/D5W 110ml IV SCH ×4 (08:11→20:58)
[2018-10-28] MEDS: Heparin 5000 units/ml inj SUBQ SCH ×2 (08:16→20:59)
--- NOTE | 2018-10-28 08:20 | General Progress Note ---
Assessment/Plan Problem List: (1) Diabetes mellitus ICD Codes: E11.9 - Type 2 diabetes mellitus without complications SNOMED: 09890790 (2) Rash and other nonspecific skin eruption ICD Codes: R21 - Rash and other nonspecific skin eruption SNOMED: 838732476, 568121654 (3) Foot osteomyelitis, left ICD Codes: M86.9 - Osteomyelitis, unspecified SNOMED: 8897659494692938 Qualifiers: Qualified Codes: M86.8X7 - Other osteomyelitis, ankle and foot (4) MDD (major depressive disorder) ICD Codes: F32.9 - Major depressive disorder, single episode, unspecified SNOMED: 246521581 Assessment/Plan continue Levemir 30 units qam and 10 units qhs reduce Novolog to 9 units ac tid continue NISS ac / hs Subjective Allergies: Coded Allergies: No Known Allergies (Unverified , 10/19/16) All Systems: reviewed and negative except above Subjective events noted glycemic control improved Item Value Date Time Bedside Blood Glucose 137 mg/dl H 10/28/18 0809 Bedside Blood Glucose 137 mg/dl H 10/28/18 0630 Bedside Blood Glucose 108 mg/dl 10/27/18 2100 Bedside Blood Glucose 92 mg/dl 10/27/18 1731 Bedside Blood Glucose 167 mg/dl H 10/27/18 1243 Objective Last 24 Hour Vital Signs Date Time Temp Pulse Resp B/P (MAP) Pulse Ox O2 Delivery O2 Flow Rate FiO2 10/28/18 04:00 97.8 78 19 124/84 (97) 97 10/28/18 00:00 98.1 81 18 133/63 (86) 96 10/27/18 21:00 Room Air 10/27/18 20:00 97.6 89 18 121/67 (85) 98 10/27/18 16:00 97.4 71 18 121/61 (81) 97 10/27/18 12:00 97.5 76 18 158/70 (99) 97 10/27/18 09:00 Room Air Intake and Output 10/27/18 10/28/18 19:00 07:00 Intake Total 800 ml 590 ml Balance 800 ml 590 ml Intake Oral 480 ml IV Total 110 ml Other 800 ml # Voids 3 3 Height (Feet): 5 Height (Inches): 3.00 Weight (Pounds): 137 General Appearance: no apparent distress Neck: normal alignment Cardiovascular: normal rate Respiratory/Chest: lungs clear Objective Current Medications Medications (Trade) Dose Ordered Sig/Manda Route PRN Reason Start Time Stop Time Status Last Admin Dose Admin Acetaminophen (Tylenol) 650 mg Q4H PRN ORAL Mild Pain/Temp > 100.5 10/20/18 00:15 11/19/18 00:14 Cefepime HCl 2 gm/ Dextrose 110 ml @ 220 mls/hr EVERY 12 HOURS IV 10/24/18 21:00 10/31/18 20:59 10/28/18 08:11 Chlorhexidine Gluconate (Kerri-Hex 2%) 1 applic DAILY@2000 TOPIC 10/24/18 20:00 11/23/18 19:59 10/27/18 21:38 Clonidine HCl (Catapres Tab) 0.1 mg Q4H PRN ORAL For High BP 160 syst and up 10/20/18 16:15 11/19/18 00:14 Dextrose (Dextrose 50%) 25 ml Q30M PRN IV Hypoglycemia 10/25/18 06:30 11/24/18 06:29 Dextrose (Dextrose 50%) 50 ml Q30M PRN IV Hypoglycemia 10/25/18 06:30 11/24/18 06:29 Famotidine (Pepcid) 20 mg BID ORAL 10/20/18 18:00 11/19/18 17:59 10/27/18 10:01 Fluconazole (Diflucan) 100 mg DAILY ORAL 10/27/18 12:15 11/03/18 12:14 10/28/18 08:11 Fluoxetine HCl (PROzac) 20 mg DAILY ORAL 10/21/18 09:00 11/20/18 08:59 Folic Acid (Folate) 3 mg DAILY ORAL 10/21/18 09:00 11/20/18 08:59 10/27/18 10:01 Heparin Sodium (Porcine) (Heparin 5000 units/ml) 5,000 units EVERY 12 HOURS SUBQ 10/20/18 09:00 11/19/18 08:59 10/28/18 08:16 Insulin Aspart (NovoLOG) BEFORE MEALS AND HS SUBQ 10/20/18 06:30 11/19/18 06:29 10/28/18 06:11 Insulin Aspart (NovoLOG) 9 units NOVOTIAC SUBQ 10/27/18 11:50 11/19/18 06:29 10/28/18 06:12 Insulin Detemir (Levemir) 10 units BEDTIME SUBQ 10/25/18 21:00 11/24/18 20:59 10/27/18 21:00 Insulin Detemir (Levemir) 30 units DAILY SUBQ 10/26/18 09:00 11/19/18 20:59 10/27/18 10:05 Mirtazapine (Remeron) 7.5 mg BEDTIME ORAL 10/20/18 21:00 11/19/18 20:59 10/20/18 20:23 Morphine Sulfate (Morphine Sulfate) 2 mg Q4H PRN IVP For Pain 10/27/18 06:00 11/03/18 05:59 10/28/18 08:16 Nitroglycerin (Ntg) 0.4 mg Q5M PRN SL Prn Chest Pain 10/20/18 00:15 11/19/18 00:14 Ondansetron HCl (Zofran) 4 mg Q6H PRN IVP Nausea & Vomiting 10/20/18 00:15 11/19/18 00:14 Polyethylene Glycol (Miralax) 17 gm BEDTIME ORAL 10/20/18 21:00 11/19/18 20:59 Brendan Johnson MD Oct 28, 2018 08:20
[2018-10-28 12:00] VITALS: BP 119/62
--- NOTE | 2018-10-28 12:40 | NUR ---
nurse notes patient very non compliant refused for novolog and some morning medication canelo hunt
--- NOTE | 2018-10-28 13:56 | Nephrology Progress Note ---
Assessment/Plan Problem List: (1) Hyponatremia (2) Diabetes mellitus (3) Foot osteomyelitis, left (4) Diabetic nephropathy (5) Anemia Assessment gets MS round the clock HypoNatremia due to hyperglycemia Anemia Low MCV Left foot Osteo Hyperglycemia UTI Proteinuria/ Diabetic nephropathy Plan no labs yet refuses care- transfusion, IV... BS control will raise serum Na anemia lee per ID per orders Subjective ROS Limited/Unobtainable: No Objective Objective Last 24 Hour Vital Signs Date Time Temp Pulse Resp B/P (MAP) Pulse Ox O2 Delivery O2 Flow Rate FiO2 10/28/18 08:00 Room Air 10/28/18 08:00 97.6 89 16 126/62 (83) 97 10/28/18 04:00 97.8 78 19 124/84 (97) 97 10/28/18 00:00 98.1 81 18 133/63 (86) 96 10/27/18 21:00 Room Air 10/27/18 20:00 97.6 89 18 121/67 (85) 98 10/27/18 16:00 97.4 71 18 121/61 (81) 97 Intake and Output 10/27/18 10/28/18 18:59 06:59 Intake Total 800 ml 590 ml Balance 800 ml 590 ml Intake Oral 480 ml IV Total 110 ml Other 800 ml # Voids 3 3 Height (Feet): 5 Height (Inches): 3.00 Weight (Pounds): 137 General Appearance: no apparent distress Objective no change Francisco Tapia MD Oct 28, 2018 13:56
--- NOTE | 2018-10-28 14:33 | NUR ---
CASE MANAGEMENT: REVIEW 10/28/2018 SI: OSTEOMYELITIS T 97.6 HR 85 RR 17 B/P 119/62 SATS 97% ON RA NO LABS TODAY IS: CEFEPIME IV Q12H LEVEMIR SUBQ QHS PEPCID PO BID MED/SURG STATUS DCP: PATIENT REPORTS BEING HOMELESS PLAN: WOUND CULTURE
[2018-10-28 16:10] VITALS: BP 149/78
--- NOTE | 2018-10-28 16:16 | Surgery Progress Note ---
Surgery Progress Note Subjective Additional Comments unchanged. stable. Objective Last 24 Hour Vital Signs Date Time Temp Pulse Resp B/P (MAP) Pulse Ox O2 Delivery O2 Flow Rate FiO2 10/28/18 12:00 97.6 85 17 119/62 (81) 97 10/28/18 08:00 Room Air 10/28/18 08:00 97.6 89 16 126/62 (83) 97 10/28/18 04:00 97.8 78 19 124/84 (97) 97 10/28/18 00:00 98.1 81 18 133/63 (86) 96 10/27/18 21:00 Room Air 10/27/18 20:00 97.6 89 18 121/67 (85) 98 I&O Intake and Output 10/27/18 10/28/18 18:59 06:59 Intake Total 800 ml 590 ml Balance 800 ml 590 ml Intake Oral 480 ml IV Total 110 ml Other 800 ml # Voids 3 3 Dressing: other Wound: other Drains: none Cardiovascular: RSR Respiratory: clear Abdomen: soft, flat, present bowel sounds, non-distended Extremities: other Plan Problems: (1) Foot osteomyelitis, left Assessment & Plan: Left foot osteo acute/chronic seen by podiatry prior and deemed not salvageable recommended to have left BKA patient refused surgery still refuses surgery and majority of care except pain medication appreciate vascular input pending results of CTA/Duplex Abx for 6 weeks, defer to ID MRI findings discussed with patient clear results were discussed with feedback loop to ensure she understands. patient expressed understanding and was very clear that surgery or amputation was an absolute no. states that "she would rather diet with both legs and feet than live with out one of them". d/c planning thank you (2) Sacral decubitus ulcer (3) Osteomyelitis Assessment & Plan: Abnormal T1 and STIR signal, presumably representing osteomyelitis, involving all of the bones of the midfoot as well as portions of the talus, calcaneus, distal tibia and distal fibula Extensive soft tissue edema, likely cellulitis given the above findings as stated clinical history Multiple midfoot fluid collections, presumed abscesses, also detailed in separate forefoot report. Additional small probable abscesses are seen in the lateral soft tissues inferior to the lateral malleolus (4) Rash and other nonspecific skin eruption Saqib Ndiaye Oct 28, 2018 16:16
--- NOTE | 2018-10-28 18:54 | General Progress Note ---
Assessment/Plan Problem List: (1) Diabetes mellitus ICD Codes: E11.9 - Type 2 diabetes mellitus without complications SNOMED: 19250700 (2) Anxiety disorder ICD Codes: F41.9 - Anxiety disorder, unspecified SNOMED: 650375139 (3) Osteomyelitis ICD Codes: M86.9 - Osteomyelitis, unspecified SNOMED: 01657282 (4) Sacral decubitus ulcer ICD Codes: L89.159 - Pressure ulcer of sacral region, unspecified stage SNOMED: 038799301 (5) Foot osteomyelitis, left ICD Codes: M86.9 - Osteomyelitis, unspecified SNOMED: 5853333929316394 Qualifiers: Qualified Codes: M86.8X7 - Other osteomyelitis, ankle and foot (6) MDD (major depressive disorder) ICD Codes: F32.9 - Major depressive disorder, single episode, unspecified SNOMED: 166753985 Status: progressing Assessment/Plan psych patient oseomylitis in different areas refuses care vitals stable Subjective ROS Limited/Unobtainable: Yes Allergies: Coded Allergies: No Known Allergies (Unverified , 10/19/16) Subjective generalized pain Objective Last 24 Hour Vital Signs Date Time Temp Pulse Resp B/P (MAP) Pulse Ox O2 Delivery O2 Flow Rate FiO2 10/28/18 16:10 97.7 89 18 149/78 (101) 94 10/28/18 12:00 97.6 85 17 119/62 (81) 97 10/28/18 08:00 Room Air 10/28/18 08:00 97.6 89 16 126/62 (83) 97 10/28/18 04:00 97.8 78 19 124/84 (97) 97 10/28/18 00:00 98.1 81 18 133/63 (86) 96 10/27/18 21:00 Room Air 10/27/18 20:00 97.6 89 18 121/67 (85) 98 Intake and Output 10/27/18 10/28/18 18:59 06:59 Intake Total 800 ml 590 ml Balance 800 ml 590 ml Intake Oral 480 ml IV Total 110 ml Other 800 ml # Voids 3 3 Height (Feet): 5 Height (Inches): 3.00 Weight (Pounds): 137 Cardiovascular: normal rate Respiratory/Chest: lungs clear Abdomen: soft Reina Dorsey MD Oct 28, 2018 18:54
--- NOTE | 2018-10-28 19:08 | NUR ---
HAND-OFF: Report given to Ms Forrester.
--- NOTE | 2018-10-28 19:20 | NUR ---
NURSE NOTES: Received patient in bed awake. Able to make needs known. PICC line intact and flushed as order. Bed in lowest position and locked. Wound dressing intact, no drainage noted. Call light within reach. Will continue to monitor.
[2018-10-28 20:00] VITALS: BP 145/72
[2018-10-28] MEDS: Miralax 17gm pkt ORAL SCH (20:58)
[2018-10-28] MEDS: Dyna-Hex 2% Top Sol 2oz TOPIC SCH (20:58)
--- NOTE | 2018-10-28 22:00 | Cardiology Progress Note ---
Assessment/Plan Assessment/Plan 1. Sinus tachycardia likely due to hypovolemia, keep hydrated, electrolyte replacement. 2. Moderate pulmonary HTN 3. Left foot osteomyelitis, left BKA has been recommended, refusing surgery. Subjective Subjective No cardiac events reported. Objective Last 24 Hour Vital Signs Date Time Temp Pulse Resp B/P (MAP) Pulse Ox O2 Delivery O2 Flow Rate FiO2 10/28/18 16:10 97.7 89 18 149/78 (101) 94 10/28/18 12:00 97.6 85 17 119/62 (81) 97 10/28/18 08:00 Room Air 10/28/18 08:00 97.6 89 16 126/62 (83) 97 10/28/18 04:00 97.8 78 19 124/84 (97) 97 10/28/18 00:00 98.1 81 18 133/63 (86) 96 Intake and Output 10/27/18 10/28/18 19:00 07:00 Intake Total 800 ml 590 ml Balance 800 ml 590 ml Intake Oral 480 ml IV Total 110 ml Other 800 ml # Voids 3 3 2D Echo: LVEF 60%, Mild LVH, RVSP 50 mmHg, Grade I LVDD Microbiology Date/Time Source Procedure Growth Status 10/26/18 18:40 Foot Left Gram Stain - Final Resulted 10/26/18 18:40 Foot Left Wound Culture - Preliminary NO GROWTH AFTER 24 HOURS Resulted Objective HEENT: normocephalic, atraumatic, bilateral eye PERRL, bilateral eye EOMI, moist mucus membranes Neck: no JVD, no carotid bruit. Respiratory: normal inspection, lungs clear, normal breath sounds, no respiratory distress, no retraction, no wheezing, speaking full sentences, chest symmetrical Cardiovascular: normal inspection, regular rate, rhythm, no edema, no murmurs, gallops or rubs. Gastrointestinal: normal inspection, non tender, soft, non-distended, no guarding Musculoskeletal: Left foot edematous, ulceration around the first metatarsal, edema, tender to palpation Sal Edge MD Oct 28, 2018 22:00
--- NOTE | 2018-10-28 22:18 | General Progress Note ---
Assessment/Plan Problem List: (1) MDD (major depressive disorder) ICD Codes: F32.9 - Major depressive disorder, single episode, unspecified SNOMED: 823423269 (2) Anxiety disorder ICD Codes: F41.9 - Anxiety disorder, unspecified SNOMED: 244490231 Assessment/Plan Remeron 7.5mg po qhs Prozac 20mg po qam provided ro/st Subjective Neurologic/Psychiatric: Reports: anxiety, depressed, emotional problems Allergies: Coded Allergies: No Known Allergies (Unverified , 10/19/16) Subjective non compliant irritable and angry Objective Last 24 Hour Vital Signs Date Time Temp Pulse Resp B/P (MAP) Pulse Ox O2 Delivery O2 Flow Rate FiO2 10/28/18 16:10 97.7 89 18 149/78 (101) 94 10/28/18 12:00 97.6 85 17 119/62 (81) 97 10/28/18 08:00 Room Air 10/28/18 08:00 97.6 89 16 126/62 (83) 97 10/28/18 04:00 97.8 78 19 124/84 (97) 97 10/28/18 00:00 98.1 81 18 133/63 (86) 96 Intake and Output 10/27/18 10/28/18 19:00 07:00 Intake Total 800 ml 590 ml Balance 800 ml 590 ml Intake Oral 480 ml IV Total 110 ml Other 800 ml # Voids 3 3 Height (Feet): 5 Height (Inches): 3.00 Weight (Pounds): 137 Barry De La O MD Oct 28, 2018 22:18
[2018-10-29] VITALS: BP 128/65
[2018-10-29] MEDS: Morphine Sulfate 2mg/ml Inj(IV/IM USE ONLY) IVP PRN ×4 (01:28→16:24)
[2018-10-29 04:00] VITALS: BP 117/63
[2018-10-29] MEDS: NovoLOG Insulin Flexpen SUBQ SCH ×6 (05:53→17:04)
--- NOTE | 2018-10-29 07:12 | NUR ---
NURSE NOTES: Received patient in bed, patient asleep,no sign respiratory distress. PICC line on left upper arm, patent and intact. dressing on left foot, dry and intact. Bed in lowest position. Call light within reach. Will continue to monitor. canelo hunt
--- NOTE | 2018-10-29 07:18 | NUR ---
HAND-OFF: Report given to Arlene Sorenson RN.
[2018-10-29 08:00] VITALS: BP 115/55
--- NOTE | 2018-10-29 08:05 | General Progress Note ---
Assessment/Plan Problem List: (1) Diabetes mellitus ICD Codes: E11.9 - Type 2 diabetes mellitus without complications SNOMED: 61633376 (2) Rash and other nonspecific skin eruption ICD Codes: R21 - Rash and other nonspecific skin eruption SNOMED: 394917932, 931581679 (3) Foot osteomyelitis, left ICD Codes: M86.9 - Osteomyelitis, unspecified SNOMED: 6829799488278453 Qualifiers: Qualified Codes: M86.8X7 - Other osteomyelitis, ankle and foot (4) MDD (major depressive disorder) ICD Codes: F32.9 - Major depressive disorder, single episode, unspecified SNOMED: 083699194 Assessment/Plan change Levemir to 24 units qhs continue Novolog 9 units ac tid continue NISS ac / hs Subjective Allergies: Coded Allergies: No Known Allergies (Unverified , 10/19/16) All Systems: reviewed and negative except above Subjective events noted she's bee refusing am dose of Levemir 30 units glucose elevated as the result Item Value Date Time Bedside Blood Glucose 231 mg/dl H 10/29/18 0554 Bedside Blood Glucose 235 mg/dl H 10/28/18 2114 Bedside Blood Glucose 168 mg/dl H 10/28/18 1628 Bedside Blood Glucose 216 mg/dl H 10/28/18 1200 Bedside Blood Glucose 137 mg/dl H 10/28/18 0809 Objective Last 24 Hour Vital Signs Date Time Temp Pulse Resp B/P (MAP) Pulse Ox O2 Delivery O2 Flow Rate FiO2 10/29/18 04:00 97.8 81 18 117/63 (81) 95 10/29/18 00:00 98.0 84 18 128/65 (86) 96 10/28/18 21:00 Room Air 10/28/18 20:00 98.3 84 17 145/72 (96) 95 10/28/18 16:10 97.7 89 18 149/78 (101) 94 10/28/18 12:00 97.6 85 17 119/62 (81) 97 Intake and Output 10/28/18 10/29/18 19:00 07:00 Intake Total 600 ml 960 ml Balance 600 ml 960 ml Intake Oral 600 ml 960 ml # Voids 3 3 Height (Feet): 5 Height (Inches): 3.00 Weight (Pounds): 137 General Appearance: no apparent distress Neck: normal alignment Cardiovascular: normal rate Respiratory/Chest: lungs clear Abdomen: normal bowel sounds Objective Current Medications Medications (Trade) Dose Ordered Sig/Manda Route PRN Reason Start Time Stop Time Status Last Admin Dose Admin Acetaminophen (Tylenol) 650 mg Q4H PRN ORAL Mild Pain/Temp > 100.5 10/20/18 00:15 11/19/18 00:14 Cefepime HCl 2 gm/ Dextrose 110 ml @ 220 mls/hr EVERY 12 HOURS IV 10/24/18 21:00 10/31/18 20:59 10/28/18 20:58 Chlorhexidine Gluconate (Kerri-Hex 2%) 1 applic DAILY@2000 TOPIC 10/24/18 20:00 11/23/18 19:59 10/28/18 20:58 Clonidine HCl (Catapres Tab) 0.1 mg Q4H PRN ORAL For High BP 160 syst and up 10/20/18 16:15 11/19/18 00:14 Dextrose (Dextrose 50%) 25 ml Q30M PRN IV Hypoglycemia 10/25/18 06:30 11/24/18 06:29 Dextrose (Dextrose 50%) 50 ml Q30M PRN IV Hypoglycemia 10/25/18 06:30 11/24/18 06:29 Famotidine (Pepcid) 20 mg BID ORAL 10/20/18 18:00 11/19/18 17:59 10/27/18 10:01 Fluconazole (Diflucan) 100 mg DAILY ORAL 10/27/18 12:15 11/03/18 12:14 10/28/18 08:11 Fluoxetine HCl (PROzac) 20 mg DAILY ORAL 10/21/18 09:00 11/20/18 08:59 Folic Acid (Folate) 3 mg DAILY ORAL 10/21/18 09:00 11/20/18 08:59 10/27/18 10:01 Heparin Sodium (Porcine) (Heparin 5000 units/ml) 5,000 units EVERY 12 HOURS SUBQ 10/20/18 09:00 11/19/18 08:59 10/28/18 20:59 Insulin Aspart (NovoLOG) BEFORE MEALS AND HS SUBQ 10/20/18 06:30 11/19/18 06:29 10/29/18 05:54 Insulin Aspart (NovoLOG) 9 units NOVOTIAC SUBQ 10/27/18 11:50 11/19/18 06:29 10/29/18 05:53 Insulin Detemir (Levemir) 10 units BEDTIME SUBQ 10/25/18 21:00 11/24/18 20:59 10/28/18 21:14 Insulin Detemir (Levemir) 30 units DAILY SUBQ 10/26/18 09:00 11/19/18 20:59 10/27/18 10:05 Mirtazapine (Remeron) 7.5 mg BEDTIME ORAL 10/20/18 21:00 11/19/18 20:59 10/20/18 20:23 Morphine Sulfate (Morphine Sulfate) 2 mg Q4H PRN IVP For Pain 10/27/18 06:00 11/03/18 05:59 10/29/18 05:52 Nitroglycerin (Ntg) 0.4 mg Q5M PRN SL Prn Chest Pain 10/20/18 00:15 11/19/18 00:14 Ondansetron HCl (Zofran) 4 mg Q6H PRN IVP Nausea & Vomiting 10/20/18 00:15 11/19/18 00:14 Polyethylene Glycol (Miralax) 17 gm BEDTIME ORAL 10/20/18 21:00 11/19/18 20:59 Brendan Johnson MD Oct 29, 2018 08:05
[2018-10-29] MEDS: Fluconazole 100mg tab ORAL SCH (08:39)
[2018-10-29] MEDS: Cefepime 2gm/D5W 110ml IV SCH ×2 (08:39)
[2018-10-29] MEDS: Heparin 5000 units/ml inj SUBQ SCH (08:42)
[2018-10-29 12:00] VITALS: BP 140/73
--- NOTE | 2018-10-29 12:58 | Nephrology Progress Note ---
Assessment/Plan Problem List: (1) Hyponatremia (2) Diabetes mellitus (3) Foot osteomyelitis, left (4) Diabetic nephropathy (5) Anemia Assessment gets MS round the clock HypoNatremia due to hyperglycemia Anemia Low MCV Left foot Osteo Hyperglycemia UTI Proteinuria/ Diabetic nephropathy Plan no labs yet refuses care- transfusion, IV... BS control will raise serum Na anemia lee per ID per orders Subjective ROS Limited/Unobtainable: No Objective Objective Last 24 Hour Vital Signs Date Time Temp Pulse Resp B/P (MAP) Pulse Ox O2 Delivery O2 Flow Rate FiO2 10/29/18 12:00 98.2 81 20 140/73 (95) 99 10/29/18 08:00 97.7 93 18 115/55 (75) 99 10/29/18 08:00 Room Air 10/29/18 04:00 97.8 81 18 117/63 (81) 95 10/29/18 00:00 98.0 84 18 128/65 (86) 96 10/28/18 21:00 Room Air 10/28/18 20:00 98.3 84 17 145/72 (96) 95 10/28/18 16:10 97.7 89 18 149/78 (101) 94 Intake and Output 10/28/18 10/29/18 18:59 06:59 Intake Total 600 ml 960 ml Balance 600 ml 960 ml Intake Oral 600 ml 960 ml # Voids 3 3 Height (Feet): 5 Height (Inches): 3.00 Weight (Pounds): 137 General Appearance: no apparent distress Objective no change Francisco Tapia MD Oct 29, 2018 12:57
--- NOTE | 2018-10-29 13:39 | General Progress Note ---
Assessment/Plan Problem List: (1) Diabetes mellitus ICD Codes: E11.9 - Type 2 diabetes mellitus without complications SNOMED: 13710142 (2) Anxiety disorder ICD Codes: F41.9 - Anxiety disorder, unspecified SNOMED: 519956947 (3) Osteomyelitis ICD Codes: M86.9 - Osteomyelitis, unspecified SNOMED: 49947346 (4) Sacral decubitus ulcer ICD Codes: L89.159 - Pressure ulcer of sacral region, unspecified stage SNOMED: 155556340 (5) Foot osteomyelitis, left ICD Codes: M86.9 - Osteomyelitis, unspecified SNOMED: 1058761414555357 Qualifiers: Qualified Codes: M86.8X7 - Other osteomyelitis, ankle and foot (6) MDD (major depressive disorder) ICD Codes: F32.9 - Major depressive disorder, single episode, unspecified SNOMED: 666925158 Status: progressing Assessment/Plan psych patient oseomylitis in different areas afebrile multiple wounds abx per id for weeks Subjective ROS Limited/Unobtainable: Yes Allergies: Coded Allergies: No Known Allergies (Unverified , 10/19/16) Subjective generalized pain Objective Last 24 Hour Vital Signs Date Time Temp Pulse Resp B/P (MAP) Pulse Ox O2 Delivery O2 Flow Rate FiO2 10/29/18 12:00 98.2 81 20 140/73 (95) 99 10/29/18 08:00 97.7 93 18 115/55 (75) 99 10/29/18 08:00 Room Air 10/29/18 04:00 97.8 81 18 117/63 (81) 95 10/29/18 00:00 98.0 84 18 128/65 (86) 96 10/28/18 21:00 Room Air 10/28/18 20:00 98.3 84 17 145/72 (96) 95 10/28/18 16:10 97.7 89 18 149/78 (101) 94 Intake and Output 10/28/18 10/29/18 19:00 07:00 Intake Total 600 ml 960 ml Balance 600 ml 960 ml Intake Oral 600 ml 960 ml # Voids 3 3 Height (Feet): 5 Height (Inches): 3.00 Weight (Pounds): 137 Neck: supple Cardiovascular: normal rate Respiratory/Chest: lungs clear Abdomen: soft Reina Dorsey MD Oct 29, 2018 13:39
--- NOTE | 2018-10-29 13:59 | Infectious Diseases Prog Note ---
Assessment/Plan Assessment/Plan A 1. left foot osteomyelitis 2. diabetes mellitus 3. leucocytosis resolved 4. Anemia 5. Major depression 6. Candidal vaginitis P 1, continue Cefepime and Fluconazole Subjective ROS Limited/Unobtainable: Yes Allergies: Coded Allergies: No Known Allergies (Unverified , 10/19/16) Objective Vital Signs Last 24 Hour Vital Signs Date Time Temp Pulse Resp B/P (MAP) Pulse Ox O2 Delivery O2 Flow Rate FiO2 10/29/18 12:00 98.2 81 20 140/73 (95) 99 10/29/18 08:00 97.7 93 18 115/55 (75) 99 10/29/18 08:00 Room Air 10/29/18 04:00 97.8 81 18 117/63 (81) 95 10/29/18 00:00 98.0 84 18 128/65 (86) 96 10/28/18 21:00 Room Air 10/28/18 20:00 98.3 84 17 145/72 (96) 95 10/28/18 16:10 97.7 89 18 149/78 (101) 94 Height (Feet): 5 Height (Inches): 3.00 Weight (Pounds): 137 General Appearance: no acute distress HEENT: mucous membranes moist Respiratory/Chest: lungs clear Cardiovascular: normal rate Abdomen: soft, non tender Extremities: other - left leg edema Neurologic/Psychiatric: other - sleeping Microbiology Date/Time Source Procedure Growth Status 10/26/18 18:40 Foot Left Gram Stain - Final Resulted 10/26/18 18:40 Foot Left Wound Culture - Preliminary NO GROWTH AFTER 48 HOURS Resulted Current Medications Medications (Trade) Dose Ordered Sig/Manda Route PRN Reason Start Time Stop Time Status Last Admin Dose Admin Acetaminophen (Tylenol) 650 mg Q4H PRN ORAL Mild Pain/Temp > 100.5 10/20/18 00:15 11/19/18 00:14 Cefepime HCl 2 gm/ Dextrose 110 ml @ 220 mls/hr EVERY 12 HOURS IV 10/24/18 21:00 10/31/18 20:59 10/29/18 08:39 Chlorhexidine Gluconate (Kerri-Hex 2%) 1 applic DAILY@2000 TOPIC 10/24/18 20:00 11/23/18 19:59 10/28/18 20:58 Clonidine HCl (Catapres Tab) 0.1 mg Q4H PRN ORAL For High BP 160 syst and up 10/20/18 16:15 11/19/18 00:14 Dextrose (Dextrose 50%) 25 ml Q30M PRN IV Hypoglycemia 10/25/18 06:30 11/24/18 06:29 Dextrose (Dextrose 50%) 50 ml Q30M PRN IV Hypoglycemia 10/25/18 06:30 11/24/18 06:29 Famotidine (Pepcid) 20 mg BID ORAL 10/20/18 18:00 11/19/18 17:59 10/27/18 10:01 Fluconazole (Diflucan) 100 mg DAILY ORAL 10/27/18 12:15 11/03/18 12:14 10/29/18 08:39 Fluoxetine HCl (PROzac) 20 mg DAILY ORAL 10/21/18 09:00 11/20/18 08:59 Folic Acid (Folate) 3 mg DAILY ORAL 10/21/18 09:00 11/20/18 08:59 10/29/18 08:39 Heparin Sodium (Porcine) (Heparin 5000 units/ml) 5,000 units EVERY 12 HOURS SUBQ 10/20/18 09:00 11/19/18 08:59 10/29/18 08:42 Insulin Aspart (NovoLOG) BEFORE MEALS AND HS SUBQ 10/20/18 06:30 11/19/18 06:29 10/29/18 12:07 Insulin Aspart (NovoLOG) 9 units NOVOTIAC SUBQ 10/27/18 11:50 11/19/18 06:29 10/29/18 05:53 Insulin Detemir (Levemir) 24 units BEDTIME SUBQ 10/29/18 21:00 11/24/18 20:59 Mirtazapine (Remeron) 7.5 mg BEDTIME ORAL 10/20/18 21:00 11/19/18 20:59 10/20/18 20:23 Morphine Sulfate (Morphine Sulfate) 2 mg Q4H PRN IVP For Pain 10/27/18 06:00 11/03/18 05:59 10/29/18 12:12 Nitroglycerin (Ntg) 0.4 mg Q5M PRN SL Prn Chest Pain 10/20/18 00:15 11/19/18 00:14 Ondansetron HCl (Zofran) 4 mg Q6H PRN IVP Nausea & Vomiting 10/20/18 00:15 11/19/18 00:14 Polyethylene Glycol (Miralax) 17 gm BEDTIME ORAL 10/20/18 21:00 11/19/18 20:59 Anton Arambula MD Oct 29, 2018 13:59
--- NOTE | 2018-10-29 15:52 | Surgery Progress Note ---
Surgery Progress Note Subjective Additional Comments no acute events. unchanged Objective Last 24 Hour Vital Signs Date Time Temp Pulse Resp B/P (MAP) Pulse Ox O2 Delivery O2 Flow Rate FiO2 10/29/18 12:00 98.2 81 20 140/73 (95) 99 10/29/18 08:00 97.7 93 18 115/55 (75) 99 10/29/18 08:00 Room Air 10/29/18 04:00 97.8 81 18 117/63 (81) 95 10/29/18 00:00 98.0 84 18 128/65 (86) 96 10/28/18 21:00 Room Air 10/28/18 20:00 98.3 84 17 145/72 (96) 95 10/28/18 16:10 97.7 89 18 149/78 (101) 94 I&O Intake and Output 10/28/18 10/29/18 18:59 06:59 Intake Total 600 ml 960 ml Balance 600 ml 960 ml Intake Oral 600 ml 960 ml # Voids 3 3 Dressing: other Wound: other Drains: other Cardiovascular: RSR Respiratory: clear Abdomen: soft, non-tender, non-distended Extremities: other Plan Problems: (1) Foot osteomyelitis, left Assessment & Plan: Left foot osteo acute/chronic seen by podiatry prior and deemed not salvageable recommended to have left BKA patient refused surgery still refuses surgery and majority of care except pain medication appreciate vascular input pending results of CTA/Duplex Abx for 6 weeks, defer to ID MRI findings discussed with patient clear results were discussed with feedback loop to ensure she understands. patient expressed understanding and was very clear that surgery or amputation was an absolute no. states that "she would rather diet with both legs and feet than live with out one of them". d/c planning thank you (2) Sacral decubitus ulcer (3) Osteomyelitis Assessment & Plan: Abnormal T1 and STIR signal, presumably representing osteomyelitis, involving all of the bones of the midfoot as well as portions of the talus, calcaneus, distal tibia and distal fibula Extensive soft tissue edema, likely cellulitis given the above findings as stated clinical history Multiple midfoot fluid collections, presumed abscesses, also detailed in separate forefoot report. Additional small probable abscesses are seen in the lateral soft tissues inferior to the lateral malleolus (4) Rash and other nonspecific skin eruption Saqib Ndiayeb 17, 2019 15:52
[2018-10-29 16:19] VITALS: BP 134/59
[2018-10-29] MEDS ORDERED: Tubing IV Secondary IV ONE (18:19)
--- NOTE | 2018-10-29 18:30 | NUR ---
nurse notes 1800 patient yelling and shouting on the hallway demands to talk to Dr Dorsey, explained patient will call Dr Dorsey will wait for MD to call us back,and Dr Dorsey came to see her this morning, Marco Antonio SINGH called security , ,still patient upsent and stated wants to sign AMA, Changed her hospital gown to street clothes, signed AMA, Divina DAVIS called Dr Dorsey notified regarding patient signed AMA and patient have picc line, PICC line dcd as ordered ,no bleeding noted, Nursing supervisor refining Felicia osorio [id number] Left the room in stable condition accompanied by correctional security officer with all belongings taken patient ambulate using a walker canelo hunt
--- NOTE | 2018-10-29 20:09 | General Progress Note ---
Assessment/Plan Problem List: (1) MDD (major depressive disorder) ICD Codes: F32.9 - Major depressive disorder, single episode, unspecified SNOMED: 372403982 (2) Anxiety disorder ICD Codes: F41.9 - Anxiety disorder, unspecified SNOMED: 724999452 Assessment/Plan Remeron 7.5mg po qhs Prozac 20mg po qam provided ro/st Subjective Neurologic/Psychiatric: Reports: anxiety, depressed Allergies: Coded Allergies: No Known Allergies (Unverified , 10/19/16) Subjective non compliant irritable and angry Objective Last 24 Hour Vital Signs Date Time Temp Pulse Resp B/P (MAP) Pulse Ox O2 Delivery O2 Flow Rate FiO2 10/29/18 16:19 98.1 71 20 134/59 (84) 99 10/29/18 12:00 98.2 81 20 140/73 (95) 99 10/29/18 08:00 97.7 93 18 115/55 (75) 99 10/29/18 08:00 Room Air 10/29/18 04:00 97.8 81 18 117/63 (81) 95 10/29/18 00:00 98.0 84 18 128/65 (86) 96 10/28/18 21:00 Room Air Intake and Output 10/28/18 10/29/18 18:59 06:59 Intake Total 600 ml 960 ml Balance 600 ml 960 ml Intake Oral 600 ml 960 ml # Voids 3 3 Height (Feet): 5 Height (Inches): 3.00 Weight (Pounds): 137 Barry De La O MD Oct 29, 2018 20:09
[2018-10-29] MEDS ORDERED: Cefepime HCl 2 GM in D5W 110 ML IV SCH (21:00)
[2018-10-29] MEDS ORDERED: Levemir Flexpen SUBQ SCH (21:00)
--- NOTE | 2018-10-31 10:39 | Discharge Summary ---
Discharge Summary Discharge Summary _ DATE OF ADMISSION: 10/19/2018 DATE OF DISCHARGE: 10/29/2018. Patient signed against medical advice REASON FOR ADMISSION: 53 years old female with past medical history of diabetes mellitus, hypertension , sacral pressure ulcer , homeless, presented with left foot pain. Patient left AGAINST MEDICAL ADVICE from this hospital a day prior to presentation to ED. At that time she was diagnosed with osteomyelitis and was recommended to have below-knee amputation , but she declined and left AGAINST MEDICAL ADVICE. She was also agitated and was refusing IV antibiotics. Patient was found by delaney Sinha Jr. Paramedics brought her in for further evaluation and management for left foot pain. Upon evaluation vital signs were stable. Laboratory workup revealed leukocytosis WBC 12.9, hemoglobin 8, hematocrit 26.6. Platelet count 569. Sodium 130, stable renal parameters. Glucose 426. Lactic acid 3.2 stable LFT Albumin 1.9. EKG revealed normal sinus rhythm, no acute ischemic changes. Chest x-ray revealed no acute cardiopulmonary pathology. Patient admitted for further management.psis CONSULTANTS: grinding and spraying supervisor Dr. Minesh REINOSO specialist Dr. Gerard fisher trawl line Dr. Tapia buzzle buffer/oncologist Dr. Rubin surgery Dr. Ndiaye psychiatrist services account manager Dr. Pete insurance analyst Dr. Johnson vascular surgeon Dr. Dalal HOSPITAL COURSE: Patient admitted to medical surgical floor. Infectious disease specialist followed. Blood cultures were negative. Wound culture of the left foot ulcer revealed no evidence of growth. Patient was on cefepime and fluconazole. Patient remained afebrile. Vascular surgeon seen the patient. Patient refused left leg below-knee amputation prior. Vascular surgeon recommended venous duplex, CT angiogram , podiatry evaluation and psychiatric evaluation. Patient had palpable pedal pulses. Left foot MRI revealed marrow edema most likely representing osteomyelitis, involving all of the metatarsals as well as possibly the first proximal and distal phalanx. Left ankle MRI revealed abnormal signal, presumably representing osteomyelitis, involving all of the bones of the mid foot as well as portions of talus, calcaneus, distal tibia and distal fibula. Extensive tissue edema likely cellulitis noted; multiply mid foot fluid collection, presumed abscesses. Bone scan revealed findings consistent with osteomyelitis in the ankle, midfoot and forefoot and corresponding to findings reported on MRI. More subtle changes noted in first distal phalanx possibly indicative of osteomyelitis Venous duplex bilateral lower extremity revealed no evidence of acute DVT. CTA of the abdomen run off with and without contrast revealed evidence of extensive cellulitis, soft tissue abscess formation and osteomyelitis of the left foot, as described on recent MRI. Pathological fracture of the midfoot noted. Gas Cutter seen and evaluated patient, but was unable to access left ankle or remove dressing , since patient was combative. MRI confirmed osteomyelitis . Gas Cutter recommended below-knee amputation of left lower extremity , provided patient will consent. No surgical intervention by podiatry was indicated at this time. General surgeon closely followed . Patient with evidence of left foot osteomyelitis , acute and chronic. Patient seen by podiatry, as mentioned above , and extremity deemed to be not salvageable. Surgeon recommended left below-knee amputation. Patient declined surgery. Patient also declined majority of care, except pain medication. At this time surgeon recommended conservative management with antibiotic for 6 weeks. Wound care for sacral decubitus provided as per surgeon recommendation Manager Architectural followed. Blood sugar was managed with long-acting Levemir and short acting NovoLog with meals. Sliding scale of insulin provided as needed. Patient was educated on compliance with medication regimen and diabetic diet. Hemoglobin A1c 13.3. Nutritional recommendation implemented and plan of care. Neurologist followed. Hyponatremia was due to hyperglycemia. Patient also had diabetic nephropathy / proteinuria. As blood sugar was better controlled, sodium up to 138. Renal parameters and electrolytes were closely monitored. Electrolytes corrected as needed. Nephrotoxins were avoided. Hemoglobin and hematocrit were closely monitored with goal to keep hemoglobin above 7. Anemia workup revealed evidence of iron deficiency anemia. Patient started on IV Venofer 100 mg for 5 doses. Patient undergone transfusion of 1 unit of packed red blood cells on 10/23. Patient was counseled on smoking cessation. Corporate Tutor followed for sinus tachycardia. Sinus tachycardia was likely due to hypovolemia. Patient was kept hydrated , and sinus tachycardia resolved. Echocardiogram revealed preserved ejection fraction of 60% with mild left ventricular hypertrophy. No evidence of wall motion abnormality. Right ventricular systolic pressure was elevated and consistent with moderate pulmonary hypertension. Per psychiatrist , patient had major depressive disorder and anxiety disorder. Reality orientation supportive therapy provided. Patient was continued on Remeron and Prozac. On 10/29 patient decided to sign AGAINST MEDICAL ADVICE. The risks and consequences of signing AGAINST MEDICAL ADVICE were discussed with patient in detail. Patient verbalized understanding, nevertheless signed AMA form and left. FINAL DIAGNOSES: Left foot osteomyelitis Diabetes mellitus out of control( hemoglobin A1c 13.3) Diabetic nephropathy Hyponatremia Moderate pulmonary hypertension Anemia of iron deficiency Major depressive disorder Anxiety disorder Gayla vaginitis Homelessness Current smoker Sacral decubitus ulcer present on admission I have been assigned to dictate discharge summary for this account. I was not involved in the patient's management. Niki Hanna NP Oct 31, 2018 10:39
== END 2018-10-29 18:20 | disposition left against medical advice (07) | DRG 344 ==
LOC: EDUNIT# 15:53 → EDBD 15:53 → EMR 16:43 → 4E 16:49 → EDBEDREQ 17:07 → 4E 23:39 → SDSOVERFLO 10-20 11:36 → 4E 10-20 11:38 → SDSOVERFLO 10-20 11:40 → 2E 10-20 11:43 → 4E 10-20 11:57
PROC: B518ZZA Fluoroscopy of Superior Vena Cava, Guidance (ICD-10-PCS; principal; 2018-10-24)
PROC: 02HV33Z Insertion of Infusion Device into Superior Vena Cava, Percutaneous Approach (ICD-10-PCS; principal; 2018-10-24)
DX: M86.172 Other acute osteomyelitis, left ankle and foot (principal); E11.00 Type 2 diabetes mellitus with hyperosmolarity without nonketotic hyperglycemic-hyperosmolar coma (NKHHC); L89.159 Pressure ulcer of sacral region, unspecified stage; E11.21 Type 2 diabetes mellitus with diabetic nephropathy; E87.1 Hypo-osmolality and hyponatremia; I27.20 Pulmonary hypertension, unspecified; B37.3 Candidiasis of vulva and vagina; E11.65 Type 2 diabetes mellitus with hyperglycemia; E86.1 Hypovolemia; M86.162 Other acute osteomyelitis, left tibia and fibula; I10 Essential (primary) hypertension; Z59.0 Homelessness; D50.9 Iron deficiency anemia, unspecified; R00.0 Tachycardia, unspecified; F32.9 Major depressive disorder, single episode, unspecified; F41.9 Anxiety disorder, unspecified; Z91.19 Patient's noncompliance with other medical treatment and regimen; Z72.0 Tobacco use; R21 Rash and other nonspecific skin eruption; N39.0 Urinary tract infection, site not specified; D47.3 Essential (hemorrhagic) thrombocythemia; R07.89 Other chest pain
CPT/HCPCS: 36415; 36569; 71045; 75635; 76937; 78315; 80053; 80061; 80202; 81003; 82607; 82728; 82746; 82962; 83036; 83540; 83550; 83605; 83735; 83880; 84100; 84443; 84550; 85007; 85025; 85610; 85730; 86140; 86850; 86900; 86901; 86920; 87040; 87070; 87081; 87205; 93005; 93306; 93925; 93970; 94640; 94664; 96361; 96365; 96368; 96375; 96376; 99285; J1815; J2405; J7620; S5561